=== PATIENT | female | born 1960 | race Caucasian/White ===

== ENCOUNTER 2024-03-12 12:21 | Outpatient (OUT) | payer OTHER, SELFPAY ==
--- NOTE | 2024-03-12 12:29 | ECG_ITS ---
[facility] Test Date: 2024-03-12 Pat Name: RINA BYNUM Department: Room: - Gender: Female [place]aser: : 1960 Requested By: ARTI RICHARDSON Order Number: [id number] Reading MD: JAMES MULLINS Measurements Intervals [place] Rate: 61 P: 20 SD: 147 QRS: -6 QRSD: 89 T: 10 QT: 414 QTc: 417 Interpretive Statements SINUS RHYTHM LOW QRS VOLTAGE IN PRECORDIAL LEADS [QRS DEFLECTION < 1.0 mV IN CHEST LEADS] NONSPECIFIC T-WAVE ABNORMALITY No previous ECG available for comparison Electronically Signed On 03-12-2024 22:49:58 EDT by JAMES MULLINS
--- NOTE | 2024-03-12 13:15 | P.GSHP_ITS ---
History of Present Illness History of Present Illness Chief complaint: uretheral stricture Narrative: Patient presents for preadmission testing. The patient reports a long history of urethral stricture with frequent urinary tract infections and many previous urethral dilations and cystoscopies in the past. The patient states recently she has had an increase of urgency and leaking of urine. She states she has intermittent dysuria as well. She denies fever, nausea, vomiting, or any other complaints. 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 Review of Systems ROS Narrative REVIEW OF SYSTEMS: Negative except as stated in HPI, ten or more systems reviewed. Constitutional: No fever, chills, weakness ENT: No sore throat or epistaxis Cardiovascular: No edema, chest pain, palpitations, or activity intolerance Respiratory: No shortness of breath, cough, or wheezing Musculoskeletal: No joint pain or swelling; chronic back and neck pain Gastrointestinal: No abdominal pain, constipation, diarrhea, or vomiting Neurological: No numbness, tingling, weakness, or headache Psychiatric: No mood changes PFSH PFS Medical History (Updated 03/12/24 @ 13:10 by Pina Pettit NP) Encounter for biopsy ?Z76.89 - Persons encountering health services in other specified circumstances (ICD-10) Neck pain ?M54.2 - Cervicalgia (ICD-10) Back pain ?M54.9 - Dorsalgia, unspecified (ICD-10) Insomnia ?G47.00 - Insomnia, unspecified (ICD-10) Major depressive disorder ?F32.9 - Major depressive disorder, single episode, unspecified (ICD-10) Anxiety ?F41.9 - Anxiety disorder, unspecified (ICD-10) COVID-19 ?U07.1 - COVID-19 (ICD-10) Migraine ?G43.909 - Migraine, unspecified, not intractable, without status migrainosus (ICD-10) Constipation ?K59.00 - Constipation, unspecified (ICD-10) Heartburn ?R12 - Heartburn (ICD-10) Nerve damage ?T14.8XXA - Other injury of unspecified body region, initial encounter (ICD- 10) Malignant hyperthermia ?T88.3XXA - Malignant hyperthermia due to anesthesia, initial encounter (ICD- 10) Dilation of urethra ?N36.8 - Other specified disorders of urethra (ICD-10) Urinary urgency ?R39.15 - Urgency of urination (ICD-10) Urge incontinence ?N39.41 - Urge incontinence (ICD-10) Lipoma ?D17.9 - Benign lipomatous neoplasm, unspecified (ICD-10) Incontinence ?R32 - Unspecified urinary incontinence (ICD-10) Incomplete bladder emptying ?R33.9 - Retention of urine, unspecified (ICD-10) Gall stone ?K80.20 - Calculus of gallbladder without cholecystitis without obstruction (ICD-10) Depression ?F32.A - Depression, unspecified (ICD-10) Chronic cystitis ?N30.20 - Other chronic cystitis without hematuria (ICD-10) Bladder pain ?R39.89 - Other symptoms and signs involving the genitourinary system (ICD- 10) Stricture of female urethra ?N35.92 - Unspecified urethral stricture, female (ICD-10) Surgical History (Updated 03/12/24 @ 12:56 by Pina Pettit NP) History of lumbar laminectomy ?Z98.890 - Other specified postprocedural states (ICD-10) H/O lumbar discectomy ?Z98.890 - Other specified postprocedural states (ICD-10) H/O cervical spinal arthrodesis ?Z98.1 - Arthrodesis status (ICD-10) Hx of tonsillectomy ?Z90.89 - Acquired absence of other organs (ICD-10) History of hysterectomy ?Z90.710 - Acquired absence of both cervix and uterus (ICD-10) H/O colonoscopy ?Z98.890 - Other specified postprocedural states (ICD-10) History of cholecystectomy ?Z90.49 - Acquired absence of other specified parts of digestive tract (ICD- 10) History of appendectomy ?Z90.49 - Acquired absence of other specified parts of digestive tract (ICD- 10) History of bladder suspension procedure ?Z98.890 - Other specified postprocedural states (ICD-10) ?Z87.448 - Personal history of other diseases of urinary system (ICD-10) H/O cystoscopy ?Z98.890 - Other specified postprocedural states (ICD-10) Family History (Updated 03/12/24 @ 12:56 by Pina Pettit NP) Other Family history of Parkinson disease Family history of breast cancer Family history of hypertension Family history of myocardial infarction Hypertriglyceridemia Malignant hyperthermia Mesothelioma Social History (Updated 03/12/24 @ 12:48 by Pina Pettit NP) Within the past year, how often did you have a drink containing alcohol: 2-4 times a month Smoking status: Never smoker Non-prescribed substance use: denies use 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 Highest level of school completed/degree received: Associate degree: academic program Meds Home Medications and Allergies Home Medications ?Medication ?Instructions ?Recorded ?Confirmed ?Type bupropion HCl 150 mg 24 hr tablet, 150 mg PO QPM 03/12/24 03/12/24 History extended release estradiol 0.01% (0.1 mg/gram) 0.25 appful vaginal DAILY 03/12/24 03/12/24 History vaginal cream estradiol-norethindrone acet 1 1 tab PO DAILY 03/12/24 03/12/24 History mg-0.5 mg tablet ([place]) lurasidone 20 mg tablet 20 mg PO QPM 03/12/24 03/12/24 History nitrofurantoin 100 mg PO DAILY 03/12/24 03/12/24 History monohydrate/macrocrystals 100 mg capsule pregabalin 100 mg capsule 100 mg PO Q8H 03/12/24 03/12/24 History Allergies Allergy/AdvReac Type Severity Reaction Status Date / Time meperidine [From Demerol] Allergy Hypotension Verified 03/12/24 12:44 morphine Allergy cardiac Verified 03/12/24 12:44 arrest Penicillins Allergy Hives Verified 03/12/24 12:44 prochlorperazine Allergy neurological Verified 03/12/24 12:44 [From Compazine] problem Sulfa (Sulfonamide Allergy Rash Verified 03/12/24 12:44 Antibiotics) Exam Narrative Exam Narrative: Constitutional: Awake, alert, comfortable, well-appearing, nontoxic, interactive, vital signs as charted Head: Normocephalic, atraumatic Neck: Supple, normal appearance, normal range of motion, no meningeal signs, no lymphadenopathy Respiratory: No respiratory distress, breath sounds clear Cardiovascular: Regular rate and rhythm, strong and regular heart tones Abdomen: Nontender, normal bowel sounds, soft, no CVA tenderness Musculoskeletal: Normal gait, no swelling or edema Skin: No rashes or induration, no lesions, only visible skin inspected Neuro: No neurological deficits, normal sensation Psychiatric: Oriented ?3, normal affect Assessment and Plan Assessment and Plan (1) Stricture of female urethra: (2) Bladder pain: (3) Chronic cystitis: (4) Malignant hyperthermia: Plan Cystoscopy, urethral dilation scheduled with Dr. Odom March 22, 2024.
[2024-03-12 13:20] LABS: Basophils Percent Auto 0.8 % (0.2-2.0); Eosinophils Absolute Auto 0.1 10^3/uL (0.0-0.7); Eosinophils Percent Auto 1.9 % (0.9-7.0); Hematocrit 38.9 % (36.0-48.0); Hemoglobin 12.9 g/dL (12.0-16.0); Immature Granulocytes Abs Auto 0.01 10^3/uL (0.00-0.03); Immature Granulocytes Pct Auto 0.2 % (0.0-0.5); Lymphocytes Absolute Auto 1.8 10^3/uL (1.2-3.8); Lymphocytes Percent Auto 38.4 % (20.5-60.0); Mean Corpuscular HGB Conc 33.2 g/dL (29.9-35.2); Mean Corpuscular Hemoglobin 30.8 pg (26.7-34.0); Mean Corpuscular Volume 92.8 fL (81.0-99.0); Mean Platelet Volume 9.6 fL (9.5-13.5); Monocytes Absolute Auto 0.4 10^3/uL (0.3-0.8); Monocytes Percent Auto 7.4 % (1.7-12.0); Neutrophils Absolute Auto 2.4 10^3/uL (1.4-6.5); Neutrophils Percent Auto 51.3 % (43.0-75.0); Platelet Count 218 10^3/uL (150-450); Red Blood Count 4.19 10^6/uL (4.20-5.40); Red Cell Distribution Width 13.1 % (11.0-15.0); White Blood Count 4.7 10^3/uL (4.0-11.0)
[2024-03-12 13:59] LABS: Anion Gap 17.2; BUN Creatinine Ratio 14.3; Calcium 8.9 mg/dL (8.5-10.1); Carbon Dioxide 22.6 mmol/L (21.0-32.0); Chloride 106 mmol/L (98-107); Estimated GFR (African America >60 (>=60); Estimated GFR (Non-African Ame 58 (>=60); Glucose 87 mg/dL (74-106); Potassium 3.8 mmol/L (3.5-5.1); Sodium 142 mmol/L (136-145)
== END 2024-03-12 12:22 | disposition home or self-care (01) ==
LOC: PST 12:24
PROVIDERS: PCP Internal Medicine; Visit Provider Urology
DX: Z01.810 Encounter for preprocedural cardiovascular examination (principal); Z01.812 Encounter for preprocedural laboratory examination; Z01.818 Encounter for other preprocedural examination; N35.92 Unspecified urethral stricture, female
CPT/HCPCS: 80048; 85025; 93005; G0463

== ENCOUNTER 2024-03-22 07:56 | Day surgery (SDC) | payer OTHER, SELFPAY ==
[2024-03-12 13:07] VITALS: BP 128/82; PULSE 58; TEMP 36.6; O2SAT 99; BMI 27.0
[2024-03-22 08:00] VITALS: BP 108/64; PULSE 72; TEMP 36.6; O2SAT 100; BMI 27.2
--- OUTSIDE RECORDS SUMMARY | 2024-03-22 08:06 | XMS_ITS | CCD ---
Author Organization [facility] Care Team Providers Care 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 Name Role Phone RON HELMS) Unavailable Unavailable RON HELMS) Unavailable Unavailable RON HELMS) Unavailable Unavailable RON HELMS) Unavailable Unavailable RON HELMS) Unavailable Unavailable RON HELMS) Unavailable Unavailable RON HELMS) Unavailable Unavailable Emanuel Haro Attending Unavailable Emanuel Haro Attending Unavailable FREDERICK JUNIOR Admitting Unavailable CEE, VASYL Attending Unavailable AUDIE TORRES Consulting Unavailable KARLEEY, EDWIN Primary Care Unavailable KAREN ESPARZA Consulting Unavailable CEE, VASYL Referring Unavailable RALOFSKY, EDWIN Primary Care Unavailable CEE, VASYL Referring Unavailable RALOFSKY, EDWIN Primary Care Unavailable CEE, VASYL Referring Unavailable RALOFSKY, EDWIN Primary Care Unavailable CEE, VASYL Referring Unavailable RALOFSKY, EDWIN Primary Care Unavailable CEE, VASYL Referring Unavailable RALOFSKY, EDWIN Primary Care Unavailable CEE, VASYL Admitting Unavailable CEE, VASYL Attending Unavailable CEE, VASYL Referring Unavailable RALOFSKY, EDWIN Primary Care Unavailable GILDARDO MCCLOUD Consulting Unavailable EMANUEL HARO Consulting Unavailable CEE, VASYL Referring Unavailable LEE, FREDERICK B Primary Care Unavailable CEE, VASYL Referring Unavailable LEE, FREDERICK B Primary Care Unavailable CEE, VASYL Referring Unavailable LEE, FREDERICK B Primary Care Unavailable CEE, VASYL Referring Unavailable LEE, FREDERICK B Primary Care Unavailable CEE, VASYL Referring Unavailable LEE, FREDERICK B Primary Care Unavailable CEE, VASYL Referring Unavailable LEE, FREDERICK B Primary Care Unavailable CEE, VASYL Referring Unavailable LEE, FREDERICK B Primary Care Unavailable CEE, VASYL Referring Unavailable LEE, FREDERICK B Primary Care Unavailable ECE, VASYL Referring Unavailable LEE, FREDERICK B Primary Care Unavailable CEE, VASYL Referring Unavailable LEE, FREDERICK B Primary Care Unavailable CEE, VASYL Referring Unavailable LEE, FREDERICK B Primary Care Unavailable CEE, VASYL Referring Unavailable LEE, FREDERICK B Primary Care Unavailable ECE, VASYL Referring Unavailable LEE, FREDERICK B Primary Care Unavailable CEE, VASYL Referring Unavailable LEE, FREDERICK B Primary Care Unavailable CEE, VASYL Referring Unavailable LEE, FREDERICK B Primary Care Unavailable CEE, VASYL Referring Unavailable LEE, FREDERICK B Primary Care Unavailable CEE, VASYL Referring Unavailable LEE, FREDERICK B Primary Care Unavailable CEE, VASYL Referring Unavailable LEE, FREDERICK B Primary Care Unavailable CEE, VASYL Referring Unavailable LEE, FREDERICK B Primary Care Unavailable LEE, FREDERICK B Primary Care Unavailable LEE, FREDERICK B Primary Care Unavailable LEE, FREDERICK B Primary Care Unavailable LEE, FREDERICK B Primary Care Unavailable LEE, FREDERICK B Primary Care Unavailable MARI ALVARADO N Admitting Unavailable CEE, VASYL Attending Unavailable GILDARDO MCCLOUD Consulting Unavailable LEE, FREDERICK B Primary Care Unavailable Lee, Frederick B Primary Care Provider ESTEFANY, RSP SHIVAM Referring Unavailable ESTEFANY, RSP SHIVAM Attending Unavailable LEE II, FREDERICK B Primary Care Unavailable LEE II, FREDERICK B Primary Care Unavailable HEATHER CANELA Attending Unavailable ESTEFANY, RSP SHIVAM Referring Unavailable LEE II, FREDERICK B Primary Care Unavailable SELF, SELF Referring Unavailable ALYSSIA OVERTON Attending Unavailable ESTEFANY, RSP SHIVAM Attending Unavailable LEE II, FREDERICK B Primary Care Unavailable SELF, SELF Referring Unavailable Lee Frederick BETHEA Primary Care Provider TANIA ., DR MORGAN Attending Unavailabl e KARASIK ., DR MORGAN Admitting Unavailabl e LEE, DR MCNAMARA Primary Care Unavailable KARASIK ., DR MORGAN Consulting Unavailabl e LEE, DR MCNAMARA Primary Care Unavailable KARASIK ., DR MORGAN Attending Unavailabl e LEE, DR MCNAMARA Consulting Unavailable KARASIK ., DR MORGAN Admitting Unavailabl e KARASIK ., DR MORGAN Consulting Unavailabl e LEE, DR MCNAMARA Consulting Unavailable LEE, DR MCNAMARA Attending Unavailable LEE, DR MCNAMARA Admitting Unavailable LEE, DR MCNAMARA Primary Care Unavailable ZIEBER, DR ABDOULAYE Perez Consulting Unavailable LEE, DR MCNAMARA Primary Care Unavailable LEE, DR MCNAMARA Consulting Unavailable LEE, DR MCNAMARA Attending Unavailable LEE, DR MCNAMARA Admitting Unavailable ZIEBER, DR ABDOULAYE Perez Consulting Unavailable KARASIK ., DR MORGAN Attending Unavailabl e KARASIK ., DR MORGAN Admitting Unavailabl e LEE, DR MCNAMARA Primary Care Unavailable KARASIK ., DR MORGAN Consulting Unavailabl e Jacks, Emmanuelle W Admitting Unavailable LEE, FREDERICK Primary Care Unavailable Emmanuelle Ballard W Attending Unavailable FREDERICK LEE Primary Care Unavailable MD Sunil Bautista Attending Unavailab MD Sunil Núñez Admitting Unavailab le FREDERICK LEE Primary Care Unavailable FREDERICK LEE Primary Care Unavailable MD Sunil Bautista Attending Unavailab MD Sunil Núñez Admitting Unavailab le Lee, II Frederick Primary Care Provider MD Eddie Hancock Attending Provider MD Ariana Brown Attending Provider Frederick Lee MD Primary Care Provider [phone] FREDERICK LEE Primary Care Physician AHAMMAD, COLLETTE Referring Unavailable FREDERICK LEE Primary Care Unavailable AHAMMAD, COLLETTE Referring Unavailable FREDERICK LEE Primary Care Unavailable AHAMMAD, COLLETTE Referring Unavailable FREDERICK LEE B Primary Care Unavailable AHAMMAD, COLLETTE Referring Unavailable FREDERICK LEE B Primary Care Unavailable AHAMMAD, COLLETTE Attending Unavailable AHAMMAD, COLLETTE Referring Unavailable FREDERICK LEE B Primary Care Unavailable KHADARS, EMMANUELLE W Referring Unavailable FREDERICK LEE B Primary Care Unavailable JACKS, EMMANUELLE W Referring Unavailable FREDERICK LEE B Primary Care Unavailable Jesus, II Frederick Primary Care Provider [phone] DO Harshal Kevin Attending Provider [phone] AsaAriana franklin Admitting Unavailable Ariana Brown Attending Unavailable Frederick Lee Primary Care Unavailable Frederick Lee Primary Care Unavailable Harshal Kevin Admitting Unavailable Harshal Kevin Attending Unavailable RICHARDSON, Spike R Attending Unavailable RICHARDSON, Spike R Attending Unavailable RICHARDSON, Spike R Attending Unavailable RICHARDSON, Spike R Attending Unavailable RICHARDSON, Spike R Attending Unavailable DUSTIN, CAM E Attending Unavailable RICHARDSON, Spike R Attending Unavailable RICHARDSON, Spike R Admitting Unavailable RICHARDSON, Spike R Referring Unavailable RICHARDSON, Spike R Attending Unavailable Orzech, Irina X Attending Unavailable Orzech, Irina X Admitting Unavailable DUSTINCAM E Attending Unavailable DUSTIN, CAM E Admitting Unavailable RICHARDSON, Spike R Attending Unavailable HARSHAL KEVIN Attending Unavailable HARSHAL KEVIN Referring Unavailable FREDERICK LEE Attending Unavailable LEEFREDERICK Attending Unavailable Allergies Allergy Classification Reported Allergen(s) Allergy Type Date of Onset Reaction(s) Facility Opioid [facility]on[facility] (2 sources) Meperidine; Translations: [meperidine] Drug Allergy Malignant hyperthermia (finding), Respiratory arrest (disorder) [facility] Penicillins (antibiotic) (1 source) Penicillins; Translations: [penicillins] Drug Allergy Eruption of skin (disorder) [facility] Prochlorperazine (1 source) Prochlorperazine; Translations: [prochlorperazine] Drug Allergy Unknown (qualifier value) [facility] Sulfonamides (antibiotic) (1 source) Sulfonamides (Antibiotic); Translations: [sulfa drugs] Drug Allergy Eruption of skin (disorder) [facility] (2 sources) meperidine; Translations: [MEPERIDINE (PF)] Drug Allergy 02-01-20 06 [facility] Repository (20 sources) morphine; Translations: [MORPHINE] Drug Allergy 02-01-20 06 Anaphylaxis, Itching, Respiratory arrest (disorder) [facility] Repository (20 sources) Penicillins; Translations: [PENICILLINS] Propensity to adverse reactions to drug (disorder) 02-01-20 06 Hives, Eruption of skin (disorder) [facility] Repository (6 sources) Sulfonamides (Antibiotic); Translations: [SULFA (SULFONAMIDE ANTIBIOTICS)] Propensity to adverse reactions to drug (disorder) 02-01-20 06 Rash [facility] Repository (9 sources) PROCHLORPERAZINE EDISYLATE; Translations: [PROCHLORPERAZINE EDISYLATE] Propensity to adverse reactions to drug (disorder) 02-01-20 06 Other (See Comments) [facility] Repository (2 sources) OTHER; Translations: [OTHER] Propensity to adverse reactions (disorder) 02-01-20 06 [facility] Repository (6 sources) HYDROmorphone Drug Allergy 12-05-19 14 Itching [place], [place] (18 sources) Meperidine; Translations: [meperidine] Drug Allergy 02-01-20 06 Other (See Comments), Malignant hyperthermia (finding) [place], [place] (1 source) Sulfonamides (Antibiotic) Propensity to adverse reactions to drug 11-07-19 13 Itching [place], [place] (6 sources) Sulfonamides (Antibiotic) Propensity to adverse reactions to drug 11-07-19 13 Itching [facility] Phone: (4 sources) penicillAMINE Drug Allergy 07-22-19 23 Rash [facility] Phone: (1 source) Acetaminophen / oxyCODONE Drug Allergy 02-07-20 14 [facility] Repository (1 source) fentaNYL Drug Allergy 02-07-20 14 [facility] Repository (1 source) HYDROmorphone Drug Allergy 02-07-20 14 [facility] Repository (1 source) Meperidine Drug Allergy 01-17-20 13 [facility] Repository (1 source) Prochlorperazine Drug Allergy 01-17-20 13 [facility] Repository (1 source) Sulfonamides (Antibiotic) Drug allergy (disorder) 01-17-20 13 [facility] Repository (15 sources) Prochlorperazine; Translations: [prochlorperazine] Drug Allergy 02-04-20 Unknown (qualifier value) [facility] Repository (11 sources) Sulfonamides (Antibiotic); Translations: [sulfa drugs] Propensity to adverse reactions to drug (disorder) Eruption of skin (disorder) [facility] Repository (4 sources) Metoclopramide; Translations: [metoclopramide] Drug Allergy 02-08-20 restlessness and axiety [facility] Medications Current Medications Medication Drug Class(es) Dates Sig (Normalized) Sig (Original) ciprofloxacin 500 mg oral tablet (4 sources) Quinolone Antimicrobial Start: 07-12-2023 take 1 tablet by mouth twice daily Cipro 500 mg Tab 500 mg = 1 tab(s), Oral, BID, start one day prior to procedure, # 10 tab(s), Refills(s) 0, Pharmacy: [id number], 164, cm, 07/12/23 7:37:00 EST, Height/Length Dosing, 80, kg, 07/12/23 7:37:00 EST, Weight Dosing Start Date: 07/12/23 Status: Ordered doxycycline monohydrate 100 mg oral capsule (1 source) Tetracycline-class Drug Start: 01-18-2020 take 1 capsule by mouth once daily doxycycline monohydrate 100 mg oral capsule 100 mg = 1 cap(s), Oral, Daily, # 30 cap(s), Refills(s) 0, Pharmacy: [facility] Start Date: 01/18/20 Status: Ordered estradiol 0.1 mg/ml vaginal cream (9 sources) Estrogen Start: 07-12-2023 estradiol 0.1 mg/g Vag Crm 1 gm, Vaginal, MonWedFri, 42.5 gm, Refill(s) 3, Apply a pea size amount around urethra, plunge 1 gm vaginally., [facility], 164, cm, 07/12/23 7:37:00 EST, Height/Length Dosing, 80, kg, 07/12/23 7:37:00 EST, Weight Dosing Start Date: 07/12/23 Status: Ordered Start: 05-17-2023 estradiol 0.1 mg/g Vag Crm 1 gm, Vaginal, MonFri, 42.5 gm, Refill(s) 3, Apply a pea size amount around urethra, plunge 1 gm vaginally., [facility], 164, cm, 05/17/23 9:12:00 EST, Height/Length Dosing, 80.8, kg, 05/17/23 9:12:00 EST, Weight Dosing Start Date: 05/17/23 Status: Ordered Premarin (12 sources) Estrogen Start: 04-27-2019 Premarin Oral, Daily, Refills(s) 0 Start Date: 04/27/19 Status: Ordered take 1 tablet by gricel once daily estrogens, conjugated, (PREMARIN) 0.9 MG tablet Take 0.9 mg by mouth daily 0 Active End: 02-10-2019 ESTROGENS CONJUGATED PO Lilly cations: Applies patch on Wednesdays and Sundays 1 patch Indications: Applies patch on Wednesdays and Sundays 0 02/10/2019 Discontinued (Stop Taking at Discharge) ibuprofen 600 mg oral tablet (1 source) Nonsteroidal Anti-inflammatory Drug Start: 08-08-2022 ibuprofen (ADVIL;MOTRIN) tablet 600 mg lithium carbonate 150 mg oral capsule (2 sources) Start: 02-10-2019 take 1 capsule by mouth twice daily at mealtime lithium 150 MG capsule Take 1 capsule by mouth 2 times daily (with meals) 30 capsule 2 02/10/2019 Active lurasidone hydrochloride 20 mg oral tablet (12 sources) Atypical Antipsychotic Start: 11-25-2022 take 1 tablet by mouth once daily Latuda 20 mg oral tablet 20 mg = 1 tab(s), Oral, Daily, # 30 tab(s), Refills(s) 0 Start Date: 05/17/23 Status: Ordered meloxicam 7.5 mg oral tablet (2 sources) Nonsteroidal Anti-inflammatory Drug Start: 09-20-2018 take 1 tablet by mouth twice daily at mealtime meloxicam (MOBIC) 7.5 MG tablet Take 1 tablet by mouth 2 times daily (with meals) 30 tablet 2 09/20/2018 Active methocarbamol 750 mg oral tablet (2 sources) Muscle Relaxant Start: 08-06-2022 End: 08-18-2022 take 1 tablet by mouth four times daily methocarbamol (ROBAXIN) 750 MG tablet Take 1 tablet by mouth 4 times daily for 10 days 40 tablet 0 08/08/2022 08/18/2022 Active 24 hr mirabegron 50 mg extended release oral tablet (5 sources) beta3-Adrenergic Agonist Start: 05-17-2023 take 1 tablet by mouth once daily Myrbetriq 50 mg oral tablet, extended release 50 mg = 1 tab(s), Oral, Daily, # 30 tab(s), Refills(s) 11, Pharmacy: [facility], 164, cm, 05/17/23 9:12:00 EST, Height/Length Dosing, 80.8, kg, 05/17/23 9:12:00 EST, Weight Dosing Start Date: 05/17/23 Status: Ordered nefazodone hydrochloride 50 mg oral tablet (2 sources) Serotonin Reuptake Inhibitor Start: 02-10-2019 take 1 tablet by mouth once daily nefazodone (SERZONE) 50 MG tablet Take 1 tablet by mouth Daily with supper 30 tablet 1 02/10/2019 Active nitrofurantoin, macrocrystals 25 mg / nitrofurantoin, monohydrate 75 mg oral capsule (4 sources) Nitrofuran Antibacterial Start: 10-18-2023 End: 05-31-2024 take 1 capsule by mouth once daily Macrobid 100 mg Cap 100 mg = 1 cap(s), Oral, Daily, X 60 day(s), # 60 cap(s), Refills(s) 1, Pharmacy: [facility], 164, cm, 02/01/24 11:14:00 EDT, Height/Length Dosing, 76, kg, 02/01/24 11:14:00 EDT, Weight Dosing Start Date: 02/01/24 Stop Date: 05/31/24 Status: Ordered norethindrone 0.35 mg oral tablet (2 sources) Start: 12-15-2022 Norethindrone (Contraceptive) Active 0.35 MG PO As Directed December 15, 2022 12:00am omeprazole 40 mg delayed release oral capsule (8 sources) Proton Pump Inhibitor Start: 12-15-2022 Omeprazole Active 40 MG PO As Directed December 15, 2022 12:00am Start: 12-15-2022 End: 07-22-2022 Omeprazole Active 40 MG PO A s Directed December 15, 2022 12:00am ondansetron (ZOFRAN-ODT) disintegrating tablet 4 mg (1 source) Start: 08-05-2022 ondansetron (Z OFRAN-ODT) disintegrating tablet 4 mg oxyCODONE hydrochloride 5 mg oral tablet (2 sources) Opioid Agonist Start: 08-08-2022 End: 2022 oxyCODONE (ROXICODONE) 5 MG immediate release tablet Indications: Acute post-operative pain , S/P cervical spinal fusion Take 1-2 tablets by mouth every 6 hours as needed for Pain for up to 7 days. Max Daily Amount: 40 mg 56 tablet 0 08/08/2022 2022 Active Start: 08-05-2022 oxyCODONE (SEBASTIAN ICODONE) immediate release tablet 5 mg predniSONE 20 mg oral tablet (1 source) Start: 08-08-2022 End: 08-23-2022 take 3 tablets by mouth once daily, then take 2 tablets by mouth once daily, then take 1 tablet by mouth once daily predniSONE (DELTASONE) 20 MG tablet Take 3 tablets by mouth daily for 5 days, THEN 2 tablets daily for 5 days, THEN 1 tablet daily for 5 days. 30 tablet 0 08/08/2022 08/23/2022 Active trospium chloride 20 mg oral tablet (1 source) Cholinergic Muscarinic Antagonist Start: 05-02-2019 take 1 tablet by mouth twice daily trospium 20 mg oral tablet 20 mg = 1 tab(s), Oral, BID, # 60 tab(s), Refills(s) 5, Pharmacy: [facility] Start Date: 05/02/19 Status: Ordered Completed/Discontinued Medications Medication Drug Class(es) Dates Sig (Normalized) Sig (Original) acetaminophen 325 mg oral tablet (1 source) Start: 08-05-2022 take 650 mg by mouth every six hours, then take 4000 mg by mouth every twenty-four hours 650 mg, Oral, EVERY 6 HOURS, First dose on Tue08/05/22 at 1630, Until Discontinued Maximum dose of acetaminophen is 4000 mg from all sources in 24 hours. Post-op bisacodyl 10 mg rectal suppository (1 source) Stimulant Laxative Start: 08-05-2022 take 10 mg rectal route once daily as needed 10 mg, Rectal, DAILY PRN, Starting on Tue08/05/22 at 1601, Until Discontinued, Constipation Second line therapy for constipation, After 24 hours, if no result from first line PRN therapy, give second line therapy in combination with first line therapy. Post-op 24 hr buPROPion hydrochloride 150 mg extended release oral tablet (19 sources) Aminoketone Start: 08-06-2022 take 150 mg by mouth once daily in the morning 150 mg, Oral, EVERY MORNING, First dose on Tue08/06/22 at 0900, Until Discontinued Do not crush or break. Post-op Start: 04-27-2019 take 300 mg by mouth once demian y Wellbutrin SR 300 mg, Oral, Daily, Refills(s) 0 Start Date: 04/27/19 Status: Ordered buPROPion (WELLB UTRIN XL) 300 MG extended release tablet Take 150 mg by mouth every morning 0 Active calcium chloride 0.0014 meq/ml / potassium chloride 0.004 meq/ml / sodium chloride 0.103 meq/ml / sodium lactate 0.028 meq/ml injectable solution (1 source) Start: 08-05-2022 End: 08-05-2022 lactated ringers IV soln infusion 1,000 mL ceFAZolin (ANCEF) 2000 mg in sterile water 20 mL IV syringe (1 source) Start: 08-05-2022 End: 08-06-2022 2,000 mg, IntraVENous, EVERY 8 HOURS, 2 doses, First dose on Marielena 08/05/22 at 2000, Last dose on Tue08/06/22 at 0400 Antimicrobial Indications: Surgical Prophylaxis Administer over 5 mins. Post-op cephalexin 500 mg oral capsule (1 source) Cephalosporin Antibacterial Start: 05-17-2023 End: 05-19-2023 take 1 tablet by mouth once daily Keflex 500 mg Cap 500 mg = 1 cap(s), Oral, Daily, take one tab day of procedure before procedure, take one tab day after procedure, X 2 day(s), # 2 cap(s), Refills(s) 0, Pharmacy: [facility], 164, cm, 05/17/23 9:12:00 EST, Height/Length Dosing, 80.8, kg, 05/17/23 9:12:00 EST, Weight Dosing Start Date: 05/17/23 Stop Date: 05/19/23 Status: Ordered cholecalciferol 0.05 mg oral tablet (4 sources) Vitamin D End: 07-22-2022 take 1 tablet by mouth once daily Cholecalciferol 2000 units TABS Take 2,000 Units by mouth daily 0 07/22/2022 Discontinued (Therapy completed) clonazePAM 0.5 mg oral tablet (1 source) Benzodiazepine Start: 10-09-2018 End: 02-06-2019 take 0.5 tablet by mouth three times daily as needed for anxiety clonazePAM (KLONOPIN) 0.5 MG tablet Indications: MDD (major depressive disorder), recurrent severe, 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 30 tablet 0 10/09/2018 02/06/2019 Discontinued (Therapy completed) dicyclomine hydrochloride 20 mg oral tablet (3 sources) Anticholinergic Start: 02-08-2020 End: 12-15-2022 take 20 mg by mouth once before mealtime Dicyclomine Discontinued 20 MG PO 3x/Day before meals & bedtime February 08, 2020 12:00am December 15, 2022 7:45am docusate sodium 50 mg / sennosides, long term 8.6 mg oral tablet (1 source) Start: 08-05-2022 take 1 tablet by mouth twice daily 1 tablet, Oral, 2 TIMES DAILY, First dose on Tue08/05/22 at 2100, Until Discontinued, Post-op 0.4 ml enoxaparin sodium 100 mg/ml prefilled syringe (1 source) Low Molecular Weight Heparin Start: 08-06-2022 inject 40 mg by subcutaneous injection once daily 40 mg, SubCUTAneous, DAILY, First dose on Tue08/06/22 at 0900, Until Discontinued Indication of Use: Prophylaxis-DVT/PE Pharmacy to dose if renal insufficiency present. Post-op 84 hr estradiol 0.77632 mg/hr / norethindrone acetate 0.0104 mg/hr transdermal system (5 sources) Estrogen Start: 08-05-2022 apply 1 dose transdermal route two times weekly, then apply 1 dose transdermal route once daily 1 patch, TransDERmal, TWICE WEEKLY (Once per day on Tue), First dose on Tue08/05/22 at 1630, Until Discontinued, Post-op apply 0.05-0.25 mg t ransdermal route once daily estradiol-norethindrone (COMBIPATCH) 0.0 5-0.25 MG/DAY Place 1 patch onto the skin Twice a Week Tuesday and 0 Active 2 ml fentaNYL 0.05 mg/ml injection (1 source) Opioid Agonist Start: 08-05-2022 End: 08-05-2022 fentaNYL (SUBLIMAZE) injection 25 mcg 1 ml HYDROmorphone hydrochloride 1 mg/ml cartridge (1 source) Opioid Agonist Start: 08-05-2022 End: 08-05-2022 HYDROmorphone (DILAUDID) injection 0.5 mg 1 ml ketorolac tromethamine 30 mg/ml cartridge (1 source) Nonsteroidal Anti-inflammatory Drug, Cyclooxygenase Inhibitor Start: 08-05-2022 End: 08-06-2022 ketorolac (TORADOL) injection 15 mg Lactobacillus acidophilus (1 source) Start: 10-09-2018 End: 02-06-2019 take 4 tablets by mouth three times daily lactobacillus acidophilus (FLORANEX) Take 4 tablets by mouth 3 times daily 0 10/09/2018 02/06/2019 Discontinued (LIST CLEANUP) loperamide hydrochloride 2 mg oral capsule (3 sources) Opioid Agonist Start: 02-08-2020 End: 12-15-2022 take 2 mg by mouth every two hours Loperamide Discontinued 2 MG PO Q2H 20 February 08, 2020 12:00am December 15, 2022 7:45am magnesium hydroxide 80 mg/ml oral suspension (1 source) Start: 08-05-2022 take 30 mL by mouth once daily as needed 30 mL, Oral, DAILY PRN, Starting on Tue08/05/22 at 1601, Until Discontinued, Constipation First line therapy for constipation. Post-op melatonin 5 mg oral tablet (16 sources) Start: 02-04-2020 End: 12-15-2022 take 5 mg by mouth at bedtime Melatonin Discontinued 5 MG PO Bedtime February 04, 2020 12:00am December 15, 2022 7:46am Start: 05-02-2019 Melatonin Once a day (at bedtime), Refills(s) 0 Start Date: 05/02/19 Status: Ordered Start: 10-09-2018 End: 07-22-2022 take 5 tablets by mouth once daily as needed for sleep melatonin 1 MG tablet Take 5 tablets by mouth nightly as needed for Sleep 0 10/09/2018 07/22/2022 Discontinued (Therapy completed) mirtazapine 15 mg oral tablet (1 source) End: 02-10-2019 take 7.5 mg by mouth once daily mirtazapine (REMERON) 15 MG tablet Take 7.5 mg by mouth nightly 0 02/10/2019 Discontinued (Stop Taking at Discharge) nortriptyline 25 mg oral capsule (1 source) Tricyclic Antidepressant Start: 11-16-2018 End: 02-10-2019 nortriptyline (PAMELOR) 25 MG capsule 1 caps qam and 3 caps at night 120 capsule 1 11/16/2018 02/10/2019 Discontinued (Stop Taking at Discharge) pantoprazole 40 mg delayed release oral tablet (3 sources) Proton Pump Inhibitor Start: 08-05-2022 take 40 mg by mouth once daily 40 mg, Oral, DAILY, First dose on Marielena 08/05/22 at 1630, Until Discontinued Do not crush or break. Post-op Start: 10-10-2018 take 1 tablet by gricel th once daily before breakfast pantoprazole (PROTONIX) 40 MG tablet Take 1 tablet by mouth every morning (before breakfast) 30 tablet 1 10/10/2018 Active pregabalin 75 mg oral capsule (20 sources) Start: 08-05-2022 take 150 mg by mouth three times daily 150 mg, Oral, 3 TIMES DAILY, First dose on Marielena 08/05/22 at 1630, Until Discontinued, Post-op Start: 04-27-2019 take 150 mg by mouth three times daily Lyrica 150 mg, Oral, TID, Refills(s) 0 Start Date: 04/27/19 Status: Ordered promethazine hydrochloride 25 mg oral tablet (3 sources) Phenothiazine Start: 02-08-2020 End: 12-15-2022 take 25 mg by mouth three times daily Promethazine Discontinued 25 MG PO Three times daily February 08, 2020 12:00am December 15, 2022 7:47am 5 ml sodium chloride 9 mg/ml injection (4 sources) Start: 08-05-2022 take 1 dose intravenously twice daily 5-40 mL, IntraVENous, EVERY 12 HOURS SCHEDULED (2 times per day), First dose on Marielena 08/05/22 at 2100, Until Discontinued For Line Patency: Peripheral IV = 5 mL; Midline or Central Line = 10 mL/lumen.&nbs p; If following IV push medication, administer flush at same rate as the IV push. Flush volume is determined by type of infusion therapy being given. &nbsp ;For non-viscous solutions use: Periphe ral IV = 5 mL Midline or Central Line = 10 mL/lumen &nb sp;For viscous solutions (i.e. blood components, parenteral nutrition, contrast media, or after obtaining blood sample) use: Periphe ral IV = 10 mL Midline or Central Line = 20 mL/lumen Post-op Start: 08-05-2022 End: 08-07-2022 IntraVENous, at 100 mL/hr, CONTINUOUS, Starting on Marielena 08/05/22 at 1630, Post-op Start: 08-05-2022 IntraVENous, a t 5-250 mL/hr, PRN, if patient receiving piggyback infusions and maintenance fluids are not ordered OR KVO fluids to protect IV site / prevent frequent line interruptions/ long duration, Starting on Marielena 08/05/22 at 1601 For piggyback infusion, administer at same rate as piggyback for a total of 25 mL. Enter 25 mL into dose field and piggyback rate into rate field of order. If piggyback is infusing at a rate less than 100 mL/hr, enter 25 mL into dose field and 100 mL/hr into rate field of order. For KVO fluids, enter rate of 20 mL/hr or less into rate field of order. Post-op Start: 08-05-2022 take 5-40 mL intrave nously once as needed 5-40 mL, IntraVENous, PRN, Starting on Marielena 08/05/22 at 1601, Until Discontinued, Line Care, After every IV line use For Line Patency: Peripheral IV = 5 mL; Midline or Central Line = 10 mL/lumen. If following IV push medication, administer flush at same rate as the IV push. Flush volume is determined by type of infusion therapy being given. For non-viscous solutions use: Peripheral IV = 5 mL Midline or Central Line = 10 mL/lumen For viscous solutions (i.e. blood components, parenteral nutrition, contrast media, or after obtaining blood sample) use: Peripheral IV = 10 mL Midline or Central Line = 20 mL/lumen Post-op vitamin b12 1 mg oral tablet (4 sources) Vitamin B12 End: 07-22-2022 take 1 tablet by mouth once daily vitamin B-12 (CYANOCOBALAMIN) 1000 MCG tablet Take 1,000 mcg by mouth daily 0 07/22/2022 Discontinued (Therapy completed) Problems Active Problems Problem Classification Problem Date Documented Da te Episodic/Chronic Biliary tract disease (9 sources) Gallstone 04-27-2019 Episodic Calculus of urinary tract (18 sources) History of calculus of kidney; Translations: [Kidney stone] 04-27-2019 Episodic Essential hypertension (9 sources) Hypertensive disorder 04-27-2019 Chronic Fluid and electrolyte disorders (6 sources) Dehydration; Translations: [Dehydration] 02-05-2020 Episodic Genitourinary symptoms and ill-defined conditions (20 sources) Overflow incontinence; Translations: [Urge incontinence] Onset: 01-14-2017 Chronic Genitourinary symptoms and ill-defined conditions (20 sources) Retention of urine, unspecified; Translations: [Urgent desire to urinate] Onset: 01-14-2017 Episodic Headache; including migraine (9 sources) Migraine 04-27-2019 Chronic Immunizations and screening for infectious disease (1 source) Encounter for screening for human papillomavirus (HPV); Translations: [ENC SCREENING HUMAN PAPILLOMAVIRUS] Onset: 10-09-2022 Episodic Mood disorders (20 sources) Severe recurrent major depression without psychotic features; Translations: [Recurrent major depressive episodes] Onset: 09-16-2018 02-07-2019 Chronic Other and unspecified benign neoplasm (9 sources) Lipoma (clinical) 04-27-2019 Episodic Other bone disease and musculoskeletal deformities (4 sources) Other specified disorders of bone density and structure, unspecified site; Translations: [OTH D/O BONE DEN STRUCT UNS SITE] Onset: 07-19-2022 Episodic Other connective tissue disease (1 source) History of cervical spine fusion; Translations: [Arthrodesis status] Episodic Other gastrointestinal disorders (1 source) Irritable bowel syndrome with diarrhea; Translations: [Irritable bowel syndrome with diarrhea] Onset: 01-14-2017 Chronic Other gastrointestinal disorders (3 sources) History of bypass of stomach; Translations: [Bariatric surgery status] 02-05-2020 Episodic Other hereditary and degenerative nervous system conditions (7 sources) Restless legs; Translations: [Restless legs syndrome] Onset: 09-17-2018 09-17-2018 Chronic Other hereditary and degenerative nervous system conditions (3 sources) 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; Translations: [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] Onset: 01-05-2023 Chronic Other nervous system disorders (1 source) Acute postoperative pain; Translations: [Other acute postprocedural pain] Episodic Other non-traumatic joint disorders (7 sources) Arthropathy; Translations: [Arthropathy, unspecified] Onset: 08-02-2013 08-02-2013 Chronic Other nutritional; endocrine; and metabolic disorders (1 source) Morbid (severe) obesity due to excess calories; Translations: [Morbid (severe) obesity due to excess calories] Onset: 01-14-2017 Chronic Other screening for suspected conditions (not mental disorders or infectious disease) (5 sources) Encounter for screening for malignant neoplasm of cervix; Translations: [Encounter for screening mammogram for malignant neoplasm of breast] Onset: 10-05-2022 Episodic Residual codes; unclassified (7 sources) Chronic pain; Translations: [Other chronic pain] Onset: 09-17-2018 09-17-2018 Chronic Residual codes; unclassified (1 source) History of surgical procedure on cervical spine; Translations: [Other specified postprocedural states] Episodic Spondylosis; intervertebral disc disorders; other back problems (16 sources) Lumbar post-laminectomy syndrome; Translations: [Displacement of lumbar intervertebral disc without myelopathy] Onset: 04-12-2013 09-17-2018 Chronic Unclassified (1 source) Unknown / UNK(Unknown) Onset: 09-30-2017 Unclassified (1 source) Encounter for screening for malignant neoplasm of colon; Translations: [Encounter for screening for malignant neoplasm of colon] Onset: 12-15-2022 Urinary tract infections (15 sources) Chronic cystitis; Translations: [Other chronic cystitis without hematuria] Onset: 05-17-2023 Chronic Urinary tract infections (14 sources) Postinfective urethral stricture of female; Translations: [Postinfective urethral stricture, not elsewhere classified, female] Onset: 05-16-2023 Episodic Viral infection (3 sources) Disease caused by 2019-nCoV; Translations: [COVID-19] 02-04-2020 Episodic Past or Other Problems Problem Classification Problem Date Documented Da te Episodic/Chronic Abdominal hernia (1 source) Diaphragmatic hernia without obstruction or gangrene; Translations: [Diaphragmatic hernia without obstruction or gangrene] Onset: 01-14-2017 Episodic Malaise and fatigue (2 sources) Other malaise; Translations: [Other fatigue] Onset: 12-18-2021 Episodic Medical examination/evaluation (1 source) Encounter for other preprocedural examination; Translations: [Encounter for other preprocedural examination] Onset: 01-14-2017 Episodic Other and unspecified benign neoplasm (7 sources) Lipoma of spinal cord; Translations: [Benign lipomatous neoplasm of other sites] Onset: 09-17-2018 09-17-2018 Episodic Other connective tissue disease (7 sources) Muscle pain; Translations: [Myalgia, unspecified site] Onset: 09-17-2018 09-17-2018 Episodic Other connective tissue disease (4 sources) Other muscle spasm; Translations: [OTHER MUSCLE SPASM] Onset: 01-28-2022 Episodic Other connective tissue disease (1 source) Myalgia, unspecified site; Translations: [MYALGIA UNSPECIFIED SITE] Onset: 12-18-2021 Episodic Other gastrointestinal disorders (3 sources) Functional diarrhea; Translations: [Full incontinence of feces] Onset: 01-14-2017 Episodic Other nervous system disorders (1 source) Other acute postprocedural pain; Translations: [Other acute postprocedural pain] Onset: 01-24-2017 Episodic Other non-traumatic joint disorders (7 sources) Multiple joint pain; Translations: [Pain in unspecified joint] Onset: 09-17-2018 09-17-2018 Episodic Other non-traumatic joint disorders (1 source) Pain in unspecified joint; Translations: [PAIN IN UNSPECIFIED JOINT] Onset: 12-18-2021 Episodic Residual codes; unclassified (7 sources) H/O Spinal surgery; Translations: [Other specified postprocedural states] Onset: 09-17-2018 09-17-2018 Episodic Residual codes; unclassified (1 source) Other specified postprocedural states; Translations: [Other specified postprocedural states] Onset: 10-06-2022 Episodic Spondylosis; intervertebral disc disorders; other back problems (20 sources) Chronic low back pain; Translations: [Low back pain] Onset: 09-17-2018 09-17-2018 Episodic Unclassified (1 source) Personal history of other specified conditions; Translations: [Personal history of other specified conditions] Onset: 01-14-2017 Episodic Results Test Name Value Interpretation Reference Range Facility Ambulatory Visit Summaryon 0 02-01-2024 Ambulatory Visit Summary Ambulatory Visit Summary RINA LEE :1960 Visit Date:02/01/2024 Ambulatory Visit Instructions Your Diagnosis Postinfective urethral 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 Bladder pain Chronic cystitis without hematuria Urge incontinence Incomplete bladder emptying Your Care Team Attending Physician - Spike RICHARDSON MD Primary Care Physician - FREDERICK LEE MD This Is Your Medications List estradiol topical (estradiol 0.1 mg/g Vag Crm) nitrofurantoin (Macrobid 100 mg Cap) Contact prescribing physician if questions or concerns buPROPion (Wellbutrin SR) conjugated estrogens (Premarin) lurasidone (Latuda 20 mg oral tablet) melatonin (Melatonin) pregabalin (Lyrica) Procedures Performed Dilation of urethra (10/18/2023), Cystoscopy (07/12/2023), Cystourethroscopy with dilation of urethral stricture (04/20/2016), Urodynamics (04/01/2016), Cystourethroscopy with dilation of urethral stricture (08/16/2005), Suspension of bladder (01/20/2004), Cystourethroscopy with dilation of urethral stricture (01/07/2004), Urodynamics (12/30/2003), Appendectomy, Cholecystectomy, Colonoscopy, Cystourethroscopy with dilation of urethral stricture, Hysterectomy, Procedure on back, T and A (tonsillectomy and adenoidectomy) postoperative education. Discharge Vitals Temperature (Temporal Artery) 36 ?C Heart Rate (Peripheral) 72 Blood Pressure 126/76 Height 164 cm Height 65 in Weight 76 kg Weight 167.2 lb BMI 28.26 What to do next You Need to Schedule the Following Appointments Follow Up with DEBRA BETHEA, Spike Perez, URJose When: Where: [facility] [address] [place] [address]- Medications What How Much When Instructions Unchanged estradiol topical (estradiol 0.1 mg/ g Vag Crm) 1 Gram Vaginal Tuesday Apply a pea size amount around urethra, plunge 1 gm vaginally. Unchanged nitrofurantoin (Macrobid 100 mg Cap) 1 Capsules By Mouth Every day Duration: 60 Days Pickup at [facility] Unchanged buPROPion (Wellbutrin SR) 300 Milligram By Mouth Every day Contact prescribing physician if questions or concerns Unchanged conjugated estrogens (Premarin) By Mouth Every day Contact prescribing physician if questions or concerns Unchanged lurasidone (Latuda 20 mg oral tablet) 1 Tablets By Mouth Every day Contact prescribing physician if questions or concerns Unchanged melatonin (Melatonin) Once a day (at bedtime) Contact prescribing physician if questions or concerns Unchanged pregabalin (Lyrica) 150 Milligram By Mouth 3 times a day Contact prescribing physician if questions or concerns Pharmacy Information [facility]: [address] [place], [place] [id number] [phone] Allergies meperidine (Malignant hyperthermia) morphine (Respiratory arrest) penicillins (Rash) prochlorperazine (Unknown) sulfa drugs (Rash) Problems Ongoing - Any problem that you are currently receiving treatment for. Bladder pain Chronic cystitis without hematuria Depression Gall stones Headache, migraine History of kidney stones Hypertension Incomplete bladder emptying Incontinence without sensory awareness Lipoma Nephrolithiasis Postinfective urethral 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 Urge incontinence Urinary urgency Patient Survey You may receive a survey via text or e-mail asking about your office visit. Please share your experience with us by completing your survey. We appreciate your feedback and thank you for choosing us for your care. Education Materials Urethral Dilation Urethral dilation is a procedure to stretch open (dilate) the urethra. The urethra is the tube that drains urine from the bladder out of the body. In women, the urethra opens above the vaginal opening. In men, the urethra opens at the tip of the penis. Urethral dilation is usually done to treat narrowing of the urethra (urethral stricture), which can make it difficult to pass urine. Urethral dilation widens the urethra so that you can pass urine normally. Urethral dilation is done through the urethral opening. There are no incisions made during the procedure. Tell a health care provider about: ? Any allergies you have. ? All medicines you are taking, including vitamins, herbs, eye drops, creams, and [id number]-xeu-[id number] medicines. ? Any problems you or family members have had with anesthetic medicines. ? Any blood disorders you have. ? Any surgeries you have had. ? Any medical conditions you have. ? Whether you are or may be . What are the risks? Generally, this is a safe procedure. However, problems may occur, including: ? Bleeding. ? Infection. ? A return of urethral stricture, which requires repeating the dilation procedure. ? Damage to the urethra, which may require reconstructive surgery. ? Allergic reactions to medicines. What happens before the procedure? Medicines (more content not included)... Normal [facility] Ambulatory Visit Summary Ambulatory Visit Summary RINA LEE :1960 Visit Date:02/01/2024 Ambulatory Visit Instructions Your Diagnosis Postinfective urethral 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 Bladder pain Chronic cystitis without hematuria Urge incontinence Incomplete bladder emptying Your Care Team Attending Physician - Spike RICHARDSON MD Primary Care Physician - FREDERICK LEE MD This Is Your Medications List estradiol topical (estradiol 0.1 mg/g Vag Crm) nitrofurantoin (Macrobid 100 mg Cap) Contact prescribing physician if questions or concerns buPROPion (Wellbutrin SR) conjugated estrogens (Premarin) lurasidone (Latuda 20 mg oral tablet) melatonin (Melatonin) pregabalin (Lyrica) Procedures Performed Dilation of urethra (10/18/2023), Cystoscopy (07/12/2023), Cystourethroscopy with dilation of urethral stricture (04/20/2016), Urodynamics (04/01/2016), Cystourethroscopy with dilation of urethral stricture (08/16/2005), Suspension of bladder (01/20/2004), Cystourethroscopy with dilation of urethral stricture (01/07/2004), Urodynamics (12/30/2003), Appendectomy, Cholecystectomy, Colonoscopy, Cystourethroscopy with dilation of urethral stricture, Hysterectomy, Procedure on back, T and A (tonsillectomy and adenoidectomy) postoperative education. Discharge Vitals Temperature (Temporal Artery) 36 ?C Heart Rate (Peripheral) 72 Blood Pressure 126/76 Height 164 cm Height 65 in Weight 76 kg Weight 167.2 lb BMI 28.26 What to do next You Need to Schedule the Following Appointments Follow Up with DEBRA BETHEA, Spike Perez, URL When: Where: [facility] [address] [place] [address]- Medications What How Much When Instructions Unchanged estradiol topical (estradiol 0.1 mg/ g Vag Crm) 1 Gram Vaginal Tuesday Apply a pea size amount around urethra, plunge 1 gm vaginally. Unchanged nitrofurantoin (Macrobid 100 mg Cap) 1 Capsules By Mouth Every day Duration: 60 Days Unchanged buPROPion (Wellbutrin SR) 300 Milligram By Mouth Every day Contact prescribing physician if questions or concerns Unchanged conjugated estrogens (Premarin) By Mouth Every day Contact prescribing physician if questions or concerns Unchanged lurasidone (Latuda 20 mg oral tablet) 1 Tablets By Mouth Every day Contact prescribing physician if questions or concerns Unchanged melatonin (Melatonin) Once a day (at bedtime) Contact prescribing physician if questions or concerns Unchanged pregabalin (Lyrica) 150 Milligram By Mouth 3 times a day Contact prescribing physician if questions or concerns Allergies meperidine (Malignant hyperthermia) morphine (Respiratory arrest) penicillins (Rash) prochlorperazine (Unknown) sulfa drugs (Rash) Problems Ongoing - Any problem that you are currently receiving treatment for. Bladder pain Chronic cystitis without hematuria Depression Gall stones Headache, migraine History of kidney stones Hypertension Incomplete bladder emptying Incontinence without sensory awareness Lipoma Nephrolithiasis Postinfective urethral 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 Urge incontinence Urinary urgency Patient Survey You may receive a survey via text or e-mail asking about your office visit. Please share your experience with us by completing your survey. We appreciate your feedback and thank you for choosing us for your care. Education Materials Urethral Dilation Urethral dilation is a procedure to stretch open (dilate) the urethra. The urethra is the tube that drains urine from the bladder out of the body. In women, the urethra opens above the vaginal opening. In men, the urethra opens at the tip of the penis. Urethral dilation is usually done to treat narrowing of the urethra (urethral stricture), which can make it difficult to pass urine. Urethral dilation widens the urethra so that you can pass urine normally. Urethral dilation is done through the urethral opening. There are no incisions made during the procedure. Tell a health care provider about: ? Any allergies you have. ? All medicines you are taking, including vitamins, herbs, eye drops, creams, and ixyg-fid-dtwoons medicines. ? Any problems you or family members have had with anesthetic medicines. ? Any blood disorders you have. ? Any surgeries you have had. ? Any medical conditions you have. ? Whether you are or may be . What are the risks? Generally, this is a safe procedure. However, problems may occur, including: ? Bleeding. ? Infection. ? A return of urethral stricture, which requires repeating the dilation procedure. ? Damage to the urethra, which may require reconstructive surgery. ? Allergic reactions to medicines. What happens before the procedure? Medicines Ask your health care provider about: ? Changing or stopping your regular medicines. This is especially important if you are taking diabe (more content not included)... Normal [facility] Urology Office/Clinic Noteon 02-01-2024 Urology Office/Clinic Note Urology Office/Clinic Note Chief Complaint 3 month follow up to UD done 10/18/23 HPI Staff Rina is a 63 y.o. female here for 3 month follow up. Previous Dx: chronic cystitis, history of kidney stones, incomplete bladder emptying, incontinence w/o sensory awareness, nephrolithiasis, urethral stricture, urge incontinence, urinary urgency. S/P UD done on 10/18/23, urodynamics done on 04/01/16. Urine culture 12/16/23 negative. PVR today 266ml. Dysuria: sometimes pain and burning Incomplete bladder emptying: denies Hematuria: denies visible blood Frequency: sometimes every 5 minutes Urgency: yes Nocturia: once a night Stream: denies hesitancy Leaking: yes Post void dripping: yes Wearing pads/ Depends: sometimes has to wear pad Urge incontinence: denies Stress incontinence: denies Incontinence without Sensory Awareness: denies Abdominal pain: a lot of pain w/ urination Flank pain: Lt sided pain that comes and stays for a couple of days and then goes away Sexual complaints: _ History of Present Illness Tests reviewed: reviewed UA I have reviewed the previous health record information and history for this patient from Dr. Richardson. I have reviewed and verified the staff HPI to be accurate for this encounter. Review of Systems PHQ Score Initial Depression Screen Score: 0 SCORE ROS - Provider Constitutional: denies weight loss, denies hot flashes. Eyes: denies eye problems. Gastrointestinal: denies nausea, denies vomiting. Cardiovascular: denies chest pain or angina. Integumentary: no dryness Musculoskeletal: denies musculoskeletal symptoms. ENMT: denies otolaryngeal symptoms. Respiratory: no shortness of breath. Heme/Lymph: denies easy bleeding tendency, denies easy bruising tendency. Psychiatric: no confusion, no anxiety. Genitourinary: See HPI. Physical Exam Vitals & Measurements T: 36 ?C(Temporal Artery) HR: 72(Peripheral) BP: 126/76 HT: 65 in HT: 164 cm WT: 76 kg WT: 167.2 lb BMI: 28.26 General Appearance: alert, no distress, well nourished, well developed female. Assessment/Plan 1. Postinfective urethral 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 (N35.12: Postinfective urethral stricture, not elsewhere classified, female) UD was attempted to be done at [facility] 09/13/23 - only able to do 22-26 Fr, pt could not tolerate any further. [1] Last UD 10/18/23. Discussed UD under anesthesia since pt cannot tolerate being dilated after a certain extent. -Will schedule cysto with UD under anesthesia. The risks and benefits for cystoscopy have been discussed. The risks include bleeding, infection, and irritation of the bladder and urinary channel, among others. The patient, after being informed of procedural details and after questions have been answered, wishes to proceed. Full informed consent has been obtained. Will order Mac anesthesia. 2. Bladder pain (R39.89: Other symptoms and signs involving the genitourinary system) Pt has dooley of pain over bladder when she voids. Stinging pain. Does not happen every time. At onset she thought it was due to UTI but cx was neg. 3. Chronic cystitis without hematuria (N30.20: Other chronic cystitis without hematuria) Ucx: 09/28/23 - >100k S. epidermis, treated with Doxycycline 12/14/23 - neg UA today negative for blood and infection. Started Macrobid 100 mg bid x 3 mos at prior OV. Using Premarin cream (med list has estradiol listed). -Cont Macrobid until UD under anesthesia. [facility]ill sent to [facility]. 4. Urge incontinence (N39.41: Urge incontinence) Failed Myrbetriq 50mg qd due to expense and continued leakage. Also failed other bladder med due to SE (not sure which one). [1] S/p first Botox 100u 09/13/23. Has urge in the morning to void, bladder is very full. No nocturia. Urgency is the worst in the morning till noon. 5. Incomplete bladder emptying (R33.9: Retention of urine, unspecified) PVR (cc): 09/28/23 - 246 10/18/23 - 301 02/01/24 - 266 Follow-up With When Contact Information DEBRA BETHEA, Spike Perez, URL [facility] [address] [place] [address]- Additional Instructions: schedule cysto with UD under anesthesia Patient Education Urethral Dilation I, Maria D Newman, personally scribed for Dr. Richardson on 02/01/2024 11:57:50. . Documentation recorded by the scribe, Maria D Newman, accurately reflects the services(s) I performed and decisions made by me. Authenticated by Dr. Richardson on 02/01/2024 11:59:37. Problem List/Past Medical History Ongoing Bladder pain Chronic cystitis without hematuria Depression Gall stones Headache, migraine History of kidney stones Hypertension Incomplete bladder emptying Incontinence without sensory awareness Lipoma Nephrolithiasis Postinfective urethral 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 Urge incontinence Urinary urgency Historical No qualifying data Procedure/Surgical History Dilation of urethra (10/18/2023), Cystoscopy (07/12/ (more content not included)... Normal [facility] Comment on above: Result Comment: Elec tronically Signed By: Spike RICHARDSON MD\.br\Date and Time Signed: 02/01/24 11:59 EDT\.br\Electronically Co-Signed By: Maria D Newman\.br\Date and Time Co-Signed: 02/01/24 11:58 EDT Coding Summary.on 12-21-2023 Coding Summary. [id number] [id number] IC8+FU4tJSKpRxkveWYyn7T8xCV9O9 8cjp4qABsdtEQ0UDSlFeVzgddks6lg oMo3PJcxEwlxCpYi PCTefY61JBC7sH08Um58xGRflVHgo3 nluKs2RwBlMRCwHQD0pSbqPPjeh1Ox EYCoN68otSIzj2T5 CEEwuJfjrEMtPrZhyTC4dB0gJQzrzi vyy0vhjoplAns5up08jDGyd9B8mHP5 B6LyupQ7ZQKvcTDm WflxpQXXiD1gmycmr2wyhepgLpDcIB ByKNz2GBb2SKIdvWvcVgMaIL91OGK1 TFFyvnSwS9RaHROk lUutRkH2a0P9Zb0OC6UPEyvyF8YYDN FSWTwvdGQ+NQ45pk30C0KwHqyiWvs1 VXMjBPO8rOW6xB6z WTFiUHtby2L6nXF2W5BmtuAwmi6sp9 uvWSGqDAqqH30shIBgp5F3PWHjmTT8 OTXguByhYwZxqT52 Oyc+DEStbEchx9FeInhkx7nrf3lxzT y2KvyrDIAnnlKghNvbOZD4x4OzUo9m XGOurHZ4nZS4uD0s NbEePpE9ZJffM343XwGcaISrEtiiG7 9bS4DrjRK+PZQpHyc6BJAgqLrgJA4i I8CpLQZlfdlhbORa oSreZM9aPXRtifoeHOGyuS2gEGEdU6 n3ReReRoF2GRbqO3MgFSZhcgkcEh18 aD7wAfOeUiU5HRic U8QjgnR7TFBjyJYbVEspIDX0O62bz9 C3XDHhXMTtNFS4oXP3fY4caUcjeouw bGVmdDsgdmVydGlj JRggELwoJ869RHCqdSjtDwVbCVtlBb BEYXRlOiAgMDYvMTkvMjAyNDwvdGQ+ CADfLVQ5rKxnUUNt pFJwWJssXh1uyLuxmMfxPJ8rDDBvzu niWGDerY0yKRTmeNColFdgPH5hCDYs esjla164CgLjKHE4 WPVxvDSuC5AfzK8pScEvAMUtUCVeK2 WglSOpEAskC358WXlgZuC0RQSrrdNx Z4ZnLSQwoYbmQwG5 c5V9Pt2Wl1IuvhuzE9IfxHRoOkQgCg tpGMj7A3FnEgsjaBN+ZS96TNHgFG23 EVh2EMS7fCcrZPys IAAvD4KgvD8fQsJvOEVrGDBzGnp+PH RhYmxlIHdpZHRoPScxMDAlJyBzdHls PA4pZg8uPULnHRDd mByzdPTqLzEtz7shSSAfMQjbGP1qbG jnF5QtqHP9LXPua4z1Pj69F33lO5He dXA+APUdcRI9wIO1 sM7fLeUxPxL5BVoeZ940RlFawGXmMi vlx6wdu5fuwKd1KtC9DOYsgaPiyFmu TDX5e6YyNv02H18m AZjkDVXyLWOnRJYtMWTzoReaey7geE 9wIi8+BCHucJX8xLQ3zR2gUsUcKmQ0 VTisQ550CwTpvQNj Qctxx0wtg7wcwMd9PtYxNTKinmBipU niNZX1t3VvCp14G1WemEtga8JmUve7 nx28xBOwc6B9rPQ3 P9KiBJNfychuvDVmsPykWB4lXFHzym jvXZSomF2bUATbJ6a7CfVoEfR5LHax C5DpoiT6KWHgmSLa SNFbrCGGoK8podqaj6tbgsqgXpLjNU TaMXx7JEo5OGMvkMykNrOaIJQ0JbS4 NPZ0qBCdyX1acSxv aagxaC2zEdt+JBQ6vBIttAEWMC2dSn wvdGQ+FQMjRXV0qUgoLDafJOEugA2k XRZpD9e2ThKbSsI6 KOzdU2KxljI4DMZziCRhALGtzBKIpA 3nrshrn6lrcpkwZwBkRRQcRRp6OIk4 LWFsaWduOiBsZWZ0 PzS1KIR1fYKzxN8fjFtjerkspU0hYp c+DpvrcQftHXV2OAy4K2MqXjf7GQQg gJduNT5mhBEkIXbp Zh1lxBzcyIpaEY3nYIGytlfiq626Ab Usp8qfLZAkhNJhNGabKOA1W42nx0J1 ZPVkHHQkMTC5uLF4 yM8rqYkyrbcutKEmmVdcmaJhyRppVW rcBEbaO624KZWchEgzWdOsKLo4A9Zh Lye6OISbyMuzNX2w uJCsFOfbIw0hqYunfHuoJJ4mPNRped gjj345SvXtj3hgKJLllGTmYDrwRJN9 G26vv6V2ZOSjZKDt UPZ2oRF8kE1whTlblodryXKsoGfohe IhkMllAQozBDcbW666RUMhtJnkMwIh jCq8M6AvMnk5GDMy oNhvNH3azLPrEFdbAy8wrZuduWaeLY 4iDYLahbzbw274VmBdh1wkTVQhyYRs CMkrODZ7X62sy8G1 MPPgTNAwMOV4wHW7bQ8tyExzjthxuW HdnYfiapBtaJteHZmyBCetA573ABEo cDsnPlBhdGllbnQg MDohRAd4E7UbZqarsMJ+OI19UEYfCR 10rDIbbBGjn1cetBi6DyYqGSPeHHX0 kBscZKowh2KrPOQx R88tiUYse3O0DXGqxBmcuGWaIeKqvI D8jU5yPDtbrhbet1mqfiiiAuasz8lp ll60xC11W29uDHbx VZUyIKXaWDQcFTEdkWwqox2tpD8fBj 8+KLFvoKS2ySM6bO6xMMMsYmG7TOyb R204NpSryNSgOwed b9jme1axpSg4MkQ2NUCdxlFrgAfpHX A7v1YrWn46C60qYGbxJYIwIJEaIVZk CZZpoQgygf5veW7x Ii8+OJFbcZY0oFA4eH1nPtNgWbN6BH yoX216NbQorBEwJfvwN98lR0EngTV+ LTIkYhi0MZAiiJsd TS2sjAZgCLpbHt5fGLN8DrBqJkOaJJ dnN1AsAQElhviosqixlMS4EMVkHGZt zN97Hk9uqTteDZLe cOQNcM4bfcmrc4mqimhjHtIzFSMzUC u1CVg0XBMhzNwrLsPfRXH4ArF3CIY2 rQLhuP0cpWvsrahd xX7dB7LnOOXchyhqFx74jL0qTcWjHf A4ZSciSyf+YUGCMNTgTIKGI4GYYK28 T6AvZxi0IMRbcOxu VF6okKXsWUkzSx6otWzydAwyVM2iVM LbmeldIPTfxM8pXXYggVRlcKjcAB2m FAHyeomgn543RcDa XXR5YRJykJYfD4TvdV9eKhWjTVHxLE UhH4HzjGSjKQhyT011XLdzFfK9TLVd aaXeQ6PiAJDesMhs WoT0p9J9Hv6yLo5bLe0aVKFdTO49KI 56wWAel1E5sQN2C0BiZCWdfclnuuiu aOH6OXItTIAkmC12 wSLrZUehIv7zy4T0k771VPHgSWFtdC 00Hp7xiCwoSDEggZMQfZ5iqmugs9jq cjogIzAwMDAwMDt0 PZx2FUIezJdfReRwLEA2GkE0ZJU4uO ZnrN1lkPzaluxldS8xZiw+NjEgWWVh dkO1R7YaIws6LNVg hTgrTB8gpSEsBAebUv0fcCufxFooAF 2dXHUiafqqVAIelQ9lOQRaiBWbvNpw DV3sFZWumlygu322 QtGoDJP3QHApxEUuA3HuhI5ySfCnDL VlLBJyL5RkvNWdJCzzE577SOjzAzU4 BDDpioUvC7UsHALq sRhlHmV1t6W0Ue9GBX9amKM3K5HmPl o2TMUsyPifHQ8adTCaWJgvRb9urQjz tVdxAH6xECRwidcs XMMtaC1jRSZrdOQlyDqrGE7iRFEalv uek491CvXlRJC5AUGcnRUrK1JlbD6v FhMjZXTtBHDqX1Qa wBWtMIteG006QOmwVhS2ZWFlmyRzR3 BmYCQgjDfqFmO9w2I4Lo0WLBQxXKXa qNYaWaX2N0GaHwjs dHI+PF11CCDvGW42yVMxnMLsr5gvsY z2RtJqFQMuKBM2dMddVGapt4RdXWSb U54cfATsd3A6TBIf tSpvqRVhAjYtaCN0rS1pVCqufjdmb3 jertioYmtmy6vsjg58cS89A95zAAzp ZHRoPSIzMCUiIHZh hAbsad7znF8hHf8+XIQyyJM9jFF7zL 8aMnOiCzT1QRazU447MrFbyPBsEkjz g0khq7fcgGu9PmEj YSChlrBqdIkmOTQ1n2AgSh90E50gSL thDJEdZMJeSQTuTDTyvJjgdg2ymP2j Ii8+CX1vq0twiu56 yL00rZF+HPUoEDP9gYdbKSmmELTyjW 5pTJrtKeT9YITbTcUcsZ84dQAtBPcy Gz1myLmhtNegSU4v YKOtdcayx848XaPxi1feNKPpkTUpFK sfWJT3U10vf8R2WXEjLFKvIEZ2kKT2 jN5weHpwwlzrcRSj yKvdfwFrtJxpTPffGPqhJ702RXHijS fgZdKcdRRbB7agdwDVGS4eVwsolKT+ NGKfSBR1sMziANgp LIIdiV8aNKSeO0g4HmWuKfG0HOysB7 FkxlM1MAXbsUJyOWFmeYTUzJ1tcfdj n8ebxetuUqVhMOWk YTr7BPg5ZGSgePglPcYoKQJ2FxA7LD K6gWKwvM4kpGlvcjdzhG1aDzh+RklO OjwvdGQ+PHRkIHN0 mOkcLIfwZTOqzU2kESGdA7w6LiWzFl U7VCfqD2ZrhnQ0XICpnQAhJTRlaFLL aJ0fmgtdg8mhsnal ZfUlXHCaRAj3JHy8VOFlxYwwDiXxRK P6RdY1LDD0aEZckD3uiRpguekamF0n Oyc+TVJOOjwvdGQ+ AWWyGRI1gAdbDRbdOGYymJ7dFTQbD1 t9BvNhOcF4EJdzK6BcvpH7OBBxtYCa WZUtzUPTeA9xspiq p0txpuzfYdGsGGZkIHl3TOm8GYQkhO fyJvVdHBP4WpP9MJM4rQQugT7hnBrx onracG0hEod+UGF5 LZX1IH85MU77F7MxZhzvjLSqeFH+PH RhYmxlIHdpZHRoPScxMDAlJyBzdHls FS3uIf3wZXHnOJEe bGxhcHNlOiBjb (more content not included)... Normal [facility] C Urineon 12-16-2023 Bacteria identified Cx Nom (U) Microbiology PROCEDURE: Urine Culture [R1] SOURCE: U CleanCatch BODY SITE: COLLECTED DATE/TIME: 12/14/2023 12:47 EDT RECEIVED DATE/TIME: 12/14/2023 18:45 EDT START DATE/TIME: 12/14/2023 18:45 EDT FREE TEXT SOURCE: Omar GLORIA, FURNITURE PAINTER-C, Omar RAG GRADER, FURNITURE PAINTER-C, Irina X Irina X FINAL REPORTS Final Report [] Verified Date/Time: 12/16/2023 12:08 EDT 1,000 cfu/ml Mixed skin contaminants Performing Locations R1: This test was performed at: [facility], [address] [place] [address], [id number] , [place], [facility] Comment on above: Performed By: #### [id number] #### [facility] [address] [place] [id number] Ambulatory Visit Summaryon 0 12-14-2023 Ambulatory Visit Summary RINA LEE :1960 Visit Date:12/14/2023 Ambulatory Visit Instructions Your Diagnosis Chronic cystitis without hematuria Your Care Team Attending Physician - DEBRA BETHEA, Spike Perez Primary Care Physician - FREDERICK LEE MD This Is Your Medications List buPROPion (Wellbutrin SR) conjugated estrogens (Premarin) estradiol topical (estradiol 0.1 mg/g Vag Crm) lurasidone (Latuda 20 mg oral tablet) melatonin (Melatonin) nitrofurantoin (Macrobid 100 mg Cap) pregabalin (Lyrica) Procedures Performed Dilation of urethra (10/18/2023), Cystoscopy (07/12/2023), Cystourethroscopy with dilation of urethral stricture (04/20/2016), Urodynamics (04/01/2016), Cystourethroscopy with dilation of urethral stricture (08/16/2005), Suspension of bladder (01/20/2004), Cystourethroscopy with dilation of urethral stricture (01/07/2004), Urodynamics (12/30/2003), Appendectomy, Cholecystectomy, Colonoscopy, Cystourethroscopy with dilation of urethral stricture, Hysterectomy, Procedure on back, T and A (tonsillectomy and adenoidectomy) postoperative education. What to do next Scheduled Follow-Up Appointments Tuesday 10:30 AM EDT With: DEBRA BETHEA, Spike Perez Where: [facility] MM screening mammo BI w/CADo n 11-11-2023 MM screening mammo BI w/CAD [facility] [place] [address] [place] [address] Mammography Report Signed Patient: Rina Lee MR#: [id number] 3 : 1960 Acct:[id number] Age/Sex: 63 / F ADM Date: 11/11/23 Loc: [place] Room: Type: [facility] Attending Dr: Harshal Kevin DO Copies to: MD aHrshal Bueno II, Ordering Provider: Harshal Kevin DO Date of Service: 11/11/23 MM/MM screening mammo BI w/CAD: Z12.31 CLINICAL DATA: Screening for malignancy. Previous breast reduction. BILATERAL SCREENING MAMMOGRAMS - FULL FIELD DIGITAL WITH TOMOSYNTHESIS AND CAD Tomosynthesis craniocaudal and mediolateral oblique views of both breasts were obtained using low- dose digital technique. Comparison is made to prior studies from August 22, 2020 through November 08, 2022. This examination was reviewed with the aid of CAD. There are scattered fibroglandular densities with similar distribution. Benign calcifications are visualized. There are no developing masses, typically malignant calcifications or architectural distortion. There has been no significant interval change. MM/MM screening mammo BI w/CAD IMPRESSION: NO MAMMOGRAPHIC EVIDENCE OF MALIGNANCY. ROUTINE FOLLOW-UP IS RECOMMENDED IN ONE YEAR. RESULT CODE: 2 Benign Findings(s) DENSITY CODE: 2 (approximately 25-50% glandular) FOLLOW UP: 1YR The false-negative rate of mammography is approximately 10-percent. Management of a palpable abnormality must be based on clinical grounds. Patient was entered into a reminder system with a target due date for the next mammogram. Impression dictated by: Latrice Tam M.D.11/11/2023 1:49 PM Dictation Location: [facility] Transcribed By: NICHOLE 11/11/23 1349 Dictated By: Latrice Tam MD 11/11/23 1345 Signed By: 11/11/23 1349 [facility] Consent for Procedure/Surger yon 10-19-2023 Consent for Procedure/Surgery [id number] [facility] Ambulatory Visit Summaryon 0 10-18-2023 Ambulatory Visit Summary RINA LEE :1960 Visit Date:10/18/2023 Ambulatory Visit Instructions Your Diagnosis Postinfective urethral 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 Chronic cystitis without hematuria Urge incontinence Incomplete bladder emptying Your Care Team Attending Physician - Spike RICHARDSON MD Primary Care Physician - FREDERICK LEE MD This Is Your Medications List estradiol topical (estradiol 0.1 mg/g Vag Crm) nitrofurantoin (Macrobid 100 mg Cap) Contact prescribing physician if questions or concerns buPROPion (Wellbutrin SR) conjugated estrogens (Premarin) lurasidone (Latuda 20 mg oral tablet) melatonin (Melatonin) pregabalin (Lyrica) [Image Removed: STOP]Stop taking these medications ciprofloxacin (Cipro 500 mg Tab) Procedures Performed Dilation of urethra (10/18/2023), Cystoscopy (07/12/2023), Cystourethroscopy with dilation of urethral stricture (04/20/2016), Urodynamics (04/01/2016), Cystourethroscopy with dilation of urethral stricture (08/16/2005), Suspension of bladder (01/20/2004), Cystourethroscopy with dilation of urethral stricture (01/07/2004), Urodynamics (12/30/2003), Appendectomy, Cholecystectomy, Colonoscopy, Cystourethroscopy with dilation of urethral stricture, Hysterectomy, Procedure on back, T and A (tonsillectomy and adenoidectomy) postoperative education. Discharge Vitals Temperature (Temporal Artery) 37 ?C Heart Rate (Peripheral) 74 Respiratory Rate 16 Blood Pressure 122/88 Height 164 cm Height 65 in Weight 76 kg Weight 167.2 lb BMI 28.26 What to do next Scheduled Follow-Up Appointments Tuesday 10:30 AM EDT With: DEBRA BETHEA, Spike Perez Where: [facility] Patient Educationon 10-18-19 24 Patient Education Urology Urethral Dilation Urethral dilation is a procedure to stretch open (dilate) the urethra. The urethra is the tube that drains urine from the bladder out of the body. In women, the urethra opens above the vaginal opening. In men, the urethra opens at the tip of the penis. Urethral dilation is usually done to treat narrowing of the urethra (urethral stricture), which can make it difficult to pass urine. Urethral dilation widens the urethra so that you can pass urine normally. Urethral dilation is done through the urethral opening. There are no incisions made during the procedure. Tell a health care provider about: ? Any allergies you have. ? All medicines you are taking, including vitamins, herbs, eye drops, creams, and tzem-ozt-qlnnats medicines. ? Any problems you or family members have had with anesthetic medicines. ? Any blood disorders you have. ? Any surgeries you have had. ? Any medical conditions you have. ? Whether you are or may be . What are the risks? Generally, this is a safe procedure. However, problems may occur, including: ? Bleeding. ? Infection. ? A return of urethral stricture, which requires repeating the dilation procedure. ? Damage to the urethra, which may require reconstructive surgery. ? Allergic reactions to medicines. What happens before the procedure? Medicines Ask your health care provider about: ? Changing or stopping your regular medicines. This is especially important if you are taking diabetes medicines or blood thinners. ? Taking medicines such as aspirin and ibuprofen. These medicines can thin your blood. Do not take these medicines unless your health care provider tells you to take them. ? Taking pzlk-mrt-rpvlczr medicines, vitamins, herbs, and supplements. General instructions ? Follow instructions from your health care provider about eating or drinking restrictions. ? Plan to have someone take you home from the hospital or clinic. ? If you will be going home right after the procedure, plan to have someone with you for 24 hours. ? Ask your health care provider what steps will be taken to help prevent infection. These may include: ? Washing skin with a germ-killing soap. ? Taking antibiotic medicine. What happens during the procedure? ? An IV may be inserted into one of your veins. ? You will be given one or more of the following medicines: ? A local anesthetic to numb your urethral opening. This will be applied as a gel that will also lubricate the urethral opening. ? A sedative to help you relax. ? A thin tube with a light and camera on the end (cystoscope) will be inserted into your urethra. ? Your urethra will be rinsed (irrigated) with a germ-free (sterile) water solution. ? Narrow parts of your urethra will be stretched open using a dilator tool. Your surgeon will start with a very thin dilator, then use wider dilators as needed. ? A thin tube with an inflatable balloon on the tip may be inserted into your urethra. The balloon may be inflated to help stretch your urethra open. ? Your urethra will be irrigated. The procedure may vary among health care providers and hospitals. What can I expect after the procedure? ? After the procedure, it is common to have: ? Burning pain when urinating. ? Blood in your urine. ? A need to urinate frequently. ? You will be asked to urinate before you leave the hospital or clinic. ? Your urine flow should improve within a few days. Follow these instructions at home: Medicines ? Take zrcv-upw-uofefmb and prescription medicines only as told by your health care provider. ? If you were prescribed an antibiotic medicine, take it as told by your health care provider. Do not stop taking the antibiotic even if you start to feel better. ? Ask your health care provider if the medicine prescribed to you: ? Requires you to avoid driving or using heavy machinery. ? Can cause constipation. You may need to take these actions to prevent or treat constipation: ? Take hblw-beb-pofxanq or prescription medicines. ? Eat foods that are high in fiber, such as beans, whole grains, and fresh fruits and vegetables. ? Limit foods that are high in fat and processed sugars, such as fried or sweet foods. General instructions ? Do not drive for 24 hours if you were given a sedative during your procedure. ? If you were sent home with a small, lubricated tube (catheter) to help keep your urethra open, follow your health care provider's instructions about how and when to use it. ? Drink enough fluid to keep your urine pale yellow. ? Return to your normal activities as told by your health care provider. Ask your health care provider what activities are safe for you. ? Keep all follow-up visits as told by your health care provider. This is important. Contact a health care provider if: ? Your urine is cloudy and smells bad. ? You develop new bleeding when you urinate. ? You pa (more content not included)... Normal [facility] Urology Office/Clinic Noteon 04-16-2024 Urology Office/Clinic Note Chief Complaint Pt is here for UD HPI Staff Urethral dilation. S/p cystoscopy with Botox 09/13/23. Estradiol cream 3x weekly. Positive urine culture 09/28/23 treated with Doxycycline 100mg BID for 7 days. PVR 301mL. History of Present Illness Tests reviewed: reviewed urine culture I have reviewed the previous health record information and history for this patient from [facility]. I have reviewed and verified the staff HPI to be accurate for this encounter. Review of Systems PHQ Score Initial Depression Screen Score: 0 SCORE ROS - Provider Constitutional: denies weight loss, denies hot flashes. Eyes: denies eye problems. Gastrointestinal: denies nausea, denies vomiting. Cardiovascular: denies chest pain or angina. Integumentary: no dryness Musculoskeletal: denies musculoskeletal symptoms. ENMT: denies otolaryngeal symptoms. Respiratory: no shortness of breath. Heme/Lymph: denies easy bleeding tendency, denies easy bruising tendency. Psychiatric: no confusion, no anxiety. Genitourinary: See HPI. Physical Exam Vitals & Measurements T: 37 ?C(Temporal Artery) HR: 74(Peripheral) RR: 16 BP: 122/88 HT: 65 in HT: 164 cm WT: 76 kg WT: 167.2 lb BMI: 28.26 General Appearance: alert , no acute distress, well nourished, well developed female. Genitourinary: bladder nonpalpable, no flank pain. Procedure Operative Information Anesthesia Type: Local Procedure: Local Urethral Dilation Complications: None Surgical risks, benefits, details of the procedure have been explained to the patient. Full informed consent has been obtained. Intraoperative Information Prepped: Patient is brought back to the endoscopy suite. Patient is placed in modified dorso/lithotomy position. Patient prepped in the usual fashion with Betadine solution. 2% Xylocaine Jelly is placed per Urethra. The Urethra is: Tight The Urethra was dilated to: 22-24 Eritrean with sounds. pt had significant pain Specimens Removed: None Postoperative Information Patient is discharged home. Follow up arranged. Assessment/Plan 1. 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 S/p Cysto/UD 07/12/23 - Tight at 20 Fr, dilated to 24 Fr. UD was attempted to be done at [facility] 09/13/23 - only able to do 22-26 Fr, pt could not tolerate any further. Recommended UD 1-2 mos later. Pt had IO UD today without complications. Prophy abx taken prior. Dilated to 24 Fr. 2. Chronic cystitis without hematuria (N30.20: Other chronic cystitis without hematuria) Has been treated for 6 UTIs in the past year. Increased usage of Estradiol cream from 2x to 3x/wk. UCx 09/28/23 - >100k Staph epidermis, tx'd w/ doxycycline 100mg x7 days. -Start 100mg bid x3 mos. Discussed the medication side effects, and the patient will monitor closely for these, as well as for symptom improvement. If severe side effects occur, the medication should be stopped and the office notified. 3. Urge incontinence (N39.41: Urge incontinence) Failed Myrbetriq 50mg qd due to expense and continued leakage. Also failed other bladder med due to SE (not sure which one). S/p Botox 100u 09/13/23 (first procedure). Prior to Botox, had mild to moderate, leaked when she stood up and even shortly after voiding. Still has some leakage and is not emptying very well. Thought sx were improving a bit immediately after Botox but now have worsened for the past week or so but pt was treated for a UTI recently, see #2. 4. Incomplete bladder emptying (R33.9: Retention of urine, unspecified) PVR today 301 (246) mL. Does double void maneuvers each time she voids. Recommended pt to continue these. Will check another PVR at f/u. Follow-up With When Contact Information DEBRA BETHEA, Spike Perez, URL [facility] [address] , [place] [address]- [phone] Additional Instructions: 3 mos w/ PVR Patient Education Urethral Dilation I, Leeanna Lee, personally scribed for Dr. Richardson on 10/18/2023 13:50:24. . Documentation recorded by the scribe, Leeanna Lee, accurately reflects the services(s) I performed and decisions made by me. Authenticated by Dr. Richardson on 10/18/2023 13:52:13. Problem List/Past Medical History Ongoing Chronic cystitis without hematuria Depression Gall stones Headache, migraine History of kidney stones Hypertension Incomplete bladder emptying Incontinence without sensory awareness Lipoma Nephrolithiasis Postinfective urethral 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 Urge incontinence Urinary urgency Historical No qualifying data Procedure/Surgical History Dilation of urethra (10/18/2023), Cystoscopy (07/12/2023), Cystourethroscopy with dilation of urethral stricture (04/20/2016), Urodynamics (04/01/2016), Cystourethroscopy with dilation of urethral stricture (08/16/2005), Suspension of bladder (01/20/2004), Cystoureth (more content not included)... [facility] Comment on above: Result Comment: Elec tronically Signed By: Spike RICHARDSON MD\.br\Date and Time Signed: 10/18/23 13:52 EDT\.br\Electronically Co-Signed By: Leeanna Lee\.br\Date and Time Co-Signed: 10/18/23 13:50 EDT C Urineon 10-01-2023 Bacteria identified Cx Nom (U) Microbiology PROCEDURE: Urine Culture [R1] SOURCE: U Random BODY SITE: COLLECTED DATE/TIME: 09/28/2023 10:38 EDT RECEIVED DATE/TIME: 09/28/2023 12:34 EDT START DATE/TIME: 09/28/2023 12:34 EDT FREE TEXT SOURCE: CAM CHAN PA-C, PA-C, JENNIFER E FINAL REPORTS Final Report [] Verified Date/Time: 10/01/2023 09:01 EDT >100,000 cfu/ml Staphylococcus epidermidis 1,000 cfu/ml Mixed skin contaminants SUSCEPTIBILITY RESULTS LEGEND: S=Susceptible, N/R=Not Reported, Blank=Data not available, or drug not advisable or tested, I=Intermediate, ESBL=Extended spectrum beta-lactamase, R=Resistant, TFG=Thymidine-dependent strain, SWATI=Beta-lactamase positive, EVER=mcg/m;(mg/L), S*=Predicted susceptible interp, R*=Predicted resistant interp Staepi Antibiotic EVER Dilutn EVER Interp Amoxicillin/ <=4/2 R Clavulanate Ampicillin 8 R Ampicillin/ <=8/4 R Sulbactam Cefazolin <=8 R Ciprofloxacin >2 R Daptomycin <=1 S Gentamicin <=4 S Levofloxacin 4 I Linezolid <=2 S Nitrofurantoin <=32 S Oxacillin >2 R Penicillin >8 R Rifampin <=1 S Tetracycline <=4 S Trimethoprim/ <=0.5/9.5 S Sulfa Vancomycin 1 S Performing Locations R1: This test was performed at: [facility], [address] [place] [address], [facility] , , [facility] Comment on above: Performed By: #### [id number] ####[facility] [address] [place] [address] Ambulatory Visit Summaryon 0 09-28-2023 Ambulatory Visit Summary JESUSRINA :1960 Visit Date:09/28/2023 Ambulatory Visit Instructions Your Diagnosis Chronic cystitis without hematuria Urge incontinence Postinfective urethral 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 Incomplete bladder emptying Your Care Team Attending Physician - DUSTIN PATEL, CAM Harrell Primary Care Physician - JESUS BETHEA, FREDERICK Nathan This Is Your Medications List ciprofloxacin (Cipro 500 mg Tab) Contact prescribing physician if questions or concerns buPROPion (Wellbutrin SR) conjugated estrogens (Premarin) estradiol topical (estradiol 0.1 mg/g Vag Crm) lurasidone (Latuda 20 mg oral tablet) melatonin (Melatonin) mirabegron (Myrbetriq 50 mg oral tablet, extended release) pregabalin (Lyrica) Procedures Performed Cystoscopy (07/12/2023), Cystourethroscopy with dilation of urethral stricture (04/20/2016), Urodynamics (04/01/2016), Cystourethroscopy with dilation of urethral stricture (08/16/2005), Suspension of bladder (01/20/2004), Cystourethroscopy with dilation of urethral stricture (01/07/2004), Urodynamics (12/30/2003), Appendectomy, Cholecystectomy, Colonoscopy, Cystourethroscopy with dilation of urethral stricture, Hysterectomy, Procedure on back, T and A (tonsillectomy and adenoidectomy) postoperative education. Discharge Vitals Temperature (Temporal Artery) 37.0 ?C Heart Rate (Peripheral) 88 Blood Pressure 122/78 Height 164 cm Height 65 in Weight 76.2 kg Weight 167.64 lb BMI 28.33 What to do next Scheduled Follow-Up Appointments Tuesday 1:00 PM EDT With: DEBRA BETHEA, Spike Perez Where: [facility] Patient Educationon 09-28-19 24 Patient Education Obstetrics and Gynec ology Urinary Tract Infection, Adult A urinary tract infection (UTI) is an infection of any part of the urinary tract. The urinary tract includes: ? The kidneys. ? The ureters. ? The bladder. ? The urethra. These organs make, store, and get rid of pee (urine) in the body. What are the causes? This infection is caused by germs (bacteria) in your genital area. These germs grow and cause swelling (inflammation) of your urinary tract. What increases the risk? The following factors may make you more likely to develop this condition: ? Using a small, thin tube (catheter) to drain pee. ? Not being able to control when you pee or poop (incontinence). ? Being female. If you are female, these things can increase the risk: ? Using these methods to prevent : ? A medicine that kills sperm (spermicide). ? A device that blocks sperm (diaphragm). ? Having low levels of a female hormone (estrogen). ? Being . You are more likely to develop this condition if: ? You have genes that add to your risk. ? You are sexually active. ? You take antibiotic medicines. ? You have trouble peeing because of: ? A prostate that is bigger than normal, if you are male. ? A blockage in the part of your body that drains pee from the bladder. ? A kidney stone. ? A nerve condition that affects your bladder. ? Not getting enough to drink. ? Not peeing often enough. ? You have other conditions, such as: ? Diabetes. ? A weak disease-fighting system (immune system). ? Sickle cell disease. ? Gout. ? Injury of the spine. What are the signs or symptoms? Symptoms of this condition include: ? Needing to pee right away. ? Peeing small amounts often. ? Pain or burning when peeing. ? Blood in the pee. ? Pee that smells bad or not like normal. ? Trouble peeing. ? Pee that is cloudy. ? Fluid coming from the vagina, if you are female. ? Pain in the belly or lower back. Other symptoms include: ? Vomiting. ? Not feeling hungry. ? Feeling mixed up (confused). This may be the first symptom in older adults. ? Being tired and grouchy (irritable). ? A fever. ? Watery poop (diarrhea). How is this treated? ? Taking antibiotic medicine. ? Taking other medicines. ? Drinking enough water. In some cases, you may need to see a specialist. Follow these instructions at home: Medicines ? Take tokc-vux-lmuqyjs and prescription medicines only as told by your doctor. ? If you were prescribed an antibiotic medicine, take it as told by your doctor. Do not stop taking it even if you start to feel better. General instructions ? Make sure you: ? Pee until your bladder is empty. ? Do not hold pee for a long time. ? Empty your bladder after sex. ? Wipe from front to back after peeing or pooping if you are a female. Use each tissue one time when you wipe. ? Drink enough fluid to keep your pee pale yellow. ? Keep all follow-up visits. Contact a doctor if: ? You do not get better after 1?2 days. ? Your symptoms go away and then come back. Get help right away if: ? You have very bad back pain. ? You have very bad pain in your lower belly. ? You have a fever. ? You have chills. ? You feeling like you will vomit or you vomit. Summary ? A urinary tract infection (UTI) is an infection of any part of the urinary tract. ? This condition is caused by germs in your genital area. ? There are many risk factors for a UTI. ? Treatment includes antibiotic medicines. ? Drink enough fluid to keep your pee pale yellow. This information is not intended to replace advice given to you by your health care provider. Make sure you discuss any questions you have with your health care provider. Document Revised: 01/30/2021 Document Reviewed: 01/30/2021 [employer] Patient Education ? 2022 [employer]. [facility] Urology Office/Clinic Noteon 09-28-2023 Urology Office/Clinic Note Chief Complaint S/P to botox with PVR HPI Staff S/p to Cysto w/ botox 09/13/23- She said it was great for a week now her sx are coming back Previous DX; postinfective urethral stricture, chronic cystitis w/out hematuria, urge incontinence, urinary urgency Increased Estradiol cream from 2x wkly, to 1 mg 2x to 3x wkly- She is using 3x weekly with no problems PVR 246 B&BSQ 21 Dysuria: _denies Incomplete bladder emptying: sometimes Hematuria: denies visible blood Frequency: _every 1-2 hours Urgency: _sometimes Nocturia: _denies Stream: _sometimes hesitation, start stop stream Leaking: denies Post void dripping: yes Wearing pads/ Depends: pads sometimes, wears when out of the house Urge incontinence: yes Stress incontinence: denies Incontinence without Sensory Awareness: denies Abdominal pain: denies Flank pain: denies Sexual complaints: denies History of Present Illness staff HPI reviewed and agree. Review of Systems PHQ Score Initial Depression Screen Score: 0 SCORE no fever, chills, malaise, myalgia. no rash/lesions. no chest pain, palpitations, or SOB. no abdominal pain, nausea, vomiting. no unilateral calf swelling, redness, pain Physical Exam Vitals & Measurements T: 37.0 ?C(Temporal Artery) HR: 88(Peripheral) BP: 122/78 HT: 65 in HT: 164 cm WT: 76.2 kg WT: 167.64 lb BMI: 28.33 General: nontoxic, NAD Mouth: moist mucosa Lungs: normal respiratory effort Cardio: regular rate, good distal perfusion Abdomen: nondistended, no suprapubic distention or tenderness, no CVA tenderness Neurologic: Grossly normal Skin: No rashes or suspicious lesions Assessment/Plan Dr. Richardson pt 1. Chronic cystitis without hematuria (N30.20: Other chronic cystitis without hematuria) Has been treated for 6 UTIs in the past year. Was using Estradiol cream 2x/wk but continued to have vaginal dryness. Was recommended at prior OV to increase cream usage to 3x/wk. UA toady shows trace-intact blood, moderate leuks, and positive nitrites. Denies pain/burning with urination. Has increased frequency despite Botox. -Urine sample sent for culture. Pt to be called with results and will rx abx if positive Ordered: 68659 Measure Post Void residual urine and/or bladder capacity by US- non-imaging Body Mass Index (BMI) documented 3008F Current tobacco non-user 1036F Depression Screening Negative 3352F E&M of Est. Patient Moderate 30-39 Min 62542 Influenza immunization status assessed 1030F Medication list documented in medical record 1159F Review of all meds by a prescribing practitioner or clinical pharmacist documented in EHR 1160F Systolic BP 130-139 mm Hg (Most Recent) 3075F Urnls Dip Stick Auto w/o Microscopy POC 14502 2. Urge incontinence (N39.41: Urge incontinence) Failed Myrbetriq 50mg qd due to expense and continued leakage. Also failed other bladder med due to SE (not sure which one). S/p Botox #1, 100u 09/13/23. BBS 21. Prior to Botox, had mild to moderate, leaks when she stands up and even shortly after voiding. Still has some leakage and is not emptying very well. Thought sx were improving a bit immediately after Botox but now have worsened for the past week or so. Advised pt her sxs are likely not improving due to possibility of UTI given suspicious UA today. Will send urine for culture and treat with appropriate abx once results are finalized. Sx should improve after treated. Max efficacy of botox around 90 days. -Cont sx monitoring Ordered: 52117 Measure Post Void residual urine and/or bladder capacity by US- non-imaging Body Mass Index (BMI) documented 3008F Current tobacco non-user 1036F Depression Screening Negative 3352F E&M of Est. Patient Moderate 30-39 Min 81432 Influenza immunization status assessed 1030F Medication list documented in medical record 1159F Review of all meds by a prescribing practitioner or clinical pharmacist documented in EHR 1160F Systolic BP 130-139 mm Hg (Most Recent) 3075F 3. 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 S/p Cysto/UD 07/12/[address] Richardson - Tight at 20 Fr, dilated to 24 Fr. PRW recommended UD 1-2 mos after Botox to dilate her to 30 Fr. -Has appt 10/18/23 for IO UD w/ PRW Ordered: 07343 Measure Post Void residual urine and/or bladder capacity by US- non-imaging Body Mass Index (BMI) documented 3008F Current tobacco non-user 1036F Depression Screening Negative 3352F E&M of Est. Patient Moderate 30-39 Min 19645 Influenza immunization status assessed 1030F Medication list documented in medical record 1159F Review of all meds by a prescribing practitioner or clinical pharmacist documented in EHR 1160F Systolic BP 130-139 mm Hg (Most Recent) 3075F 4. Incomplete bladder emptying (R33.9: Retention of urine, unspecified) PVR today 246 mL (no previous PVR for comparison) already does dbl void maneuvers ev (more content not included)... Normal [facility] Comment on above: Result Comment: Elec tronically Signed By: CAM CHAN PA-C\.br\Date and Time Signed: 09/28/23 10:38 EDT\.br\Electronically Co-Signed By: Leeanna Lee.br\Date and Time Co-Signed: 09/28/23 10:26 EDT Consent for Procedure/Surger yon 09-13-2023 Consent for Procedure/Surgery [id number]#1.00TIFF Normal [facility] Consent for Treatmenton 09-01 Consent for Treatment [id number]#1.00TIFF Normal [facility] IntraOperative Documentson 0 09-13-2023 IntraOperative Documents [id number]#1.00TIFF Normal [facility] Main OR Intraoperative Recor don 09-13-2023 Main OR Intraoperative Record IntraOp Document Type FTURO Summary Primary Physician: Spike RICHARDSON MD Finalized Date/Time: 09/13/23 09:21:20 Pt. Name: RINA LEE Libra Lockett/Sex: 1960 Female Med Rec #: [id number] Physician: Spike RICHARDSON MD Financial #: [id number] Pt. Type: O Room/Bed: / Admit/Disch: 09/13/23 08:06:20 - Institution: Case Times FTURO Entry 1 Patient Times In Room 09/13/23 09:01:00 Out Room 09/13/23 09:23:00 Procedure Times Start 09/13/23 09:08:00 Stop 09/13/23 09:17:00 Anesthesia Times Last Modified By: Sherwin ARANA, Ana CHANDLER 09/13/23 09:18:05 Case Attendance FTURO Entry 1 Entry 2 Entry 3 Case Attendee Spike RICHARDSON MD RN, KWAMEOR, Helen BLACKMON, Ruth Perez Role Performed Surgeon - Primary Dynamiter - Primary Scrub - Primary Time In 09/13/23 09:01:00 09/13/23 09:01:00 09/13/23 09:01:00 Time Out 09/13/23 09:23:00 09/13/23 09:23:00 09/13/23 09:23:00 Procedure CYSTOSCOPY LOCAL WITH CYSTOSCOPY LOCAL WITH CYSTOSCOPY LOCAL WITH URETHRAL DILATION(.) URETHRAL DILATION(.) URETHRAL DILATION(.) Comments Last Modified By: Sherwin RN, CNOR, Sherwin RN, CNOR, KWAME Courtney RNOR, Ana 09/13/23 Ana 09/13/23 Ana 09/13/23 09:18:23 09:18:05 09:18:05 Surgical Procedures FTURO Entry 1 Procedure Description Procedure CYSTOSCOPY LOCAL WITH Modifiers . URETHRAL DILATION Surgeon Description CYSTOSCOPY URETHRAL DILATION WITH BOTOX 100 UNITS Primary Procedure Yes Primary Surgeon Spike RICHARDSON MD Start 09/13/23 09:08:00 Stop 09/13/23 09:17:00 Anesthesia Type Local Surgical Service Urology Wound Class 2 - Clean-Contaminated Last Modified By: Sherwin ARANA, KWAMEOR, Ana 09/13/23 09:18:07 General Comments: botox 100 units out date 10/27 lot [id number] General Case Data FTURO Pre-Care Text: Classifies surgical wound, implements aseptic technique, initiates traffic control Entry 1 Case Information OR URO 1 FT Case Level None Wound Class 2 - Clean-Contaminated Specialty Urology Preop Diagnosis URGE INCONTINENCE , Postop Same As Preop Yes URETHRAL STRICTURE Postop Diagnosis URGE INCONTINENCE , Outcomes Met? Yes URETHRAL STRICTURE Last Modified By: Sherwin ARANA, KWAMEOR, Ana 09/13/23 09:06:10 Post-Care Text: The patient is free from signs and symptoms of infection EU IntraOp - FTURO Pre-Care Text: Implements protective measures prior to operative or invasive procedure, confirms identity before the operative or invasive procedure, verifies operative procedure, surgical site, and laterality Entry 1 EU Perioperative Protocols Procedure(s) CYSTOSCOPY LOCAL WITH Patient Identity Birthday, ID Band URETHRAL DILATION(.) Verified (select at Check, Patient least 2): Participation Consents / H and P HandP, Surgery/Procedure Operative Site N/A Verified Consent Marking Verified Surgical Site Yes Laterality Verified n/a Verified Procedure Verified Yes Correct Patient Yes Position Verified Availability Equipment, Medication Time Out Spike RICHARDSON MD, Verified (If Participants Sherwin ARANA, CNOR, Applicable) Helen Perez CST, Kimberly A Time Out Complete 09/13/23 09:06:00 Allergies Reviewed? Yes Allergies Reviewed Self/Patient With Body Position Low Lithotomy Prep Area perinwal area Prep Agents Betadine Solution Skin. Condition Unable to Visualize Additional None Specimens Collected Vitals - EU Blood Pressure Pulse Respirations SPO2 EBL 0 IandO - EU Total Intake 0 mL Total Output 0 mL Outcomes Met? Yes Last Modified By: RAMESH Courtney RN, Ruthann 09/13/23 09:10:19 Post-Care Text: The patient is free from signs and symptoms of injury caused by extraneous objects Sign Out FTURO Entry 1 Before Patient Leaves OR Nurse verbally Yes Nurse verbally n/a confirms with the confirms with the team the name of team that the procedure(s) instrument, sponge, recorded and needle counts are correct (or N/A) Nurse verbally n/a Nurse verbally n/a confirms with the confirms with the team how the team whether there specimen is labeled are any equipment (including patient problems to be name), if applicable addressed Sign Out Complete 09/13/23 09:21:00 Last Modified By: RAMESH Courtney RN, Ruthann 09/13/23 09:18:11 Case Comments Finalized By: RAMESH Courtney RN, Ruthann Document Signatures Signed By: RAMESH Courtney RN, Ruthann 09/13/23 09:18 RAMESH Courtney RN, Ruthann 09/13/23 09:21 Normal [facility] Main OR Preoperative Recordo n 09-13-2023 Main OR Preoperative Record Holding Area Document Type FTURO Summary Primary Physician: Spike RICHARDSON MD Finalized Date/Time: 09/13/23 09:12:01 Pt. Name: RINA LEE Libra Lockett/Sex: 1960 Female Med Rec #: [id number] Physician: Spike RICHARDSON MD Financial #: [id number] Pt. Type: O Room/Bed: / Admit/Disch: 09/13/23 08:06:20 - Institution: Case Times Holding FTURO Pre-Care Text: Verifies consent for planned procedure, identifies individual values and wishes concerning care, includes family members in perioperative teaching Secures patient's records' belongings, and valuables, maintains patient's dignity and privacy, and maintains patient confidentiality Entry 1 In Holding 09/13/23 08:26:00 Outcomes Met? Yes Last Modified By: Ruth Timmons RN 09/13/23 08:26:30 Post-Care Text: The patient participates in decisions affecting his or her perioperative plan of care The patient's right to privacy is maintained Surgery Checklist FTURO Entry 1 Patient Birthday, ID Band Procedure History and Physical, Identification: Check, Patient Verification: Surgical Consent, With Participation Patient NPO after Midnight: n/a Personal Items: Glasses, Jewelry Personal Items GLASSES; RINGS X 2 Limitations: UP AD JACOBO Comment: Complaints of Pain: No Pain Comment: 0/10 Skin Integrity Dry, Warm Vitals - EU Blood Pressure 130/83 Pulse 65 bpm Respirations 16 br/min SPO2 99 % Additional Other (See Comment) Specimens Comment URINE DIPSTICK Specimens Collected RN Reviewed Yes Last Modified By: Ruth Timmons RN 09/13/23 08:28:42 Finalized By: Sherwin ARANA, Ana CHANDLER Document Signatures Signed By: Ruth Timmons RN 09/13/23 08:46 Ruth Timmons RN 09/13/23 08:28 RAMESH Courtney RN, Ruthann 09/13/23 09:12 Normal [facility] Operative Reporton Operative Report Patient: GUILLERMO LEE Age: 63 years Sex: Female : 1960 Associated Diagnoses: None Author: DEBRA BETHEA, Spike Perez Procedure Operative Information Details: Date/ Time: 09/13/2023 09:23:00. Pre-Op Dx: Incont/Urge - N39.41, Incomplete Bladder Emptying - R39.14. Post-Op Dx: Same. Anesthesia Type: Local. Procedure: Local Cystoscopy with botox injection. Complications: None. Risks/Benefits/Informed Consent: Surgical risks, benefits, details of the procedure have been explained to the patient, Full informed consent has been obtained. Intraoperative Information Prepped: Patient is brought back to the endoscopy suite, Male Prep, Female Prep (Patient is placed in modified dorso/lithotomy position, 5 cc 2% Xylocaine Jelly is placed per Urethra, Straight cath inserted to obtain urine specimen, 60 cc 2% Xylocaine liquid inserted into bladder, 5 additional cc 2% Xylocaine Jelly is placed per Urethra, Patient in sitting position for 20 min dwell), Urine Specimen Results Negative for infection, Patient prepped in the usual fashion with Betadine solution, After waiting several minutes the Cystoscope is introduced. Procedure: The trigone was identified and evaluated, 20 template injection sites were identified, The bladder was instilled with enough saline to achieve adequate visualization for the injections, The needle was inserted approximately 2 mm into the detrusor spaced approximately 1 cm apart, A total of 20 injections with a 0.5 ml volume was delivered at each site for a total of 100 units of Botox, A urethral dilation was done from 22-26 [place]. She could not tolerate going any larger.. The Urethra is: Tight. The Bladder is: Normal. The ureteral orifices: Show efflux of clear urine. Devices Implanted: None. Removal: Cystoscope is removed, The patient tolerated it well. Postoperative Information Discharge: Patient is discharged home with antibiotic coverage, Follow up arranged. We plan to do an office urethral dilation in 1 to 2 months to get her up to 30 [place].. [facility] Comment on above: Result Comment: Elec tronically Signed By: DEBRA BETHEA, Spike Sawyer.br\Date and Time Signed: 09/13/23 09:24 EDT Outpatient Surgery Discharge Instructionon 09-13-2023 Outpatient Surgery Discharge Instruction [id number]#1.00TIFF [facility] Insurance Correspondenceon 0 08-29-2023 Insurance Correspondence [id number]#1.00TIFF [facility] MRI CERVICAL SPINE WO CONTRA STon 08-10-2023 MRI CERVICAL SPINE WO CONTRAST EXAMINATION: MRI OF THE CERVICAL SPINE WITHOUT CONTRAST 08/05/2023 5:01 pm TECHNIQUE: Multiplanar multisequence MRI of the cervical spine was performed without the administration of intravenous contrast. COMPARISON: C-spine x-ray 08/01/2023. MRI cervical spine 06/17/2022. HISTORY: ORDERING SYSTEM PROVIDED HISTORY: Stenosis of cervical spine with myelopathy (HCC) TECHNOLOGIST PROVIDED HISTORY: myelopathy What is the sedation requirement?->None Reason for Exam: myelopathy, Stenosis of cervical spine with myelopathy (HCC) FINDINGS: BONES/ALIGNMENT: There is normal alignment of the spine. The vertebral body heights are maintained. The bone marrow signal appears unremarkable. Postsurgical changes from C3-C4 disc spacer, C3-C6 laminoplasty. SPINAL CORD: Unchanged increased cord signal in the right hemicord at C3-C4, likely myelomalacia (series 5, image 20). SOFT TISSUES: No paraspinal mass identified. C2-C3: There is no significant disc protrusion, spinal canal stenosis or neural foraminal narrowing. C3-C4: There is no significant disc protrusion, spinal canal stenosis or neural foraminal narrowing. C4-C5: There is no significant disc protrusion, spinal canal stenosis or neural foraminal narrowing. C5-C6: Disc bulge. No spinal canal stenosis. Moderate left neural foraminal narrowing, unchanged. C6-C7: Disc bulge. No spinal canal or neural foraminal narrowing. C7-T1: There is no significant disc protrusion, spinal canal stenosis or neural foraminal narrowing. IMPRESSION: Resolution of spinal canal narrowing at C3-C4 status post placement of C3-C4 disc spacer, and C3-C6 laminoplasty. Unchanged increased cord signal in the right hemicord at C3-C4, likely myelomalacia. Other degenerative changes are similar to prior. Interpreted by: Deondre Vang MD Signed by: Deondre Vang MD 08/09/23 Final result Normal [facility] XR CERVICAL SPINE FLEXION AN D EXTENSIONon 08-01-2023 XR CERVICAL SPINE FLEXION AND EXTENSION EXAMINATION: 2 FLEXION-EXTENSION XRAY VIEWS OF THE CERVICAL SPINE 08/01/2023 8:56 am COMPARISON: 01/05/2023 HISTORY: ORDERING SYSTEM PROVIDED HISTORY: Stenosis of cervical spine with myelopathy (HCC) TECHNOLOGIST PROVIDED HISTORY: standing lateral flexion extension Reason for Exam: cervical spine stenosis FINDINGS: Posterior fixation hardware place C3-C6 and intervertebral disc hardware at C3-4. Flexion extension demonstrates stable alignment. Mild anterolisthesis C3 on C4 again noted. Multilevel degenerative disc disease. IMPRESSION: Stable alignment in flexion extension Interpreted by: Kenneth Chaves MD Signed by: Kenneth Chaves MD 08/01/23 Final result Normal [facility] Consent for Procedure/Surger yon 07-14-2023 Consent for Procedure/Surgery [id number]#[id number] Normal [facility] Patient Educationon 07-12-19 Patient Education Urology Botulinum Toxin Bladder Injection A botulinum toxin bladder injection is a procedure to treat an overactive bladder. During the procedure, a drug called botulinum toxin is injected into the bladder through a long, thin needle. This drug relaxes the bladder muscles and reduces overactivity. You may need this procedure if your medicines are not working or you cannot take them. The procedure may be repeated as needed. The treatment is done once and it usually lasts for 6 months. Your health care provider will monitor you to see how well you respond. Tell a health care provider about: ? Any allergies you have. ? All medicines you are taking, including vitamins, herbs, eye drops, creams, and taei-qug-qmtxklk medicines. ? Any problems you or family members have had with anesthetic medicines. ? Any bleeding problems you have. ? Any surgeries you have had. ? Any medical conditions you have. ? Any previous reactions to a botulinum toxin injection. ? Any symptoms of urinary tract infection. These include chills, fever, a burning feeling when passing urine, and needing to pass urine often. ? Whether you are or may be . What are the risks? Generally this is a safe procedure. However, problems may occur, including: ? Not being able to pass urine. If this happens, you may need to have your bladder emptied with a thin tube (urinary catheter). ? Bleeding. ? Urinary tract infection. ? Allergic reaction to the botulinum toxin. ? Pain or burning when passing urine. ? Damage to nearby structures or organs. What happens before the procedure? When to stop eating and drinking Follow instructions from your health care provider about what you may eat and drink before your procedure. These may include: ? 8 hours before the procedure ? Stop eating most foods. Do not eat meat, fried foods, or fatty foods. ? Eat only light foods, such as toast or crackers. ? All liquids are okay except energy drinks and alcohol. ? 6 hours before the procedure ? Stop eating. ? Drink only clear liquids, such as water, clear fruit juice, black coffee, plain tea, and sports drinks. ? Do not drink energy drinks or alcohol. ? 2 hours before the procedure ? Stop drinking all liquids. ? You may be allowed to take medicines with small sips of water. If you do not follow your health care provider's instructions, your procedure may be delayed or canceled. Medicines Ask your health care provider about: ? Changing or stopping your regular medicines. This is especially important if you are taking diabetes medicines or blood thinners. ? Taking medicines such as aspirin and ibuprofen. These medicines can thin your blood. Do not take these medicines unless your health care provider tells you to take them. ? Taking esti-oto-uskobjl medicines, vitamins, herbs, and supplements. General instructions ? Ask your health care provider what steps will be taken to help prevent infection. These steps may include: ? Removing hair at the procedure site. ? Washing skin with a germ-killing soap. ? Taking antibiotic medicine. ? If you will be going home right after the procedure, plan to have a responsible adult: ? Take you home from the hospital or clinic. You will not be allowed to drive. ? Care for you for the time you are told. What happens during the procedure? ? You will be asked to empty your bladder. ? An IV will be inserted into one of your veins. ? You will be given one or more of the following: ? A medicine to help you relax (sedative). ? A medicine to numb the area (local anesthetic). ? A medicine to make you fall asleep (general anesthetic). ? A long, thin scope called a cystoscope will be passed into your bladder through the part of the body that carries urine from your bladder (urethra). ? The cystoscope will be used to fill your bladder with water. ? A long needle will be passed through the cystoscope and into the bladder. ? The botulinum toxin will be injected into your bladder. It may be injected into multiple areas of your bladder. ? The cystoscope will be removed and your bladder will be emptied with a urinary catheter. The procedure may vary among health care providers and hospitals. What can I expect after the procedure? After your procedure, it is common to have: ? Blood-tinged urine. ? Burning or soreness when you pass urine. Follow these instructions at home: Medicines ? Take wddl-tpz-aupguvw and prescription medicines only as told by your health care provider. ? If you were prescribed an antibiotic medicine, take it as told by your health care provider. Do not stop using the antibiotic even if you start to feel better. General instructions ? If you were given a sedative during the procedure, it can affect you for several hours. Do not drive or operate machinery until your health ca (more content not included)... Normal Crockett [facility] Urology Office/Clinic Noteon 07-12-2023 Urology Office/Clinic Note Chief Complaint urethral stricture HPI Staff Cysto/UD ABX TAKEN History of Present Illness Tests reviewed: none I have reviewed the previous health record information and history for this patient from Dr. Richardson. I have reviewed and verified the staff HPI to be accurate for this encounter. Review of Systems PHQ Score Initial Depression Screen Score: 0 SCORE ROS - Provider Constitutional: denies weight loss, denies hot flashes. Eyes: denies eye problems. Gastrointestinal: denies nausea, denies vomiting. Cardiovascular: denies chest pain or angina. Integumentary: no dryness Musculoskeletal: denies musculoskeletal symptoms. ENMT: denies otolaryngeal symptoms. Respiratory: no shortness of breath. Heme/Lymph: denies easy bleeding tendency, denies easy bruising tendency. Psychiatric: no confusion, no anxiety. Genitourinary: See HPI. Physical Exam Vitals & Measurements HR: 74(Peripheral) RR: 16 BP: 127/78 HT: 65 in HT: 164 cm WT: 80 kg WT: 176 lb BMI: 29.74 General Appearance: alert , no acute distress, well nourished, well developed female. Genitourinary: bladder nonpalpable, no flank pain. Procedure Operative Information Anesthesia Type: Local Procedure: Local Cystoscopy with Urethral Dilation Complications: None Surgical risks, benefits, details of the procedure have been explained to the patient. Full informed consent has been obtained. Intraoperative Information Prepped: Patient is brought back to the endoscopy suite. Patient is placed in modified dorso/lithotomy position. Patient prepped in the usual fashion with Betadine solution. 2% Xylocaine Jelly is placed per Urethra. After waiting several minutes, the Cystoscope is introduced. The Urethra is: Tight, dry, brittle; did not tolerate dilation well The Bladder: Normal- no tumors or stones, Trabeculated: Severe (3)- open diverticuli The Ureteral orifices: Show efflux of clear urine The Urethra was dilated to: 20-24 [place] with sounds. Specimens Removed: None Removal: Cystoscope is removed. The patient tolerated it well. Postoperative Information Patient is discharged home with antibiotic coverage. Follow up arranged. Assessment/Plan 1. 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 Pt had cysto/UD done IO today wo complications. Prophy abx taken prior. -UD at time of Botox. See #3. 2. Chronic cystitis without hematuria (N30.20: Other chronic cystitis without hematuria) Has been treated for 5 UTIs in the past year. Was recommended to start Estradiol cream at prior OV to help prevent infections. Has been using this cream 2x/wk but continues to have vaginal dryness. -Increase Estradiol cream 1mg from 2x/wk to 3x/wk 3. Urge incontinence (N39.41: Urge incontinence) Recommended to restart Myrbetriq 50mg qd at prior OV pending insurance coverage. Pt has been taking this medication. Denies SEs but it is very expensive for her. she is very interested in botox. she failed previous bladder meds due to side effects. she still is leaking with myrbetriq. -Will schedule Botox. The procedural risks, benefits, details, and treatment alternatives have been discussed with the patient. These include bleeding, infection, continued problems with overactive bladder, inability to empty the bladder which could require an indwelling catheter or need for in/out catheterization to empty the bladder, and need for repeat procedures over time (usually lasts up to six months), as well as fatigue and insomnia, among others. There is a minimal risk of Botox entering the blood stream and causing neurological problems, which is quite rare. Full informed consent has been obtained. Will order Local anesthesia. -Will schedule Cysto with UD. The procedure risks, benefits, details, and treatment alternatives have been discussed with the patient. These include bleeding, infection, recurrent scar in over 50%, need for repeat dilation or other procedures, no symptom relief with dilation, among others. Full informed consent has been obtained. Will order Local anesthesia. 4. Urinary urgency (R39.15: Urgency of urination) Mild. See #3. Follow-up With When Contact Information DEBRA BETHEA, Spike Perez, URL [facility] [address] [place] [address]- [phone] Additional Instructions: sched Botox w/ UD Patient Education Botulinum Toxin Bladder Injection Urethral Dilation Cystoscopy I, Leeanna Lee, personally scribed for Dr. Richardson on 07/12/2023 07:59:10. . Documentation recorded by the scribe, Leeanna Lee, accurately reflects the services(s) I performed and decisions made by me. Authenticated by Dr. Richardson on 07/12/2023 08:03:02. Problem List/Past Medical History Ongoing Chronic cystitis without hematuria Depression Gall stones Headache, migraine History of kidney stones Hypertension In (more content not included)... [facility] Comment on above: Result Comment: Elec tronically Signed By: Spike RICHARDSON MD\.br\Date and Time Signed: 07/12/23 08:03 EST\.br\Electronically Co-Signed By: Leeanna Lee\.br\Date and Time Co-Signed: 07/12/23 07:59 EST Formson 05-18-2023 Forms [id number] [facility] Ambulatory Visit Summaryon 1 07-17-2022 Ambulatory Visit Summary RINA LEE :1960 Visit Date:05/17/2023 Ambulatory Visit Instructions Your Diagnosis Postinfective urethral 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 Chronic cystitis without hematuria Urge incontinence Urinary urgency Tests Performed Urnls Dip Stick Auto w/o Microscopy POC 95483 Your Care Team Attending Physician - Spike RICHARDSON MD Primary Care Physician - FREDERICK LEE MD This Is Your Medications List buPROPion (Wellbutrin SR) conjugated estrogens (Premarin) doxycycline (doxycycline monohydrate 100 mg oral capsule) lurasidone (Latuda 20 mg oral tablet) melatonin (Melatonin) mirabegron (Myrbetriq 50 mg oral tablet, extended release) pregabalin (Lyrica) trospium (trospium 20 mg oral tablet) Procedures Performed Cystourethroscopy with dilation of urethral stricture (04/20/2016), Urodynamics (04/01/2016), Cystourethroscopy with dilation of urethral stricture (08/16/2005), Suspension of bladder (01/20/2004), Cystourethroscopy with dilation of urethral stricture (01/07/2004), Urodynamics (12/30/2003), Appendectomy, Cholecystectomy, Colonoscopy, Cystourethroscopy with dilation of urethral stricture, Hysterectomy, Procedure on back, T and A (tonsillectomy and adenoidectomy) postoperative education. Discharge Vitals Blood Pressure 118/78 Height 164 cm Height 65 in Weight 80.8 kg Weight 177.76 lb BMI 30.04 What to do next You Need to Schedule the Following Appointments Follow Up with DEBRA BETHEA, JONH Villarreal When: Comments: Sched Cysto/UD Where: [facility] [address], [place] [address]- Medications What How Much When Instructions Unchanged buPROPion (Wellbutrin SR) 300 Milligram By Mouth Every day Unchanged conjugated estrogens (Premarin) By Mouth Every day Unchanged doxycycline (doxycycline monohydrate 100 mg oral capsule) 1 Capsules By Mouth Every day Unchanged lurasidone (Latuda 20 mg oral tablet) 1 Tablets By Mouth Every day Unchanged melatonin (Melatonin) Once a day (at bedtime) Unchanged mirabegron (Myrbetriq 50 mg oral tablet, extended release) 1 Tablets By Mouth Every day Unchanged pregabalin (Lyrica) 150 Milligram By Mouth 3 times a day Unchanged trospium (trospium 20 mg oral tablet) 1 Tablets By Mouth 2 times a day Test Results Urnls Dip Stick Auto w/o Microscopy POC 46757 (05/17/2023) Bilirubin Urine Dipstick - Negative Blood Urine Dipstick - Negative Glucose Urine Dipstick - Negative Ketones Urine Dipstick - Negative Leukocytes Urine Dipstick - Negative Nitrite Urine Dipstick - Negative Protein Urine Dipstick - Negative Specific [place] Urine Dipstick - 1.020 Urine Appearance Urine Dipstick - Clear Urine Color Urine Dipstick - Dark yellow Urobilinogen Urine Dipstick - Normal 0.2-1 EU/dl pH Urine Dipstick - 7 Allergies meperidine (Malignant hyperthermia) morphine (Respiratory arrest) penicillins (Rash) prochlorperazine (Unknown) sulfa drugs (Rash) Problems Ongoing - Any problem that you are currently receiving treatment for. Chronic cystitis without hematuria Depression Gall stones Headache, migraine History of kidney stones Hypertension Incontinence without sensory awareness Lipoma Nephrolithiasis Postinfective urethral 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 Urge incontinence Urinary urgency Patient Survey You may receive a survey via text or e-mail asking about your office visit. Please share your experience with us by completing your survey. We appreciate your feedback and thank you for choosing us for your care. 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 Pt was last seen on 05/02/19 per PRW. Pt is here today due to urine having an odor. Previous DX: chronic cystitis w/o hematuria, HX of kidney stones, incontinence without sensory awareness, nephrolithiasis, postinfective urethral 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, urge incontinence, urinary urgency. S/P Cysto/UD 04/20/16. *Myrbetriq 50mg qd. She doesn't remember taking this Just finished Macrobid from PCP- last week for UTI Dysuria: _sometimes on and off and odor, started sx last fall Incomplete bladder emptying: denies Hematuria: denies visible blood Frequency: morning she goes every half hour, by afternoon every 3-5 hours Urgency: not always Nocturia: denies Stream: denies hesitation, normal stream Leaking: sometimes Post void dripping: _denies Wearing pads/ Depends: pad wore when she feels like urgency is going to be an issue Urge incontinence: _denies Stress incontinence: _denies Incontinence without Sensory Awareness: _denies Abdominal pain: denies Flank pain: Left side pain. On and off. Started about 1 year ago Sexual complaints: _denies History of Present Illness Tests reviewed: reviewed UA and External Records. I have reviewed the previous health record information and history for this patient from External Provider. I have reviewed and verified the staff HPI to be accurate for this encounter. There have been no associated fever, chills, flank pain, or blood in the urine. Denies any urinary infections since last encounter. Review of Systems PHQ Score Initial Depression Screen Score: 0 SCORE ROS - Provider Constitutional: denies weight loss, denies hot flashes. Eyes: denies eye problems. Gastrointestinal: denies nausea, denies vomiting. Cardiovascular: denies chest pain or angina. Integumentary: no dryness Musculoskeletal: denies musculoskeletal symptoms. ENMT: denies otolaryngeal symptoms. Respiratory: no shortness of breath. Heme/Lymph: denies easy bleeding tendency, denies easy bruising tendency. Psychiatric: no confusion, no anxiety. Genitourinary: See HPI. Physical Exam Vitals & Measurements BP: 118/78 HT: 65 in HT: 164 cm WT: 80.8 kg WT: 177.76 lb BMI: 30.04 General Appearance: alert , no acute distress, well nourished, well developed female. Head: normocephalic . Eyes: normal orbit and globe. ENMT: normal examination of external ears. Chest: Lungs CTA, respirations non labored . Cardiovascular: regular rate and rhythm. Abdomen: soft, non distended, no tenderness, no mass or organomegaly, no hernia. Genitourinary: bladder nonpalpable, no flank tenderness. Lymph Nodes: unremarkable palpation of the cervical area. Skin: warm, dry, no bruising. Psychiatric: cooperative, affect appropriate for age, normal judgement, euthymic mood. Assessment/Plan 1. Postinfective urethral 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 (N35.12: Postinfective urethral stricture, not elsewhere classified, female) S/p Cysto/UD 04/2016 Discussed doing a repeat cysto/ UD again. Pt states that she would like to do this again. -Will schedule Cysto with UD. The procedure risks, benefits, details, and treatment alternatives have been discussed with the patient. These include bleeding, infection, recurrent scar in over 50%, need for repeat dilation or other procedures, no symptom relief with dilation, among others. Full informed consent has been obtained. Will order Local anesthesia. -Will start Keflex 500mg x2 days. Discussed the medication side effects, and the patient will monitor closely for these, as well as for symptom improvement. If severe side effects occur, the medication should be stopped and the office notified. 2. Chronic cystitis without hematuria (N30.20: Other chronic cystitis without hematuria) Pt is here today due to urine having an odor. Just finished Macrobid from PCP last week for UTI, seems to have helped, Rt sided flank pain and burning comes back on and off, the pain is consistent. Pt states that she does bladder maneuvers to ensure she empties. Advised pt that she can do double voiding after bladder maneuvers. No vaginal discharge. Pt states that she had just started a estrogen pill for hot flashes. Discussed starting a estrogen cream to apply vaginally. Had been treated 2 times for infections in the last fall and then 3 more times over the past couple of months. -Will start Estradiol cream. Plunge 1 gm vaginally then apply excess around the opening of the urethra 2 times per week at night. 3. Urge incontinence (N39.41: Urge incontinence) Mild-Moderate, leaks when she stands up, even after right after voiding, comes and goes. bothersome for her. Was to start Myrbetriq 50mg QD, pt's insurance would not cover it, was sent Trospium. Pt states that she cannot remember if she tried this or not. Discussed sending the Myrbetriq again and if her insurance does not cover it, then we will try Trospium. -Will start Myrbetriq 50mg QD. Discussed the medicat (more content not included)... Normal [facility] Comment on above: Result Comment: Elec tronically Signed By: Spike RICHARDSON MD\.br\Date and Time Signed: 05/17/23 10:04 EST\.br\Electronically Co-Signed By: Marilia Brown\.br\Date and Time Co-Signed: 05/17/23 09:57 EST XR CERVICAL SPINE FLEXION AN D EXTENSIONon 01-05-2023 XR CERVICAL SPINE FLEXION AND EXTENSION EXAMINATION: 3 XRAY VIEWS OF THE CERVICAL SPINE 01/05/2023 8:50 am COMPARISON: October 06, 2022 HISTORY: ORDERING SYSTEM PROVIDED HISTORY: Stenosis of cervical spine with myelopathy (HCC) TECHNOLOGIST PROVIDED HISTORY: Reason for Exam: uprt FINDINGS: Overall stable alignment. Stable hardware present. No acute interval change. No dynamic instability flexion or extension. Multilevel degenerative change similar. IMPRESSION: Stable exam. Interpreted by: Lam Ley DO Signed by: Lam Ley DO 01/05/23 Final result Normal [facility] Physical Therapy Noteon 10-03 Physical Therapy Note [id number] Normal [facility] PAP ACOG PANEL 2: 30 to 65on 10-12-2022 . . Normal [facility] [place] Comment on above: Result Comment: Perf ormed at: WB Performed By: #### [id number] ####[facility] [address] [place], [place] [address]AqDiony Cole Garcia Age Gdln ACOG Testing 30-65 Normal [facility] [place] Comment on above: Performed By: #### [id number] ####[facility] [address] [place] [id number] Garcia DIAGNOSIS: Comment Normal [facility] [place] Comment on above: Result Comment: NEGA TIVE FOR INTRAEPITHELIAL LESION OR MALIGNANCY. Performed at: WB Performed By: #### 4 [id number] ####[facility] [address] [place] [id number] Garcia HPV Aptima Negative Normal Negative [facility] [place] Comment on above: Result Comment: This nucleic acid amplification test detects fourteen high-risk HPV types (16,18,31,33,35,39,45,51,52,56,58,59,66,68) without differentiation. Performed at: =G Performed By: #### 4 [id number] ####[facility] [address] [place], [place] [address]Dr. Cole Garcia HPV Genotype Reflex Comment Normal [facility] [place] Comment on above: Result Comment: Crit eria not met, HPV Genotype not performed. Performed at: WB Performed By: #### [id number] ####[facility] [address] [place], [place] [id number]. Cole Garcia Methodology: Comment Normal [facility] [place] Comment on above: Result Comment: This liquid based ThinPrep(R) pap test was screened with the use of an image guided system. Performed at: WB Performed By: #### 4 [id number] ####[facility] [address] [place], [place] [address]DrDiony Garcia Note: Comment Normal [facility] [place] Comment on above: Result Comment: The Pap smear is a screening test designed to aid in the detection of premalignant and malignant conditions of the uterine cervix. It is not a diagnostic procedure and should not be used as the sole means of detecting cervical cancer. Both false-positive and false-negative reports do occur. . Performed at: WB Performed By: #### 4 [id number] ####[facility] [address] [place] [id number] Garcia Performed by: Comment Normal [facility] Comment on above: Result Comment: Familia Mendez, Counter Former (ASCP) Performed at: WB Performed By: #### 4 [id number] ####[facility] [address] [place], [place] [address]Xs. Cole Garcia Specimen adequacy: Comment Normal [facility] Comment on above: Result Comment: Sati sfactory for evaluation. No endocervical component is identified. Performed at: WB Performed By: #### 4 [id number] ####[facility] [address] [place], [place] [address]Ng. Cole Garcia XR CERVICAL SPINE FLEXION AN D EXTENSIONon 10-06-2022 XR CERVICAL SPINE FLEXION AND EXTENSION EXAMINATION: XRAY VIEWS OF THE CERVICAL SPINE 10/06/2022 9:34 am COMPARISON: August 06, 2022 HISTORY: ORDERING SYSTEM PROVIDED HISTORY: Stenosis of cervical spine with myelopathy (HCC) TECHNOLOGIST PROVIDED HISTORY: post-op arthroplasty and laminoplasty Reason for Exam: surg 08-05-22 FINDINGS: There continues to be no instability flexion or extension. Similar anterolisthesis C3-C4. Stable hardware. Drain has been removed posterior soft tissues. Prevertebral soft tissues unremarkable. IMPRESSION: No instability on flexion extension images. Interpreted by: Lam Ley DO Signed by: Lam Ley DO 10/06/22 Final result Normal [facility] No instability on fl exion extension images. [facility] CONSOL[facility] EXAMINATION: XRAY VIEWS OF THE CERVICAL SPINE 10/06/2022 9:34 am COMPARISON: August 06, 2022 HISTORY: ORDERING SYSTEM PROVIDED HISTORY: Stenosis of cervical spine with myelopathy (HCC) TECHNOLOGIST PROVIDED HISTORY: post-op arthroplasty and laminoplasty Reason for Exam: surg 08-05-22 FINDINGS: There continues to be no instability flexion or extension. Similar anterolisthesis C3-C4. Stable hardware. Drain has been removed posterior soft tissues. Prevertebral soft tissues unremarkable. [facility] CONSOLIDATED Lam Ley DO - 10/06/2022 EXAMINATION: XRAY VIEWS OF THE CERVICAL SPINE 10/06/2022 9:34 am COMPARISON: August 06, 2022 HISTORY: ORDERING SYSTEM PROVIDED HISTORY: Stenosis of cervical spine with myelopathy (HCC) TECHNOLOGIST PROVIDED HISTORY: post-op arthroplasty and laminoplasty Reason for Exam: surg 08-05-22 FINDINGS: There continues to be no instability flexion or extension. Similar anterolisthesis C3-C4. Stable hardware. Drain has been removed posterior soft tissues. Prevertebral soft tissues unremarkable. IMPRESSION: No instability on flexion extension images. [employer] Phone: Radiology Study observation (narrative) [employer] Phone: XR CERVICAL SPINE FLEXION AN D EXTENSIONOrdered By: Lam Ley on 10-06-2022 [employer] Phone: Billing Authorizationson Billing Authorizations [id number]#[id number] Coding Summaryon 08-27-2022 Coding Summary HTMLBase 64 LjfkarpzXXs9lTl+PGhlYWQ+PE1FVE YzE57haCTysH2PU1wXWN7DDYOFZCGK AW0ZGL8qtIO6HOqvH6GycqDj ClskeJLsLG35HMc6EFU7wOknCPxzmV 4uoQSsF1k0VuZnGJ03qW59OBmiCNZc KfG2AxTfsugnwWTc J7xqAlQshIFeNau+PHRhYmxlIHdpZH EvPEwlTQMxPpCphNrcDR1rFx7qUIMf LWNvbGxhcHNlOiBj e5caLCGqPNidGX2ufBcvT2EegWC6OE Nov3t0Ij68hRL+XJQcAUG6zSrqSGqs z325IcOhg2ejVIZ6 nJXiRMfaNWM4P26sk1D0VLAxYKNqFI S0gYN3sT5zzHakvhxqL1TlxZQqRkA2 YBJ8mUGrrN4wgIwe ryvdaV4mBhd+C56IUG5VJEPNYH5WEi u0F0FsWlfjlSR+CX20GKDwCM12oEZn fENoy9jppEr2MtFj QBJnWGQ8gIxtALdsq5PaKIHuQ76cyV Gxm3M5HFRouXgcbOUdIpTudBQ7fA6a IYckctnsb5mauluy Jkncx2ngus79mC87C25xLFamMCGoXW M0CDNlXOWgaVvxeq8epG0aOu8+IDxj f0vhi8ukxRq7IfZj TNZysmUllZsaYHK7o4MpVo69G4EcsD vdm0DjAoi8gm00xRArz6U7lTX2EDcg QFXbeS3fAAeuIhU2 KCOuTfIcpV92sEEzSYfsRy7ptAboxX phYJ0eLDIzweooLRIfbM7yEAVncFHk mTwxRJ3jZKTmpbry p867EaUpDMC3STCtnHTvK9MwrD3iEa UaELCaRFQuP5OdaSSpQYsiA761XHqe RpX6NMOhzhXnK6Bn GJRleLpqXeR8f0X0Cc2Ha8KqtefoQF D1LFamWUNxEjZ9LmHmKsC7O5HtChi9 LJLbzQrhWL0gK5Ec DSSfdhkizavokOH7ZCPvQRWlyV22tN IlVZbvUh4so7T8g412YUNkIRHpuV17 Pr1jiSdsIOBokEHH sR2xsqywy4omhmmsMoByZYBeRWb4UO l5NGImiBhaNpJqRZQ0RuM3IDA8vSEd sZ4diRroagbtiP8u Oyc+Y69dpC3lQFP6NRX9hycaTCPjql KnNV60LX12W4MyRbrtcZZqwJN+PGRp ycFehOgpVB1oGfZg u7jyp0TiTXlbD7FnSGFcMTifYge0IN EkRHV7gHK5jK5yXRMyDZgxm6S2qUE8 E6ZckaZuln2as7yo GDTqOZxlC31xcIVhr8S1ERQrgHU9DA NjaCycZxJffG87Hux+IQCcePiij8Oo Swxpk2zop1tjxIv0 FrJxIIVhlaHsdDrtPDM5f2MvXf81U7 5cDWsnOTToASInASGbXDCyuGlkrn8a xV1aCt5+PGNvbCB3 tUT7fL9pRCLyKqD6TVkaU800PbWwfL DcGmtcy7exc8ivoBq0HwMzOYKkbsYn qKikQDX5m5RzTe24 X97gUOyfTGHcOQKnBVDiLVRawYfhbm 2lzD7xFb9+WB1mi9krzj38wG67kZU+ MDKcXUV1tYmnHDei WVBpfE3uEGvxMgR2VUSnJpZguP82nQ EsTGraEu3vbWujaGrrTJ7lZSZbmjzg f323FiZcj2tnBIFp oUWfTTogYIC1P87ov4V6XNElUZUtKT Y7bYB4xO2ybPerucvwjAKxqXsyylOw aZzbNHoqWGfaQ354 ZAOzlZucQrLbfFplyoKzAzDxHBk3D3 MsJea4PZVswGasAI2xsDMxMUubZc1y jXebbRgvIH3jVOYq gwpxr067JyQdb5xmBGYicDTlSRhcMM K1E69ot6C4IUPyNMHaJLA0jHE3yC1m bGlnbjogbGVmdDsg jyZhjArkNWgaIHjaW370CWTnpCshRz MrmlXwUXYqtPB7VW25ZS66mANpu3L5 dIC0K8VyRSVxqfak aimsaOP1CRMuWANirP18Ax0qrInpAi 0kHDCsTHR8RWEkbOXsU0XjmA8kPgKd DYVuQSPtM5LwoADy AVsaC658RNqjEfQ8FJWqitPxE8ShRW GgvAisIbU2b7P7Wf9IM8Z4WQ77FL89 fLNad2H7jOY5Y3Ck DSNsygcaxpqvdTR2HBEuLVUjhW79Bj 1vnTyzJz1sZYIpXST1NLOjtKMaO9Ra cT3qKoKbIRYuIEAe A6DojJQgGSvnO120CTnnFrW0VYVmkp QfI5YsOAVjuInuNzU5n5F3Iy4FXOf1 KY80GJ55uUJfe4O5 fRN4M9QnZJCpxktlbfnnuQO8EHDsMX TxjO56Jw9uqXuqNb4sKQHaQAR2QZFn cPLoK2TtyA2vRoPd YFChBOMiX6VrqRBfLBegN591GHllPb M5YSCbalEnF8BaTPSknGuhGpY3j0N4 Mm7QEZMmHC98LAT8 xNR3FH70DP53E6LaTcstpVBadBQ+PH RhYmxlIHdpZHRoPScxMDAlJyBzdHls LI3zGu5dVUXnETUp mAczkTRaZjUqq9gyNOFwYXsgMU2iuF amX3PheTS7NZOwa8q5Um77I02fT0Pr dXA+XFHxmJO8mGF3 mA2vOlBcAsX8ETalD250NrXpaTPiIl yzf5epy9lafYm1RwJ2IDUigwPsyMgv RBY6r4PtQe36G32g PBojEZBiQCTbIFUkUPGykObuqx1hwL 9wIi8+IIVdgDP5nOT5gV5tAwHtTxV4 HKvcI115RwMrxSYa Fbewn6rrs5rieGz9SiPoMNJhntQbxE iyXTZ5p9ChLh71Y6KktUrvt9RyBpm4 wy56cJNhd5W2wJF5 A9MeYDEadcloiPQujEpgZX5lUXXxcf taLMEphY0jONTdX4e8JdPsSqX8PMye L8WdtrX3VJJcgIEi EYruNVR1Y19jc7L7GMKuSGUkBJJ0yB E4tG8zqBkvrzieuYZrvXwklzBypNox NEwbOAuzW822ZSLo iHtrDFUauP0cNKQqiNBhsUxwXB3eQR CpbymeQcqXF6JXWUTHLTGOJcVNOMIC RTwvdGQ+PHRkIHN0 aGhgZXjpVYIayM8dMUCaE6n7PjNpKo S2EFrvE1TeQUCnigxkQq06nG9wZvRk WwX8EAegY4ZvtqF5 EDFxqTYgWLmoZXV9J81mi0V0VCRvKE JiQIW4nHR8rM1weWzqbgecuLYjbLxm dmVydGljYWwtYWxp R632SKCqpRayPnNuNpTjTsN7DjN1F4 IzLrm9AAZtcLsoNM9ckSAjDLmjXu9j mNkgoOxqGZ5tJRPn cjflRHXcjA1oIKCytVVvkIpxJX5yKY Sjkmctx601VaXpRNR1EVLmkITgH5Ub vN9tXcIgSRQiECVt G2DlfXJrDAnrM213OFcfYzA6OFBdqp FhX3ZhFOUzdGntFyC0q7N7Di83FUMC ZWFyczwvdGQ+PHRk TFQ4iJxcCRdbUNFovT8zZKTbC6b1Xc QmMjC8DUviB7CbKRDxxcqhSj28oO0r UoIqKpS7OYayT4Ki zqE9GZLwfWMqYFpbATU5F53mw4U2VV VaVFLrQJI7oYO2zK9xzCzswpaypTIp dDsgdmVydGljYWwt NZfsW716DJTesLhvPyNKMPOAHYaypE Q+QHFmAER8fQyqYKdwTZUraW2hOEOd L3g8XzJgBcL6XCuj A0LfUXKzyvxqTl15sC9xUiHbXwP6RD hnT7TqxvE7FOCorKDzAPdlISV6Z23o y2Q9OTQdSQSgKCN1 bIR7lD3evHtjvbofcJAdrNwfknJrhI piYSqwKWbgB829KCLxqIgaGnIzX2Ir cmluZyBPdXRwYXRp YT69CL29UR69N7OjKgtqsHJjhGM+PH RhYmxlIHdpZHRoPScxMDAlJyBzdHls SA7qHp3pNVIvZCXc jQepkKSuTwSre3viZIKoHOblWR9rkA baX2IofUY8HCBbp7f4Kw96W23fD5Kw dXA+LWPoiLJ0wIQ4 sL1eRuEuSvV3CCxmK596XwClyVVaFj nil2xpm4xsxHm5MsJzJPGqwxDugZnc PEL6s2TcAc21O05b PBwuLDCqVTDyPZMpDHDpsAnjos0fsB 9wIi8+GAIpqXT5iCV9uM6gQwIlMqS3 SAetY094QeMssVHa UjgqJ95bC1HonDA+VKJvLus7FKMrmS wuDG6khOZuHBidHe1gAWQ3CyWmUmFr XUxsA1DfNEZglfox hrxijNL0UXWhBRWhnK06Cg9czBbkWj 8bTNFjNGV2HKOkzOQzB6PvlA2cTxHy QBJgVWWcP1IbuIWa ZBzjQ028VIrgYpF7GIPrueAbD1DmGS GotEnnNvD0m7Y2Uf0QhEtimLIhYD9a WrOeHVo9E2BzUti7 MPUpcDxhZD6jxWRwNKbzIa6fvPymoZ rqBK1iKPOtlxdcs848DqYmm1sbQMNh cPOrCDfzKFM1S13e b7G4QVZjFWEbMKN7cBR1dC0ucMlhme nsuGVmsQjybnPuoWxfTRlwPHegM761 IHRvcDsnPkZJTjo8 F5VuWoo1JOZniFcnXA4pzSPfWNxaSu 0riRjhdOmtQV8dOQYuawzwy167AaLe u0mkFVVqxHVrPUyz QFP0W36bi1L2EPSaJJHoQAN4xDA2fL 1hbGlnbjogbGVmdDsgdmVydGljYWwt ATjxA636XVIysAgh Dh1KPlp9E3VtMvi7DZFywDloPP5fcQ OyMTsqEw7duJrndZwiXN7rDOTkbeax v834ZlHcu2odFKUk rUCmJFdmDDN7I01af3M3IZErMQEpQV T1iMG5nZ0mpYmqlbrlyYZvlSmcmiAo iQdsZLtsDNbiW379 IHRvcDsnPlBheWVyOjwvdGQ+PC90cj 23U2VdHmekWst8WURoKMT0iXV4fE9q PTLpXEavo4Z7mZB3 J2J (more content not included)... [facility] Provider Orderson 08-27-2022 Provider Orders [id number][facility] Orders [id number]#1.[facility] Panel[facility] Anion gap [Moles/Vol] 11 mmol/L 9 - 17 mmol/L [facility] Calcium [Mass/Vol] 7.6 mg/dL Low 8.6 - 10.4 mg/dL [facility] Chloride [Moles/Vol] 111 mmol/L High 98 - 107 mmol/L [facility] CO2 [Moles/Vol] 19 mmol/L Low 20 - 31 mmol/L [facility] Creatinine [Mass/Vol] 0.7 mg/dL 0.50 - 0.90 mg/dL [facility] GFR/1.73 sq M.predicted MDRD (S/P/Bld) [Vol rate/Area] - PINF [facility] Comment on above: These results are not intended for use in patients <18 years of age. eGFR results are calculated without a race factor using the 2020 CKD-EPI equation. Careful clinical correlation is recommended, particularly when comparing to results calculated using previous equations. The CKD-EPI equation is less accurate in patients with extremes of muscle mass, extra-renal metabolism of creatine, excessive creatine ingestion, or following therapy that affects renal tubular secretion. Glucose [Mass/Vol] 105 mg/dL High 70 - 99 mg/dL [facility] Interpretation and review of laboratory results Abnormal [facility] Potassium [Moles/Vol] 4.2 mmol/L 3.7 - 5.3 mmol/L [facility] Sodium [Moles/Vol] 141 mmol/L 135 - 144 mmol/L [facility] Urea nitrogen [Mass/Vol] 14 mg/dL 6 - 20 mg/dL [facility] CBC with Auto Differentialon 08-06-2022 Absolute Eos # [place] [facility] Absolute Immature Granulocyte 0.03 [facility] Absolute Lymph # 0.93 Low [facility] Absolute [place] # 0.43 [facility] RS [facility] Basophils Absolute [facility] Basophils/100 WBC (Bld) 0 % 0 - 2 % [facility] Eosinophils/100 WBC (Bld) 0 % Low 1 - 4 % [facility] Hematocrit (Bld) [Volume fraction] 36.8 % 36.3 - 47.1 % [facility] Hemoglobin (Bld) [Mass/Vol] 11.6 g/dL Low 11.9 - 15.1 g/dL [facility] Immature granulocytes/100 WBC (Bld) 1 % High 0 [facility] Interpretation and review of laboratory results Abnormal [facility] Lymphocytes/100 WBC (Bld) 15 % Low 24 - 43 % [facility] MCH (RBC) [Entitic mass] 31.0 pg 25.2 - 33.5 pg [facility] MCHC (RBC) [Mass/Vol] 31.5 g/dL 28.4 - 34.8 g/dL [facility] MCV (RBC) [Entitic vol] 98.4 fL 82.6 - 102.9 fL [facility] Monocytes/100 WBC (Bld) 7 % 3 - 12 % [facility] NRBC Automated 0.0 0.0 per 100 WBC [facility] Platelet distribution width (Bld) [Ratio] 13.0 % 11.8 - 14.4 % [facility] Platelet mean volume (Bld) [Entitic vol] 10.3 fL 8.1 - 13.5 fL [facility] Platelets (Bld) [#/Vol] 198 10*3/uL [facility] RBC (Bld) [#/Vol] 3.74 10*6/uL Low 3.95 - 5.11 m/uL [facility] Segmented neutrophils/100 WBC (Bld) 77 % High 36 - 65 % [facility] Segs Absolute 5.00 [facility] WBC (Bld) [#/Vol] 6.4 10*3/uL [facility] XR CERVICAL SPINE (2-3 VIEWS )on 08-06-2022 Prevertebral soft ti ssue thickening or fluid accumulation with no drain in place. Posterior drain in place and expected postop changes noted. Skin paris in place. Cervical spine postop changes as detailed above. [facility] RIS CONSOLIDATED EXAMINATION: 2 XRAY VIEWS OF THE CERVICAL SPINE 08/06/2022 4:27 am COMPARISON: Preop cervical spine MRI dated 06/17/2022. HISTORY: ORDERING SYSTEM PROVIDED HISTORY: followup postop; UPRIGHT AP AND LATERAL TECHNOLOGIST PROVIDED HISTORY: followup postop; [employer] AP [employer] LATER[employer] followup postop; [employer] LATERAL Reason for Exam: post op upright port FINDINGS: Vertebral body heights are normal. Alignment is noted for minor grade 1 anterolisthesis of C3 on C4 new compared to preop. Alignment is otherwise normal correcting the preop reversal of the normal cervical lordosis. A disc prosthesis is present at the C3-4 level. Left unilateral plate and screw fusion has been performed from C3-4 to C6-7. Surgical drains have been placed anteriorly and posteriorly. The anterior drain is at the right lateral aspect and does not enter the pre-spinal soft tissues which are thickened. [facility] Ced Rawls MD - 08/06/2022 EXAMINATION: 2 XRAY VIEWS OF THE CERVICAL SPINE 08/06/2022 4:27 am COMPARISON: Preop cervical spine MRI dated 06/17/2022. HISTORY: ORDERING SYSTEM PROVIDED HISTORY: followup postop; UPRIGHT AP AND LATERAL TECHNOLOGIST PROVIDED HISTORY: followup postop; [employer] AP [employer] LATERAL followup postop; [employer] AP AND LATERAL Reason for Exam: post op upright port FINDINGS: Vertebral body heights are normal. Alignment is noted for minor grade 1 anterolisthesis of C3 on C4 new compared to preop. Alignment is otherwise normal correcting the preop reversal of the normal cervical lordosis. A disc prosthesis is present at the C3-4 level. Left unilateral plate and screw fusion has been performed from C3-4 to C6-7. Surgical drains have been placed anteriorly and posteriorly. The anterior drain is at the right lateral aspect and does not enter the pre-spinal soft tissues which are thickened. IMPRESSION: Prevertebral soft tissue thickening or fluid accumulation with no drain in place. Posterior drain in place and expected postop changes noted. Skin paris in place. Cervical spine postop changes as detailed above. [employer] Phone: Radiology Study observation (narrative) [employer] Phone: XR CERVICAL SPINE (2-3 VIEWS )Ordered By: Ced Rawls on 08-06-2022 [employer] Phone: XR CERVICAL SPINE FLEXION AN D EXTENSIONon 08-06-2022 No dynamic instabili ty on flexion extension images. Grade 1 anterolisthesis at C3-C4. Postsurgical changes and postsurgical drains as described. [facility] EXAMINATION: XRAY VIEWS OF THE CERVICAL SPINE 08/06/2022 1:37 pm COMPARISON: Same-day cervical radiographs. HISTORY: ORDERING SYSTEM PROVIDED HISTORY: post op TECHNOLOGIST PROVIDED HISTORY: post op Reason for Exam: post op FINDINGS: Cervical spine: There is mild straightening of cervical lordosis. Vertebral body heights are well preserved. No concerning lytic or sclerotic lesions are identified. Changes related to discectomy and instrumented endplate metallic device placement at C3-C4.. Changes related to instrumented posterior fusion at C3-C4, C4-C5, C5-C6 and C6-C7. Grade 1 anterolisthesis at C3-C4. No dynamic instability on flexion extension images. The atlantodental alignment is congruent. Drains are noted within posterior paraspinal soft tissues. [facility] Claudine Ortega MD - 08/06/2022 EXAMINATION: XRAY VIEWS OF THE CERVICAL SPINE 08/06/2022 1:37 pm COMPARISON: Same-day cervical radiographs. HISTORY: ORDERING SYSTEM PROVIDED HISTORY: post op TECHNOLOGIST PROVIDED HISTORY: post op Reason for Exam: post op FINDINGS: Cervical spine: There is mild straightening of cervical lordosis. Vertebral body heights are well preserved. No concerning lytic or sclerotic lesions are identified. Changes related to discectomy and instrumented endplate metallic device placement at C3-C4.. Changes related to instrumented posterior fusion at C3-C4, C4-C5, C5-C6 and C6-C7. Grade 1 anterolisthesis at C3-C4. No dynamic instability on flexion extension images. The atlantodental alignment is congruent. Drains are noted within posterior paraspinal soft tissues. IMPRESSION: No dynamic instability on flexion extension images. Grade 1 anterolisthesis at C3-C4. Postsurgical changes and postsurgical drains as described. [employer] Phone: Radiology Study observation (narrative) [employer] Phone: XR CERVICAL SPINE FLEXION AN D EXTENSIONOrdered By: Claudine Ortega on 08-06-2022 [employer] Phone: FLUORO FOR SURGICAL PROCEDUR ESon 08-05-2022 Radiology exam is co mplete. No Radiologist dictation. Please follow up with ordering provider. [facility] EKG 12 LeadOrdered By: Forest Castro on 07-23-2022 Atrial Rate 65 BPM [employer] Phone: P [place] 21 degrees [employer] Phone: P-R Interval 156 ms [employer]: Q-T Interval 424 ms [employer] Work Phone: QRS Duration 84 ms [employer] Work Phone: QTc Calculation (Bazett) 440 ms [employer] Work Phone: T [place] 34 degrees [employer] Work Phone: Ventricular Rate 65 BPM [employer] Work Phone: [employer] Work Phone: EKG 12 Leadon 07-23-2022 Normal sinus rhythm Normal ECG When compared with ECG of 06-NOV-2012 08:31, No significant change was found [facility] Katelin Moses MD - 07/23/2022 Normal sinus rhythm Normal ECG When compared with ECG of 06-NOV-2012 08:31, No significant change was found [employer] Work Phone: APTTon 07-22-2022 aPTT Coag (Bld) [Time] 18.9 s Low [employer] Comment on above: IV Heparin Therapy Range: 48.6-77.8 No clot found in specimen, results questionable. Interpretation and review of laboratory results Abnormal [employer] BUN & Creatinineon 3 Creatinine [Mass/Vol] 0.82 mg/dL 0.50 - 0.90 mg/dL [employer] GFR/1.73 sq M.predicted MDRD (S/P/Bld) [Vol rate/Area] - PINF [employer] Comment on above: Effective Apr 05, 2022 These results are not intended for use in patients <18 years of age. eGFR results are calculated without a race factor using the 2020 CKD-EPI equation. Careful clinical correlation is recommended, particularly when comparing to results calculated using previous equations. The CKD-EPI equation is less accurate in patients with extremes of muscle mass, extra-renal metabolism of creatine, excessive creatine ingestion, or following therapy that affects renal tubular secretion. Urea nitrogen (BldV) [Mass/Vol] 12 mg/dL 6 - 20 mg/dL [facility] CBCon 07-22-2022 Hematocrit (Bld) [Volume fraction] 39.8 % 36.3 - 47.1 % [facility] Hemoglobin (Bld) [Mass/Vol] 13.0 g/dL 11.9 - 15.1 g/dL [facility] MCH (RBC) [Entitic mass] 31.7 pg 25.2 - 33.5 pg [facility] MCHC (RBC) [Mass/Vol] 32.7 g/dL 28.4 - 34.8 g/dL [facility] MCV (RBC) [Entitic vol] 97.1 fL 82.6 - 102.9 fL [facility] NRBC Automated 0.0 0.0 per 100 WBC [facility] Platelet distribution width (Bld) [Ratio] 12.8 % 11.8 - 14.4 % [facility] Platelet mean volume (Bld) [Entitic vol] 10.1 fL 8.1 - 13.5 fL [facility] Platelets (Bld) [#/Vol] 200 10*3/uL [facility] RBC (Bld) [#/Vol] 4.10 10*6/uL 3.95 - 5.11 m/uL [facility] WBC (Bld) [#/Vol] 4.2 10*3/uL [facility] Electrolyte Panelon 07-22-19 Anion gap [Moles/Vol] 9 mmol/L 9 - 17 mmol/L [facility] Chloride [Moles/Vol] 113 mmol/L High 98 - 107 mmol/L [facility] CO2 [Moles/Vol] 19 mmol/L Low 20 - 31 mmol/L [facility] Interpretation and review of laboratory results Abnormal [facility] Potassium [Moles/Vol] 4.0 mmol/L 3.7 - 5.3 mmol/L [facility] Sodium [Moles/Vol] 141 mmol/L 135 - 144 mmol/L [facility] Glucose, Randomon 07-22-2022 Glucose [Mass/Vol] 83 mg/dL 70 - 99 mg/dL [facility] No Panel Informationon 07-22 [facility] Protime-INRon 07-22-2022 INR Coag (Bld) [Relative time] 1.0 {INR} [facility] Comment on above: Therapeutic Range: Moderate Anticoagulant Intensity: INR = 2.0-3.0 High Anticoagulant Intensity: INR = 2.5-3.5 No clot found in specimen, results questionable. PT Coag (PPP) [Time] 10.5 s [facility] Comment on above: No clot found in spe cimen, results questionable. TYPE AND SCREENon 07-22-2022 ABO/Rh Negative [facility] Arm Band Number [id number] [facility] Expiration Date 08/08/2022,0866 [facility] CALCIUMon 07-19-2022 Calcium [Mass/Vol] 8.7 mg/dL Normal 8.5-10.1 [facility] Comment on above: Performed By: #### C A, CREA #### [facility] [address] [place] [address] Dr. Cole Garcia CREATININEon 07-19-2022 Creatinine [Mass/Vol] 0.81 mg/dL Normal 0.55-1.02 [facility] Comment on above: Performed By: #### C A, CREA #### [facility] [address] [address] [address] Cole Garcia EGFR-AF [place] >60 Normal >=60 [facility] Comment on above: Performed By: #### C A, CREA #### [facility] [address] [place] [address] Dr. Cole Garcia EGFR-NON AF [place] >60 Normal >=60 [facility] Comment on above: Performed By: #### C A, CREA #### [facility] [address] [address] [address] Cole Garcia MRI CERVICAL SPINE WO CONTRA STodelores 06-17-2022 1. Multilevel degene rative change with mild spinal canal narrowing at C3-4 and C5-6. There is neural foraminal narrowing at both levels. 2. Mild volume loss and T2 hyperintensity in the cervical cord at C3-4, likely myelomalacia. 3. Reversal of the normal cervical lordosis with retrolisthesis at C3-4. [facility] EXAMINATION: MRI OF THE CERVICAL SPINE WITHOUT CONTRAST 06/17/2022 12:38 pm TECHNIQUE: Multiplanar multisequence MRI of the cervical spine was performed without the administration of intravenous contrast. COMPARISON: 01/28/2022 HISTORY: ORDERING SYSTEM PROVIDED HISTORY: Stenosis of cervical spine with myelopathy (HCC) TECHNOLOGIST PROVIDED HISTORY: Reason for Exam: Patient states that she's had pain in her neck and down her arms for years, in December the pain down her arms got worse and she went to the ER, no injury and no surgery to neck FINDINGS: BONES/ALIGNMENT: Reversal the normal cervical lordosis. There is retrolisthesis at C3-4. Vertebral body heights are maintained. No aggressive marrow signal abnormality. SPINAL CORD: There is mild volume loss in the cervical cord at C3-4 with T2 hyperintensity. SOFT TISSUES: No paraspinal mass identified. C2-C3: There is no significant disc protrusion, spinal canal stenosis or neural foraminal narrowing. C3-C4: Posterior disc osteophyte complex ligamentum flavum hypertrophy with mild spinal canal stenosis. Moderate left neural foraminal narrowing. C4-C5: There is no significant disc protrusion, spinal canal stenosis or neural foraminal narrowing. C5-C6: Posterior disc osteophyte complex and ligamentum flavum hypertrophy with mild spinal canal stenosis. Mild right and moderate left neural foraminal narrowing. C6-C7: Posterior disc osteophyte complex without significant spinal canal or neural foraminal stenosis. C7-T1: There is no significant disc protrusion, spinal canal stenosis or neural foraminal narrowing. [facility] Ping Hunter MD - 06/17/2022 EXAMINATION: MRI OF THE CERVICAL SPINE WITHOUT CONTRAST 06/17/2022 12:38 pm TECHNIQUE: Multiplanar multisequence MRI of the cervical spine was performed without the administration of intravenous contrast. COMPARISON: 01/28/2022 HISTORY: ORDERING SYSTEM PROVIDED HISTORY: Stenosis of cervical spine with myelopathy (HCC) TECHNOLOGIST PROVIDED HISTORY: Reason for Exam: Patient states that she's had pain in her neck and down her arms for years, in December the pain down her arms got worse and she went to the ER, no injury and no surgery to neck FINDINGS: BONES/ALIGNMENT: Reversal the normal cervical lordosis. There is retrolisthesis at C3-4. Vertebral body heights are maintained. No aggressive marrow signal abnormality. SPINAL CORD: There is mild volume loss in the cervical cord at C3-4 with T2 hyperintensity. SOFT TISSUES: No paraspinal mass identified. C2-C3: There is no significant disc protrusion, spinal canal stenosis or neural foraminal narrowing. C3-C4: Posterior disc osteophyte complex ligamentum flavum hypertrophy with mild spinal canal stenosis. Moderate left neural foraminal narrowing. C4-C5: There is no significant disc protrusion, spinal canal stenosis or neural foraminal narrowing. C5-C6: Posterior disc osteophyte complex and ligamentum flavum hypertrophy with mild spinal canal stenosis. Mild right and moderate left neural foraminal narrowing. C6-C7: Posterior disc osteophyte complex without significant spinal canal or neural foraminal stenosis. C7-T1: There is no significant disc protrusion, spinal canal stenosis or neural foraminal narrowing. IMPRESSION: 1. Multilevel degenerative change with mild spinal canal narrowing at C3-4 and C5-6. There is neural foraminal narrowing at both levels. 2. Mild volume loss and T2 hyperintensity in the cervical cord at C3-4, likely myelomalacia. 3. Reversal of the normal cervical lordosis with retrolisthesis at C3-4. [employer] Phone: Radiology Study observation (narrative) [employer] Phone: MRI CERVICAL SPINE WO CONTRA STOrdered By: Ping Hunter on 06-17-2022 [employer] Phone: [facility] Standardon 04-09-2022 eGFR Non AA >60 Invalid Interpretation Code [facility] Comment on above: Performed By: #### 2 [id number], [id number], [id number], [id number], [id number], [id number], [id number] ####[facility] (DEFAULT)[address] [place] [address] eGFR AA >60 Invalid Interpretation Code [facility] Comment on above: Result Comment: Academic Services Coordinator ta Kidney disease could be indicated at eGFRs of less than 60 ml/min/1.73m2. Kidney Failure is indicated at less than 15 ml/min/1.73m2 Performed By: #### 2 [id number], [id number], [id number], [id number], [id number], [id number], [id number] ####[facility] (DEFAULT)[address] [place] [address] [id number] Albumin [Mass/Vol] 3.8 g/dL Normal 3.5-5.0 [facility] Comment on above: Performed By: #### 2 [id number], [id number], [id number], 2167118, 8193655, [id number], [id number] ####[facility] (DEFAULT)[address] [place] [address]63 Albumin/Globulin [Mass ratio] 1.5 {ratio} Normal 1.4-2.6 [facility] Comment on above: Performed By: #### 2 [id number], [id number], [id number], 3876091, 8394289, [id number], [id number] ####[facility] (DEFAULT)[address] [place] [address] 54917 Alk Phos 32 IU/L Normal 32-91 [facility] Comment on above: Performed By: #### 2 [id number], [id number], [id number], 0384859, 4597244, [id number], [id number] ####[facility] (DEFAULT)[address] [place] [address] 71613 ALT [Catalytic activity/Vol] 13.0 U/L Low 14.0-54.0 [facility] Comment on above: Performed By: #### 2 [id number], [id number], 7832167, 0303637, 9688163, [id number], [id number] ####[facility] (DEFAULT)[address] [place] [address] 00439 Anion gap [Moles/Vol] 14.0 mmol/L Normal 5.0-19.0 [facility] Comment on above: Performed By: #### 2 [id number], [id number], 1807696, 7202214, 6856624, [id number], [id number] ####[facility] (DEFAULT)[address] [place] [address] 76051 AST [Catalytic activity/Vol] 16 U/L Normal 15-41 [facility] Comment on above: Performed By: #### 2 497392, [id number], 4338916, 6478852, 8795515, [id number], [id number] ####[facility] (DEFAULT)[address] [place] [address] 40113 Bili Total 0.7 mg/dL Normal 0.3-1.2 [facility] Comment on above: Performed By: #### 2 177541, [id number], 3941065, 8118581, 2404169, [id number], 0908105 ####[facility] (DEFAULT)[address] [place] [address] 45580 Calcium [Mass/Vol] 9.0 mg/dL Normal 8.9-10.3 [facility] Comment on above: Performed By: #### 2 [id number], [id number], [id number], 5865926, 7078136, [id number], [id number] ####[facility] (DEFAULT)[address] [place] [address] 46924 Chloride [Moles/Vol] 102 mmol/L Normal 101-111 [facility] Comment on above: Performed By: #### 2 [id number], [id number], 1501410, 2094929, 9341944, [id number], [id number] ####[facility] (DEFAULT)[address] [place] [address] 09860 CO2 [Moles/Vol] 26 mmol/L Normal 21-32 [facility] Comment on above: Performed By: #### 2 [id number], [id number], [id number], 6670451, 7229827, [id number], 4809669 ####[facility] (DEFAULT)[address] [place] [address] 49566 Creatinine [Mass/Vol] 0.85 mg/dL Normal 0.60-1.30 [facility] Comment on above: Performed By: #### 2 065333, [id number], 8796390, 1844613, 5734540, [id number], 0330426 ####[facility] (DEFAULT)[address] [place] [address] 96186 Globulin (S) [Mass/Vol] 2.5 g/dL Normal 1.5-4.3 [facility] Comment on above: Performed By: #### 2 [id number], [id number], 5830257, 5153090, 0077190, [id number], 9772226 ####[facility] (DEFAULT)[address] [place] [address] 43252 Glucose [Mass/Vol] 81.0 mg/dL Normal 74.0-118.0 [facility] Comment on above: Performed By: #### 2 [id number], [id number], [id number], 8466319, 6323614, [id number], 7250460 ####[facility] (DEFAULT)[address] [place] [address] 20010 Osmolality 276 mOsm/L Invalid Interpretation Code [facility] Comment on above: Performed By: #### 2 330525, [id number], 5658039, 1002216, 6944217, [id number], [id number] ####[facility] (DEFAULT)[address] [place] [address] 19805 Potassium [Moles/Vol] 4.6 mmol/L Normal 3.6-5.1 [facility] Comment on above: Performed By: #### 2 769948, [id number], 6725866, 8061754, 5454294, [id number], 3288169 ####[facility] (DEFAULT)[address] [place] [address] 73059 Protein [Mass/Vol] 6.3 g/dL Low 6.5-8.1 [facility] Comment on above: Performed By: #### 2 672943, [id number], 6349065, 7478393, 0191318, [id number], 7101161 ####[facility] (DEFAULT)[address] [place] [address] 37672 Sodium [Moles/Vol] 137.0 mmol/L Normal 136.0-144. 0 [facility] Comment on above: Performed By: #### 2 718947, [id number], 4578326, 2815382, 4369697, [id number], 8652673 ####[facility] (DEFAULT)[address] [place] [address] Urea nitrogen [Mass/Vol] 20 mg/dL Normal 8-26 [facility] Comment on above: Performed By: #### 2 693729, [id number], 0312720, 6878071, 5853889, [id number], 6402699 ####[facility] (DEFAULT)[address] [place] [address] Urea nitrogen/Creatini ne [Mass ratio] 24.0 mg/mg High 4.6-16.2 [facility] Comment on above: Performed By: #### 2 308414, [id number], 3445974, 5931781, 8833039, [id number], 3867220 ####[facility] (DEFAULT)[address] [place] [address] 07269 GGTon 04-09-2022 Gamma glutamyl transferase [Catalytic activity/Vol] 8.0 U/L Normal 7.0-50.0 [facility] Comment on above: Performed By: #### 2 483584, [id number], 5271714, 5083598, 2748953, [id number], 9375471 ####[facility] (DEFAULT)[address] [place] [address] 54800 Iron Levelon 04-09-2022 Iron [Mass/Vol] 119.0 ug/dL Normal 28.0-170.0 [facility] Comment on above: Performed By: #### 2 705868, [id number], 9798550, 0346010, 2408066, [id number], 0328053 ####[facility] (DEFAULT)[address] [place] [address] 74590 LDHon 04-09-2022 LDH 144.0 IU/L Normal 98.0-192.0 [facility] Comment on above: Performed By: #### 2 439404, [id number], 1747597, 8255845, 8650548, [id number], 1146005 ####[facility] (DEFAULT)[address] [place] [address] 72670 Lipid Panel Standardon 04-09 Cholesterol [Mass/Vol] 183.0 mg/dL Normal 66.0-200.0 [facility] Comment on above: Result Comment: Fiona rable - Less than 200 mg/dL Borderline high risk - 200-239 mg/dL High risk - 240 mg/dL and over. Performed By: #### 2 776000, [id number], 0044237, 1815670, 9152744, [id number], 9764046 ####[facility] (DEFAULT)[address] [place] [address] 21297 Cholesterol in HDL [Mass/Vol] 68 mg/dL Normal 40-71 [facility] Comment on above: Result Comment: High risk - <40 mg/dL. Performed By: #### 2 742458, [id number], 0409601, 4401853, 1567556, [id number], 3860474 ####[facility] (DEFAULT)[address] [place] [address] 77937 Cholesterol in LDL [Mass/Vol] 99 mg/dL Normal 1-100 [facility] Comment on above: Result Comment: Opti mal - Less than 100 mg/dL Borderline high risk - 130-159 mg/dL High risk - 160-189 mg/dL. Performed By: #### 2 454065, [id number], 4474926, 9015968, 1311193, [id number], 7840613 ####[facility] (DEFAULT)[address] [place] [address] 63382 Cholesterol.total /Cholesterol in HDL [Mass ratio] 2.7 {ratio} Normal 0.0-4.5 [facility] Comment on above: Performed By: #### 2 448386, [id number], 7589386, 4236364, 0448077, [id number], 2569941 ####[facility] (DEFAULT)[address] [place] [address] Triglyceride [Mass/Vol] 81.0 mg/dL Normal 0.0-150.0 [facility] Comment on above: Performed By: #### 2 435389, [id number], 7389006, 9496949, 9388412, 1881544125, 9753133 ####[facility] (DEFAULT)[address] [place] [address] VLDL. 16 mg/dL Normal 5-40 [facility] Comment on above: Performed By: #### 2 126114, [id number], 3222639, 6591195, 9076072, [id number], 1927558 ####[facility] (DEFAULT)[address] [place] [address] Phoson 04-09-2022 Phosphate [Mass/Vol] 3.2 mg/dL Normal 2.5-4.6 [facility] Comment on above: Performed By: #### 2 059608, [id number], 4229527, 0186565, 4012491, [id number], 2727328 ####[facility] (DEFAULT)[address] [place] [address] Uric Acidon 04-09-2022 Urate [Mass/Vol] 2.6 mg/dL Normal 2.6-8.0 [facility] Comment on above: Performed By: #### 2 654588, [id number], 5549891, 4159480, 8132890, [id number], 5454312 ####[facility] (DEFAULT)[address] [place] [address] MRI CSPINE WO CONon 01-30-20 22 MRI CSPINE WO CON EXAMINATION: MRI CSP INE WO CON HISTORY: Spasm ; chronic neck pain and stiffness radiating into arms COMPARISON: No relevant comparison available. TECHNIQUE: A variety of imaging planes and parameters were utilized for visualization of suspected pathology. FINDINGS: CRANIOCERVICAL AREA: Normal foramen magnum with no Chiari malformation. PARASPINAL AREA: Normal with no visible mass. BONES: No fracture, pars defect, or osseous lesion. CORD: Flattening of the cord at multiple cervical levels. No lesion or edema. CERVICAL DISC LEVELS: C2-C3: Early degenerative disc disease is present without focal protrusion or neural impingement. C3-C4: Marked central canal narrowing with flattening of spinal cord. Marked left foramen narrowing, mild right. Moderate diffuse disc bulging with mild disc height reduction. No significant facet arthropathy. C4-C5: Moderate central canal and mild bilateral foramen narrowing. No significant disc bulging or disc height reduction. Mild degenerative facet arthropathy. C5-C6: Marked central canal and left foramen narrowing. Moderate right foramen narrowing. Moderate diffuse disc bulging and mild disc height reduction. Mild degenerative facet arthropathy bilaterally. C6-C7: Mild central canal and moderate bilateral foramen narrowing. Mild diffuse disc bulging without disc height reduction. Mild degenerative facet arthropathy. C7-T1:. Early degenerative disc disease is present without focal protrusion or neural impingement. IMPRESSION: 1. 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 2. Multilevel moderate-marked foramen narrowing. Electronically authenticated by: ABDOULAYE ORTEGA Date: 2022-01-29 07:43 Normal [facility] MONIKA by IFAon 12-18-2021 Antinuclear Antibodies, IFA Negative Normal [facility] [place] Comment on above: Result Comment: Nega tive <1:80 Borderline 1:80 Positive >1:80 ICAP nomenclature: AC-0 For more information about Hep-2 cell patterns use ANApatterns.org, the official website for the International Consensus on Antinuclear Antibody (MONIKA) Patterns (ICAP). Performed By: #### A NAIFA ####[facility] [address] [place], [place] [address]YaDr. Cole Garcia [place] VIRUS (EBV) AB PROFILEon 12-18-2021 EBV Ab VCA, IgG 87.0 U/mL Critically high 0.0-17.9 [facility] [place] Comment on above: Result Comment: Nega tive <18.0 Equivocal 18.0 - 21.9 Positive >21.9 Performed By: #### E BVPROF #### [facility] [address] [place], [place] [address] Dr. Cole Garcia EBV Ab VCA, IgM <36.0 Normal 0.0-35.9 [facility] Comment on above: Result Comment: Nega tive <36.0 Equivocal 36.0 - 43.9 Positive >43.9 Performed By: #### E BVPROF #### [facility] [address] [place] [address] Dr. Cole Garcia EBV Nuclear Antigen Ab, IgG <18.0 Normal 0.0-17.9 [facility] [place] Comment on above: Result Comment: Nega tive <18.0 Equivocal 18.0 - 21.9 Positive >21.9 Performed By: #### E BVPROF #### [facility] [address] [place] [address] [address] Cole Garcia Interpretation: Comment Normal [facility] Comment on above: Result Comment: EBV Interpretation Chart Cotter: Antibody Present + Antibody Absent - Interpretation VCA-IgM VCA-IgG EBNA-IgG . No previous infection/ - - - Susceptible Primary infection (new + + - or recent) Past Infection +or- + + See comment below* + - - *Results indicate infection with EBV at some time however cannot predict the timing of the infection since antibodies to EBNA usually develop after primary infection or, alternatively, approximately 5-10% of patients with EBV never develop antibodies to EBNA. Performed By: #### E BVPROF #### [facility] [address] [place] [address] Dr. Cole Garcia XR CSPINE OBL FLEX_EXTon XR CSPINE OBL FLEX_EXT EXAMINATION: XR CSPINE OBL FLEX_EXT HISTORY: Neck pain , acute bilateral arm pain, no known injury, pain increases during neck extension COMPARISON: No relevant comparison available. FINDINGS: BONES: Reversal of normal lordotic curvature involving upper cervical spine. No fracture or bone lesion. 3 mm retrolisthesis of C3 on 4 during neutral and extension, which reduces to 0 during flexion. Multilevel mild degenerative facet arthropathy. DISC SPACES: Marked narrowing C3-C4. Moderate narrowing C5-C6. PARASPINOUS: Negative. No paraspinous abnormality is seen. OTHER: Negative. IMPRESSION: 1. Multilevel moderate degenerative changes, bordering on marked at C3-C4. Consider MRI for further evaluation. Electronically authenticated by: ABDOULAYE ORTEGA Date: 2021-12-17 11:55 Normal [facility] CBC AUTO DIFFon 12-16-2021 BASO # 0.1 103/ul Normal 0.0-0.1 [facility] Comment on above: Performed By: #### C BC #### [facility] [address] [place] [address] Dr. Cole Garcia Basophils/100 WBC (Bld) 1.2 % Normal 0.2-2.0 [facility] Comment on above: Performed By: #### C BC #### [facility] [address] [place] [address] Dr. Cole Garcia EO # 0.1 103/ul Normal 0.0-0.7 [facility] Comment on above: Performed By: #### C BC #### [facility] [address] [place] [address] Dr. Cole Garcia Eosinophils/100 WBC (Bld) 2.7 % Normal 0.9-7.0 [facility] [place] Comment on above: Performed By: #### C BC #### [facility] [address] [place] [address] Dr. Cole Garcia Erythrocyte distribution width (RBC) [Ratio] 13.8 % Normal 11.0-15.0 [facility] Comment on above: Performed By: #### C BC #### [facility] [address] [place] [address] Dr. Cole Garcia Hematocrit (Bld) [Volume fraction] 38.4 % Normal 36.0-48.0 [facility] Comment on above: Performed By: #### C BC #### [facility] [address] [place] [address] Dr. Cole Garcia Hemoglobin (Bld) [Mass/Vol] 12.6 g/dL Normal 12.0-16.0 [facility] Comment on above: Performed By: #### C BC #### [facility] [address] [place] [address] Dr. Cole Garcia IG # 0.01 10e3/ul Normal 0.00-0.03 [facility] Comment on above: Performed By: #### C BC #### [facility] [address] [place] [address] Dr. Cole Garcia IG % 0.2 % Normal 0.0-0.5 [facility] Comment on above: Performed By: #### C BC #### [facility] [address] [place] [address] Dr. Cole Garcia LYMPH # 1.8 103/ul Normal 1.2-3.8 [facility] Comment on above: Performed By: #### C BC #### [facility] [address] [place] [address] Dr. Cole Garcia Lymphocytes/100 WBC (Bld) 34.0 % Normal 20.5-60.0 [facility] Comment on above: Performed By: #### C BC #### [facility] [address] [place] [address] Dr. Cole Garcia MANUAL DIFF REQ NO Normal [facility] Comment on above: Performed By: #### C BC #### [facility] [address] [place] [address] Dr. Cole Garcia MCH (RBC) [Entitic mass] 30.7 pg Normal 26.7-34.0 [facility] Comment on above: Performed By: #### C BC #### [facility] [address] [place] [address] Dr. Cole Garcia MCHC (RBC) [Mass/Vol] 32.8 g/dL Normal 29.9-35.2 [facility] Comment on above: Performed By: #### C BC #### [facility] [address] [place] [address] Dr. Cole Garcia MCV (RBC) [Entitic vol] 93.4 fL Normal 81.0-99.0 [facility] Comment on above: Performed By: #### C BC #### [facility] [address] [place] [address] Dr. Cole Garcia MONO # 0.4 103/ul Normal 0.3-0.8 [facility] Comment on above: Performed By: #### C BC #### [facility] [address] [place] [address] Dr. Cole Garcia Monocytes/100 WBC (Bld) 7.3 % Normal 1.7-12.0 [facility] [place] Comment on above: Performed By: #### C BC #### [facility] [address] [place] [address] Dr. Cole Garcia NEUT # 2.8 103/ul Normal 1.4-6.5 [facility] [place] Comment on above: Performed By: #### C BC #### [facility] [address] [place] [address] Dr. Cole Garcia Neutrophils/100 WBC (Bld) 54.6 % Normal 43.0-75.0 [facility] [place] Comment on above: Performed By: #### C BC #### [facility] [address] [place] [address] Dr. Cole Garcia Platelet mean volume (Bld) [Entitic vol] 10.1 fL Normal 9.5-13.5 [facility] [place] Comment on above: Performed By: #### C BC #### [facility] [address] [place] [address] Dr. Cole Garcia PLT 241 103/ul Normal 150-450 [facility] Comment on above: Performed By: #### C BC #### [facility] [address] [place] [address] Dr. Cole Garcia RBC 4.11 106/ul Critically low 4.20-5.40 [facility] Comment on above: Performed By: #### C BC #### [facility] [address] [place] [address] Dr. Cole Garcia WBC 5.2 103/ul Normal 4.0-11.0 [facility] Comment on above: Performed By: #### C BC #### [facility] [address] [place] [address] Dr. Cole Garcia CRPon 12-16-2021 CRP [Mass/Vol] mg/L Normal <=1.[address] [facility] Comment on above: Performed By: #### T SH, CMP, CRP #### [facility] [address] [place] [address] Dr. Cole Garcia FREE T4on 12-16-2021 Free T4 [Mass/Vol] 0.98 ng/dL Normal 0.76-1.46 [facility] [place] Comment on above: Performed By: #### F T4 ####[facility] [address] [place] [address]Dr. Cole SANTIAGO 14(COMP METB)on 022 Albumin [Mass/Vol] 3.4 g/dL Normal 3.4-5.0 [facility] [place] Comment on above: Performed By: #### T SH, CMP, CRP #### [facility] [address] [place] [address] [address] Cole Garcia Albumin/Globulin [Mass ratio] 1.2 {ratio} Normal [facility] [place] Comment on above: Performed By: #### T SH, CMP, CRP #### [facility] [address] [place] [address] [address] Cole Garcia ALP [Catalytic activity/Vol] 48 U/L Normal 46-116 [facility] [place] Comment on above: Performed By: #### T SH, CMP, CRP #### [facility] [address] [place] [address] [address] Cole Garcia ALT [Catalytic activity/Vol] 34 U/L Normal 14-59 [facility] Comment on above: Performed By: #### T SH, CMP, CRP #### [facility] [address] [place] [address] [address] Cole Garcia Anion gap [Moles/Vol] 12.1 mmol/L Normal [facility] [place] Comment on above: Performed By: #### T SH, CMP, CRP #### [facility] [address] [place] [address] [address] Cole Garcia AST [Catalytic activity/Vol] 11 U/L Critically low 15-37 [facility] Comment on above: Performed By: #### T SH, CMP, CRP #### [facility] [address] [place] [address] [address] Cole Garcia Bilirubin [Mass/Vol] 0.2 mg/dL Normal 0.2-1.0 [facility] Comment on above: Performed By: #### T SH, CMP, CRP #### [facility] [address] [place] [address] [address] Cole Garcia Calcium [Mass/Vol] 8.7 mg/dL Normal 8.5-10.1 [facility] Comment on above: Performed By: #### T SH, CMP, CRP #### [facility] [address] [place] [address] [address] Cole Garcia Chloride [Moles/Vol] 109 mmol/L Critically high 98-107 [facility] Comment on above: Performed By: #### T SH, CMP, CRP #### [facility] [address] [place] [address] [address] Cole Garcia CO2 [Moles/Vol] 25.2 mmol/L Normal 21.0-32.0 [facility] Comment on above: Performed By: #### T SH, CMP, CRP #### [facility] [address] [place] [address] Dr. Cole Garcia Creatinine [Mass/Vol] 0.95 mg/dL Normal 0.55-1.02 [facility] Comment on above: Performed By: #### T SH, CMP, CRP #### [facility] [address] [place] [address] [address] Cole Garcia EGFR-AF KUWAITI >60 Normal >=60 [facility] Comment on above: Performed By: #### T SH, CMP, CRP #### [facility] [address] [place] [address] Dr. Cole Garcia EGFR-NON AF [place]I =60 Normal >=60 [facility] Comment on above: Performed By: #### T SH, CMP, CRP #### [facility] [address] [place] [address] [address] Cole Garcia Globulin (S) [Mass/Vol] 2.9 g/dL Normal [facility] Comment on above: Performed By: #### T SH, CMP, CRP #### [facility] [address] [address] [address] Cole Garcia Glucose [Mass/Vol] 92 mg/dL Normal 74-106 [facility] Comment on above: Performed By: #### T SH, CMP, CRP #### [facility] [address] [place] [address] Dr. Cole Garcia Potassium [Moles/Vol] 4.3 mmol/L Normal 3.5-5.1 [facility] [place] Comment on above: Performed By: #### T SH, CMP, CRP #### [facility] [address] [place] [address] Dr. Cole Garcia Protein [Mass/Vol] 6.3 g/dL Critically low 6.4-8.2 [facility] Comment on above: Performed By: #### T SH, CMP, CRP #### [facility] [address] [place] [address] Dr. Cole Garcia Sodium [Moles/Vol] 142 mmol/L Normal 136-145 [facility] [place] Comment on above: Performed By: #### T SH, CMP, CRP #### [facility] [address] [place] [address] Dr. Cole Garcia Urea nitrogen [Mass/Vol] 22.0 mg/dL Critically high 7.0-18.0 [facility] [place] Comment on above: Performed By: #### T SH, CMP, CRP #### [facility] [address] [place] [address] Dr. Cole Garcia Urea nitrogen/Creatini ne [Mass ratio] 23.2 mg/mg Normal [facility] [place] Comment on above: Performed By: #### T SH, CMP, CRP #### [facility] [address] [place] [address] Dr. Cole Garcia SED RATE WESTERGRENon 2021 SED RATE 3 mm/hr Normal <=30 [facility] Comment on above: Performed By: #### S EDR #### [facility] [address] [place] [address] Dr. Cole Garcia TSHon 12-16-2021 TSH 1.273 uIU/mL Normal 0.358-3.74 0 [facility] [place] Comment on above: Performed By: #### T SH, CMP, CRP #### [facility] [address] [place] [address] Dr. Cole Garcia Coding Summaryon 12-12-2021 Coding Summary HTMLBase 64 HkwurtvhEDa6wKm+PGhlYWQ+PE1FVE IeW92ehIRyqB9ON0nSMV8QHHBBKZZR DQ9IAJ6nhUW3OBehB3VpezEt KqsucYIrIV18ETd3KIF3sPzoCQkvaP 5ooGEoD0y2OkCpQB55fR19GDlaHVCw RzB9LzGoydittIDz P6gbLbGsbAGdLvf+PHRhYmxlIHdpZH SySWamADXrTpHsjIhsLH5jCb7wVBAe LWNvbGxhcHNlOiBj d7qdWUVrTYyiGZ1bnSoiO4GabKB9GE Epb5j8Pk60tRU+HDSuSIX8yMmiEUof k005DlOiy2onPHE8 iRTiQUxpSOZ8Y73if6U1FVTqRMPlJZ Z7sNH3yU8kdHcicmqzO2JsuJBxMeH9 VVS0aKEacZ7gpKbj dlmuxS2tYis+R55QIF8YVWDRGB1WZm h0A3OdRzkwwEM+DN12DHDhLW23sKCb qJCvf9jmtLc1BlNm KNIuWKE8wJcaUDndp4VdVCUvD28xzQ Gmm6A8UHQpgUzdkZKpUuBuoEM6sB1n ZEawtdpit6txikdh Hzgsr5whes30fQ57I02dYFhtIDSzUU X4IERnCTWslBphij7orP7wDh5+IDxj w4jeh4yizPo0NeOo FKJcsgNfqEoaOGY6t6AzPa91E0VysQ sjt8MmOad1vy32hMXpl6T3oPL4WBfd GHZsjX6fSVxfGkL8 XAChWhYxrB62fCWvGZzzGp9hiUgrsJ vdSD7aJFPcjewoXDRofF9pOCHxfTCr tUsuPS6mHSErlfdu k904BcCwJLR3PBIboIYoV5PvyB8oDn TtBGNrIGGtL1GeiPFvNVjjS865JLoq HtN9LUAzseJfB0Bw GENnkVohZqM5s1F1Dx9Fj6BjcadmXY T1PPgaAZN2LrJaGiMlLdF9T9DpNfa0 YOUebMlsRX9uP9Lt EBApgpgbrmacbDI9JEJsDBElrS68tY MmKFrcVo5ni2Z6i570FNTgGFTkxQ18 Uy8akIxkKLEznYZX lN2znpdkc7cebmrjMbUyOPQdOWc2OB n9MKNwcGlxUtDlKYO6OgN0ONM0iOPm wS0vgJddbceqmV5w Oyc+L64lxU8yMXB4WNP9grzdJSGeap ReQB26RJ67L5WwDdpcmXMqsQL+PGRp fgPnuXibMB0pTmOy a3hao2JfWXtxE6AmFPBlGEbuTla3GX HdHJO5jFS0nC0rWALtYEsoq9Y2fVD7 L2OuceBsij1nj1md MWPcUJvmK15qaFYux2S4ENAofVL6RK JnwGiuYlSnyE57Enc+ATGdlLdhi4Ni Cozrv4eho5ymqNm9 PsDmJQCnakAlmHrfXMX6n2ErTt37C1 5qWChbYPGiUXRtDKSaKXGhxToffq1a xG1zMb0+PGNvbCB3 uPZ3aP0nJUKkFcV9OElyF171GcZtsA KxEstaa1rqc8lcsLm6GnAhAMIjmvBv vDrkSXF1e1UqZi71 X64wQSkyHOMtJPOzTKGcFHWsjLiior 1aqF3bOk5+GK3ac3msfk68yB54dIS+ EUHiPDG4zMyuKLbr FXReyN1aWFcsZvW4TZScRgLiuN93bH GxZOwbIp9fhVirpZchUT0tVFWxnpjm b850UsSoh7euMORt nZBkMDzfQKS3W10ze0C9QGNkYLIqQC D5nYX4dZ0kfSbzvbutfUBzjCmxetAc fAmbBVawMObaO710 NLWkrSwoQrVtyUawbvSjBhFpVCd7O1 NlMte3DPDoeMrvQP9voGOwRGdoYd5f oHfhiVbvHN9pQIGi nfzof574HwKue7kaSJIjfKXyPCfoHI A6G98wd0B9WGQoPPZxCRV2gSO6zW9j bGlnbjogbGVmdDsg kiQfrTvtDDykNRoiC662ICThtBubEx SxmeXyNRQfzZV2AP89ER53dCVxm4X7 rWI6K2WmEJLhyusd nibomOR2JURpXNHdfS24Du2llMmpDa 6lBYCnPIM2IUStlBJiK4PonY2qMpKb GSKkJBBdD8ScqAKa ANyrI961OBcvRzE3UYYfmgJeB6IrQI RpoDwoNzR0g6O8Ol3ZB5W8TG62VS92 lDBla8G1tXV0G2Wl QJEjdcwuhzatzNS8ARHcKUAgaO55Fp 8rjResUl6sLRQrNBK7GRHpvGFqW3Pk gM4wImAdJYUlGDXt E4NecEEzEQkiG547GTbgPxQ6HKHesf UwD5TpAYNepPrpMcP4x6N8Bl3PKIf2 KW76NB80jPVnq7T4 yOL4Q7RcGEOzrfaxlpvgqVO8RCVtPS TosE48Ov6tgCqgLz5sXETjGFT0WRPi hHVhV5NumN9oRxFw PGYlFXEhK3OrjLPzAYpoA657XPmxZa U0XUDurdObN7EcZWNyxWjiDxL9y8D0 Ej8YUNIlGE81ZFX3 zRO6BR13GE62Y8AiXgsgvGSsvJK+PH RhYmxlIHdpZHRoPScxMDAlJyBzdHls ZS5sLa2jHPNcOHPv uFjsmGJqQnKln6uaBKPwDHuhUU7psA hoM8QssVM6BOZul8y8Ex18K47qO9Se dXA+RAEdvAY8iIY0 iC7yAoNhWdX9HNlxK196HtWtjRDxWb ygw3zxr7jdqAy9NnI0MCKtcbVceXgn WFI1k1NsOs52M08r DLsvZYFiPXQyMYZbTFWjmSpzzg8mgC 9wIi8+BYCriFQ6wZC3bU9cTeAlVvK5 GXgrX209BwIklWDu Szvae6wun6lvjDa6UjXxPUOzdbKweH ygQCW0a6AtJc28W0CeeHrbb2LbRoj9 dc91tSLjq2J0oIB6 N0McCZBaixqqnCAtgHseRF9qWXCcof orJXXidS0jOODzO3d4XuAqImV0MMsc C7BjrzC8TAEwhZNq UEqgRTG5X76oc9H2YWRhUMLeGBC8rS J0oE1hnKryhlilpUYxdNmxvdYgeBke MAvvMAesD358OGLq jKsmDHBwcQ1jFCTfyKDlmGxoPD9lQY XdqwwgEgeYT1PAFLRDTPWNDwEFVH91 AY59sBSlr3P8yGZ7 U5OcEDHqbbgyroxhcPG0LTAkFPGcsZ 17pVWlVZuxNq7lx9A7l738CJIeTSNd gO89Eh8jzXyaSJSb bHUCpN2gxiugn3osttqnCcJqODZlBY m0OKc3PUZfqMkvMiUaBKV0QmS2KAL3 wIRbxY5hcDrloxfc lP2yDio+HKHpNDPdFEg7HatdjIW+PH FlFOD9yJeiENecOPJupA9fMLArY5p3 HmKqYjX1MNlhS0Ra GVKgdbwfMz27oP3mLoKeWxK1FXkxB2 FyueI7LJGlcTEmSQueVPX6Q87df5E8 PKJmKZVuXHS1rIR7 dO4ytKuulzjrkIHmyNcdsrGveFqfLP fjZSdxZ935BOUyfBuvDgA1TSxaQMTi CP91HC83xUEfn1L1 wLN1R9JoEEIqiucdkzyzaOM3CXSbSF TntG42bXPbDBnxYq3zf9U3a232XJGz PNDveK59Qw9kqDje EFRjvLDVaN1amrjjy9mmeltlIrOhSC AbODi8PWs2RGDdqXwnMuReWGF2BsK2 IOV6yZCfnS3gxWky kmdwzI8tGyd+GpZMXOsAJH73CH60cJ Iee3K3cID8U1ZkHPSssqvsllmsoEO7 YMTeFQZtxK89kTMp GBlaKz0ol0K9i759WBYxDWYziM75Sd 9mdGtkYJSqtZTFgD9tvxxyh9mwewip QqVzYIFbQCw4XGc1 GVTgeSxrDmJxSIV4DvP4REJ7sKNvcV 5jhGbdsdloxS6dXhq+L1G7V0CgQaza dHI+FG09KUTaYO05 kAYgbJRkt7hwfDg5JlCyFBVqASU5oH ceUEeji3OoAHAgM95fkZLbp1R7QUWg bGxhcHNlOyBlbXB0 aS0kYNkilnwow0exsyioQftrp9ejtv 18tP72T62uHXauDHBbGGKoYQZuUNOk uBndve2poT3kVm8+ ZBTrtYJ8hMW0pV3jNyWdKbK4BFavJ3 69RtObjJDuHaoeb4aeh5slmGn0GcUq JSIgdmFsaWduPSJ0 l9TsTh30T53yQKckVXHkSCGjHKNeRV VbeCdlkm4mpZ8lGj6+BP0tb9crtx97 bJ69jDF+PHRkIHN0 yAyeCHzhFNNukD4jCXihFrC5OYCfRl DmpY19cFPwPJduUs8dwWdogQkfML2o UKZpfqcxx138GgSs z6loVZVpyIFdYQxjJPN3T68in3Z0CJ SxGNNoBQE7pII9dM0efCxflaisxHRf dDsgdmVydGljYWwt EHayJ748BIFhmOjoXpUwfLIfD1xvfb RYJB0dPsimkFC+QFLfLAK9zDowQQpv HQNdgS2qYNQpU3y2 HeWvTpL7FPstR1EhboF4ABQqtQNuVS ZxfSBIsX9zdbhqu1ykvwdsXsZmSKRl TDf6NIu5EIFeeTyt QjQuAFI5EqA7GTD5pSPjfT7jfAeeys xmfD1mIaq+RklOOjwvdGQ+PHRkIHN0 jBrpRVnyUWLlaC6f YZTeV2t7LdIaFaZ4RXohX3FoofI5XE TvzTZvEGCcdKWGdT9etojpf7fuavga OkRwWTZrPWq2LXm9 EIOvhThdSySeHNB4PgF1VCD4fULywD 5glBprridfoC4qVet+TVJOOjwvdGQ+ YDPmAJH8aDpsHVjx WWQwhY6iPLBuU7v8MwYdAeE5ROogH9 QsbwV0BVLavKRaGJKadZCDfQ8hmonp q0eyhutoIdYwDGRe WVb1LYm9GQGtwGnhGlAfUSH0IkM7NN F6rXUmvS2puIzidsvweR8cZbq+UGF5 ZTA4ZG59IL79A8Qe PjwvdGFibGU+PHRhYmxlIHdpZHRoPS thJSTpMyPhvYnxLF7jWd1xWMVzKEDi pJclcHBiXiUbh2ub YXB (more content not included)... [facility] Coding Summary HTMLBase 64 LaywdlpdRMn6aOm+PGhlYWQ+PE1FVE EcN65nfRKurL0HC0pHBY7NNGAVNZOL HV2ACG5gsGQ1NRgdZ5EpjzIc PawnqRAtDF46UFa9YOA9vPpfPYefmC 8aeSHpO6g4AxVcJO70uY89TRxfAWSh RyH6SnIlccborYEo R5xxMjXutVKfSdj+PHRhYmxlIHdpZH WlNDyoNFNvDbOvoCbuLF8vGu1cPGBv LWNvbGxhcHNlOiBj l7mzAXBeBNbjUJ0tkAruZ7VrkFJ8HE Rso9g2Uk94rSE+BHSbUQI4nQqpUKok p531QjVeb4htTAI5 jEQwNOqoOSX3N86tm1R9UUKhFLPrDP P6vXF4mI1ujTanfxuaD5NviCPiFlG7 XSY3sLSwgA6vlRfh opxdzK5vHqp+M19KRW8QUNGTGJ7WKm v3Z1ApNvpbeES+AZ08HSOrVX88aBMi vGJbh8evrQr3GqAr QQXwJNB4iTifDQlga3IvJSBnP15mbA Cqn4R2ASSccKhhnYVtMrZlvUP3lY3u HAoprkscp9fzszoq Ndcem5eftw58jK70V75nCFzkMYMmLX V2OMXpRVOdtEqgij8snJ0eFq1+IDxj b8yfu5wlyDx5CmDq QJUzuyXdnVsjEGQ6f8TdHu75I9XalG rzq6OoMkk1rq52gHQcd9C4xBE0ZKiq FMGscU9hSNzbCoL4 FHJsQqHclW04qYQuIUmsBd5zsUelkP mtXU6bJDXhfkwdZOHovD9dLUFnyLBl gTqgZI7yNMYbisze u977LoUnZCZ5QRTcoRXvS3TrpC7eIa XsILQuFNUyY2NxyDUsPSziY381RLnf HeM6VFFacrJyA6Kp ZFFnpWdwYvQ2m5J0Zc9Qw3MnmavaVY C9NDufMBE7GhKxUzZyIqI6E6ItArj7 SYIjoAzkJR5tV9Hp UJAmqfnujzefrVH0WJAdWHHobG89hG LyJGsqAb7le5O2m026BAFnMYNncS43 Pz4hmZauHRGnpRHQ hP9ubastq8njyyvaCaFgRIHnLRo6QS m8TPGopYrsWdDkOSM8PwG5YGG2vSUa xU0jrDovckafrD6t Oyc+T95frF0zWUF5SEZ9puyiWPMecs CjBS22JO92J0LuJwpubKHsoOI+PGRp fqCqtPraRV5vJjJw i8iev5TjBNeiS2CnKRFpXGtoRbp7PL JiMNX2wTN0fL4cSDNtRNhdv1H0vUN9 A9NaatVsuc2zq0aa ZVVwMHrkO77okYZdm2V3FTZgzFE1EW BwvVqiBpOvmS71Mzb+QHCekBzqo3Xa Piels7lgy1qhhOg9 FwGbHRUdvbQfwKcwYIS6k6IpUh79Y4 7eTIkiHWFuNHPtJLNyRJKrnBzzdh1i cC8zDq6+PGNvbCB3 cMP1oT6kINAvExM9KLytY812GeVxaY ZxExirg3bnu2igzPf3IbOuIQUloaOc kPbwQUB6o6YrAu67 G55gOAfbTVMxLIFeHEKiEMCllVtubi 1fzU6qPe1+WN6mc7ncjf32gO05dWJ+ EVSgFTX4bDbjGVvi RCGzvO4tBDglYuW7SWJwQbVxeC38gF KpKBbaTd5zhQwheJfbMW9gVEUupepa w707WeIln1wxTFTv fIChCQqvRIA0Q48in6O8OGHsNHYpLF Q7jWH8aP3mqKdppjzqhOZoqOfvquVg qPxrBNzePWgsH820 ZEQqtSqiDjCyrRykdfXwIjHfMQq5Q8 GvUqm6PGTivUbnMZ5uqLXyJFlhFc5g fEogfAubDQ4aGWMj kembc798NnIxe6qrIGMjbJQaBItnGM H9A66cn3V3HKHuIVEyOPM6qQP0mO1z bGlnbjogbGVmdDsg qiYjqDlkANelQDroT350JVIfqAqvPi ClmtIgLCKrrGC6ZF65OF34aRSso6I1 iUR5Y2JtHYZygtlv mebvyZZ3TAFfFKPjeP45Rn8kxLxgAu 8lRNDwAML5SPCkvNTiW2OucG4wWcBz FCJmNHFnP5OmqYIy WProB573QSkbDpT7TWNpwtMlL9WlKK DciTabGhM2f8C3Hx8HV9V3TA77QF73 wRWes5I8kEW3Y0Uk ACEdblggvmqetMR5HRKsLSFykM90Xo 3uoBmuBj0jCQHiCHK2NJYvmISkH4Vv sX9qBkClTMKhIDNq H9VgcAYhUOimU016ZSjaHxV9HUQdkx KgI7QkTHHfyYsqAiX9c2I6Sx1UNIp3 DF49EN43sUDdp3Y9 bCC0N9WqDMLtnfiqdbjzlUZ7GTRyHM SarI13Nn8zqTtpDt9uCBWaNII6MGQl pEMvU9KsdQ4yYdPx QGClKBQrI6IkbRJrUCksW468VWxfHd V7MHJrkuFvW3OdGIWlyXqvLoC1g2Z4 Pi9LKRVmWF58NUU0 nDK9CR55ZQ63W7OtGseadWBejAM+PH RhYmxlIHdpZHRoPScxMDAlJyBzdHls RW3mTu2pXVUyOGKb bUerrPXgYkEgr0ouAZFpWUytJJ9qiQ sdU8VivDC2XGWci3d1Wt84K53rT3Ki dXA+OXIypDT7hBV9 wD5hJfPuHpC4WUkgS198XvQgmCMpEl iab4rsu8jmsQl6LkJ4NCZvocKurHif JUC4m3FbFr53B91w REpfZVMyQHUgZWPfIXPjkVbrad9caX 9wIi8+GOQxdFJ4uXB9iK4aRnVbQvU9 EOjhX563ExVraCUa Mtsyh0uyq3nnkPb3EoJjCOLpklEvzB hcHFF8j5QnBn50X8JbaUwve4UkAif5 cq94aAKem4E4mRI8 C9UbICAoagxiaFXolPhwCS5aGFMkja oqQVLsoM0sSZLkA5i0QiDwKbM9EWxr L7ChapA8FSBwbCRv TQadNET1S64ku7T9MWNqEHXaVYX2fR V5pH8esAbysfxodQNwoQxqcrGuvNjh NUccYMjvK634DLZl ySrrYUMiaU6cKGHajFUevSraBS2mZU CwkcepJtyVC0RGNMWUZLSANqUWHS75 DF24yQTjx3E3jPF8 U5FuHIOleuooynosgYE9NJQhWZVnmI 30tEYcYTxpFj6zz5Z4e006MUBlMKQq rN04It7kcRqvSAMh pSFAmJ6pewvwx6oeucfzAaYuVMPcSE y6UCe8ELOczNgvJxRdIMY5TpH6BZY7 sDZqhK3nmGpnvlsr lV2uSdh+FFMcEIGuTBd8GmpmjDD+PH RfISU2cTtcEMdxGJFffY4bWPMaU8s4 HfJdHnS2FAvgD1Et WTVeyaghZh24lH7hXdZtSfN5GSomV7 VqteW7LAHksOXqRTxuSJS5C16jc0V8 MJZrOYHgBKE0kJV4 mA6yrYyhvphvrDOsiJtddePnyWctQI xdUFpwM151GESfeBmsDfH6XVzeSKIn HY61VN23hTTau0M4 sDT1D9BlBEUjmatgqhllwVC6XTIqRH QkfQ01jRLcYOkyEe3yd9N6m748VHPt EQGuwW45Oy8hzJwd FSIhaEQFoK4phlids5jyffmtLtAwNR NdGAf9CYn9LZTptOpcCkAfVAA1JmI0 MFQ8aKKaeR0ezZqp uqtitA1bXia+EaFYGZrNKP28BM21iZ Wia8A8gYD9K5OmLYZvuckvrmhfhVI7 MSZlXUPaiQ02sDOz GJdrBk3kz4J0z257NVZeHBGttJ41Sv 7rwZnqICUcuKKGsQ9wzjfra9iwxcuo DzWkILKvJNh9NYk4 JDOldKvdUeUqFGE0RsJ3DAJ7eHBzrH 9uqDpsnrtpfZ0lHup+WF2khdoxqjF1 TB06QV34Z9PuRmhy dGFibGU+PHRhYmxlIHdpZHRoPScxMD JmWoOnhTvlZA4oPs5yDKExNAHjoLcq bZMwVtUex0jbPLHr LMnaPN7oqVqfN5OrhVJ7LEAgx3m0Cd 29U43tT3JvxVR+SLQjlYQ9pIW5kE4u WnGlFgP2GPygG824 MeRjuTSzWuywt3hdb0jmxOl6UiQaYD JsmgTyxPbfNDO6v4DfZy76Q96rMAcw ZHRoPSIyMCUiIHZh cAhaqo1gxK9bQd6+JWGbeKL3rKJ9gJ 0uGxNpCsH9EThoI468PvXxbQUxFwng F85fM7OyfPG+PHRy Qgo5KTWzsKlnDN3xqEOoDRkkUy8aQL O1KzOnWkGvQHxoY5OxDMEnmgnnsgli bUM1YKYiTUKohR79 Jl0kePjwFu2uBCRiGRR1HTUtsHWxE9 WavR4sPfExHPMcLRHoJ8MpwSSiYUlw O492XNflKhZ9NNJi ilOsX7GpLUDwuQxhWvW9f3B6Qp7MwZ uzfPBqMH0tGqYpXRe4B5VwOot3GGBx cMjfYU3cyWLcXRfq Ki6uaZvxjFtxKK2mYDWhybinc562Bh Dxd1bfAKDwmCXvSHfgOAR5G84ta4N2 WRCgVDPiFMM1qIE5 nW3rwZmfoeywmTEjxPyineAaeSmeXS wvMTzfH700VOLzpUpqCnQCAla5I4Ds Jqf4LYAdbEwlIL4l dVCtYZwxHw5raRbsqVjnOQ1dKLKwbr lns584EhVzz7psNJOxgTSeEUyvQBC9 P92vh6V1JWYwAWJr POL7mPE4nL1opObvqfjrqQZcwShyzk GvzKglKZacGWbbT100VVSuqBfhPv5Y Wxc0T3XwCad3MTMp aNztIK4ojYZuGPdbNp8fkEmarHcyCN 2rMMZeqkmun495OxRyl7dbIIGvbDYc ULoxEKS1I99si9Y5 ZOVtRBDsUUR9fYT6bQ5ucYntdrmtdP RiuZuxirUtwSpkJWnoFNkhW810LKLa cDsnPlBheWVyOjwv dGQ+JZ14js29M2UeOuzoAnl2XQAmON D5eJM4kN7xFURcMProy9H7eBD3E4Uw cnMykf3kz3lmYKQs ZTo (more content not included)... [facility] Electronic Messagingon 12-06 Electronic Messaging --- --- --- --- --- --- --- --- --- From: Nancy ([email or web address]), Directtest To: RINA LEE Sent: 12/06/21 04:20:41 AM EDT Subject: Discharge Summary Ready to View A summary regarding your recent visit is available in the Documents section of your Health Record. [facility] .Auto Diff 1on 12-05-2021 Auto [place] % 6 % Normal -12 [facility] Comment on above: Performed By: #### 1 [id number], [id number], [id number], [id number], [id number], [id number] ####[facility] (DEFAULT)[address] [place] [address] Baso Abs# 0.0 x10 Normal 0.0-0.2 [facility] Comment on above: Performed By: #### 1 [id number], [id number], [id number], 0504569, [id number], [id number] ####[facility] (DEFAULT)[address] [place] [address] Basophils/100 WBC (Bld) 1.4 % Normal 0.2-2.0 [facility] Comment on above: Performed By: #### 1 [id number], [id number], [id number], 2039550, 55436796, [id number] ####[facility] (DEFAULT)[address] [place] [address]378 Eos Abs# 0.1 x10 Normal 0.0-0.4 [facility] Comment on above: Performed By: #### 1 [id number], [id number], [id number], 9835359, 77478240, [id number] ####[facility] (DEFAULT)[address] [place] [address] 28003 Eosinophils/100 WBC (Bld) 2.2 % Normal 0.9-4.0 [facility] Comment on above: Performed By: #### 1 [id number], [id number], [id number], 2201806, 28742184, [id number] ####[facility] (DEFAULT)[address] [place] [address] 91497 Lymph Abs# 1.6 x10 Normal 1.3-2.9 [facility] Comment on above: Performed By: #### 1 [id number], [id number], [id number], 1727548, 72079055, [id number] ####[facility] (DEFAULT)[address] [place] [address] 97385 Lymphocytes/100 WBC (Bld) 44 % Normal 14-48 [facility] Comment on above: Performed By: #### 1 [id number], [id number], [id number], 9151666, 89344427, [id number] ####[facility] (DEFAULT)[address] [place] [address] [place] Abs# 0.2 x10 Normal 0.0-0.8 [facility] Comment on above: Performed By: #### 1 [id number], [id number], [id number], 9294553, 41528626, [id number] ####[facility] (DEFAULT)[address] [place] [address] Neut Abs# 1.7 x10 Normal 1.5-9.2 [facility] Comment on above: Performed By: #### 1 [id number], [id number], [id number], 1753486, 42323904, [id number] ####[facility] (DEFAULT)[address] [place] [address] 00454 Neutrophils/100 WBC (Bld) 46 % Normal 44-88 [facility] Comment on above: Performed By: #### 1 [id number], [id number], 0824057635, 2471438, 34996266, [id number] ####[facility] (DEFAULT)[address] [place] [address] CBC w/ Auto Diffon 2 Erythrocyte distribution width (RBC) [Ratio] 13.4 % Normal 11.5-15.0 [facility] Comment on above: Performed By: #### 1 [id number], [id number], 9603903789, 7282155, 79655487, [id number] ####[facility] (DEFAULT)[address] [place] [address] Hematocrit (Bld) [Volume fraction] 39.6 % Normal 33.7-40.4 [facility] Comment on above: Performed By: #### 1 [id number], [id number], 7523343767, 5263626, 18135059, [id number] ####[facility] (DEFAULT)[address] [place] [address] 58136 Hemoglobin (Bld) [Mass/Vol] 13.2 g/dL Normal 11.3-15.9 [facility] Comment on above: Performed By: #### 1 [id number], [id number], 8385898030, 4395961, 02025646, [id number] ####[facility] (DEFAULT)[address] [place] [address] 24349 Instr WBC 3.6 x10 Invalid Interpretation Code [facility] Comment on above: Performed By: #### 1 [id number], [id number], [id number], 7068089, 96004226, [id number] ####[facility] (DEFAULT)[address] [place] [address] 82613 Man Diff? Auto Normal [facility] Comment on above: Performed By: #### 1 [id number], [id number], 7089405619, 0793507, 93948905, [id number] ####[facility] (DEFAULT)[address] [place] [address] 58896 MCH (RBC) [Entitic mass] 31 pg Normal 24-34 [facility] Comment on above: Performed By: #### 1 [id number], [id number], 5413669060, 2643047, 47515190, [id number] ####[facility] (DEFAULT)[address] [place] [address] MCHC (RBC) [Mass/Vol] 33 g/dL Normal 26-37 [facility] Comment on above: Performed By: #### 1 [id number], [id number], 2697386881, 8348385, 30816237, [id number] ####[facility] (DEFAULT)[address] [place] [address] MCV (RBC) [Entitic vol] 92 fL Normal 81-100 [facility] Comment on above: Performed By: #### 1 [id number], [id number], 0481408144, 5660692, 23816161, [id number] ####[facility] (DEFAULT)[address] [place] [address] Platelet 210 x10 Normal 138-427 [facility] Comment on above: Performed By: #### 1 [id number], [id number], [id number], 6561153, 43717385, 1139984715 ####[facility] (DEFAULT)[address] [place] [address] Platelet mean volume (Bld) [Entitic vol] 10.0 fL Normal 6.3-10.2 [facility] Comment on above: Performed By: #### 1 [id number], [id number], 8017847150, 5014058, 36901906, [id number] ####[facility] (DEFAULT)[address] [place] [address] RBC 4.32 x10 Normal 3.70-5.30 [facility] Comment on above: Performed By: #### 1 [id number], [id number], 3527168175, 4511813, 18979572, [id number] ####[facility] (DEFAULT)[address] [place] [address] 69250 WBC 3.6 x10 Normal 3.5-10.5 [facility] Comment on above: Performed By: #### 1 [id number], [id number], [id number], 5628619, 75302480, [id number] ####[facility] (DEFAULT)[address] [place] [address]293 [facility] Standardon 12-05-2021 Glucose [Mass/Vol] 88.0 mg/dL Normal 74.0-118.0 [facility] Comment on above: Result Comment: Spok e with Dr. Pulido in ER, & informed him that he would get corrected report regarding Glucose values. Performed By: #### 1 [id number], [id number], [id number], 1747006, 10262954, [id number] ####[facility] (DEFAULT)[address] [place] [address] 64672 eGFR Non AA >60 Invalid Interpretation Code [facility] Comment on above: Performed By: #### 1 [id number], [id number], [id number], 4026058, 56054409, [id number] ####[facility] (DEFAULT)[address] [place] [address] 49072 eGFR AA >60 Invalid Interpretation Code [facility] Comment on above: Result Comment: Academic Services Coordinator ta Kidney disease could be indicated at eGFRs of less than 60 ml/min/1.73m2. Kidney Failure is indicated at less than 15 ml/min/1.73m2 Performed By: #### 1 [id number], [id number], [id number], 0172138, 71233318, [id number] ####[facility] (DEFAULT)[address] [place] [address] 02856 Albumin [Mass/Vol] 3.6 g/dL Normal 3.5-5.0 [facility] Comment on above: Performed By: #### 1 [id number], [id number], [id number], 5274355, 29819086, [id number] ####[facility] (DEFAULT)[address] [place] [address] 05047 Albumin/Globulin [Mass ratio] 1.3 {ratio} Low 1.4-2.6 [facility] Comment on above: Performed By: #### 1 [id number], [id number], [id number], 8487877, 86715528, [id number] ####[facility] (DEFAULT)[address] [place] [address] 00178 Alk Phos 39 IU/L Normal 32-91 [facility] Comment on above: Performed By: #### 1 [id number], [id number], 1930713633, 6232645, 30977490, [id number] ####[facility] (DEFAULT)[address] [place] [address] 67892 ALT [Catalytic activity/Vol] 251.0 U/L High 14.0-54.0 [facility] Comment on above: Performed By: #### 1 [id number], [id number], 0038073909, 8457859, 55939755, 5121904879 ####[facility] (DEFAULT)[address] [place] [address] 63284 Anion gap [Moles/Vol] 13.0 mmol/L Normal 5.0-19.0 [facility] Comment on above: Performed By: #### 1 [id number], [id number], 1362379019, 2204526, 22388192, [id number] ####[facility] (DEFAULT)[address] [place] [address] 30266 AST [Catalytic activity/Vol] 74 U/L High 15-41 [facility] Comment on above: Performed By: #### 1 [id number], [id number], 3082415951, 3820956, 11199971, [id number] ####[facility] (DEFAULT)[address] [place] [address] 41370 Bili Total 0.6 mg/dL Normal 0.3-1.2 [facility] Comment on above: Performed By: #### 1 [id number], 9242010778, 9126449107, 4398309, 29251108, 9700080479 ####[facility] (DEFAULT)[address] [place] [address] 11880 Calcium [Mass/Vol] 8.4 mg/dL Low 8.9-10.3 [facility] Comment on above: Performed By: #### 1 [id number], [id number], 9367478205, 7680044, 40933821, 4518977741 ####[facility] (DEFAULT)[address] [place] [address] 94500 Chloride [Moles/Vol] 107 mmol/L Normal 101-111 [facility] Comment on above: Performed By: #### 1 [id number], 2423977308, 1218622033, 4746065, 79442097, [id number] ####[facility] (DEFAULT)[address] [place] [address] 80408 CO2 [Moles/Vol] 21 mmol/L Normal 21-32 [facility] Comment on above: Performed By: #### 1 [id number], [id number], 7689194895, 1998820, 12784019, 5312251820 ####[facility] (DEFAULT)[address] [place] [address] 69337 Creatinine [Mass/Vol] 0.91 mg/dL Normal 0.60-1.30 [facility] Comment on above: Performed By: #### 1 [id number], 6489216294, 1252760961, 1772493, 56600060, 2808240466 ####[facility] (DEFAULT)[address] [place] [address] 78408 Globulin (S) [Mass/Vol] 2.7 g/dL Normal 1.5-4.3 [facility] Comment on above: Performed By: #### 1 [id number], [id number], 8766243539, 2223082, 11936915, [id number] ####[facility] (DEFAULT)[address] [place] [address] 51826 Osmolality 276 mOsm/L Invalid Interpretation Code [facility] Comment on above: Performed By: #### 1 [id number], [id number], 3354599369, 0832272, 80056246, [id number] ####[facility] (DEFAULT)[address] [place] [address] 00804 Potassium [Moles/Vol] 4.0 mmol/L Normal 3.6-5.1 [facility] Comment on above: Performed By: #### 1 [id number], 7769143681, 9100216326, 3353427, 68144145, 0709800938 ####[facility] (DEFAULT)[address] [place] [address] 31407 Protein [Mass/Vol] 6.3 g/dL Low 6.5-8.1 [facility] Comment on above: Performed By: #### 1 [id number], 9887928662, 7263120411, 9147829, 54186336, 1732647487 ####[facility] (DEFAULT)[address] [place] [address] 58102 Sodium [Moles/Vol] 137.0 mmol/L Normal 136.0-144. 0 [facility] Comment on above: Performed By: #### 1 [id number], 5596388421, 0442486336, 2054869, 06607164, 0510540536 ####[facility] (DEFAULT)[address] [place] [address] 19274 Urea nitrogen [Mass/Vol] 19 mg/dL Normal 8-26 [facility] Comment on above: Performed By: #### 1 [id number], [id number], 0129257831, 4949024, 30483332, 1680527514 ####[facility] (DEFAULT)[address] [place] [address] 42493 Urea nitrogen/Creatini ne [Mass ratio] 21.0 mg/mg High 4.6-16.2 [facility] Comment on above: Performed By: #### 1 [id number], 0269093188, 1139221378, 8657163, 14363569, 8272280550 ####[facility] (DEFAULT)[address] [place] [address] ED Clinical Summaryon 2021 ED Clinical Summary [facility] - Emergency Department [address] [place] [address] ED Clinical Summary PERSON INFORMATION Name: RINA LEE Age: 61 Years Sex: FEMALE : 1960 MRN: Acct#: Visit Reason: Neck pain; Shoulder pain-swelling; BILATERAL ARM/LT SHOULDER/NECK PAIN Arrival: 12/05/2021 07:19:31 Discharge: 12/05/2021 08:57:00 LOS: 000 01:38 Check In: 12/05/2021 07:19:31 Checkout:12/05/2021 08:57:00 Address: [address] [place] [address] PCP: FREDERICK LEE PROVIDER INFORMATION Provider Role Assigned Unassigned Lawanda Shultz RN ED Nurse 12/05/2021 07:36:53 Sunil Bautista ED Provider 12/05/2021 07:39:10 Sam Morales MD ED Provider 12/05/2021 08:06:50 VITALS INFORMATION Vital Sign Triage Latest Temperature Tympanic Temperature Temporal Artery Pulse Rate 78 bpm 78 bpm O2 Sat 100 % 100 % Respiratory Rate 18 br/min 18 br/min Blood Pressure /97 mmHg /97 mmHg MEDICAL INFORMATION Medications Given: Medication Dose Route cyclobenzaprine 10 mg PO ketorolac 30 mg IV Push predniSONE 60 mg PO Allergy Information: sulfa drugs; penicillins; prochlorperazine; morphine; meperidine PHYSICIAN DOCUMENTATION Patient: RINA LEE Age: 61 years Sex: FEMALE : 1960 Associated Diagnoses: Shoulder pain, bilateral Author: Sunil Bautista Basic Information Additional information: Chief Complaint from Nursing Triage Note : Chief Complaint 12/05/2021 7:21 EDT Chief Complaint pt has neck pain and bilateral shoulder pain . History of Present Illness Patient presents with bilateral posterior shoulder pain, and neck pain. Symptoms started couple days ago. She denies any known trauma. Denies any sleeping changes. Noted that pain starting to be noticed with just simple flexion of the head. She also notes some burning in her mid chest area has noted that over the last couple days. She admits to being under a lot of stress with the recent loss of her sister 2 weeks ago. Denies any nausea or vomiting. Admits to rotating Tylenol and Motrin [id number] for pain with minimal relief. Review of Systems Constitutional symptoms: No fever, no chills. Respiratory symptoms: No shortness of breath, no cough. Cardiovascular symptoms: Chest pain, No palpitations, Gastrointestinal symptoms: No abdominal pain, no nausea, no vomiting. Musculoskeletal symptoms: Back pain, Muscle pain. Psychiatric symptoms: Anxiety. Hematologic/Lymphatic symptoms: Bleeding tendency negative, bruising tendency negative. Health Status Allergies: Allergic Reactions (Selected) Severe Meperidine- Blood pressure bottoms out. Morphine- Respiratory arrest. Moderate Penicillins- Hives. Sulfa drugs- Hives. Severity Not Documented Prochlorperazine- Neurological reaction-very agitated.. Medications: (Selected) Prescriptions Prescribed Bentyl 10 mg oral capsule: 10 mg = 1 cap(s), PO, TIDAC, for 7 day(s), MAGRU, 21 cap(s), 0 Refill(s) Documented Medications Documented Combipatch 0.05 mg-0.25 mg/24 hours transdermal film, extended release: 1 patch(es), TOP, q3day, 0 Refill(s) FLUoxetine 10 mg oral capsule: 10 mg = 1 cap(s), PO, Daily, 0 Refill(s) Lyrica 150 mg oral capsule: 150 mg = 1 cap(s), PO, TID, 0 Refill(s) Premarin Vaginal: 1 gm, VAG, MTh buPROPion 300 mg/24 hours (XL) oral tablet, extended release: 300 mg = 1 tab(s), PO, Daily, 0 Refill(s). Past Medical/ Family/ Social History Medical history: Resolved Ankle fracture, right ([id number]): Onset on 09/02/2020 at 60 years. Resolved. Laminectomy ([id number]): Resolved. Comments: - November 2012 Hysterectomy ([id number]): Resolved. Comments: - 10 yrs ago appendectomy ([id number]): Resolved. Comments: - age 14 Tonsillectomy (535496073): Resolved. Urethral dilatation - female (918370043): Resolved. Comments: - 1979 ADHD (attention deficit hyperactivity disorder) ([id number]): Resolved. Spinal tumor ([id number]): Resolved. Comments: - removed November 2012 Discectomy ([id number]): Resolved. Malignant hyperthermia due to anesthesia (8268551819): Resolved. Diverticulitis ([id number]): Resolved. Depression (950576700): Resolved.. Surgical history: Gastric bypass ([id number]).. Family history: Entire family history is negative.. Social history: Social & Psychosocial Habits Alcohol 12/05/2021 Alcohol Use: Current Frequency: 1-2 times per month Employment/School 04/29/2021 Status: Employed Highest education: Some college Exercise 04/29/2021 Duration (average number of minutes): 0 Home/Environment 04/29/2021 Lives with: Spouse Nutrition/Health 04/29/2021 Type of diet: Regular Substance Abuse 12/05/2021 Substance use: Never Tobacco 04/29/2021 Smoking tobacco use: Never (less than 100 in l 12/05/2021 Smoking tobacco use: Never tobacco user Electronic Cigarette/Vaping 12/05/2021 Electronic C (more content not included)... [facility] ED Note - Physicianon 2021 ED Note - Physician Patient: RINA LEE Age: 61 years Sex: FEMALE : 1960 Associated Diagnoses: Shoulder pain, bilateral Author: Sunil Bautista Basic Information Additional information: Chief Complaint from Nursing Triage Note : Chief Complaint 12/05/2021 7:21 EDT Chief Complaint pt has neck pain and bilateral shoulder pain . History of Present Illness Patient presents with bilateral posterior shoulder pain, and neck pain. Symptoms started couple days ago. She denies any known trauma. Denies any sleeping changes. Noted that pain starting to be noticed with just simple flexion of the head. She also notes some burning in her mid chest area has noted that over the last couple days. She admits to being under a lot of stress with the recent loss of her sister 2 weeks ago. Denies any nausea or vomiting. Admits to rotating Tylenol and Motrin [id number] for pain with minimal relief. Review of Systems Constitutional symptoms: No fever, no chills. Respiratory symptoms: No shortness of breath, no cough. Cardiovascular symptoms: Chest pain, No palpitations, Gastrointestinal symptoms: No abdominal pain, no nausea, no vomiting. Musculoskeletal symptoms: Back pain, Muscle pain. Psychiatric symptoms: Anxiety. Hematologic/Lymphatic symptoms: Bleeding tendency negative, bruising tendency negative. Health Status Allergies: Allergic Reactions (Selected) Severe Meperidine- Blood pressure bottoms out. Morphine- Respiratory arrest. Moderate Penicillins- Hives. Sulfa drugs- Hives. Severity Not Documented Prochlorperazine- Neurological reaction-very agitated.. Medications: (Selected) Prescriptions Prescribed Bentyl 10 mg oral capsule: 10 mg = 1 cap(s), PO, TIDAC, for 7 day(s), MAGRU, 21 cap(s), 0 Refill(s) Documented Medications Documented Combipatch 0.05 mg-0.25 mg/24 hours transdermal film, extended release: 1 patch(es), TOP, q3day, 0 Refill(s) FLUoxetine 10 mg oral capsule: 10 mg = 1 cap(s), PO, Daily, 0 Refill(s) Lyrica 150 mg oral capsule: 150 mg = 1 cap(s), PO, TID, 0 Refill(s) Premarin Vaginal: 1 gm, VAG, MTh buPROPion 300 mg/24 hours (XL) oral tablet, extended release: 300 mg = 1 tab(s), PO, Daily, 0 Refill(s). Past Medical/ Family/ Social History Medical history: Resolved Ankle fracture, right ([id number]): Onset on 09/02/2020 at 60 years. Resolved. Laminectomy ([id number]): Resolved. Comments: - November 2012 Hysterectomy ([id number]): Resolved. Comments: - 10 yrs ago appendectomy (1750347620): Resolved. Comments: - age 14 Tonsillectomy (835025961): Resolved. Urethral dilatation - female (589710003): Resolved. Comments: - 1981 ADHD (attention deficit hyperactivity disorder) ([id number]): Resolved. Spinal tumor (639851871): Resolved. Comments: - removed November 2012 Discectomy ([id number]): Resolved. Malignant hyperthermia due to anesthesia (7122969435): Resolved. Diverticulitis ([id number]): Resolved. Depression (137362119): Resolved.. Surgical history: Gastric bypass ([id number]).. Family history: Entire family history is negative.. Social history: Social & Psychosocial Habits Alcohol 12/05/2021 Alcohol Use: Current Frequency: 1-2 times per month Employment/School 04/29/2021 Status: Employed Highest education: Some college Exercise 04/29/2021 Duration (average number of minutes): 0 Home/Environment 04/29/2021 Lives with: Spouse Nutrition/Health 04/29/2021 Type of diet: Regular Substance Abuse 12/05/2021 Substance use: Never Tobacco 04/29/2021 Smoking tobacco use: Never (less than 100 in l 12/05/2021 Smoking tobacco use: Never tobacco user Electronic Cigarette/Vaping 12/05/2021 Electronic Cigarette Use: Never . Problem list: Active Problems (4) Depression History of hysterectomy Lumbar spine tumor MIGRAINE . Physical Examination Vital Signs Vital Signs 12/05/2021 7:21 EDT Temperature Oral 37 DegC Peripheral Pulse Rate 78 bpm Respiratory Rate 18 br/min Systolic Blood Pressure 150 mmHg HI Diastolic Blood Pressure 97 mmHg HI SpO2 100 % Oxygen Therapy Room air . Measurements 12/05/2021 7:42 EDT Weight Dosing 78.000 kg 12/05/2021 7:42 EDT Height/Length Dosing 160.000 cm 12/05/2021 7:21 EDT Height/Length Estimated 160.000 cm Weight Estimated 78.000 kg . General: Alert, moderate distress. Skin: Warm, dry, pink. Neck: Supple, Mild muscle spasming noted in the trapezius area.. Cardiovascular: Regular rate and rhythm, Normal peripheral perfusion. Respiratory: Lungs are clear to auscultation, respirations are non-labored. Gastrointestinal: Soft, Nontender, Non distended. Back: Trapezius tenderness on palpation with mild muscle spasming.. Neurological: Alert and oriented to person, place, time, and situation, No focal neurological deficit observed. Psychiatric: Cooperative, appropriate mood & affect. Medical Decision Making Di (more content not included)... [facility] ED Note-Nursingon 12-05-2021 ED Note-Nursing Pt arrives to ED wit h neck pain that started a few days ago. Yesterday she developed pain in her left shoulder that radiated down her arm and in the middle of the night she developed right shoulder and arm pain. Pain with movement is 10/10 but at rest is 4/10. Pt is not able to move either arm full ROM. Pt states she has been alternating tylenol and motrin for pain but it has not been helping. Pt in position of comfort on cart at this time. Pt states she is unable to fully relax due to pain. When arms are extended or at her sides, her pain is worse. Pt denies injury or trauma. Pt denies heavy lifting or any type of exercise that could have caused this. Pt has not been to chiropractor. [facility] ED Patient Summaryon 022 ED Patient Summary [facility] - Emergency Department [address] [place] [address] PATIENT DISCHARGE INSTRUCTIONS Patient Information Name: RINA LEE Age: 61 Years Date of : 1960 Reason For Visit: Neck pain; Shoulder pain-swelling; BILATERAL ARM/LT SHOULDER/NECK PAIN Arrival Time: 12/05/2021 07:19:31 Primary Care Physician: FREDERICK LEE Attending Physician: Sunil Bautista Comment: Visit Diagnosis: Diagnoses This Visit Elevated blood pressure reading (R03.0) Musculoskeletal back pain (M54.9) Neck pain ([id number]) Pain in left shoulder (M25.512) Shoulder pain, bilateral (M25.511) Shoulder pain-swelling ([id number]) Prescription Information: If you have been given a prescription for narcotics, seek immediate medical attention if you have any difficulty breathing or any sudden status changes such as confusion and sleepiness. If you or anyone you know is experiencing suicidal thoughts, mental health, alcohol and/or drug addiction problems; contact the Mental Health & Recovery [facility] 24/01 Crisis Hotline -Text 1HTVX xh 868066. If you received any narcotics, sedation, or any other medication that causes drowsiness for the next 24 hours, unless otherwise directed: ? Do not drive a car. ? Do not operate machinery such as power tools, lawn mowers, drills, sewing machines, or stoves ? Avoid alcoholic beverages and drugs for allergies, nerves, or sleep ? Do not make important personal or business decisions or sign any legal documents With: Address: When: FREDERICK LEE [facility] [address] [place] [address] [address] [place], [place] [phone] Within 3 to 5 days Medication Information: The exam and treatment you received today in the [facility] Emergency Department were for an urgent problem and are not intended as complete care. It is important for you to follow up with a doctor, nurse practitioner, or physician?s assistant dean of students for ongoing care. If your symptoms become worse or you do not improve as expected and you are unable to reach your usual health care provider, you should return to the Emergency Department, we are available 24 hours a day. For those patients who have received Radiology results, the interpretation of your X-ray as given to you by our Emergency Department physician is only a preliminary report. The Radiologist will review your films and if there is a change in the diagnosis you will be notified by phone. Please make sure you have provided a working phone number so we can reach you if necessary. In the event that you had a lab culture while you were a patient in the Emergency Department, you will be notified by phone if there is a need to change your antibiotic. Please make sure you have provided a working phone number so we can reach you if necessary. [facility] Emergency Department has provided you with a complete list of medications post discharge. Please inform your identifier horse/provider of your visit and for further instruction on these medications. Any specific questions regarding your chronic medications and dosages should be discussed with your primary care physician(s) and/or pharmacist. New Medications [facility], [address] [place], [place] [id number], [phone] predniSONE (predniSONE 20 mg oral tablet) 3 tab(s) Oral every day for 4 Days. Refills: 0. Additional medications on your home medication list not specifically addressed. Please contact the ordering physician if you have questions about these medications. buPROPion (buPROPion 300 mg/24 hours (XL) oral tablet, extended release) 1 tab(s) Oral every day. conjugated estrogens topical (Premarin Vaginal) 1 gram Vaginal Tuesday and . dicyclomine (Bentyl 10 mg oral capsule) 1 cap(s) Oral 3 times a day before meals for 7 Days. MAGRU. Refills: 0. estradiol-norethindrone (Combipatch 0.05 mg-0.25 mg/24 hours transdermal film, extended release) 1 patch(es) Topical every 3 days. FLUoxetine (FLUoxetine 10 mg oral capsule) 1 cap(s) Oral every day. pregabalin (Lyrica 150 mg oral capsule) 1 cap(s) Oral 3 times a day. Visit Information Allergies: Substance Reaction Symptoms Type Comments meperidine Blood pressure bottoms out Drug morphine Respiratory arrest Drug penicillins hives Drug prochlorperazine Neurological reaction-very agitated Drug sulfa drugs Hives Drug Vital Signs: Vitals and Measurements this Visit (last charted value for your 12/05/2021 visit) Vital Signs This Visit Temperature Oral: 37 DegC Peripheral Pulse Rate: 78 bpm Respiratory Rate: 18 br/min Systolic Blood Pressure: 134 mmHg Diastolic Blood Pressure: 85 mmHg SpO2: 100 % Oxygen Therapy: Room air Measurements This Visit Height/Length Dosin.000 cm Height/Length Estimated: 160.000 cm Weight Dosin.000 kg Weight Estimated: 78.000 kg P (more content not included)... Normal [facility] Extra Redon 12-05-2021 Tube Collected Yes Invalid Interpretation Code [facility] Comment on above: Performed By: #### 1 [id number], [id number], [id number], [id number], [id number], [id number] ####[facility] (DEFAULT)[address] [place] [address] TnI HSon 12-05-2021 Troponin I High Sensitivity 3 pg/mL Normal <=15 [facility] Comment on above: Result Comment: Male Baseline Delta 1Hr (Note pg/mL=ng/L) <20pg/mL 50-60% >20pg/mL 20% Female Baseline Delta 1Hr <15pg/mL 50-60% >15pg/mL 20% Other Baseline Delta 1Hr <18ng/mL 50-60% >18ng/mL 20% ([employer] Guidelines February 2018) Performed By: #### 1 [id number], [id number], [id number] ####[facility] (DEFAULT)[address] [place] [address] XR Chest 2 Viewson 2 XR Chest 2 Views EXAMINATION: XR Ches t 2 Views HISTORY: chest pain COMPARISON: No relevant comparison available. TECHNIQUE: PA and lateral FINDINGS: LUNGS: No significant pulmonary parenchymal abnormalities. VASCULATURE: No increased pulmonary vasculature. PLEURA: No pneumothorax, effusion, or pleural thickening. CARDIAC: No cardiomegaly or cardiac silhouette abnormality. MEDIASTINUM: No visible mass or adenopathy. BONES: No fracture or visible bone lesion. OTHER: Negative. IMPRESSION: No acute disease. Final Dictated by: Abhi Parkinson MD, V. Dictated DT/TM: 12/05/21 8:33 Signed (Electronic Signature): Abhi Parkinson MD, V. 12/05/21 8:35 am Technologist: ANYA [facility] MRI INTERNAL AUDITORY CANAL WITH AND WITHOUT CONTRASTon 07-10-2021 MRI INTERNAL AUDITORY CANAL WITH AND WITHOUT CONTRAST EXAM: MRI INTERNAL AUDITORY CANAL WITH AND WITHOUT CONTRAST, 07/09/2021 16:08 PM COMPARISON: No previous studies available for comparison. CLINICAL INDICATION: 60 years Female Hearing loss, sensorineural; RELEVANT CLINICAL HISTORY: H90.3:Sensorineural hearing loss (SNHL) of both ears TECHNIQUE: A series of sagittal, axial and coronal multisequence images of the head are obtained both before and after intravenous administration of contrast. Study includes dedicated evaluation of the internal auditory canals, with pre-and postcontrast thin section axial and coronal T1-weighted, axial thin section T2 3D SPACE, and axial thin section 3D VIBE images obtained through the level of the IACs. CONTRAST: gadoterate Meglumine (DOTAREM) 5 MMOL/10ML injection 3-60 mL; Route of Administration: Intravenous; Dose: 15.5 mL. FINDINGS: Posterior Fossa: Brainstem and cerebellum appear unremarkable. No cerebello-pontine angle cistern mass. No vascular abnormality is identified. Temporal Bones: Seventh and eighth nerve complexes appear unremarkable, without evidence of mass or abnormal enhancement. Otic capsule structures appear unremarkable. No vascular abnormality is identified. Mastoid signal within normal limits. No other temporal bone signal abnormality is identified. Supratentorial Brain: Visualized brain is unremarkable. IMPRESSION: Unremarkable IAC MRI study. No retrocochlear abnormalities. Normal [facility] [place] Levelon 02-10-2019 [place] [Moles/Vol] 0.3 mmol/L Low 0.6-1.2 [facility] Comment on above: Performed By: #### L ITH ####[facility] [facility] [phone] Interpretation and review of laboratory results Abnormal [place], [place] Lvl 0.3 Low [place] Acetaminophenon 02-06-2019 Acetaminophen [Mass/Vol] <5 Low 10-30 [facility] Comment on above: Performed By: #### A CETM ####[facility] [facility] [phone] Acetaminophen Levelon 2018 Acetaminophen [Mass/Vol] <5 Low 10 - 30 ug/mL [place], [place] Alcoholon 02-06-2019 Ethanol [Mass/Vol] Not indicated Normal [facility] Comment on above: Performed By: #### A LCOH ####[facility] [facility] [phone] Ethanol [Mass/Vol] mg/dL Normal [facility] Comment on above: Performed By: #### A LCOH ####[facility] [facility] [phone] CBC Auto Differentialon Basophils (Bld) [#/Vol] 0.1 10*3/uL 0 - 0.2 K/uL [place] Basophils/100 WBC (Bld) 1.1 % [place] Eosinophils (Bld) [#/Vol] 0.1 10*3/uL 0 - 0.7 K/uL [place] Eosinophils/100 WBC (Bld) 2.2 % [place] Erythrocyte distribution width (RBC) [Ratio] 14.0 % 11.5 - 14.5 % [place] Hematocrit (Bld) [Volume fraction] 42.8 % 37 - 47 % [place] Hemoglobin (Bld) [Mass/Vol] 14.7 g/dL 12 - 16 g/dL [place] Interpretation and review of laboratory results Abnormal [place] Lymphocytes (Bld) [#/Vol] 2.1 10*3/uL 1 - 4.8 K/uL [place] Lymphocytes/100 WBC (Bld) 47.4 % [place] MCH (RBC) [Entitic mass] 32.0 pg High 27 - 31.3 pg [place] MCHC (RBC) [Mass/Vol] 34.5 % 33 - 37 % [place] MCV (RBC) [Entitic vol] 92.8 fL 82 - 100 fL [place] Monocytes (Bld) [#/Vol] 0.2 10*3/uL 0.2 - 0.8 K/uL [place] Monocytes/100 WBC (Bld) 4.3 % [place] Neutrophils (Bld) [#/Vol] 2.0 10*3/uL 1.4 - 6.5 K/uL [place] Neutrophils/100 WBC (Bld) 45.0 % [place] Platelets (Bld) [#/Vol] 227 10*3/uL 130 - 400 K/uL [place] RBC (Bld) [#/Vol] 4.61 10*6/uL [place] WBC (Bld) [#/Vol] 4.4 10*3/uL Low 4.8 - 10.8 K/uL [place] CBC With Platelet and Differ entialon 02-06-2019 Basophils (Bld) [#/Vol] 0.1 10*3/uL Normal 0.0-0.2 [facility] Comment on above: Performed By: #### C BCWD ####[facility] [facility] [phone] Basophils/100 WBC (Bld) 1.1 % Normal [facility] Comment on above: Performed By: #### C BCWD ####[facility] [facility] [phone] Eosinophils (Bld) [#/Vol] 0.1 10*3/uL Normal 0.0-0.7 [facility] Comment on above: Performed By: #### C BCWD ####[facility] [facility] [phone] Eosinophils/100 WBC (Bld) 2.2 % Normal [facility] Comment on above: Performed By: #### C BCWD ####[facility] [facility] [phone] Erythrocyte distribution width (RBC) [Ratio] 14.0 % Normal 11.5-14.5 [facility] Comment on above: Performed By: #### C BCWD ####[facility] [facility] [phone] Hematocrit (Bld) [Volume fraction] 42.8 % Normal 37.0-47.0 [facility] Comment on above: Performed By: #### C BCWD ####[facility] [facility] [phone] Hemoglobin (Bld) [Mass/Vol] 14.7 g/dL Normal 12.0-16.0 [facility] Comment on above: Performed By: #### C BCWD ####[facility] [facility] [phone] Lymphocytes (Bld) [#/Vol] 2.1 10*3/uL Normal 1.0-4.8 [facility] Comment on above: Performed By: #### C BCWD ####[facility] [facility] [place] [phone] Lymphocytes/100 WBC (Bld) 47.4 % Normal [facility] Comment on above: Performed By: #### C BCWD ####[facility] [facility] [place] [phone] MCH (RBC) [Entitic mass] 32.0 pg Critically high 27.0-31.3 [facility] Comment on above: Performed By: #### C BCWD ####[facility] [facility] Rd[address] [place] [phone] MCHC (RBC) [Mass/Vol] 34.5 % Normal 33.0-37.0 [facility] Comment on above: Performed By: #### C BCWD ####[facility] [facility] Rd[address] [place] [phone] MCV (RBC) [Entitic vol] 92.8 fL Normal 82.0-100.0 [facility] Comment on above: Performed By: #### C BCWD ####[facility] [place] [phone] Monocytes (Bld) [#/Vol] 0.2 10*3/uL Normal 0.2-0.8 [facility] Comment on above: Performed By: #### C BCWD ####[facility] [facility] [facility] Center[facility] [place] [phone] Monocytes/100 WBC (Bld) 4.3 % Normal [facility] Comment on above: Performed By: #### C BCWD ####[facility] [facility] Center[facility] [place] [phone] Neutrophils (Bld) [#/Vol] 2.0 10*3/uL Normal 1.4-6.5 [facility] Comment on above: Performed By: #### C BCWD ####[facility] [facility] [facility] Hospital[address] RdLorain [place] [phone] Neutrophils/100 WBC (Bld) 45.0 % Normal [facility] Comment on above: Performed By: #### C BCWD ####[facility] [facility] [phone] Platelets (Bld) [#/Vol] 227 10*3/uL Normal 130-400 [facility] Comment on above: Performed By: #### C BCWD ####[facility] [facility] [phone] RBC (Bld) [#/Vol] 4.61 10*6/uL Normal 4.20-5.40 [facility] Comment on above: Performed By: #### C BCWD ####[facility] [facility] [phone] WBC (Bld) [#/Vol] 4.4 10*3/uL Low 4.8-10.8 [facility] Comment on above: Performed By: #### C BCWD ####[facility] [facility] [phone] CK-MB Indexon 02-06-2019 CK.MB [Mass/Vol] 2.1 % 0 - 3.5 % [place], [place] CK.MB [Mass/Vol] 3.6 ng/mL 0 - 3.8 ng/mL [place], [place] Total CK 169 U/L 0 - 170 U/L [place] CKMB with Indexon 02-06-2019 CK [Catalytic activity/Vol] 169 U/L Normal 0-170 [facility] Comment on above: Performed By: #### C KMBG ####[facility] [facility] [phone] CK.MB [Mass/Vol] 3.6 ng/mL Normal 0.0-3.8 [facility] Comment on above: Performed By: #### C KMBG ####[facility] [facility] [phone] CK.MB [Mass/Vol] 2.1 % Normal 0.0-3.5 [facility] Comment on above: Performed By: #### C KMBG ####[facility] [facility] Center[facility] [place] [phone] Comprehensive Metabolic Pane gabrielle 02-06-2019 Anion gap [Moles/Vol] 13 mmol/L Normal 9-15 [facility] Comment on above: Performed By: #### C MP ####[facility] [facility] Hospital[address] Rd[address] [place] [phone] Albumin [Mass/Vol] 4.1 g/dL Normal 3.5-4.6 [facility] Comment on above: Performed By: #### C MP ####[facility] [facility] [facility] Hospital[address] [place] [phone] ALP [Catalytic activity/Vol] 63 U/L Normal 40-130 [facility] Comment on above: Performed By: #### C MP ####[facility] [facility] [facility] Hospital[address] Rd[address] [place] [phone] ALT [Catalytic activity/Vol] 14 U/L Normal 0-33 [facility] Comment on above: Performed By: #### C MP ####[facility] [facility] [address] Centerain [place] [phone] AST [Catalytic activity/Vol] 20 U/L Normal 0-35 [facility] Comment on above: Result Comment: Spec imen hemolysis has exceeded the interference as defined by Lela. Value may be falsely increased. Suggest recollection if clinically indicated. Performed By: #### C MP ####[facility] [facility] Center[place] [phone] Bilirubin [Mass/Vol] 0.3 mg/dL Normal 0.2-0.7 [facility] Comment on above: Performed By: #### C MP ####[facility] [facility] Centerain [place] [phone] Calcium [Mass/Vol] 9.3 mg/dL Normal 8.5-9.9 [facility] Comment on above: Performed By: #### C MP ####[facility] [facility] [phone] Chloride [Moles/Vol] 104 mmol/L Normal 95-107 [facility] Comment on above: Performed By: #### C MP ####[facility] [place] [phone] CO2 [Moles/Vol] 24 mmol/L Normal 20-31 [facility] Comment on above: Performed By: #### C MP ####[facility] [facility] [phone] Creatinine [Mass/Vol] 0.66 mg/dL Normal 0.50-0.90 [facility] Comment on above: Performed By: #### C MP ####[facility] [facility]ran[facility] [phone] GFR/1.73 sq M predicted among blacks MDRD (S/P/Bld) [Vol rate/Area] mL/min/{1.73_m2} Normal >60 [facility] Comment on above: Result Comment: >60 mL/min/1.73m2 EGFR, calc. for ages 18 and older using the MDRD formula (not corrected for weight), is valid for stable renal function. Performed By: #### C MP ####[facility] [facility]ran[facility] [phone] GFR/1.73 sq M.predicted MDRD (S/P/Bld) [Vol rate/Area] mL/min/{1.73_m2} Normal >60 [facility] Comment on above: Result Comment: >60 mL/min/1.73m2 EGFR, calc. for ages 18 and older using the MDRD formula (not corrected for weight), is valid for stable renal function. Performed By: #### C MP ####[facility] [facility] [phone] Globulin (S) [Mass/Vol] 3.0 g/dL Normal 2.3-3.5 [facility] Comment on above: Performed By: #### C MP ####[facility] [facility]ran[facility] [phone] Glucose [Mass/Vol] 94 mg/dL Normal 70-99 [facility] Comment on above: Performed By: #### C MP ####[facility] [facility] [phone] Potassium [Moles/Vol] 4.4 mmol/L Normal 3.4-4.9 [facility] Comment on above: Performed By: #### C MP ####[facility] [facility] [phone] Protein [Mass/Vol] 7.1 g/dL Normal 6.3-8.0 [facility] Comment on above: Performed By: #### C MP ####[facility] [facility] [phone] Sodium [Moles/Vol] 141 mmol/L Normal 135-144 [facility] Comment on above: Performed By: #### C MP ####[facility] [facility] [phone] Urea nitrogen [Mass/Vol] 13 mg/dL Normal 6-20 [facility] Comment on above: Performed By: #### C MP ####[facility] [facility] [phone] Albumin [Mass/Vol] 4.1 g/dL 3.5 - 4.6 g/dL [place], [place] ALP [Catalytic activity/Vol] 63 U/L 40 - 130 U/L [place] ALT [Catalytic activity/Vol] 14 U/L 0 - 33 U/L [place] Anion gap [Moles/Vol] 13 mmol/L [place] AST [Catalytic activity/Vol] 20 U/L 0 - 35 U/L [place] Comment on above: Specimen hemolysis h as exceeded the interference as defined by Lela. Value may be falsely increased. Suggest recollection if clinically indicated. Bilirubin Ql (U) 0.3 mg/dL 0.2 - 0.7 mg/dL [place] Calcium [Mass/Vol] 9.3 mg/dL 8.5 - 9.9 mg/dL [place] Chloride [Moles/Vol] 104 mmol/L [place] CO2 [Moles/Vol] 24 mmol/L [facility] [place] [place] Creatinine [Mass/Vol] 0.66 mg/dL 0.5 - 0.9 mg/dL [place] GFR >60.0 >60 [place] Comment on above: >60 mL/min/1.73m2 EG FR, calc. for ages 18 and older using the MDRD formula (not corrected for weight), is valid for stable renal function. GFR Non- >60.0 >60 [place] Comment on above: >60 mL/min/1.73m2 EG FR, calc. for ages 18 and older using the MDRD formula (not corrected for weight), is valid for stable renal function. Globulin (S) [Mass/Vol] 3 g/dL 2.3 - 3.5 g/dL [place] Glucose [Mass/Vol] 94 mg/dL 70 - 99 mg/dL [place] Potassium [Moles/Vol] 4.4 mmol/L [place] Protein [Mass/Vol] 7.1 g/dL 6.3 - 8 g/dL [place] Sodium [Moles/Vol] 141 mmol/L [place] Urea nitrogen [Mass/Vol] 13 mg/dL 6 - 20 mg/dL [place] Ethanolon 02-06-2019 Ethanol Lvl <10 mg/dL [place] Ethanol percent Not indicated G/dL [place] Otheron 02-06-2019 Interpretation and review of laboratory results Abnormal [place] Salicylateon 02-06-2019 Salicylate <0.3 Low 15.0-30.0 [facility] Comment on above: Result Comment: Anti -pyretic: 3.0-10.0 mg/dL Anti-inflammatory: 15.0-30.0 mg/dL Toxic: >30.0 mg/dL Performed By: #### [facility] ####[facility] [facility] [phone] Salicylate, Serum <0.3 Low 15 - 30 mg/dL [place] Comment on above: Anti-pyretic: 3.0-10 .0 mg/dL Anti-inflammatory: 15.0-30.0 mg/dL Toxic: >30.0 mg/dL TSH w/out Reflexon 9 TSH Qn 1.320 uIU/mL Normal 0.440-3.86 [facility] Comment on above: Performed By: #### T SH ####[facility] [facility] [phone] TSH without Reflexon 019 TSH Qn 1.320 m[IU]/L [place], [place] UR Drugs of Abuse Panelon Drug Screen Comment see below Normal [facility] Comment on above: Result Comment: This method is a screening test to detect only these drug classes as part of a medical workup. Confirmatory testing by another method should be ordered if clinically indicated. Performed By: #### U DRGS ####[facility] [facility] [phone] UR Amphetamines Screen Negative Normal Negative < [facility] Comment on above: Performed By: #### U DRGS ####[facility] [facility] [phone] UR Barbiturates Screen Negative Normal Negative < [facility] Comment on above: Performed By: #### U DRGS ####[facility] [facility] [phone] UR Benzo Screen Negative Normal Negative < [facility] Comment on above: Performed By: #### U DRGS ####[facility] [facility] [phone] UR Cannabinoids Screen Negative Normal Negative < [facility] Comment on above: Performed By: #### U DRGS ####[facility] [facility] [phone] UR Cocaine Screen Negative Normal Negative < [facility] Comment on above: Performed By: #### U DRGS ####[facility] [facility] [phone] UR Opiates Screen Negative Normal Negative < [facility] Comment on above: Performed By: #### U DRGS ####[facility] [facility] [phone] UR PCP Screen Negative Normal Negative < [facility] Comment on above: Performed By: #### U DRGS ####[facility] [facility] [phone] UR HCG Qualitativeon 019 Beta HCG ( test) Ql (U) Negative Normal Detects HC [place] Comment on above: Performed By: #### U HCG ####[facility] [facility] [phone] Urinalysis Reflex to Culture on 02-06-2019 Bilirubin Urine Negative Negative [place], [place] Blood, Urine Negative Negative [place], [place] Clarity, UA Clear Clear [place] Color, UA Yellow Straw/Martin ow [place] Glucose, Ur Negative Negative mg/dL [place] Ketones Ql (U) Negative Negative mg/dL [place] Leukocyte esterase Test strip Ql (U) Negative Negative [place] Nitrite, Urine Negative Negative [place], [place] pH, UA 7.5 [place] Protein (U) [Mass/Vol] Negative Negative mg/dL [place] Specific [place], UA 1.010 [place] Urine Reflex to Culture Not Indicated [place] Urobilinogen, Urine 0.2 <2.0 E.U./dL [place] Urinalysis, reflex to cultur steve 02-06-2019 Bilirubin Ql (U) Negative Normal Negative [facility] Comment on above: Performed By: #### U AR ####[facility] [facility] [phone] Clarity (U) Clear Normal Clear [facility] Comment on above: Performed By: #### U AR ####[facility] [place] [phone] Color (U) Yellow Normal Straw/Martin [facility] Comment on above: Performed By: #### U AR ####[facility] [facility] [place] [phone] Glucose Ql (U) Negative Normal Negative [facility] Comment on above: Performed By: #### U AR ####[facility] [facility] [place] [phone] Hemoglobin Ql (U) Negative Normal Negative [facility] Comment on above: Performed By: #### U AR ####[facility] [phone] Ketones Ql (U) Negative Normal Negative [facility] Comment on above: Performed By: #### U AR ####[facility] [place] [phone] Leukocyte esterase Test strip Ql (U) Negative Normal Negative [facility] Comment on above: Performed By: #### U AR ####[facility] [facility] [place] [phone] Nitrite Ql (U) Negative Normal Negative [facility] Comment on above: Performed By: #### U AR ####[facility] [facility] [place] [phone] pH (U) 7.5 [pH] Normal 5.0-9.0 [facility] Comment on above: Performed By: #### U AR ####[facility] [facility] [place] [phone] Protein Ql (U) Negative Normal Negative [facility] Comment on above: Performed By: #### U AR ####[facility] [phone] Specific gravity (U) [Rel density] 1.010 Normal 1.005-1.03 [facility] Comment on above: Performed By: #### U AR ####[facility] [facility] [phone] Urine Reflexed to Culture Not Indicated Normal [facility] Comment on above: Performed By: #### U AR ####[facility] [facility] [phone] Urobilinogen Qn (U) 0.2 {Jere'U}/dL Normal < 2.0 [facility] Comment on above: Performed By: #### U AR ####[facility] [facility] [phone] Urine Drug Screenon 02-07-20 19 Amphetamine Screen, Urine Negative Negative <1000 ng/mL [place] Barbiturate Screen, Ur Negative Negative < 200 ng/mL [place] Benzodiazepine Screen, Urine Negative Negative < 200 ng/mL [place] Cannabinoid Scrn, Ur Negative Negative < 50 ng/mL [place] Cocaine Metabolite Screen, Urine Negative Negative < 300 ng/mL [place] Drug Screen Comment: see below [place] Comment on above: This method is a scr eening test to detect only these drug classes as part of a medical workup. Confirmatory testing by another method should be ordered if clinically indicated. Opiate Scrn, Ur Negative Negative < 300 ng/mL [place] PCP Screen, Urine Negative Negative < 25 ng/mL [place] CONSULTATIONon 10-04-2018 [place] [address] CONSULTATION PATIENT NAME: RINA LEE : 1960 MED REC NO: [id number] ROOM: W7 ACCOUNT NO: [id number] ADMIT DATE: 10/03/2018 PROVIDER: Emanuel Haro MD CONSULT DATE: 10/04/2018 REASON FOR CONSULTATION: Laceration of chin. HISTORY OF PRESENT ILLNESS: The patient is a 58-year-old white female who is admitted in [facility] for major depression apparently slipped and fell and landed on her chin sustaining a laceration. This was repaired with Skin [employer] tissue glue. PAST MEDICAL HISTORY: Major depression, pancreatitis, history of malignant hyperthermia, and gallstones. PAST SURGICAL HISTORY: Lumbar discectomy, hysterectomy, thoracoscopy, cholecystectomy, breast reduction, back surgery, and appendectomy. FAMILY HISTORY: Includes cancer and diabetes. SOCIAL HISTORY: Denies smoking and denies alcohol use. Denies recreational drug use. CURRENT MEDICATIONS: Trazodone, Wellbutrin, Prazosin, Mobic, vitamins, and estrogens. ALLERGIES: DILAUDID, MORPHINE, PENICILLIN, SULFA, COMPAZINE, and DEMEROL. PHYSICAL EXAMINATION: GENERAL: A well-developed white female in no apparent distress and appears alert and oriented x3. VITAL SIGNS: Temperature 97, pulse 104, respirations 18, and blood pressure 94/68. HEENT: Examination of the facial region reveals the laceration that is well approximated in the chin area. Occlusion is otherwise intact. The patient has no bony step off in the mandible or maxillary region. The patient has good extraocular muscle movement. Cranial nerves appear intact. NECK: Supple. CHEST: Lungs are clear to auscultation. CARDIOVASCULAR: Heart is regular rate and rhythm. IMPRESSION: Laceration of chin well approximated. RECOMMENDATIONS: No need for intervention. We will follow and can be discharged from my standpoint. EMANUEL HARO MD [id number] Doc#: [id number] CC: Normal [facility] CT HEAD WO CONTRASTon 2018 CT HEAD WO CONTRAST EXAMINATION: CT HEAD WO CONTRAST CLINICAL HISTORY: s/p fall COMPARISON: NONE AVAILABLE An unenhanced scan is performed. FINDINGS: There is no bleed, mass effect, or space occupying lesion. No extra-axial mass or fluid collections. Calvarium and skull base intact. IMPRESSION: NO ACUTE PROCESS IN THE BRAIN. All CT scans at this facility use dose modulation, iterative reconstruction, and/or weight based dosing when appropriate to reduce radiation dose to as low as reasonably achievable. Interpreted by: Serafin Tucker MD Signed by: Serafin Tucker MD 10/04/18 Final result Normal [facility] Basic Metabolic Panelon 09-02 Anion gap [Moles/Vol] 10 mmol/L Normal 9-15 [facility] Comment on above: Result Comment: Effe ctive: 08/10/2018 New reference range for this analyte has been established. Calcium [Mass/Vol] 8.8 mg/dL Normal 8.5-9.9 [facility] Comment on above: Result Comment: Effe ctive: 08/10/2018 New reference range for this analyte has been established. Chloride [Moles/Vol] 105 mmol/L Normal 95-107 [facility] Comment on above: Result Comment: Effe ctive: 08/10/2018 New reference range for this analyte has been established. CO2 [Moles/Vol] 27 mmol/L Normal 20-31 [facility] Comment on above: Result Comment: Effe ctive: 08/10/2018 New reference range for this analyte has been established. Creatinine [Mass/Vol] 0.76 mg/dL Normal 0.50-0.90 [facility] GFR/1.73 sq M predicted among blacks MDRD (S/P/Bld) [Vol rate/Area] mL/min/{1.73_m2} Normal >60 [facility] Comment on above: Result Comment: >60 mL/min/1.73m2 EGFR, calc. for ages 18 and older using the MDRD formula (not corrected for weight), is valid for stable renal function. GFR/1.73 sq M.predicted MDRD (S/P/Bld) [Vol rate/Area] mL/min/{1.73_m2} Normal >60 [facility] Comment on above: Result Comment: >60 mL/min/1.73m2 EGFR, calc. for ages 18 and older using the MDRD formula (not corrected for weight), is valid for stable renal function. Glucose [Mass/Vol] 89 mg/dL Normal 70-99 [facility] Comment on above: Result Comment: Effe ctive: 08/10/2018 New reference range for this analyte has been established. Potassium [Moles/Vol] 4.2 mmol/L Normal 3.4-4.9 [facility] Comment on above: Result Comment: Effe ctive: 08/10/2018 New reference range for this analyte has been established. Sodium [Moles/Vol] 142 mmol/L Normal 135-144 [facility] Comment on above: Result Comment: Effe ctive: 08/10/2018 New reference range for this analyte has been established. Urea nitrogen [Mass/Vol] 13 mg/dL Normal 6-20 [facility] XR CHEST (2 VW)on 09-19-2018 XR CHEST (2 VW) EXAMINATION: XR CHES T (2 VW) CLINICAL HISTORY: MEDICAL CLEARANCE COMPARISONS: None available. FINDINGS: Osseous structures intact. Cardiopericardial normal. Pulmonary vasculature normal. Lungs clear. IMPRESSION: NO ACUTE CARDIOPULMONARY DISEASE. Interpreted by: Marshal Huertas MD Signed by: Marshal Huertas MD 09/20/18 Final result Normal [facility] Acetaminophenon 09-15-2018 Acetaminophen [Mass/Vol] <5 Low 10-30 [facility] Alcoholon 09-15-2018 Ethanol [Mass/Vol] mg/dL Normal [facility] Ethanol [Mass/Vol] Not indicated Normal [facility] CBC With Platelet and Differ entialon 09-15-2018 Basophils (Bld) [#/Vol] 0.0 10*3/uL Normal 0.0-0.2 [facility] Basophils/100 WBC (Bld) 1.2 % Normal [facility] Eosinophils (Bld) [#/Vol] 0.1 10*3/uL Normal 0.0-0.7 [facility] Eosinophils/100 WBC (Bld) 2.1 % Normal [facility] Erythrocyte distribution width (RBC) [Ratio] 12.8 % Normal 11.5-14.5 [facility] Hematocrit (Bld) [Volume fraction] 39.6 % Normal 37.0-47.0 [facility] Hemoglobin (Bld) [Mass/Vol] 13.2 g/dL Normal 12.0-16.0 [facility] Lymphocytes (Bld) [#/Vol] 1.6 10*3/uL Normal 1.0-4.8 [facility] Lymphocytes/100 WBC (Bld) 42.2 % Normal [facility] MCH (RBC) [Entitic mass] 31.0 pg Normal 27.0-31.3 [facility] MCHC (RBC) [Mass/Vol] 33.3 % Normal 33.0-37.0 [facility] MCV (RBC) [Entitic vol] 93.3 fL Normal 82.0-100.0 [facility] Monocytes (Bld) [#/Vol] 0.2 10*3/uL Normal 0.2-0.8 [facility] Monocytes/100 WBC (Bld) 5.6 % Normal [facility] Neutrophils (Bld) [#/Vol] 1.9 10*3/uL Normal 1.4-6.5 [facility] Neutrophils/100 WBC (Bld) 48.9 % Normal [facility] Platelets (Bld) [#/Vol] 228 10*3/uL Normal 130-400 [facility] RBC (Bld) [#/Vol] 4.24 10*6/uL Normal 4.20-5.40 [facility] WBC (Bld) [#/Vol] 3.9 10*3/uL Low 4.8-10.8 [facility] Comprehensive Metabolic Pane gabrielle 09-15-2018 Albumin [Mass/Vol] 3.7 g/dL Normal 3.5-4.6 [facility] Comment on above: Result Comment: Effe ctive: 08/10/2018 New reference range for this analyte has been established. ALP [Catalytic activity/Vol] 59 U/L Normal 40-130 [facility] ALT [Catalytic activity/Vol] 9 U/L Normal 0-33 [facility] Anion gap [Moles/Vol] 9 mmol/L Normal 9-15 [facility] Comment on above: Result Comment: Effe ctive: 08/10/2018 New reference range for this analyte has been established. AST [Catalytic activity/Vol] 11 U/L Normal 0-35 [facility] Bilirubin [Mass/Vol] mg/dL Normal 0.2-0.7 [facility] Comment on above: Result Comment: Effe ctive: 08/10/2018 New reference range for this analyte has been established. Calcium [Mass/Vol] 8.5 mg/dL Normal 8.5-9.9 [facility] Comment on above: Result Comment: Effe ctive: 08/10/2018 New reference range for this analyte has been established. Chloride [Moles/Vol] 106 mmol/L Normal 95-107 [facility] Comment on above: Result Comment: Effe ctive: 08/10/2018 New reference range for this analyte has been established. CO2 [Moles/Vol] 24 mmol/L Normal 20-31 [facility] Comment on above: Result Comment: Effe ctive: 08/10/2018 New reference range for this analyte has been established. Creatinine [Mass/Vol] 0.73 mg/dL Normal 0.50-0.90 [facility] GFR/1.73 sq M predicted among blacks MDRD (S/P/Bld) [Vol rate/Area] mL/min/{1.73_m2} Normal >60 [facility] Comment on above: Result Comment: >60 mL/min/1.73m2 EGFR, calc. for ages 18 and older using the MDRD formula (not corrected for weight), is valid for stable renal function. GFR/1.73 sq M.predicted MDRD (S/P/Bld) [Vol rate/Area] mL/min/{1.73_m2} Normal >60 [facility] Comment on above: Result Comment: >60 mL/min/1.73m2 EGFR, calc. for ages 18 and older using the MDRD formula (not corrected for weight), is valid for stable renal function. Globulin (S) [Mass/Vol] 2.4 g/dL Normal 2.3-3.5 [facility] Glucose [Mass/Vol] 87 mg/dL Normal 70-99 [facility] Comment on above: Result Comment: Effe ctive: 08/10/2018 New reference range for this analyte has been established. Potassium [Moles/Vol] 4.1 mmol/L Normal 3.4-4.9 [facility] Comment on above: Result Comment: Effe ctive: 08/10/2018 New reference range for this analyte has been established. Protein [Mass/Vol] 6.1 g/dL Low 6.3-8.0 [facility] Comment on above: Result Comment: Effe ctive: 08/10/2018 New reference range for this analyte has been established. Sodium [Moles/Vol] 139 mmol/L Normal 135-144 [facility] Comment on above: Result Comment: Effe ctive: 08/10/2018 New reference range for this analyte has been established. Urea nitrogen [Mass/Vol] 22 mg/dL Critically high 6-20 [facility] Creatine Kinaseon 09-15-2018 CK [Catalytic activity/Vol] 54 U/L Normal 0-170 [facility] Culture, Urineon 09-15-2018 Culture, Urine OR DERED BY: THOR VIRK SOURCE: Urine Clean Catch COLLECTED: 09/15/18 18:45 ANTIBIOTICS AT MEERA.: RECEIVED : 09/15/18 21:33 Culture, Urine FINAL 09/17/18 14:00 >50,000 CFU/ml of mixed martina Multiple organisms isolated, no predominance. Culture indicates probable contamination. Please review colony count and clinical indications to determine if a repeat culture is necessary. No further workup to be done. Normal [facility] Salicylateon 09-15-2018 Salicylate <0.3 Low 15.0-30.0 [facility] Comment on above: Result Comment: Anti -pyretic: 3.0-10.0 mg/dL Anti-inflammatory: 15.0-30.0 mg/dL Toxic: >30.0 mg/dL TSH w/out Reflexon 9 TSH Qn 3.120 uIU/mL Normal 0.440-3.86 [facility] Comment on above: Result Comment: Effe ctive: 08/10/2018 New reference range for this analyte has been established. UR Drugs of Abuse Panelon Drug Screen Comment see below Normal [facility] Comment on above: Result Comment: This method is a screening test to detect only these drug classes as part of a medical workup. Confirmatory testing by another method should be ordered if clinically indicated. UR Amphetamines Screen Negative Normal Negative < [facility] UR Barbiturates Screen Negative Normal Negative < [facility] UR Benzo Screen Negative Normal Negative < [facility] UR Cannabinoids Screen Negative Normal Negative < [facility] UR Cocaine Screen Negative Normal Negative < [facility] UR Opiates Screen Negative Normal Negative < [facility] UR PCP Screen Negative Normal Negative < [facility] Urinalysis, reflex to cultur steve 09-15-2018 Bilirubin Ql (U) Negative Normal Negative [facility] Clarity (U) Clear Normal Clear [facility] Color (U) Yellow Normal Straw/Martin [facility] Glucose Ql (U) Negative Normal Negative [facility] Hemoglobin Ql (U) Negative Normal Negative [facility] Ketones Ql (U) 15 mg/dL Abnormal Negative [facility] Leukocyte esterase Test strip Ql (U) TRACE Abnormal Negative [facility] Nitrite Ql (U) Negative Normal Negative [facility] pH (U) 5.0 [pH] Normal 5.0-9.0 [facility] Protein Ql (U) Negative Normal Negative [facility] Specific gravity (U) [Rel density] 1.029 Normal 1.005-1.03 [facility] Urine Reflexed to Culture YES Normal [facility] Urobilinogen Qn (U) 1.0 {Jere'U}/dL Normal < 2.0 [facility] Urine Microscopicon 09-16-19 19 Bacteria LM.HPF (Urine sed) [#/Area] Negative Normal [facility] RBC (U) [#/Vol] 3-5 Abnormal 0-5 [facility] Comment on above: Result Comment: Effe ctive 05/29/2018 Urinalysis microscopic performed using the automated methodology (AUWI analyzer). Urine Epithelial Cells Auto 6-10 Normal 0-5 [facility] Comment on above: Result Comment: Effe ctive 05/29/2018 Urinalysis microscopic performed using the automated methodology (AUWI analyzer). Urine Hyaline Casts Auto 3-5 Normal 0-5 [facility] Comment on above: Result Comment: Effe ctive 05/29/2018 Urinalysis microscopic performed using the automated methodology (AUWI analyzer). Urine WBC Auto 10-20 Abnormal 0-5 [facility] Comment on above: Result Comment: Effe ctive 05/29/2018 Urinalysis microscopic performed using the automated methodology (AUWI analyzer). BRIEF OP NOTon 09-30-2017 BRIEF OP NOT HNO ID: [id number] thor: Ron Ward) AugustinService: General SurgeryAuthor Type: PhysicianType: Brief Op NoteFiled: 09/30/2017 10:15 AMNote Text:BRIEF OPERATIVE / PROCEDURE NOTELOG ID: [id number]/Procedure Date: 09/30/2017Incision/Procedure Start Time: 10:03 AMIncision Close/Procedure End Time: 10:07 AMSurgeon(s)/Proceduralist(s) and Systems Administrator(s):Surgeon(s) and Role: * Ron Ward) Scooter - Kyung Additional StaffProcedure(s): EGDAnesthesia: Procedural SedationFindings: Esophagitis and gastritisEstimated Blood Loss: 2 mlsSpecimens: H PyloriComplications: NonePre-Op/Pre-Procedure Diagnosis: Abd painPost-Op/Post-Procedure Diagnosis: Esophagitis and gastritisSIGNATURE: Ron Helms MD PATIENT NAME: Rina LeeDATE: September 30, 2017 : 10:14 AM PAGER/CONTACT #: Normal [facility] HISTORY PHYSICALon HISTORY PHYSICAL HNO ID: [id number] thor: Ron Ward) FrankiinService: General SurgeryAuthor Type: PhysicianType: HANDPFiled: 09/30/2017 9:57 AMNote Text:AssessmentH and POChief Complaint: Epigsstric painHPI:Rina Lee is a 57 year old female for EGD for epigsatricpainPAST MEDICAL HISTORY:PAST MEDICAL HISTORYDiagnosis Date- Back disorder- GERD (gastroesophageal reflux disease)- H/O neck disorder- High blood pressure- Kidney disorder frequent infections, kidney stones- MHS (malignant hyperthermia) Niece had episode. Pt. had positiveHalothane/Caffiene Contracture test 09/08/1989- PMH - PAST MEDICAL HISTORY OF depression- PMH - PAST MEDICAL HISTORY OF migraines- PMH - PAST MEDICAL HISTORY OF malignant hyperthermiaPAST SURGICAL HISTORY:PAST SURGICAL HISTORYProcedure Laterality Date- APPENDECTOMY 14 yr old- BACK SURGERY HX 2012 discectomy- BACK SURGERY HX 2013 lumbar decompression 2013 with spinal lipoma removal- BREAST SURGERY HX mammoplasty 2011- CHOLECYSTECTOMY 2013- COLONOSCOPY 2013 normal- EGD 02/18/16 /Small Hiatus Hernia- PAST SURGICAL HISTORY OF tonsillectomy- PAST SURGICAL HISTORY OF hysterectomy, AANDP repair, TVT- PAST SURGICAL HISTORY OF ear surgery--age 17- URETHRAL DILATION(FEMALE) 1983, 2003 Malignant hyperthermiaFAMILY HISTORY:FAMILY HISTORYProblem Relation Age of Onset- Mesothelioma [OTHER] Mother Colon Ca not primary- Cancer Father- Parkinson's [OTHER] Father- COPD,HTN,NE [OTHER] Father- Diabetes Sister- DM [OTHER] Maternal GrandmotherSOCIAL HISTORY:Social HistorySubstance Use Topics- Smoking status: Never Smoker- Smokeless tobacco: Never Used- Alcohol use No Comment: occassionalCOMPLETE REVIEW OF SYSTEMSConstitutional--Negativ e for fevers, chills, fatigue.Cardiovascular--Negati ve for orthopnea, PND, positive for intermittentlower extremity edemaGastrointestinal--See HPIPulmonary--Negative for intermittent dyspnea cough or hemoptysisGU: No history of dysuria, frequency or incontinenceA 10 point review of systems was otherwise negativePHYSICAL EXAMINATION:BP 98/68 Pulse 72 Resp 16 SpO2 99%General appearance: Well appearing, alert, in no acute distress,well-hydrated, well nourished.Psych: Appropriate affect, alert and oriented to person, place and timeSkin: Skin color, texture, turgor normal, no suspicious rashes or lesionsHead: Normocephalic, no masses, lesions, tenderness or abnormalitiesEyes: Anicteric sclera. Pupils are equally round. Extraocular movementsare intact.Oropharynx: Lips, mucosa, and tongue normal, teeth and gums normal,oropharynx normalNeck: Supple, no adenopathy; thyroid symmetric, normal sizeAbdomen: Abdomen soft, non-tender. No masses, organomegalyExtremities: No deformities, edema, skin discoloration. Good capillaryrefill.Musculoskeleta l: Muscular strength intact, No joint swelling, deformity,or tendernessPeripheral pulses: Normal radial pulseNeuro: Gait normal. Sensation grossly intact.IMPRESSION:Epigastric painPLAN:EGD with possible dilationR/B/A explainedThis office note will be sent to the referring provider via electronicmedical record and US mail.Ron Helms MD [facility] PT EDon 09-30-2017 PT ED HNO ID: [id number] thor: Jovi (Rn) ANGELA Bowmanervice: NursingAuthor Type: Registered NurseType: Patient EducationFiled: 09/30/2017 10:31 AMNote Text:PATIENT EDUCATION TOPIC: PROCEDURE / SURGERY: Post Procedure Teaching:egdPATIENT NAME: Rina UrbinaN: [id number] LOCATION: [place] [address]READINESS TO LEARNCOGNITIVE ABILITY: Alert and orientedMOTIVATION TO LEARN: InterestedFAMILY SUPPORT: High - Very involved in pt careINSTRUCTION PROVIDED TO: Patient and family memberPATIENT LEARNS BEST BY: Verbal InstructionFACTORS AFFECTING LEARNING: NonePHYSICAL LIMITATIONS AFFECTING LEARNING: PainLEARNING RESPONSEDIAGNOSIS: ADULT: egdPATIENT/FAMILY RESPONSE: Verbalizes understanding of: [id number]-Slyy ect action to take to follow pre-procedure instructionsMETHOD OF INSTRUCTION: Verbal instructionFOLLOW-UP PLAN: Complete - No need for follow-upINSTRUCTIONAL AIDS USED: NASUPPLEMENTAL MATERIAL PROVIDED TO PATIENT: NoneREFERRAL (RECOMMENDATION): NoneElectronically Signed By: Jovi Bowman RN [facility] ([facility]) HNO ID: [id number]: Gibson Hogue) ANGELA Gilmanervice: (none)Author Type: Registered NurseType: Patient EducationFiled: 09/30/2017 9:01 AMNote Text:PATIENT EDUCATION TOPIC: PROCEDURE / SURGERY: Procedure/Surgery:epigastric painPATIENT NAME: Rina UrbinaN: [id number] LOCATION: [place] [address]READINESS TO LEARNCOGNITIVE ABILITY: Alert and orientedMOTIVATION TO LEARN: InterestedFAMILY SUPPORT: High - Very involved in pt careINSTRUCTION PROVIDED TO: PatientPATIENT LEARNS BEST BY: Verbal InstructionFACTORS AFFECTING LEARNING: NonePHYSICAL LIMITATIONS AFFECTING LEARNING: NoneLEARNING RESPONSEDIAGNOSIS: ADULT: epigastric painPATIENT/FAMILY RESPONSE: Verbalizes understandingMETHOD OF INSTRUCTION: Verbal instructionFOLLOW-UP PLAN: Complete - No need for follow-upINSTRUCTIONAL AIDS USED: NASUPPLEMENTAL MATERIAL PROVIDED TO PATIENT: NoneREFERRAL (RECOMMENDATION): NoneElectronically Signed By: Gibson Gilman RN [facility] SURGICAL PATHOLOGYon 018 SURGICAL PATHOLOGY [facility]: [id number] Physician: RON HELMS MD FINAL DIAGNOSISGastric body, biopsy - No significant pathologic change.JRG/plj 10/03/2017 Lopez Ramirez M.D.(Electronic Signature) SPECIMEN SUBMITTEDA: GASTRIC BODY CLINICAL DATAABD PAINGASTRITIS, MILD ESOPHAGITIS, RULE OUT H. PYLORI BY GIEMSA GROSS DESCRIPTIONA. Received in formalin are two pieces of dawkins, soft tissue aggregating to0.2 x 0.2 x 0.1 cm. Totally submitted in one cassette.Gross examination performed at [facility], [address] [place] [address] 09/30/2017 4:38:34 PMPatient ID #: [id number] of Report: 10/03/2017Date of Procedure: 09/30/2017Date of Receipt: 09/30/2017Submitted by: RON HELMS MDLocation: SORCDiagnostic [place] [address]. Normal [facility] Comment on above: Performed By: #### P ATHS ####[id number] [place] [address] HOSPon 09-28-2017 HOSP Patient:Rina Lee MMRN: Height:5' 2.992 (1.6 m)Weight:No patient weight recorded within the last 30 days.Outpatient Medications as of 09/30/17:pantoprazole DR (PROTONIX) 40 mg tabletoxyCODONE-acetaminophen (PERCOCET 10) 10-325 mg tabletoxyMORphone (OPANA ER) 15 mg [id number] conjugated (PREMARIN) 0.9 mg tabletpregabalin (LYRICA) 100 mg capsulecitalopram (CELEXA) 20 mg tabletbuPROPion SR (WELLBUTRIN SR) 100 mg 12 hr tabletAdmission/Clinic Administered Medications as of 09/30/17:NaCl 0.9% iv infusionProblem List:Malignant hyperthermia [T88.3XXA]Lateral epicondylitis [M77.10]Impingement syndrome, shoulder [M75.40]Shoulder impingement [M75.40]MHS (malignant hyperthermia) Niece had episode. Pt. had positiveHalothane/Caffiene Contracture test [T88.3XXA]High blood pressure [I10]Kidney disorder [N28.9]H/O neck disorder [Z87.39]Back disorder [M53.9]Bowel incontinence [R15.9]Urinary incontinence [R32]Back pain [M54.9]History of malignant hyperthermia [Z87.898]Morbid obesity (HCC) [E66.01]Allergies:Compazine [Prochlorperazine Edisylate]Demerol [Meperidine (Pf)]GENERAL ANESTHESIA [Other]MorphinePenicillinsSulf a (Sulfonamide Antibiotics)Date Verified: 09/30/17Lab ValuesNo results within the last 30 days for the following basenames: K,HCTProgress Notes ([facility] ):Radha Reyez Ma 09/26/2017 11:06 AM SignedPatient calling, she was last seen in office 07/29/17 for 6 month follow up.Patient states shortly after seeing you in July she has not been able to keepdown any solid food, when she tries to eat she immediately has violent vomitingper patient. She is successful with keeping fluids down and taking her vitamins.She also is concerned about sever abdominal pain that is located mid lower. Theabdominal pain and vomiting occur together after attempting to eat. She wasscheduled to see nutrition but had to reschedule for November. She would like to seeyou this week if possible, please advise. Thank youRadha Sim RN 09/27/2017 8:55 AM SignedXR Upper GI previously ordered.Please advise if you would like imaging completed before follow up visit. Pedro johnson.Klarissa Sim RN 09/28/2017 10:[address] Helms's recommendations, patient needs EGD. Please confirm date ofprocedure and instructions below with patient.PRE-PRECEDURE INFORMATION SHEETPatient Name: Rina Begumctor: LADAN Riverarocedure: EGDProcedure Date: 09/30/2017Procedure Time: 9:30am Time To Arrive: 8:30amTransportation: A responsible adult must drive you home. The medication givenduring the procedure will cause drowsiness, making it unsafe for you to drive.Hospital: [place] [address] [address] [place] [id number] [facility] Admission Testing: NOT REQUIRED FOR THIS PROCEDURE.Pre Operative Instructions:? Take nothing by mouth after midnight the night before surgery.? Avoid taking any type of Aspirin or Ibuprofen, Coumadin, Plavix productsbeginning 5 days before your surgery. If you need to take something for pain,take Tylenol.? Other Instructions: Report to 1st Floor Outpatient Surgery Department.? Should you have any questions, please call the office at .Your surgery time is a tentative time. Emergencies may occur that will changethe scheduling during the day of your surgery and therefore you should beavailable for the entire day.Radha Reyez Ma 09/28/2017 10:29 AM SignedI called patient to offer date and time for EGD, she was thankful and will behere. She will have a vibratory pile driver bring her and take her home. Instructions anddirections were to check in were given with full understanding.Radha Reyez Ma Normal [facility] SURGICAL PATHOLOGYon 017 SURGICAL PATHOLOGY Specimen [facility] from [facility] #: [id number] Physician: RON HELMS MD FINAL DIAGNOSISStomach, body, biopsy - Gastric body-type mucosa with no pathologicdiagnostic abnormality; see comment.HEATHER/evelina 03/17/2017COMMENTNo microorganisms morphologically compatible with H. pylori are identifiedon routine H&E stained sections.Natividad Ontiveros M.D.(Electronic Signature) SPECIMEN SUBMITTEDA: GASTRIC BODY CLINICAL DATANAUSEAMILD GASTRITISCOLD BIOPSYGROSS DESCRIPTIONA. Received in formalin is one piece of dawkins, soft tissue measuring 0.8 x0.2 x 0.1 cm. Totally submitted in one cassette.Gross examination performed at [facility], [address] [place] [address] 03/16/2017 6:00:57 PMPatient ID #: [id number] of Report: 03/17/2017Date of Procedure: 03/16/2017Date of Receipt: 03/16/2017Submitted by: RON HELMS MDLocation: SORCDiagnostic interpretation performed at [facility], [address] [place] [address]. [facility] Comment on above: Performed By: #### P ATHS ####[id number] [place] [address] HOSPon 03-14-2017 HOSP Patient:Rina Lee MMRN: Height:5' 3 (1.6 m)Weight:201 lb (91.173 kg)Outpatient Medications as of 03/16/17:Omeprazole (PRILOSEC) 40 mg capsuleoxyCODONE-acetaminophen (PERCOCET 10) 10-325 mg tabletoxyMORphone (OPANA ER) 15 mg [id number] conjugated (PREMARIN) 0.9 mg tabletpregabalin (LYRICA) 100 mg capsuleirbesartan (AVAPRO) 150 mg tabletcitalopram (CELEXA) 20 mg tabletbuPROPion SR (WELLBUTRIN SR) 100 mg 12 hr tabletAdmission/Clinic Administered Medications as of 03/16/17:Patient has no admission medications.Problem List:Malignant hyperthermia [T88.3XXA]Lateral epicondylitis [M77.10]Impingement syndrome, shoulder [M75.40]Shoulder impingement [M75.40]MHS (malignant hyperthermia) Niece had episode. Pt. had positiveHalothane/Caffiene Contracture test [T88.3XXA]High blood pressure [I10]Kidney disorder [N28.9]H/O neck disorder [Z87.39]Back disorder [M53.9]Bowel incontinence [R15.9]Urinary incontinence [R32]Back pain [M54.9]History of malignant hyperthermia [Z87.898]Morbid obesity (HCC) [E66.01]Allergies:Compazine [Prochlorperazine Edisylate]Demerol [Meperidine (Pf)]GENERAL ANESTHESIA [Other]MorphinePenicillinsSulf a (Sulfonamide Antibiotics)Date Verified: 03/16/17Lab ValuesNo results within the last 30 days for the following basenames: K,HCTProgress Notes ([facility]):Dian Quintanilla Psr 03/11/2017 11:54 AM SignedPatient called regarding upper GI and a Dylan Delgadillo PSR 03/14/2017 8:16 AM SignedCalled patient to update on plan of care. UGI is scheduled for tomorrow 03/15 at8am, at [facility] (the order has been sent and was received). She isstill waiting for a date for her EGD. While on the phone, patient informed meshe vomited once she got home from her hydration on Tuesday, and is still onlyable to eat 2-3 bites of food twice a day. Please call and advise.Yolis Harrison RN 03/15/2017 9:48 AM SignedPatient scheduled for EGD 03/16/2017 for dysphagia.Progress Notes (BMI PSYL REPLACED BY [facility]):Melba Lomax, PhD 02/25/2017 2:58 PM SignedTHE [facility]OM[facility] HOSPITALBARIATRIC AND METABOLIC INSTITUTECost Center: 3BOBilling code: Jannette Code:84768 Psychotherapy 38-52 minutesBariatric Behavioral Services Progress NoteAugust 2016Start/Stop Time: 2:05-2:45Surgery date: 01/24/17Current weight: 203 lbs.Weight loss since surgery: 21 lbs.Surgeon: Dr. Newsome of surgery: gastric bypassPsychologist: Melba Lomax, Ph.D. PsychologistSubjective:Patient attended a 1 month postsurgery behavioral health psychotherapy sessionin an individual format.Post-surgically, the patient reports the following medical complications: none.The following post-surgical psychological complications were reported: grievingloss of food, regrets having surgery and fear of failure/weight regain.The patient reports the following health behaviors: exercising, obtaining 64 ozof water, taking vitamins, eating slowly and eating AND drinking.The patients notes the following problematic behaviors: difficulty obtaining 60gm protein a day, difficulty consuming vitamins and difficulty eating regularmeals. AUDIT-C = 0 (Negative)Patient has noticed the following benefits postsurgery with weight loss: none.Future goals include: continued weight loss and increase social activity.Ms. Lee shared struggling significantly with the adjustment to surgery. Shehas been experiencing food aversion. Though not feeling nauseous or in pain,she feels like she can't eat anything but Fair Life milk and French yogurt.She stated, I feel like surgery was the worst decision I've ever made. has consequently noticed worsening depression, noting she will cry evelyn. She has become more socially disengaged because she feels most socialevents involve food. She became tearful as she described that until thatmoment, she hadn't realized how much she missed her son, who has only textedheronce since surgery. Further, she endorsed suicidal ideation; i.e., I justwant to . Ms. Lee denied any suicidal plan or intent, citing theprotective factors only of common sense and thinking suicide isn't the rightthing to do. She continues counseling with her outside therapist, but hadreduced the frequency of counseling to once/month. She has not yet followed upwith her PCP about psychiatric mediation changes.Interventions included:1) Safety planning for suicidal ideation2) Behavioral activation strategies for depression3) Relaxation and cognitive strategies for food aversionObjective: Affect is: dysphoric. PHQ-9 = 14 (10-14 moderate depression.Patient endorsed the item thoughts that you would be better off as several days. MEDICATIONSCurrent Outpatient Prescriptions:Magnesium 30 mg tablet Take 1,000 mg by mouth once daily.oxyCODONE (ROXICODONE) 5 mg/5 mL oral solution Take 5-10 mL by mouth every 6hours as needed.ursodiol (ACTIGALL) 300 mg capsule Take 1 capsule by mouth twice daily for 180days.ondansetron orally disintegrating (ZOFRAN ODT) 4 mg disintegrating tablet Take 1tablet by mouth every 8 hours as needed.scopolamine (TRANSDERM-SCOP) 1.5 mg (1 mg over 3 days) Apply 1 Patch as directedevery 72 hours.potassium chloride ER (KLOR-CON M20) 20 mEq tablet Take 1 tablet by mouth oncedaily.predniSONE (DELTASONE) 20 mg tablet Take 20 mg by mouth once daily.cholecalciferol, Vitamin D3, (VITAMIN D3) 50,000 unit cap capsule Take 1 capsuleby mouth once each week.esomeprazole (NEXIUM) 40 mg capsule Take 40 mg by mouth once daily.No current facility-administered medications for this visit.Medication Changes:The patient was on mental health medication before surgery. The patient reportsrestarting psych meds since surgery.The patient was in psychotherapy/psychiatry presurgery. The patient hasreturned to psychotherapy/psychiatry.Suppo rt group attendance: Patent has attended a support group.CPAP Adherence: Patient was not on CPAP before surgery.Assessment: Primary treatment goal(s) postponed to address depression, suicidalideation, and food aversion.Diagnosis:Major Depressive Disorder, Recurrent, Moderate to SevereGeneralized Anxiety [id number] Psychological Factors Affecting a Medical Condition: Postgastric SurgerySyndrome (primary encounter diagnosis)Plan/Recommendations :*Depression has a way of making us want to inside, not talk to anyone, and notdo anything. Do the opposite of what depression wants you to do! Create newfamily rituals (e.g., invite kids over for board games, funTSCA movies, cards).Fake it till you make it!*Re-start gratitude journaling; it re-trains the brain to focus on the positive*Implement deep breathing again (free audios on YouTube, apps). Practice whenyou're not stressed, and before eating.*Thoughts have power; practice balanced thinking - What are the exceptions tothe overly general thoughts you're telling yourself about food?*Follow up with PCP about psychiatric medications*Continue counseling with your outside counselor and increase the frequency ofsessions*Re-read Seeing in the Dark (free audiobooks usually available at the library)*Remember, it takes a village! Be assertive with your social supports aboutwhat you need from them right now.*If suicidal ideation increases in frequency, duration, or intensity, go thenearest ER or call the suicide prevention hotline at *Follow up with Dr. Lomax in 4 weeks or sooner if needed (ask about 03/28 at3:00 at main moosup)Melba Lomax, Ph.D.Psychologist [facility] 01-27-2017 CNDS HNO ID: [id number] thor: Emily Harris) MiglionicoService: General SurgeryAuthor Type: Physician AssistantType: Discharge SummariesFiled: 01/27/2017 12:16 PMNote Text:DISCHARGE SUMMARYPATIENT NAME: Rina Lee ADMISSION DATE: 01/24/2017MRN: [id number] DISCHARGE DATE: 01/27/2017Attending Physician: Ron Ward) Renetta for Hospitalization: Morbid Obesity, Scheduled SurgeryOperations During Hospitalization:1. Laparoscopic paraesophageal hernia repair.2. Laparoscopic Mikaela-en-Y gastric bypassProcedures During Hospitalization: No procedures performedHospital Course:Ms. Lee was admitted following the above described operation, which wasperformed without complication. Post operatively she [facility] for further recovery. She was encouraged to ambulateto minimize DVT chance and promote bowel function. Her diet was slowlyadvanced to a bariatric phase 2 as she experienced return of normal bowelfunction. Her medications were converted to oral and tolerated. Her foleywas removed, and she was able to void without complication. She wasfollowed by case management; they determined that she had no dischargeneeds.On January 27, 2017, in light of her normal vital signs, satisfactorytoleration of a PO diet, adequate pain control on oral medications, andreturn to baseline functional status; she was deemed fit to be dischargedin stable condition. She was given instructions to follow up in the clinicon an outpatient basis.Labs and Procedures Pending at Discharge: No pending results.Consulting Teams During Hospitalization: NonePatient Condition @ Discharge: StableDischarge Disposition: Home/Self CareInformation Provided to Patient:Home Going Instructions Post Gastric Bypass and Sleeve GastrectomyDiet:Phase II Diet -Full Liquids until follow up visit with surgeon in 2 weeks.Focus on getting al least 5-6 ounces of liquid every waking hour.Depending on your weight, get at least 60 grams of protein everyday.Supplement with protein shakes, powders while transitioning with dietphases.Drink slowly until you feel full. Room temperature fluids may be bettertoleratedNO STRAWSAvoid pop, caffeine, and sugarRefer to Your Guide to Surgery Hydration:Fluid intake of 64 oz everyday (Atkins Flavored water contains protein)Take a water bottle everywher you go for first 6 monthsSigns of dehydration-- thirst, dry mouth, decreased urine output or nourine output for 6 hours or moreActivity:Do aerobic exercise for 30 minutes, 4-5 days per weekCan be cumulative with 5-10 minute intervalsWhen sitting, riding in a car or plane longer than one hour, walk around5-10 minutes then resume sitting or riding.Do this for the first six months post-operative to prevent blood clotsPain:CONTINUE TAKING SCHEDULED TYLENOL DO NOT TAKE OXYCODONE WHILE YOU ARE ONDILAUDID. START WEANING OFF OF THE DILAUDID SOON POSSIBLE. SWITCHBACK TO YOUR HOME REGIMEN WITH OXYCODONE WHEN YOU ARE WEANED OFF OFDILAUDID.DO NOT TAKE NSAIDS (ie ibuphrofen, Advil, Motrin, Aleve, Naprosyn)Wound Care:? Your incision may be covered with a gauze dressing when you aredischarged from the hospital. This may be removed within 48 hours, and youmay start showering at that time.? If you have narrow white tape strips or surgical glue on your incisions,these will come off on their own in 7-10 days.? You may wash your incisions with soapy water, and then thoroughly drythe skin. Band-Aids and dressings are not needed.? You may have itching, bruising, a pulling sensation, and/or numbnessaround the incisions. These are all normal.Bowels:Laxative of Choice or Milk or Magnesia, per bottle recommendationsDiscomfort with gas- warm fluids stimulate bowel motility, massage yourlower abdomen, walk around 10-15 minutesMedications:Resume pre-op medications, per PCPBariatric specific drugs are:Actigall - prevent sludge and gallstonesPepcid - prevent gastric refluxScopolamine Transdermal - continuous medication to prevent nauseaZofran ODT - treats nausea, as neededLovenox - injections in belly fat to prevent blood clots (if prescribedpre-op)Oxycocodone Elixir - pain medicationNo vitamins until follow up visit with surgeonArrange follow up with your primary care doctor for changes in your highblood pressure medications, and diabetic medications, as necessary. As youlose weight, medication doses will need adjusted.If you are diabetic, please arrange follow up 1 week after your surgerywith your doctor who manages your diabetes. Check your blood sugarregularly at home and keep a log of your blood sugar for your diabeticdoctor.Seek Immediate Medical Care:Develop chest painSudden shortness of breathePersistent pain in the calf of your legsPersistent abdominal pain, nausea, vomiting and no bowel movementsThick yellow or green drainageSigns of dehydrationCall Bariatric Nurse Line for any problems, questions, or concerns about:Abdominal PainDehydrationNausea AND VomitingDiarrheaFatigueFeverWo und IssueFor Urgent Concerns, call:Bariatric Nurse Line [phone] Opt #4 (9:00am-5:00pm)After Hour Urgent Questions ([phone] and ask to speak to bariatricfellow medtronics technician)For Non-Urgent Questions, call:Surgeon office [phone] (office hours 8:30am-4:00pm)To Schedule or Change an Appointment:[phone] (9:00am-5:00pm)Future AppointmentsDate Time Provider Department Sarita02/03/2017 1:00 PM Ron Ward) Scooter [id number] [facility]02/25/2017 12:00 PM Jacquard Loom Carpet Weaver 3 [facility] Rej Bmi BMIREJ [facility]02/25/2017 1:00 PM Emily Harris) Otoniel [id number] [facility]02/25/2017 2:30 PM Melba (Phd) Goodpaster ENDOPSY [facility]02/25/2017 3:00 PM Ron Ward) Scooter BMIREJ [facility]04/29/2017 2:00 PM Jacquard Loom Carpet Weaver 3 [facility] Rej Bmi BMIREJ [facility]04/29/2017 2:30 PM Xi Sotelo BMIREJ [facility] [phone] [facility] is [facility] the first [facility] the security office and the [facility] shopDel[facility] Medications: Current Discharge Medication ListSTART taking these medicationsHYDROmorphone (DILAUDID) 1 mgTake 1 mg by mouth every 6 hours as needed.Qty: 15 tablet Refills: 0CONTINUE these medications which have CHANGEDoxyCODONE (ROXICODONE) 5 mgTake 5 mg by mouth every 6 hours as needed for Pain (DO NOT TAKE WHILETAKING DILAUDID). TAKE 5-10 ML EVERY 4-6 HOUR NEEDED FOR PAINQty: 250 mL Refills: 0CONTINUE these medications which have NOT CHANGEDestrogens conjugated (PREMARIN) 0.9 mgTake 0.9 mg by mouth once daily.pregabalin (LYRICA) 100 mgTake 100 mg by mouth three times daily.Associated Diagnoses:Functional diarrhea; Hiatal hernia; Irritable bowelsyndrome with diarrheaondansetron orally disintegrating (ZOFRAN ODT) 4 mgTake 4 mg by mouth every 8 hours as needed for Nausea/Vomiting.Qty: 60 tablet Refills: 0cholecalciferol (Vitamin D3) (VITAMIN D3) 50,000 UnitsTake 50,000 Units by mouth once each week.Qty: 12 capsule Refills: 0irbesartan (AVAPRO) 150 mgTake 150 mg by mouth once daily.Associated Diagnoses:Functional diarrhea; Hiatal hernia; Irritable bowelsyndrome with diarrheacitalopram (CeleXA) 20 mgTake 20 mg by mouth once daily.Associated Diagnoses:Functional diarrhea; Hiatal hernia; Irritable bowelsyndrome with diarrheaOmeprazole 40 mgTake 40 mg by mouth twice daily.Associated Diagnoses:Functional diarrhea; Hiatal hernia; Irritable bowelsyndrome with diarrheabuPROPion SR (WELLBUTRIN SR) 100 mgTake 100 mg by mouth twice daily.Associated Diagnoses:Functional diarrhea; Hiatal hernia; Irritable bowelsyndrome with diarrheascopolamine (TRANSDERM-SCOP) 1 PatchApply 1 Patch as directed every 72 hours.Qty: 20 Patch Refills: 0STOP taking these medicationsoxyCODONE IR (ROXICODONE) 10 mgComments:Reason for Stopping:SIGNATURE: Emily Frederick PA-C PAGER: [phone]: January 27, 2017TIME: 12:13 PM [facility] PLAN OF CAREon 01-27-2017 PLAN OF CARE HNO ID: [id number] thor: Laurie Porter (Retanned Leather Roller)Service: (none)Author Type: TechnicianType: Plan of CareFiled: 01/27/2017 4:17 PMNote Text:DEER FARM WORKER BEDSIDE DELIVERY SURVEY1. Patient to use [facility] Bedside Delivery - YES2. If fax, patient would like us to fax prescriptions to [facility] a. Pharmacy: b. Location: c. Phone:3. Insurance card on file - YES4. Credit card for payment - N/A [facility] PROGRESSon 01-27-2017 PROGRESS HNO ID: [id number] thor: Vanesa Caraballo (Ronnie) LEESA Whiteervice: General SurgeryAuthor Type: ResidentType: Progress NotesFiled: 01/27/2017 12:01 PMNote Text:GENERAL SURGERY INPATIENT PROGRESS NOTENAME: Rina JamesRN: [id number] 2016 11:58 AMASSESSMENT AND PLAN:Rina Lee is 56 year old female s/p 3 Days Post-Op RNYGBPatient reports feeling better. Tolerating phase 2 diet.No acute issues overnight.Developed rashes around incision sites, likely allergic reaction toLidocaine.Assessment:Vitals: BP 133/73 Pulse 74 Temp 37.1 ?C (98.8 ?F) (Oral) Resp 18 Ht 160 cm (5' 3 ) Wt 101.2 kg (223 lb) SpO2 95% BMI 39.5 kg/f3Aivmrp: breathing comfortably on RA, speaking in full sentencesAbdominal examination: Soft, non-distended, appropriately tenderWound examination: Incision clean dry and intactPain Control: Well controlledNausea/Emesis: NegativePlans:- Diet: Bariatric phase 2 diet- Benadryl for rash- Ambulation: OOB- Prophylaxis: DVT prophylaxis, IS, ambulate- Dispo: Discharge home,Will discuss plan with staff.Date 01/26/17 07 - 01/27/17 0659 01/27/17 07 - 01/28/17 0659Shift 5512-4425 2789-3039 0353-0269 24 Hour Total 8222-9481 7167-54045270-7973 24 Hour TotalINTAKE PO 480 491 5469 PO 400 528 4329 IV 560 560 LR 560 560 Shift Total 1040 720 1760OUTPUT Urine 275 1050 1000 2325 Void (ml) 275 1050 1000 2325 Urine Incontinence/Not Saved 1 x 1 x # of BMs Number of BMs 1 x 1 x 0 x 0 x Shift Total 275 1050 1000 2325Weight (kg) 101.2 101.2 101.2 101.2 101.2 101.2 101.2 101.2Recent Labs 01/25/480868NXE 6.85HB 11.9HCT 35.0*PLT 198NA 139K 3.7CHLOR 105CO2 22*CREAT 0.70BUN 10GLUC 120*P 2.8MG 1.9CA 8.2*This note will be reviewed by my attending physician and changes will bemade where applicable.Vanesa White MDGeneral Surgery, PGY - 1Pager #: [phone](After 6pm and weekends please contact Surgery oncall team) [facility] 01-26-2017 ALLIED HEALTH HNO ID: [id number] thor: Thor Dean) Joslyn Underwoodervice: Spiritual CareAuthor Type: ChaplainType: Allied HealthFiled: 01/26/2017 7:14 PMNote Text:SPIRITUAL CARE VISIT RECORDSERVICE DATE: 01/26/2017SERVICE TIME: 6:30 pmTYPE OF VISIT: Introductory Visit.Urgency of Visit: Routine.Visit was with: Patient .SPIRITUAL CARE VISIT:Spiritual Distress: 2 - Paper Cone Drying Machine Operator Observation. Spiritual Distress Scale (1-10 with 1= low distress and 10 = highestdistress imaginable)Ministry Provided During Visit:Spiritual Presence/SupportThemes Discussed During Visit:Clementina/HopeReligious PracticeSpiritual Issues Note: Patient stated that her and her go to [employer]. Patient described episcopalian as Congregational in name,denominational Presybeterian in practice. Patient stated, I think Iturned a corner. 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[facility] [employer], and stated that their episcopalian is in the process of possiblymerging with a larger episcopalian.REFERRAL(S) / TEAM COLLABORATION:Referrals: No Referral Made.Care Team Consultation Notes: N/AFUTURE SPIRITUAL CARE PLANS:Will See: As Needed Only.Follow-up Notes: Informed patient of Paper Cone Drying Machine Operator availability.To contact the Spiritual Care Department: Please call [phone].For immediate or Emergent need call PBX (0), and ask for Paper Cone Drying Machine Operator.SIGNATURE: Chaplain Cristina PATIENT NAME: Rina LeeDATE: January 26, 2017 : 7:11 PM PAGER/CONTACT #: [phone] [facility] CASE MGT INIT AMY 2016 CASE MGT INIT [facility] HNO ID: [id number]: Veronica (Almaz) WallsService: Case ManagementAuthor Type: Social WorkerType: Care Mgt Initial AssessmentFiled: 01/26/2017 10:10 AMNote Text:CARE MANAGEMENT: ASSESSMENT AND DISCHARGE PLANSERVICE DATE: 01/26/2017SERVICE TIME: 10:00PRIMARY CARE PHYSICIAN:Frederick Lee II, MDPhone: [id number] STATUS: InpatientPOTENTIAL DISCHARGE PLANSNo Services IndicatedPatient/Representativ e Stated Goals: get these fluids downNeeds Prior to Discharge: NoneHealth Insurance: Medical [place] ServicesLiving Arrangement: HomeLives With: SpouseFinancial Resources: Employed: .Primary Contact:Extended Emergency Contact InformationPrimary Emergency Contact: Ced LeeAddress: [address] [place] [address]Pagd Ipknlzpq: SpouseSupportive: YesOther Important Patient Contacts: NoneCAREGIVER ASSESSMENT:Caregiver is ready, willing and able to meet the patient's needs asrecommended by the inter-professional team? No Caregiver NeededPatient's transition needs and plan for meeting these needs: NADoes the patient have an acute stroke diagnosis, or has the patient had astroke during this admission? NoADVANCE DIRECTIVES:Does Patient Have Advance Directives? No, Patient refusedDoes Patient Have Concerns About Advance Directives? NoPRIOR TO ADMISSION:Baseline Mental Status: Alert AND Oriented, Person, Place , Time andSituationFunctional Status: IndependentDoes Patient Currently Receive Any Community Services or Home Care? NoneEquipment Prior to Admission: NoneHEALTH:Health Issues Impacting Discharge Plan: NoneHealth Literacy Issues: NoPSYCHOSOCIAL:Is the Patient Psychosocially Complex? NoFamily/Patient Understanding of Illness/Diagnosis: yesMedication Adherence:Do you forget to take your medications? I do not forget to take mymedicationHave you ever stopped taking medications because you felt worse? None ofthe timeHave you ever taken less of your medication than what was prescribed byyour doctor? None of the timeIn the past 3 months, have you had issues obtaining one or more of yourmedications? None of the timeAre you interested in bedside delivery of your medications? YesFood Concerns:In the Last Month, Have You had Trouble Getting Food? No trouble gettingfoodDuring the Last Month, Have You Worried Whether Your Food Would Run OutBefore You Had Enough Money to Buy More? NoPsychosocial Needs: NoneUTILIZATION:Last Admission Date: noneIs this Within the Past 30 days? NoHas the Patient Been in a Assisted Facility in the Past 30 days? NoFREEDOM OF CHOICE EXPLAINED:N/DANNY COMMUNICATION:TBDPatient states she lives with her and has a lot of support.Patient has a CPAP in her room but she states she does not need one anddoes not have one at home. Patient was able to get the scripts filled shewas give in prior to admission. No skilled needs.SIGNATURE: ALMAZ Garcias PATIENT NAME: Rina LeeDATE: January 26, 2017 : 10:07 AM PAGER/CONTACT #: [phone] [facility] NURSING PROGon 01-26-2017 NURSING PROG HNO ID: [id number] thor: Gabi (Rn) ANGELA Olmedoervice: NursingAuthor Type: Registered NurseType: Nursing Progress NoteFiled: 01/26/2017 9:02 PMNote Text: Nursing Progress NotePatient Name: Rina JamesRN: [id number] Location: [place] [id number] Da emeka Note:On assessment noticed a red raised rash to patient abdomen.SROC notified.This note was completed by: Gabi Olmedo RN [facility] PROGRESSon 01-26-2017 PROGRESS HNO ID: [id number] thor: Ron Ward) AugustinService: General SurgeryAuthor Type: PhysicianType: Progress NotesFiled: 01/26/2017 6:17 PMNote Text:GENERAL SURGERY INPATIENT PROGRESS NOTENAME: Rina JamesRN: [id number] 2016 11:36 AMASSESSMENT AND PLAN:Rian Lee is 56 year old female s/p 2 Days Post-Op laparoscopic RNYGBOvernight Issues: No acute issues overnightCurrent Complains: Complaining of epigastric pain and nausea.Assessment:Vitals: BP 129/67 Pulse 90 Temp 37.3 ?C (99.2 ?F) (Oral) Resp 18 Ht 160 cm (5' 3 ) Wt 101.2 kg (223 lb) SpO2 91% BMI 39.5 kg/b8Alnvcv: Breathing comfortably on RA, speaking in full sentencesAbdominal examination: Soft, non-distended, tenderness over epigastricregion. Incisions clean dry and intact.Nausea/Emesis: Nausea but no vomitingPlans:- Diet:Bariatric phase 1 diet- Pain control: Per oral dilaudid- Ambulation: OOB- Prophylaxis: DVT prophylaxis, SCDs, IS, ambulateWill discuss plan with staff.Date 01/25/17699 - 01/26/17 0659 01/26/17699 - 01/27/17 0659Shift 0398-5935 0531-2835 2546-6361 24 Hour Total 0971-2196 [id number] 24 Hour TotalINTAKE PO 90 120 210 240 240 PO 90 120 210 240 240 IV 3336 138 8966 2984 266 266 LR 3134 880 2384 2984 266 266 Shift Total 7431 407 9168 3194 506 506OUTPUT Urine 288 300 8494 3050 275 275 Void (ml) 881 937 9924 3050 275 275 # of BMs Number of BMs 1 x 1 x Shift Total 679 046 0012 3050 275 275Weight (kg) 101.2 101.2 101.2 101.2 101.2 101.2 101.2 101.2Recent Labs 01/25/236396XEQ 6.85HB 11.9HCT 35.0*PLT 198NA 139K 3.7CHLOR 105CO2 22*CREAT 0.70BUN 10GLUC 120*P 2.8MG 1.9CA 8.2*This note will be reviewed by my attending physician and changes will bemade where applicable.Vanesa White MDGeneral Surgery, PGY - 1Pager #: [phone](After 6pm and weekends please contact Surgery oncall team)STAFF NOTEToms [facility] Medical Centereral/Trauma SurgeryPager: [phone]: [phone] 2016I have independently seen and examined the patient today. I haveindependently reviewed all the imaging and the labs. I agree with keycomponents of the resident's note above. Care plan and decision making hasbeen discussed.Pain not well controlledPatient is on perco 10 at home and she is getting 5 mg in houseWill change to dilaudidNo clinical e/p leakEncouraged to increase PO intake Normal [facility] Basic Metabolic Panlon 01-25 Anion gap 12 mmol/L Normal 9-18 [facility] Comment on above: Performed By: #### T SCR30 ####[facility] [place] [phone] Calcium 8.2 mg/dL Low 8.5-10.5 [facility] Comment on above: Performed By: #### T SCR30 ####[facility] [place], [place] [phone] Chloride 105 mmol/L Normal 98-110 [facility] Comment on above: Performed By: #### T SCR30 ####[facility] [place], [place] [phone] CO2 22 mmol/L Low 23-32 [facility] Comment on above: Performed By: #### T SCR30 ####[place] [phone] Creatinine 0.70 mg/dL Normal 0.70-1.40 [facility] Comment on above: Performed By: #### T SCR30 ####[place] [phone] eGFR (non-black) mL/min/{1.73_m2} Normal >60 [facility] Comment on above: Performed By: #### T SCR30 ####[place] [phone] Glucose mass conc 120 mg/dL High 65-100 [facility] Comment on above: Performed By: #### T SCR30 ####[place] [phone] Potassium molar conc 3.7 mmol/L Normal 3.5-5.0 [facility] Comment on above: Performed By: #### T SCR30 ####[place] [phone] Sodium 139 mmol/L Normal 132-148 [facility] Comment on above: Performed By: #### T SCR30 ####[place] [phone] Urea nitrogen 10 mg/dL Normal 8-25 [facility] Comment on above: Performed By: #### T SCR30 ####[place] [phone] CBCon 01-25-2017 Erythrocyte distribution width Auto Ratio (RBC) 13.0 % Normal 11.5-15.0 [facility] Comment on above: Performed By: #### T SCR30 ####[place] [phone] Erythrocytes (RBC) 3.97 10*6/uL Normal 3.90-5.20 [facility] Comment on above: Performed By: #### T SCR30 ####[phone] Hematocrit (HCT) 35.0 % Low 36.0-46.0 [facility] Comment on above: Performed By: #### T SCR30 ####[place] [phone] Hemoglobin mass conc (Bld) 11.9 g/dL Normal 11.5-15.5 [facility] Comment on above: Performed By: #### T SCR30 ####[place] [phone] MCH 30.0 pG Normal 26.0-34.0 [facility] Comment on above: Performed By: #### T SCR30 ####[place] [phone] MCHC mass conc (RBC) 34.0 g/dL Normal 30.5-36.0 [facility] Comment on above: Performed By: #### T SCR30 ####[place] [phone] MCV 88.2 fL Normal 80.0-100.0 [facility] Comment on above: Performed By: #### T SCR30 ####[place] [phone] Platelet mean volume (PMV) 10.5 fL Normal 9.0-12.7 [facility] Comment on above: Performed By: #### T SCR30 ####[place] [phone] Platelets 198 10*3/uL Normal 150-400 [facility] Comment on above: Performed By: #### T SCR30 ####[place] [phone] WBC (Leukocytes) 6.85 10*3/uL Normal 3.70-11.00 [facility] Comment on above: Performed By: #### T SCR30 ####[place] [phone] Magnesiumon 01-25-2017 Magnesium 1.9 mg/dL Normal 1.7-2.6 [facility] Comment on above: Performed By: #### T SCR30 ####[facility] [place], [place] [phone] NURSING PROGon 01-25-2017 NURSING PROG HNO ID: [id number] thor: Kevin (Rn) Juliane Castro: (none)Author Type: Registered NurseType: Nursing Progress NoteFiled: 01/26/2017 5:02 AMNote Text: Nursing Progress NotePatient Name: Rina UrbinaN: [id number] Location: [id number] Da emeka Note:2000- Pt assessed. Pt medicated per SEP. Pt AANDO x3. Pt with minimal pain-no request for pain meds. Pt with some nausea with diet. No request foranti-nausea meds. IVF infusing per orders. Sco patch behind L ear. Lapsites PRITI. No further needs. Call amaya within reach.2144- Pt with abdominal pain. Administered oxycodone per PRN orders.025- Pt with abdominal pain. Administered Dilaudid per PRN orders.0- Prior assessment unchanged.This note was completed by: KEVIN CASTRO RN [facility] NURSING PROG HNO ID: [id number] thor: Vannesa PenaRnBlayne Cmice: NursingAuthor Type: Registered NurseType: Nursing Progress NoteFiled: 01/25/2017 6:45 AMNote Text: Nursing Progress NotePatient Name: Rina UrbinaN: [id number] Location: /[id number] Tr ansfer Note:1850 Patient transferred into room/unit PK3 B 16 in stable condition.Actions taken: No futher actions taken at this time. Will continue tomonitor and check with patient. Patient belongings with patientPt assessed at bedside, see NPR. Pt AO x3, easily arousable. C/o abdominalpain 9-04/12 medicated per SEP. Abdominal incisions intact with skinadhesive, no hematoma noted. Ambulates with assist of 1 person and awalker. Ahuja draining to gravity, order to dc 01/25 0100. IVF LR infusingat 150/hr. Telemetry applied, IPC on. Continuous pulse ox applied-respiratory therapy to see pt for CPAP and pt refused. Resting in bed. Nofurther needs at this time. Will continue to monitor.0105 Pt ahuja removed. Will monitor output.0630 Pt up to bathroom, unable to void after multiple attempts. Bladderscanned for 300ml. Will try again.This note was completed by: Vannesa Galloway RN [facility] NUTRITIONon 01-25-2017 NUTRITION HNO ID: [id number] thor: Jannette (Diet-T) GómezSernasreene: Nutrition TherapyAuthor Type: Dietetic TechnicianType: NutritionFiled: 01/25/2017 11:37 AMNote Text:NUTRITION PATIENT EDUCATIONTOPIC: Survival Skills: DietPATIENT NAME: Rina Boyd: [id number] DATE: January 25, 2017Diagnosis: ADULT: ObesityREADINESS TO LEARNMotivation to Learn: EagerInterestedFamily Support: Unable to assess - Family not presentInstruction Provided to: PatientFactors Affecting Learning: NonePhysical Limitations Affecting Learning: FatigueLEARNING RESPONSEPatient / Family Response: Verbalizes understanding of NutritionGuidelines after Weight Loss Surgery: Diet phases and complicationprevention, foods to avoid, allowed foods and the importance of adequateprotein and fluid intake.Method of Instruction: Individual instructionWritten instruction - handoutsVerbal instructionInstructional Aids Used: NASupplemental Material Provided to Patient: Nutrition Therapy instructionmaterial: Nutritional G/L after Weight Loss SurgeryDaily Fluid Goals: 64 ozDaily Protein Goals: 62-85gReferral (Recommendation): Nutrition - Outpatient and Primary CareProviderMNT Billing Type: Routine Care/15 minNumber of Increments: 2Kodette Magaña DTRPager: [phone] Ext. [phone] further assistance or on weekends please page the [facility] Dietitian GroupPager: [phone] 201611:36 AM Normal [facility] PROGRESSon 01-25-2017 PROGRESS HNO ID: [id number] thor: Ron Ward) AugustinService: General SurgeryAuthor Type: PhysicianType: Progress NotesFiled: 01/26/2017 6:18 PMNote Text:GENERAL SURGERY INPATIENT PROGRESS NOTENAME: Rina JamesRN: [id number] 2016 10:01 AMASSESSMENT AND PLAN:Rina Lee is 56 year old female s/p 1 Day Post-Op RNYGB.Overnight Issues: No acute issues overnightCurrent Complains: Complaining of nausea, allergic to compazine.Assessment:Vitals: BP 98/56 Pulse 77 Temp 36.9 ?C (98.5 ?F) (Oral) Resp 18 Ht160 cm (5' 3 ) Wt 101.2 kg (223 lb) SpO2 94% BMI 39.5 kg/x4Aknliz: Breathing comfortbaly on RA, spekaing in full sentencesAbdominal examination: Abdomen soft, non-distended, appropriately tender.Incisions clean, dry and intactFlatus/Bowel movement: No flatus/BMPain Control: Well controlledNausea/Emesis: Nausea, but no vomitingPlans:- Diet: Phase 1 bariatric diet- Phenergan, zofran and scopolamine patch for nausea- Ambulation: OOB- Prophylaxis: DVT prophylaxis, SCDs, IS, ambulateWill discuss plan with staff.Date 01/24/17699 - 01/25/1765801/25/17699 - 01/26/17 0659Shift 5715-9306 6622-5621 0298-0104 24 Hour Total 6721-9329 6122-77493611-7231 24 Hour TotalINTAKE PO 40 170 210 PO 40 170 210 IV 3000 1000 4000 768 768 LR 1000 1000 768 768 OR Crystalloid intake (mL) 3000 3000 Shift Total 3000 40 1170 4210 768 768OUTPUT Urine 275 3025 670 0872 250 250 Void (ml) 250 250 Tube Output ([REMOVED] Drain Ahuja 01/24/17 0820 16 Zezuqt93/25/17 0105 Physician Order) 275 0592 261 8939 Shift Total 275 0851 147 4492 250 250Weight (kg) 101.2 101.2 101.2 101.2 101.2 101.2 101.2Recent Labs 01/25/762986NOJ 6.85HB 11.9HCT 35.0*PLT 198NA 139K 3.7CHLOR 105CO2 22*CREAT 0.70BUN 10GLUC 120*P 2.8MG 1.9CA 8.2*This note will be reviewed by my attending physician and changes will bemade where applicable.Vanesa White MDGeneral Surgery, PGY - 1Pager #: [phone](After 6pm and weekends please contact Surgery oncall team)STAFF NOTEToms [facility]/Trauma SurgeryPager: [phone]: [phone] 2016I have independently seen and examined the patient today. I haveindependently reviewed all the imaging and the labs. I agree with keycomponents of the resident's note above. Care plan and decision making hasbeen discussed. [facility] PT EDon 01-25-2017 PT ED HNO ID: [id number] thor: Sean Gonzalez (Pharmacist)Service: PharmacyAuthor Type: PharmacistType: Patient EducationFiled: 01/25/2017 3:58 PMNote Text:Clinical Pharmacy ServicesHigh Risk: Daily Medication AssessmentPatient Name: Rina JamesRN: [id number] Date: 01/24/2017Service Date and Time: 01/25/2017 3:44 PMNew MedicationsThe following medications have been started since last pharmacy review:acetaminophen, enoxaparin, hydromorphone, pantoprazole, promethazineMedication education has been completed: YesSignature: Sarah Rosenbaum (Engine Dynamometer Tester)[place]: [phone] Addendum:The above case has been reviewed and discussed with the justowriter operator. I agreewith the assessment/plan described. Changes and additions to the detailsin the above note are indicated by italics and .Sean Gonzalez, Pharmacist 01/25/2017 3:58 PM [facility] Phosphoruson 01-25-2017 Phosphate 2.8 mg/dL Normal 2.5-4.5 [facility] Comment on above: Performed By: #### T SCR30 ####[facility] [place], [place] [phone] ANES Bisi 01-24-2017 ANES POST HNO ID: [id number] thor: Gavin Saleservice: AnesthesiologyAuthor Type: AnesthesiologistType: Anesthesia PostOpFiled: 01/24/2017 2:06 PMNote Text:POST ANESTHESIA EVALUATION NOTESERVICE DATE: 01/24/2017SERVICE TIME: 2:06 PMDOB: 1960Vitals: 01/25/1712Temp: 36.7 ?C (98.1 ?F) 36.4 ?C (97.5 ?F) 01/24/1713BP: 131/71 127/57 120/82 115/72 01/24/1713Pulse: 80 85 (!) 58 66 01/24/1713Resp: 14 14 14 12 01/24/1713SpO2: 98% 99% 98% 98%Validated Vital Signs: YesNo apparent anesthetic complications. The patient is appropriatelyhydrated with stable respiratory and cardiovascular status. Patient hassafe and adequate airway control. The patient has appropriate pain reliefand no significant post operative nausea or vomiting. The patient hasachieved baseline mental status.Further assessment by Anesthesia Service: NoneOther Remarks:SIGNATURE: Gavin Pena MD PATIENT NAME: Rina LeeDATE: January 24, 2017 : 2:06 PM PAGER/CONTACT #: [facility] ANES POST HNO ID: [id number] thor: Mack Alyervice: AnesthesiologyAuthor Type: AnesthesiologistType: Anesthesia PostOpFiled: 01/24/2017 2:03 PMNote Text:POST ANESTHESIA EVALUATION NOTESERVICE DATE: 01/24/2017SERVICE TIME: 2:02 PMDOB: 1960Vitals: 01/24/17135 01/24/1713BP: 131/71 127/57 120/82 115/72Pulse: 80 85 (!) 58 66Resp: 14 14 14 12Temp:TempSrc:SpO2: 98% 99% 98% 98%Validated Vital Signs: YesNo apparent anesthetic complications. The patient is appropriatelyhydrated with stable respiratory and cardiovascular status. Patient hassafe and adequate airway control. The patient has appropriate pain reliefand no significant post operative nausea or vomiting. The patient hasachieved baseline mental status.Further assessment by Anesthesia Service: NoneOther Remarks:SIGNATURE: Mack Chan MD PATIENT NAME: Rina LeeDATE: January 24, 2017 : 2:02 PM PAGER/CONTACT #: [phone] [facility] ANES PREOPon 01-24-2017 ANES PREOP HNO ID: [id number] thor: Mack Alyervice: AnesthesiologyAuthor Type: AnesthesiologistType: Anesthesia PreOpFiled: 01/24/2017 7:16 AMNote Text: ANESTHESIOLOGY DAY OF SURGERY NOTESERVICE DATE: 01/24/2017SERVICE TIME: 7:14 AMDOB: 1960Procedure(s) (LRB):LAPAROSCOPIC GASTRIC RESTRICTIVE SURG W/ BYPASS AND MIKAELA-EN-Y 35 and Age over 50 (56 year old)Dentition: Teeth intactAdditional Physical Exam:Lungs: Lungs clear to auscultation. Good diaphragmatic excursion.Cardiac: normal S1 and S2; no rubs, no murmurs, and no gallopsAdditional Pertinent Findings: obesityBlood Products: Will accept Blood/Blood ProductsAnesthetic Plan: GeneralAnesthetic Monitoring: Standard ASA MonitorsPain Management Plan: Parenteral or OralASA Class: 3Other Medical Problems: MH, obesity, back pain, multiple allergies,Chronic Beta Sherry medication administered within 24 hours: N/AI have interviewed and examined the patient. I have reviewed the medicalrecord and/or the pre-anesthesia evaluation, pertinent labs, and testresults.Significant changes in the patient's condition since the History andPhysical, not otherwise documented in primary service progress notes: NoThis contains updated information obtained within 48 hours ofSurgery/Procedure.SIGNATURE: Mack Chan MD PATIENT NAME: Rina Pérez: January 24, 2017 : 7:14 AM CSN: [id number] [facility] BRIEF OP NOTon 01-24-2017 BRIEF OP NOT HNO ID: [id number] thor: Dayana Yost: General SurgeryAuthor Type: ResidentType: Brief Op NoteFiled: 01/25/2017 5:27 PMNote Text: BRIEF OPERATIVE NOTEBARIATRIC AND METABOLIC INSTITUTELOG ID: [id number]/PROCEDURE DATE: 01/24/2017INCISION/PROCEDURE START TIME: 8:34 AMINCISION CLOSE/PROCEDURE END TIME: 12:26 PMSURGEON(S) AND AIRCRAFT STEEL FABRICATOR(S):Surgeon(s) and Role: * Ron Ward) Scooter - Primary * Dayana Hampton - Resident - Assisting * Joellen Maldonado - Resident - AssistingNo Additional StaffPROCEDURES AND ANESTHESIA:Procedure(s) and Anesthesia Type: * LAPAROSCOPIC GASTRIC RESTRICTIVE SURG W/ BYPASS AND MIKAELA-EN-Y [facility] HISTORY PHYSICALon 7 HISTORY PHYSICAL HNO ID: [id number] thor: Joellen Rameshervice: General SurgeryAuthor Type: ResidentType: HANDPFiled: 01/24/2017 1:23 PMNote Text:UPDATED HISTORY AND PHYSICAL EXAMINATIONSERVICE DATE: 01/24/2017SERVICE TIME: 1:23 PMPHYSICAL EXAMGeneral: NAD, alert, oriented x3CV: RRRPulm: no respiratory distress no increased wobAbdomen: soft NTNDThe History and Physical (completed in the past 30 days) has been reviewedand the patient has been examined. The contents accurately reflect thepatient's condition with the following additions or revisions since theHANDP was completed.Examination indicates no changes.Joellen Maldonado MD [facility] OPERATIVE NOon 01-24-2017 OPERATIVE NO HNO ID: [id number] thor: Ron Bethea AugustinService: General SurgeryAuthor Type: PhysicianType: Operative ReportFiled: 02/02/2017 6:33 PMNote Text:[facility] - Operative ReportRINA LEE OB: 1960 AGE: 56 SEX: FMRN: [id number] ACCTNUM: [id number] SVC: INTM LOCATION: [id number] PHYSICIAN: Ron Helms MDDATE OF PROCEDURE: 01/24/2017PREOPERATIVE DIAGNOSIS:1. Morbid obesity with a BMI of 40.2. Gastroesophageal reflux disease.3. Chronic back and leg pain.4. Hypertension.5. Malignant hyperthermia.6. Depression.7. Migraines.POSTOPERATIVE DIAGNOSIS: Same.NAME OF OPERATION:1. Laparoscopic paraesophageal hernia repair.2. Laparoscopic Mikaela-en-Y gastric bypass.3. EGD.SURGEON: Ron Helms MDASSISTANT: Dr. Parks and Dr. Hampton.ANESTHESIA: General endotracheal anesthesia.COMPLICATIONS: None.ESTIMATED BLOOD LOSS: Less than 20 cc.SPECIMENS: None.WOUND CLASS: B.OPERATIVE INDICATION: The patient is a very pleasant 56-year-old female,who is on chronic pain medications and has a history of significantreflux with a BMI of 40, who was seen by our bariatric program. Thepatient was cleared by Medicine and nutrition, and wanted to dlrwoliKufr-bp-A gastric bypass. The patient was scheduled for the same.OPERATIVE FINDINGS:1. The patient was noted to have significant hiatal widening with a small amount of stomach herniated into the chest, hiatal hernia repair with bothanterior and posterior cruroplasty was performed using sutures.2. An uncomplicated Mikaela-en-Y gastric bypass was performed.3. Intraoperative EGD did not reveal any evidence of leak.PROCEDURE: The patient was identified, and brought to the operatingroom and placed supine on the operating table. General anesthesiawas induced. The abdomen was prepped and draped in the standardsurgical fashion. A 5-mm left upper quadrant incision was made.Entry was gained to the abdomen using standard Optiview technique underdirect vision. A 12-mm port was placed in the left supraumbilicalregion, a 12-mm port was placed in the right midclavicular linesupraumbilically, and a 5 mm port was placed in the midclavicular linesubcostally on the right side, and a 5-mm incision was made in the leftanterior axillary line subcostally. An epigastric 5 mm incision wasmade and the liver was retracted, immediately a hiatal hernia wasnoted. The hernia contents were reduced. The entire angie wasdissected out both the right and left side, as well as across the screws inferior to the esophagus was visualized. A Brea drain wasplaced around the esophagus, and posterior culdoplasty was performedusing silk and anterior acromioplasty was performed again using silk.The patient was noted to have adequate easy passage of a 5 mm instrumentabove and below the repair.The angle of His was lower taken down the fat pad.The pars flaccida was opened up and the vessels on the lesser curvaturewere taken down inferior to the left gastric pedicle. Serial firings ofan Endo-BUCK purple load was used to create the pouch.The patient was flattened, the omentum was transected and taken off thecolon.The ligament of Treitz was visualized, 50 cm irregular distal ligament ofTreitz. The small bowel was transected using Endo-BUCK dawkins load. Staysuture was placed on the Mikaela limb and 150 cm Mikaela limb was measured. Zzbhe-td-yixr functional end-to- end jejunojejunostomy was created using2 firings of the Endo-BUCK dawkins load 60 mm. A crotch stitch was placed. ABrolin stitch was placed, and the jejunojejunostomy mesenteric defect wasclosed using continuous running silk suture.The Mikaela limb was brought into the supracolic compartment in ananti-colic fashion. A gastrotomy was made and a jejunotomy was made. Asingle firing of an Endo-BUCK purple load was used to create a 15 mmanastomosis. The enterotomies were closed using continuous running 2-0PDS starting both on the right and on the left side and tying knottowards the middle. Second layer using 2-0 Vicryl was completed. Atthis point, an EGD was started; however, it was difficult to pass thescope into the esophagus, although clearly there was passage of air intothe esophagus. We took the second layer of the Vicryl out and notedeasy passage of the scope. Subsequently, a second layer of Vicrylclosure was performed on the scope. Leak test was performed, noevidence of any leak was noted.The rest of the abdomen was visualized, no evidence of any bleeding orbile leak was noted. All the ports were removed under direct vision. The abdomen was desufflated, and the skin was closed using [place] SureClose.The patient tolerated the procedure without complications. I waspresent and scrubbed throughout the operation. Please refer to thebrief op note for start time and end time.Ron Helms, [facility] HOSPITALept Of SurgeryTA:[id number]: 01/26/2017 13:56:20T: 01/26/2017 23:11:42Job #: [id number] [facility] PROCEDUREon 01-24-2017 PROCEDURE HNO ID: [id number] thor: Bro Ward) Bubbavice: Pain ManagementAuthor Type: AnesthesiologistType: ProceduresFiled: 01/24/2017 3:05 PMNote Text:PERIPHERAL NERVE BLOCK PROCEDURE NOTESERVICE DATE: 01/24/2017Incision/Procedure Start Time: 1230Incision Close/Procedure End Time: 1242Procedure: Bilateral TAP Nerve BlockCatheter Used: NoIndication: Bilateral abdominal pain S/P laparoscopic mikaela en Y bypass.Diagnosis: acute post op painModerate Sedation Used: NoEpidural/Nerve Block for postop pain per surgeon's request: YesInformed Consent Obtained: YesSign in Communication: CompletedTime Out: Team Confirms the Correct Patient, Correct Procedure, CorrectSite and Site Marking, Correct Position (if applicable), Prep and Dry Time(if applicable). Time: 1230Affirmation of Time Out: YESSign Out Discussion: CompletedPre Procedure Neuro Examination:SENSORY: IntactMOTOR: IntactPROCEDURE DETAILS:? Vital signs were monitored during the procedure.? Sterile prep was used and patient was draped in a regular fashion (alsohead cover, mask and sterile gloves were worn).? Skin prep: Chloroprep? The anatomical landmarks were identified.? Anesthesia Injected: 1.3% Exparel diluted in 100 cc with 21gG 100 mmpajunk sonostim needle. 50 ml injected per side? Ultrasound Used: Yes, Image in Chart; Yes? No difficulties encountered.? Done under GA? Plan between internal oblique and transverse abdominus muscle visualizedwith good spread of medication.Estimated Blood Loss if > Minimal Noted HerePatient tolerated procedure well.Complications: NonePost Procedure Neuro Examination:SENSORY: N/AMOTOR: N/ASIGNATURE: Bro Good MD PATIENT NAME: Rina LeeDATE: January 24, 2017 : 2:55 PM PAGER/CONTACT #: [phone] [facility] NURSING PROGon 01-17-2017 NURSING PROG HNO ID: [id number] thor: Cristian (Rn) Blayne Downingice: (none)Author Type: Registered NurseType: Nursing Progress NoteFiled: 01/18/2017 11:00 AMNote Text:01/17/17 Dr. Harshal Wallace reviewed chart and said, she is okay forsurgery. We will leave a note on the 01/24 schedule regarding her historyof malignant hyperthermia . MGreiciusRN01/18 PACC visit completed with labs, type and screen. All results withinacceptable limits for upcoming surgery. Previous CXR, EKG ans ECHO08/2016. Chart check completed. Mariah ARANA [facility] Confirm Blood Typeon 017 ABO/RH(D) Negative [facility] Comment on above: Performed By: #### C ONABO ####[facility] [place], [place] [phone] HISTORY PHYSICALon HISTORY PHYSICAL HNO ID: [id number] thor: Dora Smyth (Pac) Elizabeth Connell: (none)Author Type: Physician AssistantType: HANDPFiled: 01/14/2017 4:27 PMNote Text:HISTORY AND PHYSICAL EXAMINATIONSERVICE DATE: 01/14/2017SERVICE TIME: 1:47 PMPRIMOBILE [facility] PH[facility]ICIAN: Frederick Lee II, MDREASON FOR VISIT:Rina Lee is a 56 year old female who is scheduled for EGD and IgqDpme-rq-p gastric bypass at the request of Dr. Ron Ward) Scooter forconsultation. My final recommendation will be communicated back to therequesting physician by way of shared medical record or letter.The patient has the following:ACTIVE PROBLEM LISTMalignant HyperthermiaLateral EpicondylitisImpingement Syndrome, ShoulderShoulder ImpingementMHS (malignant hyperthermia) Niece had episode. Pt. had positiveHalothane/Caffiene Contracture testHigh Blood PressureKidney DisorderH/O Neck DisorderBack DisorderBowel IncontinenceUrinary IncontinenceBack PainHistory of Malignant HyperthermiaSUBJECTIVECHIEF COMPLAINT: obesityHPI: This is a 56 year old female who complains of obesity and difficultylosing weight since she was a teenager. She has tried weight watchers,low fat diets and Atkins without success. She has associated healthissues including HTN and elevated triglycerides. She has limited activitydue to chronic back and leg pain s/p spine surgeries which also makesweight loss difficult.PAST MEDICAL HISTORYDiagnosis Date- Back disorder- GERD (gastroesophageal reflux disease)- H/O neck disorder- High blood pressure- Kidney disorder frequent infections, kidney stones- MHS (malignant hyperthermia) Niece had episode. Pt. had positiveHalothane/Caffiene Contracture test 09/08/1989- PMH - PAST MEDICAL HISTORY OF depression- PMH - PAST MEDICAL HISTORY OF migraines- PMH - PAST MEDICAL HISTORY OF malignant hyperthermiaPAST SURGICAL HISTORYNo date: APPENDECTOMY Comment: 14 yr [id number] discectomy: BACK SURGERY [id number]: BACK SURGERY HX Comment: lumbar decompression 2012 with spinal lipoma removalNo date: BREAST SURGERY HX Comment: mammoplasty : [id number]: COLONOSCOPY Comment: 02/18/16: EGD Comment: /Small Hiatus HerniaNo date: PAST SURGICAL HISTORY OF Comment: tonsillectomyNo date: PAST SURGICAL HISTORY OF Comment: hysterectomy, AANDP repair, TVTNo date: PAST SURGICAL HISTORY OF Comment: ear surgery--age [id number], 2003: URETHRAL DILATION(FEMALE) Comment: Malignant hyperthermiaFAMILY HISTORY Mesothelioma [OTHER] Mother Comment: Colon Ca not primary Cancer Father Parkinson's [OTHER] Father COPD,HTN,NE [OTHER] Father Diabetes Sister DM [OTHER] Maternal GrandmotherSOCIAL HISTORY:Social History Marital status: Spouse name: Years of education: Number of children: 4Occupational 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 Yescholecalciferol, Vitamin D3, (VITAMIN D3) 50,000 unit cap capsule Take 1capsule by mouth once each week for 90 days. Yesirbesartan (AVAPRO) 150 mg tablet Take 150 mg by mouth once daily. Yescitalopram (CELEXA) 20 mg tablet Take 20 mg by mouth once daily. YesoxyCODONE 10 mg tab Take 10 mg by mouth four times daily. YesOmeprazole 40 mg capsule Take 40 mg by mouth twice daily. YesbuPROPion SR (WELLBUTRIN SR) 100 mg 12 hr tablet Take 100 mg by mouthtwice daily. Yesscopolamine (TRANSDERM-SCOP) 1.5 mg (1 mg over 3 days) Apply 1 Patch asdirected every 72 hours.ondansetron orally disintegrating (ZOFRAN ODT) 4 mg disintegrating tabletTake 1 tablet by mouth every 8 hours as needed for Nausea/Vomiting.oxyCODONE (ROXICODONE) 5 mg/5 mL oral solution Take 5 mL by mouth every 6hours as needed for Pain (5-10ml q6 hours PRN). TAKE 5-10 ML EVERY 4-6HOUR NEEDED FOR PAINestrogens conjugated (PREMARIN) 0.625 mg tablet Take 0.625 mg by mouthonce daily.Medication Comments documented by Dora PenaPacDION Hill on 01/14/2017 [id number].Premarin held 4 weeks pre-opALLERGIESAllergen Reactions- Compazine [Prochlor* anxiety- Demerol [Meperidine* hypotension- General Anesthesia * malignant hyperthermia- Morphine respiratory arrest- Penicillins rash/hives- Sulfa (Sulfonamide * rashREVIEW OF SYSTEMS:PAIN ASSESSMENT:General: No weight loss, malaise or fevers.Neuro: Postive for Occasional migraines, Negative for SeizuresStroke-residual deficit Parkinson's Disease Multiple SclerosisRespiratory: No history of current cough or dyspnea, or pneumonia in thepast 6 weeks. No history of respiratory/pulmonary symptoms or problems.Cardiovascular: Positive for: Hypertension, Negative for Recent NE, CAD,CHF, Valvular Heart DiseaseGI: Positive for GERD, bowel incontinence - chronic, stable, Negative forHepatitis, Liver disease, PancreatitisGU: No dysuria frequency or hematuria. +recurrent UTIs (sometimessymptomatic, sometimes not). Self-caths twice a week for retentionGYN: Negative for abnormal vaginal bleeding, abnormal vaginal discharge. : Denies, No LMP recorded. Patient has had a hysterectomy.Endocrine: No history of diabetes. Has not taken steroids within the past30 days. No history of endocrinological symptoms or problems.Hematology: No history of bleeding or clotting disorder. Pt is not takinganti-coagulation or platelet medications. No history of hematologicalsymptoms or problems.Oncology: No history of CA metastasis, chemo within 30 days, orradiotherapy within 90 days. Has not lost 10% of body wt in 6 months. Nohistory of oncological symptoms or problems.Psych: DepressionMusculoskeletal: Back pain and right leg pain - chronic pain. Takesoxycodone ~tidSkin: Negative for lesions, rash and itching.OBJECTIVEPHYSICAL EXAM:VITALS:BP 116/70 Pulse 79 Temp 98 Resp 18 Ht 5' 3 (1.60m) Wt 223 lb12.8 oz (101.5kg) SpO2 99% BMI 39.65 kg/(m2).General: Alert and oriented, No acute distress, ObeseSkin: Normal color, no rash, no lesions.HEENT: EOM, pupils equal, round and reactive., No carotid bruitsCardiovascular: Normal S1 AND S2, no rubs, murmurs or gallops. No JVD. Pulseregular.Lungs: Normal breath sounds, no wheezes or crackles.Abdomen: Soft, non-tender, no rigidity.Extremities: No deformity, no edema or tenderness, no joint swelling orclubbing.Neurological: Normal cognition and motor skills. Ambulates with a canePulses: Carotid and radial pulses normal +2. Pedal pulses normal +2.Diagnostic tests reviewed for today's visit: Lab Value Units Date High Low HB 13.2 g/dL 08/11/2016 15.5 11.5 HCT 41.2 % 08/11/2016 46.0 36.0 WBC 4.57 k/uL 08/11/2016 11.00 3.70 PLT 246 k/uL 08/11/2016 400 150 NA 139 mmol/L 08/11/2016 144 136 K 4.6 mmol/L 08/11/2016 5.1 3.7 GLUC 89 mg/dL 08/11/2016 99 74BUN 23 mg/dL 08/11/2016 21 7 CREAT 0.90 mg/dL 08/11/2016 0.96 0.58 ALT 18 U/L 08/11/2016 38 7 AST 17 U/L 08/11/2016 35 13 TBILI 0.5 mg/dL 08/11/2016 1.3 0.2 TSH 2.360 uU/mL 08/11/2016 5.500 0.400Hemoglobin A1C (%)Date Value08/11/2016 5.3 EKG 08/11/2016 - NORMAL SINUS RHYTHMCANNOT EXCLUDE ANTERIOR MYOCARDIAL INFARCTION , AGE UNDETERMINEDBORDERLINE T WAVE ABNORMALITY-MYOCARDIAL CHANGESEchocardiogram 08/11/2016 (full report in EPIC)Wall Motion:All scored segments are normal.?CONCLUSIONS:- Exam indication: Abnormal ECG- The left ventricle is normal in size. Left ventricular systolic functionisnormal. EF = 70 ? 5% (2D 4-ch.)- The right ventricle is normal in size. Right ventricular systolicfunction isnormal.? - The patient has not had a prior CC echocardiographic exam forcomparison.? Final AssessmentASSESSMENTPatient has the following medical conditions:Personal history of Malignant hyperthermia with family history of MH andconfirmed biopsyObesity with BMI 39HTNUrinary retention, recurrent UTIsChronic back painMigrainesBowel incontinenceGERDDepressionMETS :Walk indoors, such as around the house (1.75 METs)Take care of self; that is eating, dressing, bathing, using the toilet(2.75 METs)Patient denies any chest pain or undue shortness of breath with the abovephysical activity.5 minute walks with the dog 3-4 times daily, chair yoga, water aerobics -no CP/SOB with activityASA Class: 3ANESTHESIA FINDINGS:Intubation History: No history of difficult intubationSignificant Anesthesia Considerations: Patient or family history ofmalignant hyperthermia - 1982 patient developed rigidity after inductionfor urethral dilation and spent 3 days in the coronary care unit post-op.Niece had classic MH reaction to anesthesia in 1984 with high fever, blackurine and myalgias. See detailed consultation 09/08/1989 [address] EPICAirway Exam: General: Obese - BMI 39 Mallampati Score is CLASS I ULBT: Class I - Lower incisors can bite the upper lip above thevermillion line Neck: Short neck, full ROM Mouth: Normal tongue size and 2 fingerbreadth mouth opening Dentition: IntactAirway History: No abnormal airway historySTOP BANG Score:Criteria:TiredHypertensi onBMI > 35Age over 50 (56 year old)Score = 4PLANThis patient is optimally prepared for surgery pending LABS.CONSULTS:Patient requested anesthesia consult today because she was told she would meet the anesthesiologist today .Patient seen by Dr. Diehl: plan for total IV anesthesia, 1st case of theday, avoid inhaled anesthetics. Staff message sent to resource nurse - regarding Dr. Diehl'srecommendations, to give FYI to anesthesia regarding MH patient and tosee if echocardiogram and EKG are ok to proceed in a patient with limitedactivity. She is asymptomatic.The Following Tests/Procedures Have Been Initiated:Orders Placed This Encounter URINE CULTURE Order Specific Question: Source Answer: URINE-MIDSTREAM CLEAN CATCH pregabalin (LYRICA) 100 mg capsule Sig: Take 1 capsule by mouth three times daily.,Labs ordered by Dr. HelmsPlanned Anesthetic: GeneralInstructions Given to Patient:Patient given verbal and written preop instructions and voicescomprehension and compliance.SIGNATURE: Dora Connell PA-C PATIENT NAME: Rina Smyth JesusDATE: January 14, 2017 : 1:47 PM PAGER/CONTACT #: [facility] HOSPon 01-14-2017 HOSP PAT (AVPANE) RINA ROSARIO CAS ([id number]) 1960 FDate Time Provider Department01/14/17 1:30 PM PACC AV 1 AVPANE During your visit today, we recorded the following information about you: Temperature Pulse Respiration Blood pressure 98 degrees 79/minute 18/minute 116/70 Weight Height 101.5 kg 1.6 Derrick Connell PA-C, DION 01/14/2017 4:27 PM SignedHISTORY AND PHYSICAL EXAMINATIONSERVICE DATE: 01/14/2017SERVICE TIME: 1:47 PMPRIBANNER BOSWELL MEDICAL CENTERY CARE PHYSICIAN: Frederick Lee II, MDREASON FOR VISIT:Rina Lee is a 56 year old female who is scheduled for EGD and OmrGbqg-ka-g gastric bypass at the request of Dr. Ron Ward) Scooter forconsultation. My final recommendation will be communicated back to therequesting physician by way of shared medical record or letter.The patient has the following:ACTIVE PROBLEM LISTMalignant HyperthermiaLateral EpicondylitisImpingement Syndrome, ShoulderShoulder ImpingementMHS (malignant hyperthermia) Niece had episode. Pt. had positiveHalothane/Caffiene Contracture testHigh Blood PressureKidney DisorderH/O Neck DisorderBack DisorderBowel IncontinenceUrinary IncontinenceBack PainHistory of Malignant HyperthermiaSUBJECTIVECHIEF COMPLAINT: obesityHPI: This is a 56 year old female who complains of obesity and difficultylosing weight since she was a teenager. She has tried weight watchers, low fatdiets and Atkins without success. She has associated health issues includingHTN and elevated triglycerides. She has limited activity due to chronic backand leg pain s/p spine surgeries which also makes weight loss difficult.PAST MEDICAL HISTORYDiagnosis Date- Back disorder- GERD (gastroesophageal reflux disease)- H/O neck disorder- High blood pressure- Kidney disorder frequent infections, kidney stones- MHS (malignant hyperthermia) Niece had episode. Pt. had positiveHalothane/Caffiene Contracture test 09/08/1989- PMH - PAST MEDICAL HISTORY OF depression- PMH - PAST MEDICAL HISTORY OF migraines- PMH - PAST MEDICAL HISTORY OF malignant hyperthermiaPAST SURGICAL HISTORYNo date: APPENDECTOMY Comment: 14 yr [id number] discectomy: BACK SURGERY [id number]: BACK SURGERY HX Comment: lumbar decompression 2012 with spinal lipoma removalNo date: BREAST SURGERY HX Comment: mammoplasty : [id number]: COLONOSCOPY Comment: normal02/18/16: EGD Comment: /Small Hiatus HerniaNo date: PAST SURGICAL HISTORY OF Comment: tonsillectomyNo date: PAST SURGICAL HISTORY OF Comment: hysterectomy, AANDamp;P repair, TVTNo date: PAST SURGICAL HISTORY OF Comment: ear surgery--age [id number], 2004: URETHRAL DILATION(FEMALE) Comment: Malignant hyperthermiaFAMILY HISTORY Mesothelioma [OTHER] Mother Comment: Colon Ca not primary Cancer Father Parkinson's [OTHER] Father COPD,HTN,NE [OTHER] Father Diabetes Sister DM [OTHER] Maternal GrandmotherSOCIAL HISTORY:Social History Marital status: Spouse name: Years of education: Number of children: 4Occupational 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 Yesirbesartan (AVAPRO) 150 mg tablet Take 150 mg by mouth once daily. Yescitalopram (CELEXA) 20 mg tablet Take 20 mg by mouth once daily. YesoxyCODONE 10 mg tab Take 10 mg by mouth four times daily. YesOmeprazole 40 mg capsule Take 40 mg by mouth twice daily. YesbuPROPion SR (WELLBUTRIN SR) 100 mg 12 hr tablet Take 100 mg by mouth twicedaily. Yesscopolamine (TRANSDERM-SCOP) 1.5 mg (1 mg over 3 days) Apply 1 Patch asdirected every 72 hours.ondansetron orally disintegrating (ZOFRAN ODT) 4 mg disintegrating tablet Take1 tablet by mouth every 8 hours as needed for Nausea/Vomiting.oxyCODONE (ROXICODONE) 5 mg/5 mL oral solution Take 5 mL by mouth every 6 hoursas needed for Pain (5-10ml q6 hours PRN). TAKE 5-10 ML EVERY 4-6 HOUR NEEDEDFOR PAINestrogens conjugated (PREMARIN) 0.625 mg tablet Take 0.625 mg by mouth oncedaily.Medication Comments documented by Dora [employer]) DION Connell on 01/14/2017 at 1343.Premarin held 4 weeks pre-opALLERGIESAllergen Reactions- Compazine [Prochlor* anxiety- Demerol [Meperidine* hypotension- General Anesthesia * malignant hyperthermia- Morphine respiratory arrest- Penicillins rash/hives- Sulfa (Sulfonamide * rashREVIEW OF SYSTEMS:PAIN ASSESSMENT:General: No weight loss, malaise or fevers.Neuro: Postive for Occasional migraines, Negative for Seizures Stroke-residualdeficit Parkinson's Disease Multiple SclerosisRespiratory: No history of current cough or dyspnea, or pneumonia in the past 6weeks. No history of respiratory/pulmonary symptoms or problems.Cardiovascular: Positive for: Hypertension, Negative for Recent NE, CAD, CHF,Valvular Heart DiseaseGI: Positive for GERD, bowel incontinence - chronic, stable, Negative forHepatitis, Liver disease, PancreatitisGU: No dysuria frequency or hematuria. +recurrent UTIs (sometimes symptomatic,sometimes not). Self-caths twice a week for retentionGYN: Negative for abnormal vaginal bleeding, abnormal vaginal discharge. : Denies, No LMP recorded. Patient has had a hysterectomy.Endocrine: No history of diabetes. Has not taken steroids within the past 30days. No history of endocrinological symptoms or problems.Hematology: No history of bleeding or clotting disorder. Pt is not takinganti-coagulation or platelet medications. No history of hematological symptomsor problems.Oncology: No history of CA metastasis, chemo within 30 days, or radiotherapywithin 90 days. Has not lost 10% of body wt in 6 months. No history ofoncological symptoms or problems.Psych: DepressionMusculoskeletal: Back pain and right leg pain - chronic pain. Takes oxycodone~tidSkin: Negative for lesions, rash and itching.OBJECTIVEPHYSICAL EXAM:VITALS:BP 116/70 Pulse 79 Temp 98 Resp 18 Ht 5' 3ANDquot; (1.60m) Wt 223 lb12.8 oz (101.5kg) SpO2 99% BMI 39.65 kg/(m2).General: Alert and oriented, No acute distress, ObeseSkin: Normal color, no rash, no lesions.HEENT: EOM, pupils equal, round and reactive., No carotid bruitsCardiovascular: Normal S1 ANDamp; S2, no rubs, murmurs or gallops. No JVD. Pulseregular.Lungs: Normal breath sounds, no wheezes or crackles.Abdomen: Soft, non-tender, no rigidity.Extremities: No deformity, no edema or tenderness, no joint swelling orclubbing.Neurological: Normal cognition and motor skills. Ambulates with a canePulses: Carotid and radial pulses normal +2. Pedal pulses normal +2.Diagnostic tests reviewed for today's visit: Lab Value Units Date High Low HB 13.2 g/dL 08/11/2016 15.5 11.5 HCT 41.2 % 08/11/2016 46.0 36.0 WBC 4.57 k/uL 08/11/2016 11.00 3.70 PLT 246 k/uL 08/11/2016 400 150 NA 139 mmol/L 08/11/2016 144 136 K 4.6 mmol/L 08/11/2016 5.1 3.7 GLUC 89 mg/dL 08/11/2016 99 74BUN 23 mg/dL 08/11/2016 21 7 CREAT 0.90 mg/dL 08/11/2016 0.96 0.58 ALT 18 U/L 08/11/2016 38 7 AST 17 U/L 08/11/2016 35 13 TBILI 0.5 mg/dL 08/11/2016 1.3 0.2 TSH 2.360 uU/mL 08/11/2016 5.500 0.400Hemoglobin A1C (%)Date Value08/11/2016 5.3 EKG 08/11/2016 - NORMAL SINUS RHYTHMCANNOT EXCLUDE ANTERIOR MYOCARDIAL INFARCTION , AGE UNDETERMINEDBORDERLINE T WAVE ABNORMALITY-MYOCARDIAL CHANGESEchocardiogram 08/11/2016 (full report in EPIC)Wall Motion:All scored segments are normal.?CONCLUSIONS:- Exam indication: Abnormal ECG- The left ventricle is normal in size. Left ventricular systolic function isnormal. EF = 70 ? 5% (2D 4-ch.)- The right ventricle is normal in size. Right ventricular systolic function isnormal.? - The patient has not had a prior CC echocardiographic exam for comparison.? Final AssessmentASSESSMENTPatient has the following medical conditions:Personal history of Malignant hyperthermia with family history of MH andconfirmed biopsyObesity with BMI 39HTNUrinary retention, recurrent UTIsChronic back painMigrainesBowel incontinenceGERDDepressionMETS :Walk indoors, such as around the house (1.75 METs)Take care of self; that is eating, dressing, bathing, using the toilet (2.75METs)Patient denies any chest pain or undue shortness of breath with the abovephysical activity.5 minute walks with the dog 3-4 times daily, chair yoga, water aerobics - noCP/SOB with activityASA Class: 3ANESTHESIA FINDINGS:Intubation History: No history of difficult intubationSignificant Anesthesia Considerations: Patient or family history of malignanthyperthermia - 1982 patient developed rigidity after induction for urethraldilation and spent 3 days in the coronary care unit post-op. Niece had classicMH reaction to anesthesia in 1984 with high fever, black urine and myalgias.See detailed consultation 09/08/1989 [address] EPICAirway Exam: General: Obese - BMI 39 Mallampati Score is CLASS I ULBT: Class I - Lower incisors can bite the upper lip above the vermillionline Neck: Short neck, full ROM Mouth: Normal tongue size and 2 fingerbreadth mouth opening Dentition: IntactAirway History: No abnormal airway historySTOP BANG Score:Criteria:TiredHypertensi onBMI ANDgt; 35Age over 50 (56 year old)Score = 4PLANThis patient is optimally prepared for surgery pending LABS.CONSULTS:Patient requested anesthesia consult today because she was told she wouldANDquot;meet the anesthesiologist todayANDquot;.Patient seen by Dr. Diehl: ANDquot;plan for total IV anesthesia, 1st case of theday, avoid inhaled anesthetics.ANDquot;Staff message sent to resource nurse - regarding Dr. Diehl'srecommendations, to give FYI to anesthesia regarding MH patient and to seeif echocardiogram and EKG are ok to proceed in a patient with limited activity. She is asymptomatic.The Following Tests/Procedures Have Been Initiated:Orders Placed This Encounter URINE CULTURE Order Specific Question: Source Answer: URINE-MIDSTREAM CLEAN CATCH pregabalin (LYRICA) 100 mg capsule Sig: Take 1 capsule by mouth three times daily.,Labs ordered by Dr. Alvarez Anesthetic: GeneralInstructions Given to Patient:Patient given verbal and written preop instructions and voices comprehensionand compliance.SIGNATURE: Dora Connell PA-C PATIENT NAME: Rina Pérez: January 14, 2017 : 1:47 PM PAGER/CONTACT #:Dora Connell PA-C, DION 01/14/2017 2:02 PM AddendumPATIENT PREOPERATIVE INSTRUCTIONSRon Helms), has scheduled you for your procedure at this surgerycenter:[facility]: [phone] --[id number] [address].Please read below carefully for your personalized instructions.Blood Thinning Medications:- Stop NSAIDS (Ibuprofen, Advil, Aleve, Motrin, Celebrex, Mobic, etc.) 7 daysbefore surgery, as directed by your surgeon.- Stop Aspirin 7 days before surgery, as directed by your surgeon.- Stop Vitamin E, ALL multi-vitamins, herbals and dietary supplements 7 daysbefore surgery.- You may take Tylenol (Acetaminophen) or any of your pain medications that donot contain aspirin or NSAIDS as needed.Dietary Restrictions:- Nothing to eat or drink after midnight except for a sip of water withapproved medications.Medications:Approv ed medications to take the morning of surgery with a sip of water:Lyrica, Omeprazole, Celexa, Oxycodone if neededIf you start any new medications after today's visit, please contact thesurgery center above.Important Reminders:- Candy, mints, gum and tobacco products are NOT permitted the morning ofsurgery.- Hearing aids, dentures and glasses may be worn the morning of surgery.- NO jewelry, body piercings, makeup, nail marshallese, hairpins or contacts are bria worn the day of surgery.If you develop symptoms such as a fever, cold, or flu, or have other changes toyour health within TWO DAYS of scheduled surgery or the morning of surgery,please contact the surgery center above.Personal Belongings:- Leave ALL valuables and money at home or with family members. Arrival Time for Surgery:- The Surgery Center or hospital where you are having surgery will call theafternoon before surgery (or Tuesday for Tuesday surgery) with a scheduledarrival time.- If you have not heard by 4 pm, please contact the surgery center above.Please be aware that emergency situations arise, which may delay or change yoursurgical time. If this happens, we will notify you as soon as possible andregret any inconvenience.DION Madrid-CReferring Provider: RON HELMS) [[id number]]Allergies As of Date: 01/14/2017 Noted Allergy ReactionCOMPAZINE (PROCHLORPERAZINE EDISY*01/31/2006 Comments: anxietyDEMEROL (MEPERIDINE (PF)) 01/31/2006 Comments: hypotensionGENERAL ANESTHESIA [Other] 01/31/2006 Comments: malignant hyperthermiaMORPHINE 01/31/2006 Comments: respiratory arrestPENICILLINS 01/31/2006 Comments: rash/hivesSULFA (SULFONAMIDE ANTIBIOTICS) 01/31/2006 Comments: rashDate Reviewed: 01/14/2017Reviewed by: Pallavi Arteaga Ma - Fully AssessedReason for Visit: Obesity [577]Primary Visit Diagnosis:Preop examination [Z01.818] Other Visit Diagnoses:Morbid obesity due to excess calories (HCC) [E66.01] Functional diarrhea [K59.1] Hiatal hernia [K44.9] Irritable bowel syndrome with diarrhea [K58.0] Incontinence of feces with fecal urgency [R15.9, R15.2] Overflow incontinence of urine [N39.490] Urinary retention [R33.9] History of malignant hyperthermia [Z87.898]Order(s):pregabalin (LYRICA) 100 mg capsuleTake 1 capsule by mouth three times daily.Disp: Rfl: URINE CULTURE [SQURCUL] Order #: [id number] FUTUREPrescriptions as of 01/14/2017 Sig: PREGABALIN 100 MG CAPSULE Take 1 capsule by mouth three* CHOLECALCIFEROL (VITAMIN D3) * Take 1 capsule by mouth once * IRBESARTAN 150 MG TABLET Take 150 mg by mouth once shyam* CITALOPRAM 20 MG TABLET Take 20 mg by mouth once demian* OXYCODONE 10 MG TABLET Take 10 mg by mouth four time* OMEPRAZOLE 40 MG CAPSULE,RAMIN* Take 40 mg by mouth twice shyam* BUPROPION HCL SR 100 MG TABLE* Take 100 mg by mouth twice da* CONJUGATED ESTROGENS 0.625 MG* Take 0.625 mg by mouth once d*Problem List As Of Date 01/14/2017 Noted Resolved MALIGNANT HYPERTHERMIA [T88.3XXA] INVALID FOR* Priority: Very Severe Class: Chronic More... Lateral epicondylitis [M77.10] INVALID FOR* Impingement syndrome, shoulder [M75.40] INVALID FOR* Shoulder impingement [M75.40] INVALID FOR* MHS (malignant hyperthermia) Niece had episode.*INVALID FOR* Priority: Very Severe More... High blood pressure [I10] Kidney disorder [N28.9] More... H/O neck disorder [Z87.39] Back disorder [M53.9] Bowel incontinence [R15.9] INVALID FOR* Urinary incontinence [R32] INVALID FOR* Back pain [M54.9] INVALID FOR* History of malignant hyperthermia [Z87.898] INVALID FOR* Other instructions from your clinician: PATIENT PREOPERATIVE INSTRUCTIONS Ron Helms), has scheduled you for your procedure at this surgery center: [facility]: [phone] --[id number] [address]. Please read below carefully for your personalized instructions. Blood Thinning Medications: - Stop NSAIDS (Ibuprofen, Advil, Aleve, Motrin, Celebrex, Mobic, etc.) 7 days before surgery, as directed by your surgeon. - Stop Aspirin 7 days before surgery, as directed by your surgeon. - Stop Vitamin E, ALL multi-vitamins, herbals and dietary supplements 7 days before surgery. - You may take Tylenol (Acetaminophen) or any of your pain medications that do not contain aspirin or NSAIDS as needed. Dietary Restrictions: - Nothing to eat or drink after midnight except for a sip of water with approved medications. Medications: Approved medications to take the morning of surgery with a sip of water: Lyrica, Omeprazole, Celexa, Oxycodone if needed If you start any new medications after today's visit, please contact the surgery center above. Important Reminders: - Candy, mints, gum and tobacco products are NOT permitted the morning of surgery. - Hearing aids, dentures and glasses may be worn the morning of surgery. - NO jewelry, body piercings, makeup, nail marshallese, hairpins or contacts are to be worn the day of surgery. If you develop symptoms such as a fever, cold, or flu, or have other changes to your health within TWO DAYS of scheduled surgery or the morning of surgery, please contact the surgery center above. Personal Belongings: - Leave ALL valuables and money at home or with family members. Arrival Time for Surgery: - The Surgery Center or hospital where you are having surgery will call the afternoon before surgery (or Tuesday for Tuesday surgery) with a scheduled arrival time. - If you have not heard by 4 pm, please contact the surgery center above. Please be aware that emergency situations arise, which may delay or change your surgical time. If this happens, we will notify you as soon as possible and regret any inconvenience. DION Madrid-CPrescriptions ordered this encounter Disp Refills Start End PREGABALIN 100 MG CAPSULE 01/14/2017 Class: Med Update Route: ORAL Sig: Take 1 capsule by mouth three times daily.Medications Discontinued During This Encounter pregabalin (LYRICA) 150 mg capsule 01/14/2017 Class: Historical Med Route: ORAL Sig: Take 150 mg by mouth twice daily. Disc: Reason for discontinue is not on file.Classic SmartForms filed for the cure episode:Case Surgical RequestEncounter Number: [id number] Status:Closed by DORA CONNELL PA-C on 01/14/17 Normal [facility] Type and SCR (30D)on 017 ABO/RH(D) Negative Normal [facility] Comment on above: Performed By: #### T SCR30 ####[facility] [place], [place] [id number] Antibody Screen Negative Normal [facility] Comment on above: Performed By: #### T SCR30 ####[address] [phone] Vital Signs Date Time Vital Sign Value Performing Clinician Facility 02-01-2024 10:38-0400 Blood Pressure Location Spike RICHARDSON [facility] 02-01-2024 10:38-0400 Body temperature 96.8 [degF] Spike RICHARDSON [facility] 02-01-2024 10:38-0400 Diastolic blood pressure 76 mm[Hg] Spike RICHARDSON [facility] 02-01-2024 10:38-0400 Heart rate 72 /min Spike RICHARDSON [facility] 02-01-2024 10:38-0400 Systolic blood pressure 126 mm[Hg] Spike RICHARDSON [facility] 10-18-2023 12:54-0400 Body temperature 98.6 [degF] Spike RICHARDSON [facility] 10-18-2023 12:54-0400 Diastolic blood pressure 88 mm[Hg] Spike RICHARDSON [facility] 10-18-2023 12:54-0400 Heart rate 74 /min Spike RICHARDSON [facility] 10-18-2023 12:54-0400 Respiratory rate 16 /min Spike RICHARDSON [facility] 10-18-2023 12:54-0400 Systolic blood pressure 122 mm[Hg] Spike RICHARDSON [facility] 09-28-2023 09:30-0400 Blood Pressure Location CAM CHAN [facility] 09-28-2023 09:30-0400 Body temperature 98.6 [degF] CAM CHAN [facility] 09-28-2023 09:30-0400 Diastolic blood pressure 78 mm[Hg] CAM CHAN [facility] 09-28-2023 09:30-0400 Heart rate 88 /min CAM CHAN [facility] 09-28-2023 09:30-0400 Systolic blood pressure 122 mm[Hg] CAM CHAN [facility] 07-12-2023 07:24-0500 Blood Pressure Location Spike RICHARDSON [facility] 07-12-2023 07:24-0500 Diastolic blood pressure 78 mm[Hg] Spike RICHARDSON [facility] 07-12-2023 07:24-0500 Heart rate 74 /min Spike RICHARDSON [facility] 07-12-2023 07:24-0500 Respiratory rate 16 /min Spike RICHARDSON [facility] 07-12-2023 07:24-0500 Systolic blood pressure 127 mm[Hg] Spike RICHARDSON [facility] 05-17-2023 09:11-0500 Blood Pressure Location Spike RICHARDSON [facility] 05-17-2023 09:11-0500 Diastolic blood pressure 78 mm[Hg] Spike RICHARDSON [facility] 05-17-2023 09:11-0500 Systolic blood pressure 118 mm[Hg] Spike RICHARDSON [facility] 12-15-2022 10:08-0400 Diastolic blood pressure 78 mm[Hg] II Frederick Lee Work Phone: [facility] 12-15-2022 10:08-0400 Heart rate 81 /min II Frederick Lee Work Phone: [facility] 12-15-2022 10:08-0400 Respiratory rate 18 /min II Frederick Lee Work Phone: [facility] 12-15-2022 10:08-0400 SaO2% (BldA) [Mass fraction] 99 % II Frederick Lee Work Phone: [facility] 12-15-2022 10:08-0400 Systolic blood pressure 121 mm[Hg] II Frederick Lee Work Phone: [facility] 12-15-2022 07:53-0400 Body height 160.02 cm II Frederick Lee Work Phone: [facility] 12-15-2022 07:53-0400 Body temperature 97.8 [degF] II Frederick Lee Work Phone: [facility] 12-15-2022 07:53-0400 Body weight 76.65 kg II Frederick Lee Work Phone: [facility] 08-08-2022 08:42-0500 Diastolic blood pressure 92 mm[Hg] Collette Ahammad DO Work Phone: [facility] [employer] 08-08-2022 08:42-0500 Heart rate 88 /min Collette Ahammad DO Work Phone: [employer] 08-08-2022 08:42-0500 Respiratory rate 14 /min Collette Ahammad DO Work Phone: [facility] [employer] 08-08-2022 08:42-0500 SaO2% (BldA) [Mass fraction] 98 % Collette Ahammad DO Work Phone: [facility] [employer] 08-08-2022 08:42-0500 Systolic blood pressure 144 mm[Hg] Collette Ahammad DO Work Phone: [facility] [employer] 08-08-2022 04:00-0500 Body temperature 97.5 [degF] Collette Ahammad DO Work Phone: [facility] [employer] 08-05-2022 06:26-0500 Body mass index (BMI) [Ratio] 30.11 kg/m2 Collette Ahammad DO Work Phone: [facility] 08-05-2022 06:26-0500 Body weight 77.11 kg Collette Ahammad DO Work Phone: [facility] 08-05-2022 06:06-0500 Body height 160 cm Collette Ahammad DO Work Phone: [facility] 07-22-2022 10:07-0500 Body height 160 cm Stvz 1 [facility] 07-22-2022 10:07-0500 Body mass index (BMI) [Ratio] 30.65 kg/m2 Stvz 1 [facility] [employer] 07-22-2022 10:07-0500 Body temperature 97.81 [degF] Stvz 1 [facility] 07-22-2022 10:07-0500 Body weight 78.47 kg Stvz 1 [employer] 07-22-2022 10:07-0500 Diastolic blood pressure 73 mm[Hg] Stvz 1 [facility] 07-22-2022 10:07-0500 Heart rate 77 /min Stvz 1 [employer] 07-22-2022 10:07-0500 Respiratory rate 18 /min Stvz 1 [email or web address] 07-22-2022 10:07-0500 SaO2% (BldA) [Mass fraction] 99 % Stvz 1 [employer] 07-22-2022 10:07-0500 Systolic blood pressure 124 mm[Hg] Stvz 1 [employer] 02-10-2019 08:17-0400 BP Diastolic 85 mm[Hg] [facility] 02-10-2019 08:17-0400 BP Systolic 139 mm[Hg] Frederick Silver [facility] [place] 02-10-2019 08:17-0400 Pulse (Heart Rate) 67 /min Frederick Silver [facility] [place] 02-10-2019 08:17-0400 Pulse Oximetry 95 % Frederick Silver [facility] , [place] 02-10-2019 08:17-0400 Respiratory Rate 18 /min Frederick Silver [facility], [place] 02-10-2019 08:17-0400 Body Temperature 97 [degF] [place] 02-06-2019 14:37-0400 BMI (Body Mass Index) 29.23 kg/m2 Frederick Silver [facility], [place] 02-06-2019 14:37-0400 Body weight 74.84 kg [place] 02-06-2019 14:37-0400 Height 160 cm [facility] [place] Encounters Encounter Date Encounter Type Care Provider Facility Start: 03-22-2024 ambulatory Spike RICHARDSON Facili ty:CD:[id number] Start: 03-12-2024 End: 03-12-2024 ambulatory FREDERICK B JESUS Not Available Start: 02-01-2024 End: 02-01-2024 ambulatory Spike RICHARDSON Facility: [facility] Start: 02-01-2024 End: 02-01-2024 Patient encounter procedure Spike RICHARDSON [facility] Start: 12-14-2023 End: 12-14-2023 ambulatory Irina X Orzech Facility:[facility] Start: 12-14-2023 End: 12-14-2023 Lab Drop off Irina X Orzech [facility] Start: 12-14-2023 End: 12-14-2023 ambulatory Spike RICHARDSON Facility: [facility] Start: 12-14-2023 End: 12-14-2023 Patient encounter procedure Spike R RICHARDSON [facility] Start: 11-17-2023 End: 11-17-2023 ambulatory FREDERICK LEE Not Available Start: 11-11-2023 End: 11-11-2023 ambulatory Frederick Lee Facility:[facility] Start: 11-11-2023 End: 11-11-2023 ambulatory II Frederick Lee Work Phone: [facility] Work Phone: Start: 11-11-2023 End: 11-11-2023 Patient encounter procedure II Frederick Lee Work Phone: [facility] Work Phone: Start: 10-18-2023 End: 10-18-2023 ambulatory Spike RICHARDSON Facility: [facility] Start: 10-18-2023 End: 10-18-2023 Patient encounter procedure Spike RICHARDSON [facility] Start: 10-18-2023 End: 10-18-2023 ambulatory HARSHAL KEVIN Not Available Start: 09-28-2023 End: 09-28-2023 ambulatory CAM CHAN Facility:[facility] Start: 09-28-2023 End: 09-28-2023 Lab Drop off CAM CHAN [facility] Start: 09-28-2023 End: 09-28-2023 ambulatory CAM CHAN Facility:[facility] Start: 09-28-2023 End: 09-28-2023 Patient encounter procedure CAM CHAN [facility] Start: 09-13-2023 End: 09-13-2023 ambulatory Spike RICHARDSON Facility:[facility] Start: 09-13-2023 End: 09-13-2023 Patient encounter procedure Spike RICHARDSON [facility] Start: 09-06-2023 End: 09-06-2023 ambulatory Spike RICHARDSON Facility:[facility] Start: 08-05-2023 End: 08-08-2023 ambulatory [facility] Start: 08-01-2023 End: 08-04-2023 ambulatory [facility] Start: 07-12-2023 End: 07-12-2023 ambulatory Spike RICHARDSON Facility:[facility] Start: 07-12-2023 End: 07-12-2023 Patient encounter procedure Spike RICHARDSON [facility] Start: 05-17-2023 End: 05-17-2023 ambulatory Spike RICHARDSON Facility:[facility] Start: 05-17-2023 End: 05-17-2023 Patient encounter procedure Spike RICHARDSON [facility] Start: 01-05-2023 End: 01-08-2023 ambulatory [facility] Start: 01-05-2023 End: 01-07-2023 Subsequent hospital visit by physician Frederick Lee MD Work Phone: [facility] Start: 12-15-2022 End: 12-15-2022 ambulatory Imad Asaad Facility:[facility] Start: 12-15-2022 End: 12-15-2022 Admission to same day surgery center II Frederick Lee Work Phone: [facility] Work Phone: Start: 12-15-2022 End: 12-15-2022 ambulatory II Frederick Lee Work Phone: [facility] Work Phone: Start: 11-08-2022 End: 11-08-2022 ambulatory II Frederick Lee Work Phone: [facility] Work Phone: Start: 11-08-2022 End: 11-08-2022 Patient encounter procedure II Frederick Lee Work Phone: [facility] Work Phone: Start: 10-06-2022 End: 10-09-2022 ambulatory EMMANUELLE BALLARD [facility] Start: 10-06-2022 End: 10-08-2022 Subsequent hospital visit by physician Rohini Aburto [facility] Comment on above: Stenosis of cervical spine with myelopathy (HCC); S/P cervical disc replacement Start: 10-05-2022 End: 10-05-[address] EDDIE HANCOCK . Facility:[facility] Start: 08-26-2022 End: 10-25-2022 ambulatory Emmanuelle Ballard Facility:[facility] Start: 08-05-2022 End: 08-08-2022 Evaluation and management of inpatient Collette Banda DO Work Phone: [facility] Comment on above: Acute post-operative pain (Primary Dx); S/P cervical spinal fusion Start: 07-22-2022 End: 07-26-2022 Subsequent hospital visit by physician Ron Aburto 1 [facility] Pre[facility]Admit Testing Start: 07-19-2022 End: 07-19-[address] EDDIE HANCOCK . Facility:[facility] Start: 06-17-2022 End: 06-19-2022 Subsequent hospital visit by physician Rohini Doss [facility] MRI Comment on above: Stenosis of cervical spine with myelopathy (HCC) Start: 04-09-2022 End: 04-10-2022 ambulatory FREDERICK LEE Facility:[facility] Start: 01-28-2022 End: 01-29-[address] FREDERICK LEE Facility:[facility] Start: 12-28-2021 End: 12-28-[address] FREDERICK LEE Facility:[facility] Start: 12-16-2021 End: 12-17-[address] FREDERICK LEE Facility:[facility] Start: 12-06-2021 End: 12-06-2021 ambulatory FREDERICK LEE Facility:[facility] Start: 12-05-2021 End: 12-05-2021 Emergency department patient visit FREDERICK LEE Facility:[facility] Start: 07-09-2021 ambulatory RSP SHIVAM ALLISON Facilit y:[facility] Start: 05-22-2021 ambulatory FREDERICK Nathan LEE II Facil ity:[facility] Start: 05-06-2021 ambulatory FREDERICK LEE II Facil ity:[facility] Start: 02-06-2019 End: 02-10-2019 Evaluation and management of inpatient MARI Zepeda [facility] Start: 02-06-2019 Patient encounter procedure Frederick Lee [facility] [place] [place] Start: 12-14-2018 End: 12-15-2018 Patient encounter procedure FREDERICK Nathan [facility] Start: 12-13-2018 End: 12-14-2018 Patient encounter procedure FREDERICK Nathan [facility] Start: 12-12-2018 End: 12-13-2018 Patient encounter procedure FREDERICK LEE [facility] Start: 12-07-2018 End: 12-08-2018 Patient encounter procedure FREDERICK Nathan [facility] Start: 12-06-2018 End: 12-07-2018 Patient encounter procedure FREDERICK Nathan [facility] Start: 11-29-2018 End: 11-30-2018 [facility] Start: 11-28-2018 End: 11-29-2018 Patient encounter procedure VASYL [facility] Start: 11-23-2018 End: 11-24-2018 Patient encounter procedure VASYL [facility] Start: 11-21-2018 End: 11-22-[address] [facility] Start: 11-16-2018 End: 11-17-[address] [facility] Start: 11-15-2018 End: 11-16-[address] [facility] Start: 11-14-2018 End: 11-15-2018 [facility] Start: 11-09-2018 End: 11-10-2018 Patient encounter procedure VASYL OGDENAVANAN [facility] Start: 11-08-2018 End: 11-09-2018 [facility] Start: 11-07-2018 End: 11-08-2018 [facility] Start: 11-02-2018 End: 11-03-2018 Patient encounter procedure VASYL OGDENAVANAN [facility] Start: 11-01-2018 End: 11-02-2018 [facility] Start: 10-31-2018 End: 11-01-2018 [facility] Start: 10-26-2018 End: 10-27-2018 Patient encounter procedure VASYL [facility] Start: 10-25-2018 End: 10-26-2018 Patient encounter procedure VASYL OGDENAVANAN [facility] Start: 10-24-2018 End: 10-25-2018 [facility] Start: 10-18-2018 End: 10-19-2018 [facility] Start: 10-17-2018 End: 10-18-2018 [facility] Start: 10-11-2018 End: 10-12-2018 [facility] Start: 10-04-2018 Patient encounter procedure Emanuel Haro Facility:[id number] Start: 10-03-2018 End: 10-09-2018 Evaluation and management of inpatient VASYL [facility] Start: 10-03-2018 End: 10-03-2018 Patient encounter procedure VASYL [facility] Start: 10-03-2018 Patient encounter procedure Emanuel Meltons Facility:[id number] Start: 09-28-2018 End: 09-29-2018 Patient encounter procedure VASYL [facility] Start: 09-27-2018 End: 09-28-2018 Patient encounter procedure VASYL [facility] Start: 09-26-2018 End: 09-27-2018 Patient encounter procedure VASYL [facility] Start: 09-25-2018 End: 09-26-2018 Patient encounter procedure VASYL [facility] Start: 09-15-2018 End: 09-20-2018 Evaluation and management of inpatient FREDERICK JUNIOR [facility] Start: 09-30-2017 End: 09-30-2017 Ambulatory TOMDayana WARD) [facility] Start: 03-16-2017 End: 03-16-2017 Ambulatory TOMDayana WARD) [facility] Start: 01-24-2017 End: 01-27-2017 Evaluation and management of inpatient RON WARD) [facility] Start: 01-14-2017 End: 01-14-2017 Ambulatory RON WARD) [facility] Procedures Date Procedure Procedure Detail Performing Clinician Start: 11-11-2023 Dual energy X-ray absorptiometry II Frederick Lee Work Phone: Start: 11-11-2023 Screening mammography of bilateral breasts II Frederick Lee Work Phone: Start: 10-18-2023 Dilation of urethra Spike RICHARDSON Start: 07-12-2023 Transurethral cystoscopy Spike DEBRA Start: 12-15-2022 Screening colonoscopy II Frederick Lee Work Phone: Start: 11-08-2022 Screening mammography of bilateral breasts II Frederick Lee Work Phone: Start: 10-06-2022 Radex spine cervical 2 or 3 views Emmanuelle Ballard [employer] Work Phone: Start: 08-06-2022 Radex spine cervical 2 or 3 views Jack Morales [employer] Work Phone: Start: 08-06-2022 Radex spine cervical 2 or 3 views Thiago Meeks PA-C Work Phone: Start: 08-06-2022 Basic metabolic panel calcium total Thiago Meeks PA-C Work Phone: Start: 08-05-2022 Fluoroscopy during operation Collette Gannon mad DO Work Phone: Start: 08-05-2022 End: 08-05-2022 CERVICAL LAMINECTOMY FUSION Collette Campos ad DO Work Phone: Start: 08-05-2022 End: 08-05-2022 Tot disc arthrp art disc ant appro 1 ntrspc crv Collette Cammad DO Work Phone: Start: 07-22-2022 Antibody screen Stvz 1 Start: 07-22-2022 Ecg routine ecg w/least 12 lds trcg only w/o i&r Jaelyn Lee MD Work Phone: Start: 07-22-2022 Blood typing serologic abo Collette Matt d DO Work Phone: Start: 07-22-2022 Electrolyte panel Jaelyn Lee MD Work Phone: Start: 06-17-2022 Mri spinal canal cervical w/o contrast matrl Collette Mattd DO Work Phone: Start: 02-10-2019 DISCHARGE PATIENT FREDERICK VERNON Start: 02-10-2019 Drug screen quantitative lithium FREDERICK JUNIOR Start: 02-10-2019 Drug screen quantitative lithium Vasyl Ogdenavanan Work Phone: Start: 02-06-2019 DIET GENERAL FREDERICK JUNIOR Start: 02-06-2019 Ecg routine ecg w/least 12 lds w/i&r FREDERICK JUNIOR Start: 02-06-2019 FULL CODE FREDERICK JUNIOR Start: 02-06-2019 IP CONSULT TO HOSPITALIST FREDERICK JUNIOR Start: 02-06-2019 IP CONSULT TO SOCIAL WORK FREDERICK JUNIOR Start: 02-06-2019 MONITOR FREDERICK JUNIOR Start: 02-06-2019 NURSING COMMUNICATION FREDERICK JUNIOR Start: 02-06-2019 VITAL SIGNS FREDERICK JUNIOR Start: 02-06-2019 PATIENT STATUS (FROM ED OR OR/PROCEDURAL) FREDERICK JUNIOR Start: 02-06-2019 Assay of acetaminophen FREDERICK JUNIOR Start: 02-06-2019 Assay of ethanol FREDERICK JUNIOR Start: 02-06-2019 Assay of salicylate FREDERICK JUNIOR Start: 02-06-2019 Assay of thyroid stimulating hormone tsh FREDERICK JUNIOR Start: 02-06-2019 Blood count complete auto&auto difrntl wbc FREDERICK JUNIOR Start: 02-06-2019 CK-MB INDEX FREDERICK JUNIOR Start: 02-06-2019 Comprehensive metabolic panel FREDERICK STEIN Start: 02-06-2019 Drug screen class list a FREDERICK JUNIOR Start: 02-06-2019 Urine test visual color cmprsn meths FREDERICK JUNIOR Start: 02-06-2019 Urnls dip stick/tablet rgnt auto w/o microscopy FREDERICK JUNIOR Start: 02-06-2019 Assay of acetaminophen Joselo Newberryito Work Phone: Start: 02-06-2019 Assay of ethanol Joselo Newberryito Work Phone: Start: 02-06-2019 Assay of salicylate Joselo Newberryito Work Phone: Start: 02-06-2019 Assay of thyroid stimulating hormone tsh Joselo Newberryito Work Phone: Start: 02-06-2019 Blood count complete auto&auto difrntl wbc Joselo Newberryito Work Phone: Start: 02-06-2019 Comprehensive metabolic panel Joselo Dsouza Ro shannan Work Phone: Start: 02-06-2019 Creatine kinase mb fraction only Joselo Newberryito Work Phone: Start: 02-06-2019 Drug screen class list a Joselo Newberryito Work Phone: Start: 02-06-2019 Urine test visual color cmprsn meths Joselo Newberryito Work Phone: Start: 02-06-2019 Urnls dip stick/tablet rgnt auto w/o microscopy Joselo Rizo Work Phone: Start: 12-14-2018 DISCHARGE PATIENT FREDERICK JUNIOR Start: 10-09-2018 DISCHARGE PATIENT FREDERICK JUNIOR Start: 10-05-2018 NURSING COMMUNICATION FREDERICK JUNIOR Start: 10-05-2018 ORTHOSTATIC BLOOD PRESSURE AND PULSE FREDERICK JUNIOR Start: 10-04-2018 IP CONSULT TO PLASTIC SURGERY FREDERICK CALVOAlexandr Start: 10-04-2018 Ct head/brain w/o contrast material FREDERICK JUNIOR Start: 10-04-2018 ORTHOSTATIC BLOOD PRESSURE AND PULSE FREDERICK JUNIOR Start: 10-03-2018 DIET GENERAL FREDERICK JUNIOR Start: 10-03-2018 Ecg routine ecg w/least 12 lds w/i&r FREDERICK JUNIOR Start: 10-03-2018 FULL CODE FREDERICK JUNIOR Start: 10-03-2018 IP CONSULT TO HOSPITALIST FREDERICKAGUSTIN JUNIOR Start: 10-03-2018 IP CONSULT TO SOCIAL WORK FREDERICK JUNIOR Start: 10-03-2018 MONITOR FREDERICKAGUSTIN JUNIOR Start: 10-03-2018 NURSING COMMUNICATION FREDERICK JUNIOR Start: 10-03-2018 PATIENT STATUS (DIRECT) FREDERICK JUNIOR Start: 10-03-2018 UNRESTRICTED VISITATION STATUS FREDERICK WHITLEY Start: 10-03-2018 VITAL SIGNS FREDERICK JUNIOR Start: 10-03-2018 PATIENT STATUS (DIRECT) FREDERICK JUNIOR Start: 10-03-2018 DISCHARGE PATIENT FREDERICK JUNIOR Start: 09-20-2018 Basic metabolic panel calcium total FREDERICK JUNIOR Start: 09-20-2018 ENCOURAGE FLUIDS FREDERICK JUNIOR Start: 09-20-2018 NURSING COMMUNICATION FREDERICK JUNIOR Start: 09-20-2018 DISCHARGE PATIENT FREDERICK JUNIOR Start: 09-19-2018 Radiologic exam chest 2 views FREDERICK THAKKAR LUBNAAlexandr Start: 09-19-2018 IP CONSULT TO HOSPITALIST FREDERICK JUNIOR Start: 09-18-2018 NURSING COMMUNICATION FREDERICK VERNON Start: 09-17-2018 NURSING COMMUNICATION FREDERICK VERNON Start: 09-16-2018 IP CONSULT TO PAIN MANAGEMENT FREDERICK ARIANE SARITA Start: 09-16-2018 DIET GENERAL FREDERICK MILLSCU Start: 09-16-2018 FULL CODE FREDERICK JUNIOR Start: 09-16-2018 IP CONSULT TO HOSPITALIST FREDERICK JUNIOR Start: 09-16-2018 MONITOR FREDERICK JUNIOR Start: 09-16-2018 TOBACCO CESSATION EDUCATION FREDERICK HINOJOSA Start: 09-16-2018 UNRESTRICTED VISITATION STATUS FREDERICK WHITLEY Start: 09-16-2018 VITAL SIGNS FREDERICK JUNIOR Start: 09-16-2018 PATIENT STATUS (FROM ED OR OR/PROCEDURAL) FREDERICK JUNIOR Start: 09-16-2018 Ecg routine ecg w/least 12 lds w/i&r FREDERICK JUNIOR Start: 09-15-2018 Assay of acetaminophen FREDERICK JUNIOR Start: 09-15-2018 Assay of ethanol FREDERICK JUNIOR Start: 09-15-2018 Assay of salicylate FREDERICK JUNIOR Start: 09-15-2018 Assay of thyroid stimulating hormone tsh FREDERICK JUNIOR Start: 09-15-2018 Blood count complete auto&auto difrntl wbc FREDERICK JUNIOR Start: 09-15-2018 Comprehensive metabolic panel FREDERICK STEIN Start: 09-15-2018 Creatine kinase total FREDERICK JUNIOR Start: 09-15-2018 Culture bacterial quanttative colony count urine FREDERICK JUNIOR Start: 09-15-2018 Drug screen class list a FREDERICK JUNIOR Start: 09-15-2018 Urinalysis microscopic only FREDERICK HINOJOSA Start: 09-15-2018 Urnls dip stick/tablet rgnt auto w/o microscopy FREDERICK JUNIOR Start: 04-20-2016 Cystourethroscopy with dilation of urethral stricture Spikeiveth RICHARDSON Start: 04-01-2016 Urodynamic studies Spikeiveth RICHARDSON Start: 08-16-2005 Cystourethroscopy with dilation of urethral stricture Spike RICHARDSON Start: 01-20-2004 Cystopexy Spike RICHARDSON Start: 01-07-2004 Cystourethroscopy with dilation of urethral stricture Spike RICHARDSON Start: 12-30-2003 Urodynamic studies Spike RICHARDSON Appendectomy Spike RICHARDSON Cholecystectomy Spike MURRAY Colonoscopy Spike RICHARDSON Cystourethroscopy wi th dilation of urethral stricture Spike RICHARDSON Education about post operative care after adenotonsillectomy Spike RICHARDSON Hysterectomy Spike RICHARDSON Procedure on back Spike COELLO Plan of Treatment Date Care Activity Detail Author Start: 07-11-2023 End: 07-11-2023 Patient encounter procedure 07/11/2023 Office Visit Neurosurgery Collette Banda, [address] [facility] [address] [place] [address] [facility] Start: 02-01-2023 Influenza vaccination Flu vaccine (# 1) [facility] Start: 01-05-2023 End: 01-05-2023 Patient encounter procedure 01/05/2023 Office Visit Neurosurgery ShakageorginaColletteDO [address] [facility] [address] [address] [facility] Start: 12-15-2022 [facility] Start: 10-06-2022 Annual Wellness Visi t (AWV) Annual Wellness Visit (AWV) [facility] Start: 10-06-2022 End: 10-06-2022 Patient encounter procedure 10/06/2022 Office Visit Neurosurgery Collette Banda, [address] [facility] [address] [address] [facility] Start: 08-23-2022 End: 08-23-2022 Patient encounter procedure 08/23/2022 Office Visit Neurosurgery Emmanuelle Ballard, [employer] [address] [facility] [address] [place] [address] [facility] Start: 08-05-2022 End: 08-05-2022 Admission to same day surgery center 08/05/2022 Surgery IP Unit Collette Banda DO [address] [facility] [address] [address] ANTERIOR C3-4 ARTHROPLASTY (SUPINE, MEDTRONIC) [facility] Comment on above: ANTERIOR C3-4 ARTHRO PLASTY (SUPINE, MEDTRONIC) Start: 08-05-2022 End: 08-05-2022 CERVICAL LAMINECTOMY FUSION CERVICAL LAMINECTOMY FUSION Stenosis of cervical spine with myelopathy (HCC) 08/05/2022 8:40 AM [facility] Start: 08-05-2022 Subsequent hospital visit by physician 08/05/2022 Hospital Encounter IP Unit Collette Banda DO [address] [facility] [address] [address] [facility] Start: 08-05-2022 End: 08-05-2022 Tot disc arthrp art disc ant appro 1 ntrspc crv CERVICAL LAMINECTOMY FUSION ANTERIOR Stenosis of cervical spine with myelopathy (HCC) 08/05/2022 8:40 AM [facility] Start: 07-07-2022 Annual Wellness Visi t (AWV) Annual Wellness Visit (AWV) [facility] Start: 07-07-2022 End: 07-07-2022 Patient encounter procedure 07/07/2022 Office Visit Neurosurgery Collette Banda DO [address] [facility] [address] [address] [facility] Start: 01-15-2022 COVID-19 Vaccine (4 - Booster for Moderna series) COVID-19 Vaccine (4 - Booster for Moderna series) [facility] Start: 01-10-2021 COVID-19 Vaccine (3 - Booster for Moderna series) COVID-19 Vaccine (3 - Booster for Moderna series) [facility] Start: 03-04-2019 Influenza vaccination Flu vaccine (# 1) [place], [place] Start: 2012 Breast cancer screen Breast cancer s creen [place], [place] Start: 2012 Colon cancer screen colonoscopy Colon cancer screen colonoscopy [place], [place] Start: 2012 Screening for malignant neoplasm of breast Breast cancer screen [facility] Start: 2012 Shingles Vaccine (1 of 2) Shingles Vaccine (1 of 2) [place], [place] Start: 2007 Screening for malignant neoplasm of colon [facility] Start: 2002 Lipid panel Lipids [facility] Dayana [facility] Start: 2002 Lipid screen Lipid screen [place], [place] Start: 1997 Diabetes screen Diabetes screen [facility] Start: 1983 Cervical cancer screen Cervical canc er screen [place], [place] Start: 1981 DTaP/Tdap/Td vaccine (1 - Tdap) DTaP/Tdap/Td vaccine (1 - Tdap) [facility] Start: 1980 Hepatitis C screening Hepatitis C sc reen [facility] Start: 1977 HIV screen HIV screen [place], [place] Start: 1977 HIV screening HIV screen [facility] Start: 1974 Depression Monitoring Depression Mon itoring [facility] Start: 1962 Hepatitis C screen Hepatitis C scree n [place], [place] Oxygen therapy [Minimum Data Set] Initiate Oxygen Therapy Protocol Respiratory Care Routine Daily until discontinued starting 08/05/2022 [facility] Work Phone: Comment on above: Daily until disconti nued starting 08/05/2022 Patient Education Hemorrhoids (D C) Diverticulosis (DC) [facility] Work Phone: Spirometry panel Incentive steph metry Respiratory Care Routine Every 2hr while awake until discontinued starting 08/05/2022 [facility] Work Phone: Comment on above: Every 2hr while awak e until discontinued starting 08/05/2022 Immunizations Immunization Date Immunization Notes Care Provider Keenan syed 04-20-2023 influenza virus vaccine, unspecified formulation Spike RICHARDSON [facility] 05-19-2022 influenza virus vaccine, unspecified formulation Spike RICHARDSON [facility] 11-20-2021 SARS-CoV-2 (COVID-19 ) mRNA-1273 vaccine Spike RICHARDSON [facility] 04-29-2021 influenza virus vaccine, unspecified formulation Spike RICHARDSON [facility] 11-15-2020 SARS-CoV-2 (COVID-19 ) mRNA-1273 vaccine Spike RICHARDSON [facility] 10-18-2020 SARS-CoV-2 (COVID-19 ) mRNA-1273 vaccine Spike RICHARDSON [facility] 08-21-2020 zoster vaccine recombinant Spike RICHARDSON [facility] 05-31-2020 zoster vaccine recombinant Spike RICHARDSON [facility] 04-02-2020 influenza virus vaccine, unspecified formulation Spike RICHARDSON [facility] 04-14-2019 influenza virus vaccine, unspecified formulation Spike RICHARDSON [facility] 04-04-2018 influenza virus vaccine, unspecified formulation Spike RICHARDSON [facility] Payers Date Payer Category Payer Self-pay 2020 Unknown [id number] 2014 Medicare MEDICARE MEDICAR E PART A AND B xxxxxxxxxxx 2014-Present [phone] [address] [address] [place] [address] xxxxxxxxxxx [id number] 2014 Unknown [employer]ICAL [employer] M [employer]ICAL M[employer]UAL [address] xxxxxxxxxxxx 2014-Present [phone] [address] [place] [address] xxxxxxxxxxxx [id number] 1962 Unknown [id number] 2.16.840.1.355388.3.579.2.356 1962 Unknown [id number] 2.16.840.1.567156.3.579.2.356 1962 Unknown [id number] 2.16.840.1.029064.3.579.2.182 1962 Unknown [id number] 2.16.840.1.681662.3.579.2.182 1962 Unknown [id number] 2.16.840.1.885613.3.579.2.182 1962 Unknown [id number] 2.16.840.1.956310.3.579.2.182 1962 Unknown [id number] 2.16.840.1.444427.3.579.2.182 1962 Unknown [id number] 2.16.840.1.598896.3.579.2.182 1962 Unknown [id number] 2.16.840.1.393444.3.579.2.182 1962 Unknown [id number] 2.16.840.1.998829.3.579.2.182 1962 Unknown [id number] 2.16.840.1.238394.3.579.2.182 1962 Unknown [id number] 2.16.840.1.809076.3.579.2.182 1962 Unknown [id number] 2.16.840.1.050145.3.579.2.182 1962 Unknown [id number] 2.16.840.1.940321.3.579.2.182 1962 Unknown [id number] 2.16.840.1.451562.3.579.2.182 1962 Unknown [id number] 2.16.840.1.949359.3.579.2.182 1962 Unknown [id number] 2.16.840.1.968575.3.579.2.182 1962 Unknown [id number] 2.16.840.1.821219.3.579.2.182 1962 Unknown [id number] 2.16.840.1.225991.3.579.2.182 1962 Unknown [id number] 2.16.840.1.369066.3.579.2.182 1962 Unknown [id number] 2.16.840.1.483450.3.579.2.182 1962 Unknown [id number] 2.16.840.1.967721.3.579.2.182 1962 Unknown [id number] 2.16.840.1.499888.3.579.2.182 1962 Unknown [id number] 2.16.840.1.855272.3.579.2.182 1962 Unknown [id number] 2.16.840.1.994822.3.579.2.182 1962 Unknown [id number] 2.16.840.1.874872.3.579.2.182 1962 Unknown [id number] 2.16.840.1.833750.3.579.2.182 1962 Unknown [id number] 2.16.840.1.683040.3.579.2.182 1962 Unknown [id number] 2.16.840.1.152650.3.579.2.182 1962 Unknown [id number] 2.16.840.1.509175.3.579.2.182 1962 Unknown [id number] 2.16.840.1.844940.3.579.2.182 1962 Unknown [id number] 2.16.840.1.690047.3.579.2.182 1962 Unknown [id number] 2.16.840.1.543354.3.579.2.182 1962 Unknown [id number] 2.16.840.1.162259.3.579.2.182 1962 Unknown [id number] 2.16.840.1.877977.3.579.2.594 1962 Unknown [id number] 2.16.840.1.943100.3.579.2.594 1962 Unknown [id number] 2.16.840.1.312648.3.579.2.594 1962 Unknown [id number] 2.16.840.1.074725.3.579.2.594 1962 Unknown [id number] 2.16.840.1.808427.3.579.2.594 1962 Unknown [id number] 2.16.840.1.111139.3.579.2.593 1962 Unknown [id number] 2.16.840.1.566409.3.579.2.593 1962 Unknown [id number] 2.16.840.1.353176.3.579.2.593 1962 Unknown [id number] 2.16.840.1.623000.3.579.2.593 1962 Unknown [id number] 2.16.840.1.833544.3.579.2.593 1962 Unknown [id number] 2.16.840.1.151127.3.579.2.718 1960 Unknown [id number] 2.16.840.1.170507.3.579.2.718 1960 Unknown [id number] 2.16.840.1.876581.3.579.2.718 1960 Unknown [id number] 2.16.840.1.251405.3.579.2.175 1960 Unknown [id number] 2.16.840.1.034891.3.579.2.175 1962 Unknown [id number] 2.16.840.1.175808.3.579.2.175 1962 Unknown [id number] 2.16.840.1.022417.3.579.2.175 1962 Unknown [id number] 2.16.840.1.309410.3.579.2.175 1962 Unknown [id number] 2.16.840.1.601783.3.579.2.175 1962 Unknown [id number] 2.16.840.1.155422.3.579.2.175 1962 Unknown [id number] 2.16.840.1.820887.3.579.2.727 1962 Unknown [id number] 2.16.840.1.718149.3.579.2.727 1962 Unknown [id number] 2.16.840.1.412746.3.579.2.727 1962 Unknown [id number] 2.16.840.1.953345.3.579.2.727 1962 Unknown [id number] 2.16.840.1.556244.3.579.2.727 1962 Unknown [id number] 2.16.840.1.371538.3.579.2.727 1962 Unknown [id number] 2.16.840.1.015534.3.579.2.727 1962 Unknown [id number] 2.16.840.1.753232.3.579.2.727 1962 Unknown [id number] 2.16.840.1.054014.3.579.2.727 1962 Unknown [id number] 2.16.840.1.719250.3.579.2.727 1962 Unknown [id number] 2.16.840.1.271102.3.579.2.125 9 1960 Unknown [id number] 2.16.840.1.864694.3.579.2.125 9 1962 Unknown [id number] 2.16.840.1.793625.3.579.2.125 9 1957 Medicare [id number] 1957 Unknown [id number] Unknown 545 Unknown [id number] 2.16.840.1.548262.3.579.2.531 Unknown [id number] 2.16.840.1.030065.3.579.2.531 Social History Date Type Detail Facility Start: 02-07-2019 End: 02-01-2024 Tobacco smoking status IDIS [facility] [employer] Start: 02-07-[address] [facility] Start: 10-05-2018 [place] Start: 1960 Sex Assigned At Not on file [place], [place] Start: 03-18-2022 Tobacco use and exposure Smokeless tobacco non-user [facility] [employer] Phone: Start: 05-31-2022 End: 10-06-2022 Alcohol intake Current drinker of alcohol (finding) [facility] Start: 07-22-2022 Alcohol Comment socially. mon thly at most [employer] Phone: Start: 07-12-2022 End: 07-22-2022 Exposure to SARS-CoV-2 (event) Not sure [employer] Phone: Start: 1960 Sex Assigned At Female F [facility] Tobacco smoking status Never [facility] Medical Equipment Procedure Code Equipment Code Equipment Origin al Text Equipment Identifier Dates Screw Cortex Arc h Fixation Slf Tap 2.0x4mm - [id number] Start: 08-05-2022 Graft Hum Tiss [id number] Para Spnl Allgrft Frz Dry - [id number] Start: 08-05-2022 Goals Date Patient Goal Desired Activity /State Functional Status Date Assessment Result Facility 02-01-2024 Functional Status N/A [facility] 10-18-2023 Functional Status N/A [facility] 09-28-2023 Functional Status N/A [facility] 09-13-2023 Functional Status N/A [facility] 07-12-2023 Functional Status N/A [facility] 05-17-2023 Functional Status N/A [facility] Clinical Notes 12-05-2021 to 02-01-2024 Brisa Flores RN - 08/08/2022 1:35 PM FAIZAN Vuong CNP - 08/08/2022 9:01 AM FAIZAN Vuong CNP - 08/07/2022 3:16 PM Madelyn Arevalo PTA - 08/07/2022 2:47 PM EST Note Date & Type Note Facility 02-01-2024 Hospital Discharg e instructions Patient Education 02/01/2024 11:57:30 Urethral Dilation Urethral Dilation Urethral dilation is a procedure to stretch open (dilate) the urethra. The urethra is the tube that drains urine from the bladder out of the body. In women, the urethra opens above the vaginal opening. In men, the urethra opens at the tip of the penis. Urethral dilation is usually done to treat narrowing of the urethra (urethral stricture), which can make it difficult to pass urine. Urethral dilation widens the urethra so that you can pass urine normally. Urethral dilation is done through the urethral opening. There are no incisions made during the procedure. Tell a health care provider about: Any allergies you have. All medicines you are taking, including vitamins, herbs, eye drops, creams, and acds-tgr-aqwifsk medicines. Any problems you or family members have had with anesthetic medicines. Any blood disorders you have. Any surgeries you have had. Any medical conditions you have. Whether you are or may be . What are the risks? Generally, this is a safe procedure. However, problems may occur, including: Bleeding. Infection. A return of urethral stricture, which requires repeating the dilation procedure. Damage to the urethra, which may require reconstructive surgery. Allergic reactions to medicines. What happens before the procedure? Medicines Ask your health care provider about: Changing or stopping your regular medicines. This is especially important if you are taking diabetes medicines or blood thinners. Taking medicines such as aspirin and ibuprofen. These medicines can thin your blood. Do not take these medicines unless your health care provider tells you to take them. Taking ssjt-ckb-umsvzin medicines, vitamins, herbs, and supplements. General instructions Follow instructions from your health care provider about eating or drinking restrictions. Plan to have someone take you home from the hospital or clinic. If you will be going home right after the procedure, plan to have someone with you for 24 hours. Ask your health care provider what steps will be taken to help prevent infection. These may include: ?Washing skin with a germ-killing soap. ?Taking antibiotic medicine. What happens during the procedure? An IV may be inserted into one of your veins. You will be given one or more of the following medicines: ?A local anesthetic to numb your urethral opening. This will be applied as a gel that will also lubricate the urethral opening. ?A sedative to help you relax. A thin tube with a light and camera on the end (cystoscope) will be inserted into your urethra. Your urethra will be rinsed (irrigated) with a germ-free (sterile) water solution. Narrow parts of your urethra will be stretched open using a dilator tool. Your surgeon will start with a very thin dilator, then use wider dilators as needed. A thin tube with an inflatable balloon on the tip may be inserted into your urethra. The balloon may be inflated to help stretch your urethra open. Your urethra will be irrigated. The procedure may vary among health care providers and hospitals. What can I expect after the procedure? After the procedure, it is common to have: ?Burning pain when urinating. ?Blood in your urine. ?A need to urinate frequently. You will be asked to urinate before you leave the hospital or clinic. Your urine flow should improve within a few days. Follow these instructions at home: Medicines Take aulc-dic-oxhbxwf and prescription medicines only as told by your health care provider. If you were prescribed an antibiotic medicine, take it as told by your health care provider. Do not stop taking the antibiotic even if you start to feel better. Ask your health care provider if the medicine prescribed to you: ?Requires you to avoid driving or using heavy machinery. ?Can cause constipation. You may need to take these actions to prevent or treat constipation: ?Take wcoz-cpe-ikvofce or prescription medicines. ?Eat foods that are high in fiber, such as beans, whole grains, and fresh fruits and vegetables. ?Limit foods that are high in fat and processed sugars, such as fried or sweet foods. General instructions Do not drive for 24 hours if you were given a sedative during your procedure. If you were sent home with a small, lubricated tube (catheter) to help keep your urethra open, follow your health care provider's instructions about how and when to use it. Drink enough fluid to keep your urine pale yellow. Return to your normal activities as told by your health care provider. Ask your health care provider what activities are safe for you. Keep all follow-up visits as told by your health care provider. This is important. Contact a health care provider if: Your urine is cloudy and smells bad. You develop new bleeding when you urinate. You pass blood clots when you urinate. You have pain that does not get better with medicine. You have a fever. You have swelling, bruising, or discoloration of your genital area. This includes the penis, scrotum, and inner thighs for men, and the outer genital organs (vulva) and inner thighs for women. Get help right away if: You develop new bleeding that does not stop. You cannot pass urine. Summary Urethral dilation is a procedure to stretch open (dilate) the urethra. Urethral dilation is usually done to treat narrowing of the urethra (urethral stricture), which can make it difficult to pass urine. Ask your health care provider about changing or stopping your regular medicines before the procedure. After the procedure, it is common to have burning pain when urinating, blood in your urine, and a need to urinate frequently. This information is not intended to replace advice given to you by your health care provider. Make sure you discuss any questions you have with your health care provider. Document Revised: 08/02/2019 Document Reviewed: 08/02/2019 [employer] Patient Education 2022 [employer]. Follow Up Care 10/18/2023 13:51:29 With:DEBRA BETHEA, Spike Perez, URL Address: [facility] [address] , [place] [address]- When: Unknown [facility] 02-01-2024 Note Patient Education Urology Urethral Dilation Urethral dilation is a procedure to stretch open (dilate) the urethra. The urethra is the tube that drains urine from the bladder out of the body. In women, the urethra opens above the vaginal opening. In men, the urethra opens at the tip of the penis. Urethral dilation is usually done to treat narrowing of the urethra (urethral stricture), which can make it difficult to pass urine. Urethral dilation widens the urethra so that you can pass urine normally. Urethral dilation is done through the urethral opening. There are no incisions made during the procedure. Tell a health care provider about: ? Any allergies you have. ? All medicines you are taking, including vitamins, herbs, eye drops, creams, and utht-jlc-ewpqniq medicines. ? Any problems you or family members have had with anesthetic medicines. ? Any blood disorders you have. ? Any surgeries you have had. ? Any medical conditions you have. ? Whether you are or may be . What are the risks? Generally, this is a safe procedure. However, problems may occur, including: ? Bleeding. ? Infection. ? A return of urethral stricture, which requires repeating the dilation procedure. ? Damage to the urethra, which may require reconstructive surgery. ? Allergic reactions to medicines. What happens before the procedure? Medicines Ask your health care provider about: ? Changing or stopping your regular medicines. This is especially important if you are taking diabetes medicines or blood thinners. ? Taking medicines such as aspirin and ibuprofen. These medicines can thin your blood. Do not take these medicines unless your health care provider tells you to take them. ? Taking jzfo-buz-tsyhokp medicines, vitamins, herbs, and supplements. General instructions ? Follow instructions from your health care provider about eating or drinking restrictions. ? Plan to have someone take you home from the hospital or clinic. ? If you will be going home right after the procedure, plan to have someone with you for 24 hours. ? Ask your health care provider what steps will be taken to help prevent infection. These may include: ? Washing skin with a germ-killing soap. ? Taking antibiotic medicine. What happens during the procedure? ? An IV may be inserted into one of your veins. ? You will be given one or more of the following medicines: ? A local anesthetic to numb your urethral opening. This will be applied as a gel that will also lubricate the urethral opening. ? A sedative to help you relax. ? A thin tube with a light and camera on the end (cystoscope) will be inserted into your urethra. ? Your urethra will be rinsed (irrigated) with a germ-free (sterile) water solution. ? Narrow parts of your urethra will be stretched open using a dilator tool. Your surgeon will start with a very thin dilator, then use wider dilators as needed. ? A thin tube with an inflatable balloon on the tip may be inserted into your urethra. The balloon may be inflated to help stretch your urethra open. ? Your urethra will be irrigated. The procedure may vary among health care providers and hospitals. What can I expect after the procedure? ? After the procedure, it is common to have: ? Burning pain when urinating. ? Blood in your urine. ? A need to urinate frequently. ? You will be asked to urinate before you leave the hospital or clinic. ? Your urine flow should improve within a few days. Follow these instructions at home: Medicines ? Take wplb-trr-qasjuwh and prescription medicines only as told by your health care provider. ? If you were prescribed an antibiotic medicine, take it as told by your health care provider. Do not stop taking the antibiotic even if you start to feel better. ? Ask your health care provider if the medicine prescribed to you: ? Requires you to avoid driving or using heavy machinery. ? Can cause constipation. You may need to take these actions to prevent or treat constipation: ? Take sjrx-xdr-qgbcsgd or prescription medicines. ? Eat foods that are high in fiber, such as beans, whole grains, and fresh fruits and vegetables. ? Limit foods that are high in fat and processed sugars, such as fried or sweet foods. General instructions ? Do not drive for 24 hours if you were given a sedative during your procedure. ? If you were sent home with a small, lubricated tube (catheter) to help keep your urethra open, follow your health care provider's instructions about how and when to use it. ? Drink enough fluid to keep your urine pale yellow. ? Return to your normal activities as told by your health care provider. Ask your health care provider what activities are safe for you. ? Keep all follow-up visits as told by your health care provider. This is important. Contact a health care provider if: ? Your urine is cloudy and smells bad. ? You develop new bleeding when you (more content not included)... [facility] 10-18-2023 Hospital Discharg e instructions Patient Education 10/18/2023 13:41:12 Urethral Dilation Urethral Dilation Urethral dilation is a procedure to stretch open (dilate) the urethra. The urethra is the tube that drains urine from the bladder out of the body. In women, the urethra opens above the vaginal opening. In men, the urethra opens at the tip of the penis. Urethral dilation is usually done to treat narrowing of the urethra (urethral stricture), which can make it difficult to pass urine. Urethral dilation widens the urethra so that you can pass urine normally. Urethral dilation is done through the urethral opening. There are no incisions made during the procedure. Tell a health care provider about: Any allergies you have. All medicines you are taking, including vitamins, herbs, eye drops, creams, and aetn-yhr-xpfkjly medicines. Any problems you or family members have had with anesthetic medicines. Any blood disorders you have. Any surgeries you have had. Any medical conditions you have. Whether you are or may be . What are the risks? Generally, this is a safe procedure. However, problems may occur, including: Bleeding. Infection. A return of urethral stricture, which requires repeating the dilation procedure. Damage to the urethra, which may require reconstructive surgery. Allergic reactions to medicines. What happens before the procedure? Medicines Ask your health care provider about: Changing or stopping your regular medicines. This is especially important if you are taking diabetes medicines or blood thinners. Taking medicines such as aspirin and ibuprofen. These medicines can thin your blood. Do not take these medicines unless your health care provider tells you to take them. Taking ywvq-glm-agtjahy medicines, vitamins, herbs, and supplements. General instructions Follow instructions from your health care provider about eating or drinking restrictions. Plan to have someone take you home from the hospital or clinic. If you will be going home right after the procedure, plan to have someone with you for 24 hours. Ask your health care provider what steps will be taken to help prevent infection. These may include: ?Washing skin with a germ-killing soap. ?Taking antibiotic medicine. What happens during the procedure? An IV may be inserted into one of your veins. You will be given one or more of the following medicines: ?A local anesthetic to numb your urethral opening. This will be applied as a gel that will also lubricate the urethral opening. ?A sedative to help you relax. A thin tube with a light and camera on the end (cystoscope) will be inserted into your urethra. Your urethra will be rinsed (irrigated) with a germ-free (sterile) water solution. Narrow parts of your urethra will be stretched open using a dilator tool. Your surgeon will start with a very thin dilator, then use wider dilators as needed. A thin tube with an inflatable balloon on the tip may be inserted into your urethra. The balloon may be inflated to help stretch your urethra open. Your urethra will be irrigated. The procedure may vary among health care providers and hospitals. What can I expect after the procedure? After the procedure, it is common to have: ?Burning pain when urinating. ?Blood in your urine. ?A need to urinate frequently. You will be asked to urinate before you leave the hospital or clinic. Your urine flow should improve within a few days. Follow these instructions at home: Medicines Take myee-zov-xjtwdpn and prescription medicines only as told by your health care provider. If you were prescribed an antibiotic medicine, take it as told by your health care provider. Do not stop taking the antibiotic even if you start to feel better. Ask your health care provider if the medicine prescribed to you: ?Requires you to avoid driving or using heavy machinery. ?Can cause constipation. You may need to take these actions to prevent or treat constipation: ?Take tybw-bpt-hksdnfy or prescription medicines. ?Eat foods that are high in fiber, such as beans, whole grains, and fresh fruits and vegetables. ?Limit foods that are high in fat and processed sugars, such as fried or sweet foods. General instructions Do not drive for 24 hours if you were given a sedative during your procedure. If you were sent home with a small, lubricated tube (catheter) to help keep your urethra open, follow your health care provider's instructions about how and when to use it. Drink enough fluid to keep your urine pale yellow. Return to your normal activities as told by your health care provider. Ask your health care provider what activities are safe for you. Keep all follow-up visits as told by your health care provider. This is important. Contact a health care provider if: Your urine is cloudy and smells bad. You develop new bleeding when you urinate. You pass blood clots when you urinate. You have pain that does not get better with medicine. You have a fever. You have swelling, bruising, or discoloration of your genital area. This includes the penis, scrotum, and inner thighs for men, and the outer genital organs (vulva) and inner thighs for women. Get help right away if: You develop new bleeding that does not stop. You cannot pass urine. Summary Urethral dilation is a procedure to stretch open (dilate) the urethra. Urethral dilation is usually done to treat narrowing of the urethra (urethral stricture), which can make it difficult to pass urine. Ask your health care provider about changing or stopping your regular medicines before the procedure. After the procedure, it is common to have burning pain when urinating, blood in your urine, and a need to urinate frequently. This information is not intended to replace advice given to you by your health care provider. Make sure you discuss any questions you have with your health care provider. Document Revised: 08/02/2019 Document Reviewed: 08/02/2019 [employer] Patient Education 2022 [employer]. Follow Up Care 09/13/2023 09:42:10 With:DEBRA BETHEA, Spike Perez, URL Address: [facility] [address] [place] [address]- [phone] When: Unknown [facility] 09-28-2023 Hospital Discharg e instructions Patient Education 09/28/2023 10:24:41 Urinary Tract Infection, Adult, Dptz-xp-Yhtz Urinary Tract Infection, Adult A urinary tract infection (UTI) is an infection of any part of the urinary tract. The urinary tract includes: The kidneys. The ureters. The bladder. The urethra. These organs make, store, and get rid of pee (urine) in the body. What are the causes? This infection is caused by germs (bacteria) in your genital area. These germs grow and cause swelling (inflammation) of your urinary tract. What increases the risk? The following factors may make you more likely to develop this condition: Using a small, thin tube (catheter) to drain pee. Not being able to control when you pee or poop (incontinence). Being female. If you are female, these things can increase the risk: ?Using these methods to prevent : ?A medicine that kills sperm (spermicide). ?A device that blocks sperm (diaphragm). ?Having low levels of a female hormone (estrogen). ?Being . You are more likely to develop this condition if: You have genes that add to your risk. You are sexually active. You take antibiotic medicines. You have trouble peeing because of: ?A prostate that is bigger than normal, if you are male. ?A blockage in the part of your body that drains pee from the bladder. ?A kidney stone. ?A nerve condition that affects your bladder. ?Not getting enough to drink. ?Not peeing often enough. You have other conditions, such as: ?Diabetes. ?A weak disease-fighting system (immune system). ?Sickle cell disease. ?Gout. ?Injury of the spine. What are the signs or symptoms? Symptoms of this condition include: Needing to pee right away. Peeing small amounts often. Pain or burning when peeing. Blood in the pee. Pee that smells bad or not like normal. Trouble peeing. Pee that is cloudy. Fluid coming from the vagina, if you are female. Pain in the belly or lower back. Other symptoms include: Vomiting. Not feeling hungry. Feeling mixed up (confused). This may be the first symptom in older adults. Being tired and grouchy (irritable). A fever. Watery poop (diarrhea). How is this treated? Taking antibiotic medicine. Taking other medicines. Drinking enough water. In some cases, you may need to see a specialist. Follow these instructions at home: Medicines Take rktk-vth-xkanuxe and prescription medicines only as told by your doctor. If you were prescribed an antibiotic medicine, take it as told by your doctor. Do not stop taking it even if you start to feel better. General instructions Make sure you: ?Pee until your bladder is empty. ?Do not hold pee for a long time. ?Empty your bladder after sex. ?Wipe from front to back after peeing or pooping if you are a female. Use each tissue one time when you wipe. Drink enough fluid to keep your pee pale yellow. Keep all follow-up visits. Contact a doctor if: You do not get better after 1 2 days. Your symptoms go away and then come back. Get help right away if: You have very bad back pain. You have very bad pain in your lower belly. You have a fever. You have chills. You feeling like you will vomit or you vomit. Summary A urinary tract infection (UTI) is an infection of any part of the urinary tract. This condition is caused by germs in your genital area. There are many risk factors for a UTI. Treatment includes antibiotic medicines. Drink enough fluid to keep your pee pale yellow. This information is not intended to replace advice given to you by your health care provider. Make sure you discuss any questions you have with your health care provider. Document Revised: 01/30/2021 Document Reviewed: 01/30/2021 [employer] Patient Education 2022 [employer]. Follow Up Care 07/12/2023 08:09:53 With:DEBRA BETHEA, Spike Perez, URL Address: [facility] [address] , [place] [address]- [phone] When: Unknown Comments:has appt 10/18/23 for [facility] 09-13-2023 Hospital Discharg e instructions Patient Education 09/13/2023 09:21:11 EU - Cystoscopy with Botox Injection Discharge Instructions (CUSTOM) Cystoscopy with Botox injection Voiding after the procedure: there may be some pain, burning, urgency, frequency and blood tinged urine following the procedure. These symptoms usually resolve within 2-5 days. Drink the amount of fluid it takes to keep the urine pink to yellow or clear in color. Drinking enough water and fluids will help to ease any discomfort after your procedure. It may take a few days to a week to notice a gradual improvement in the overactive bladder symptoms. If you are having problems that seem out of the ordinary, please call. If unable to contact your physician and you feel it is an emergency, go to the nearest emergency room or call 911 Do not lift more than fifteen pounds for 1-2 days. If you see a lot of blood, you probably did too much. Diet you may resume your normal diet. Pain control You may take extra strength Tylenol or Motrin for discomfort. Call if you have a fever over 100 degrees. Follow Up Care 07/12/2023 08:16:25 With:Spike RICHARDSON Address: [facility] [address], [place] [address]- Business (1) When: Unknown Comments:Office will call to schedule UD follow up [facility] 09-13-2023 Note [id number] [facility] 09-13-2023 Note Custom Cystoscopy with Botox injection ? Voiding after the procedure: there may be some pain, burning, urgency, frequency and blood tinged urine following the procedure. These symptoms usually resolve within 2-5 days. Drink the amount of fluid it takes to keep the urine pink to yellow or clear in color. Drinking enough water and fluids will help to ease any discomfort after your procedure. ? It may take a few days to a week to notice a gradual improvement in the overactive bladder symptoms. ? If you are having problems that seem out of the ordinary, please call. ? If unable to contact your physician and you feel it is an emergency, go to the nearest emergency room or call 911 ? Do not lift more than fifteen pounds for 1-2 days. If you see a lot of blood, you probably did too much. ? Diet ? you may resume your normal diet. ? Pain control ? You may take extra strength Tylenol or Motrin for discomfort. ? Call if you have a fever over 100 degrees. [facility] 07-12-2023 Hospital Discharg e instructions Patient Education 07/12/2023 07:58:57 Botulinum Toxin Bladder Injection Botulinum Toxin Bladder Injection A botulinum toxin bladder injection is a procedure to treat an overactive bladder. During the procedure, a drug called botulinum toxin is injected into the bladder through a long, thin needle. This drug relaxes the bladder muscles and reduces overactivity. You may need this procedure if your medicines are not working or you cannot take them. The procedure may be repeated as needed. The treatment is done once and it usually lasts for 6 months. Your health care provider will monitor you to see how well you respond. Tell a health care provider about: Any allergies you have. All medicines you are taking, including vitamins, herbs, eye drops, creams, and awrc-xce-dbeodjw medicines. Any problems you or family members have had with anesthetic medicines. Any bleeding problems you have. Any surgeries you have had. Any medical conditions you have. Any previous reactions to a botulinum toxin injection. Any symptoms of urinary tract infection. These include chills, fever, a burning feeling when passing urine, and needing to pass urine often. Whether you are or may be . What are the risks? Generally this is a safe procedure. However, problems may occur, including: Not being able to pass urine. If this happens, you may need to have your bladder emptied with a thin tube (urinary catheter). Bleeding. Urinary tract infection. Allergic reaction to the botulinum toxin. Pain or burning when passing urine. Damage to nearby structures or organs. What happens before the procedure? When to stop eating and drinking Follow instructions from your health care provider about what you may eat and drink before your procedure. These may include: 8 hours before the procedure ?Stop eating most foods. Do not eat meat, fried foods, or fatty foods. ?Eat only light foods, such as toast or crackers. ?All liquids are okay except energy drinks and alcohol. 6 hours before the procedure ?Stop eating. ?Drink only clear liquids, such as water, clear fruit juice, black coffee, plain tea, and sports drinks. ?Do not drink energy drinks or alcohol. 2 hours before the procedure ?Stop drinking all liquids. ?You may be allowed to take medicines with small sips of water. If you do not follow your health care provider's instructions, your procedure may be delayed or canceled. Medicines Ask your health care provider about: Changing or stopping your regular medicines. This is especially important if you are taking diabetes medicines or blood thinners. Taking medicines such as aspirin and ibuprofen. These medicines can thin your blood. Do not take these medicines unless your health care provider tells you to take them. Taking csnp-cdn-wkgwlyo medicines, vitamins, herbs, and supplements. General instructions Ask your health care provider what steps will be taken to help prevent infection. These steps may include: ?Removing hair at the procedure site. ?Washing skin with a germ-killing soap. ?Taking antibiotic medicine. If you will be going home right after the procedure, plan to have a responsible adult: ?Take you home from the hospital or clinic. You will not be allowed to drive. ?Care for you for the time you are told. What happens during the procedure? You will be asked to empty your bladder. An IV will be inserted into one of your veins. You will be given one or more of the following: ?A medicine to help you relax (sedative). ?A medicine to numb the area (local anesthetic). ?A medicine to make you fall asleep (general anesthetic). A long, thin scope called a cystoscope will be passed into your bladder through the part of the body that carries urine from your bladder (urethra). The cystoscope will be used to fill your bladder with water. A long needle will be passed through the cystoscope and into the bladder. The botulinum toxin will be injected into your bladder. It may be injected into multiple areas of your bladder. The cystoscope will be removed and your bladder will be emptied with a urinary catheter. The procedure may vary among health care providers and hospitals. What can I expect after the procedure? After your procedure, it is common to have: Blood-tinged urine. Burning or soreness when you pass urine. Follow these instructions at home: Medicines Take udbi-ako-mckwmqs and prescription medicines only as told by your health care provider. If you were prescribed an antibiotic medicine, take it as told by your health care provider. Do not stop using the antibiotic even if you start to feel better. General instructions If you were given a sedative during the procedure, it can affect you for several hours. Do not drive or operate machinery until your health care provider says that it is safe. Drink enough fluid to keep your urine pale yellow. Return to your normal activities as told by your health care provider. Ask your health care provider what activities are safe for you. Keep all follow-up visits. Contact a health care provider if you have: A fever or chills. Blood-tinged urine for more than one day after your procedure. Worsening pain or burning when you pass urine. Pain or burning when passing urine for more than two days after your procedure. Trouble emptying your bladder. Get help right away if you: Have bright red blood in your urine. Are unable to pass urine. Summary A botulinum toxin bladder injection is a procedure to treat an overactive bladder. This is generally a safe procedure. However, problems may occur, including not being able to pass urine, bleeding, infection, pain, and an allergic reaction to the botulinum toxin. You will be told when to stop eating and drinking, and what medicines to change or stop. Follow instructions carefully. After the procedure, it is common to have blood in your urine and to have soreness or burning when passing urine. Contact a health care provider if you have a fever, blood in your urine for more than a few days, or trouble passing urine. Get help right away if you have bright red blood in your urine, or if you are unable to pass urine. This information is not intended to replace advice given to you by your health care provider. Make sure you discuss any questions you have with your health care provider. Document Revised: 12/25/2021 Document Reviewed: 12/25/2021 [employer] Patient Education 2022 [employer]. 07/12/2023 07:51:25 Urethral Dilation Urethral Dilation Urethral dilation is a procedure to stretch open (dilate) the urethra. The urethra is the tube that drains urine from the bladder out of the body. In women, the urethra opens above the vaginal opening. In men, the urethra opens at the tip of the penis. Urethral dilation is usually done to treat narrowing of the urethra (urethral stricture), which can make it difficult to pass urine. Urethral dilation widens the urethra so that you can pass urine normally. Urethral dilation is done through the urethral opening. There are no incisions made during the procedure. Tell a health care provider about: Any allergies you have. All medicines you are taking, including vitamins, herbs, eye drops, creams, and nxbu-qot-izkfxhy medicines. Any problems you or family members have had with anesthetic medicines. Any blood disorders you have. Any surgeries you have had. Any medical conditions you have. Whether you are or may be . What are the risks? Generally, this is a safe procedure. However, problems may occur, including: Bleeding. Infection. A return of urethral stricture, which requires repeating the dilation procedure. Damage to the urethra, which may require reconstructive surgery. Allergic reactions to medicines. What happens before the procedure? Medicines Ask your health care provider about: Changing or stopping your regular medicines. This is especially important if you are taking diabetes medicines or blood thinners. Taking medicines such as aspirin and ibuprofen. These medicines can thin your blood. Do not take these medicines unless your health care provider tells you to take them. Taking qusf-ucu-qmskjwm medicines, vitamins, herbs, and supplements. General instructions Follow instructions from your health care provider about eating or drinking restrictions. Plan to have someone take you home from the hospital or clinic. If you will be going home right after the procedure, plan to have someone with you for 24 hours. Ask your health care provider what steps will be taken to help prevent infection. These may include: ?Washing skin with a germ-killing soap. ?Taking antibiotic medicine. What happens during the procedure? An IV may be inserted into one of your veins. You will be given one or more of the following medicines: ?A local anesthetic to numb your urethral opening. This will be applied as a gel that will also lubricate the urethral opening. ?A sedative to help you relax. A thin tube with a light and camera on the end (cystoscope) will be inserted into your urethra. Your urethra will be rinsed (irrigated) with a germ-free (sterile) water solution. Narrow parts of your urethra will be stretched open using a dilator tool. Your surgeon will start with a very thin dilator, then use wider dilators as needed. A thin tube with an inflatable balloon on the tip may be inserted into your urethra. The balloon may be inflated to help stretch your urethra open. Your urethra will be irrigated. The procedure may vary among health care providers and hospitals. What can I expect after the procedure? After the procedure, it is common to have: ?Burning pain when urinating. ?Blood in your urine. ?A need to urinate frequently. You will be asked to urinate before you leave the hospital or clinic. Your urine flow should improve within a few days. Follow these instructions at home: Medicines Take oiem-vwx-zpcialm and prescription medicines only as told by your health care provider. If you were prescribed an antibiotic medicine, take it as told by your health care provider. Do not stop taking the antibiotic even if you start to feel better. Ask your health care provider if the medicine prescribed to you: ?Requires you to avoid driving or using heavy machinery. ?Can cause constipation. You may need to take these actions to prevent or treat constipation: ?Take bdsu-zog-rduqgbb or prescription medicines. ?Eat foods that are high in fiber, such as beans, whole grains, and fresh fruits and vegetables. ?Limit foods that are high in fat and processed sugars, such as fried or sweet foods. General instructions Do not drive for 24 hours if you were given a sedative during your procedure. If you were sent home with a small, lubricated tube (catheter) to help keep your urethra open, follow your health care provider's instructions about how and when to use it. Drink enough fluid to keep your urine pale yellow. Return to your normal activities as told by your health care provider. Ask your health care provider what activities are safe for you. Keep all follow-up visits as told by your health care provider. This is important. Contact a health care provider if: Your urine is cloudy and smells bad. You develop new bleeding when you urinate. You pass blood clots when you urinate. You have pain that does not get better with medicine. You have a fever. You have swelling, bruising, or discoloration of your genital area. This includes the penis, scrotum, and inner thighs for men, and the outer genital organs (vulva) and inner thighs for women. Get help right away if: You develop new bleeding that does not stop. You cannot pass urine. Summary Urethral dilation is a procedure to stretch open (dilate) the urethra. Urethral dilation is usually done to treat narrowing of the urethra (urethral stricture), which can make it difficult to pass urine. Ask your health care provider about changing or stopping your regular medicines before the procedure. After the procedure, it is common to have burning pain when urinating, blood in your urine, and a need to urinate frequently. This information is not intended to replace advice given to you by your health care provider. Make sure you discuss any questions you have with your health care provider. Document Revised: 08/02/2019 Document Reviewed: 08/02/2019 [employer] Patient Education 2022 [employer]. 07/12/2023 07:45:10 Cystoscopy Cystoscopy Cystoscopy is a procedure that is used to help diagnose and sometimes treat conditions that affect the lower urinary tract. The lower urinary tract includes the bladder and the urethra. The urethra is the tube that drains urine from the bladder. Cystoscopy is done using a thin, tube-shaped instrument with a light and camera at the end (cystoscope). The cystoscope may be hard or flexible, depending on the goal of the procedure. The cystoscope is inserted through the urethra, into the bladder. Cystoscopy may be recommended if you have: Urinary tract infections that keep coming back. Blood in the urine (hematuria). An inability to control when you urinate (urinary incontinence) or an overactive bladder. Unusual cells found in a urine sample. A blockage in the urethra, such as a urinary stone. Painful urination. An abnormality in the bladder found during an intravenous pyelogram (IVP) or CT scan. Cystoscopy may also be done to remove a sample of tissue to be examined under a microscope (biopsy). Tell a health care provider about: Any allergies you have. All medicines you are taking, including vitamins, herbs, eye drops, creams, and gvxa-noh-jmrcmxq medicines. Any problems you or family members have had with anesthetic medicines. Any blood disorders you have. Any surgeries you have had. Any medical conditions you have. Whether you are or may be . What are the risks? Generally, this is a safe procedure. However, problems may occur, including: Infection. Bleeding. Allergic reactions to medicines. Damage to other structures or organs. What happens before the procedure? Medicines Ask your health care provider about: Changing or stopping your regular medicines. This is especially important if you are taking diabetes medicines or blood thinners. Taking medicines such as aspirin and ibuprofen. These medicines can thin your blood. Do not take these medicines unless your health care provider tells you to take them. Taking kbdg-nls-tetzaib medicines, vitamins, herbs, and supplements. Tests You may have an exam or testing, such as: X-rays of the bladder, urethra, or kidneys. CT scan of the abdomen or pelvis. Urine tests to check for signs of infection. General instructions Follow instructions from your health care provider about eating or drinking restrictions. Ask your health care provider what steps will be taken to help prevent infection. These steps may include: ?Washing skin with a germ-killing soap. ?Taking antibiotic medicine. Plan to have a responsible adult take you home from the hospital or clinic. What happens during the procedure? You will be given one or more of the following: ?A medicine to help you relax (sedative). ?A medicine to numb the area (local anesthetic). The area around the opening of your urethra will be cleaned. The cystoscope will be passed through your urethra into your bladder. Germ-free (sterile) fluid will flow through the cystoscope to fill your bladder. The fluid will stretch your bladder so that your health care provider can clearly examine your bladder ayoub. Your doctor will look at the urethra and bladder. Your doctor may take a biopsy or remove stones. The cystoscope will be removed, and your bladder will be emptied. The procedure may vary among health care providers and hospitals. What can I expect after the procedure? After the procedure, it is common to have: Some soreness or pain in your abdomen and urethra. Urinary symptoms. These include: ?Mild pain or burning when you urinate. Pain should stop within a few minutes after you urinate. This may last for up to 1 week. ?A small amount of blood in your urine for several days. ?Feeling like you need to urinate but producing only a small amount of urine. Follow these instructions at home: Medicines Take jztx-mcg-jpojeqa and prescription medicines only as told by your health care provider. If you were prescribed an antibiotic medicine, take it as told by your health care provider. Do not stop taking the antibiotic even if you start to feel better. General instructions Return to your normal activities as told by your health care provider. Ask your health care provider what activities are safe for you. If you were given a sedative during the procedure, it can affect you for several hours. Do not drive or operate machinery until your health care provider says that it is safe. Watch for any blood in your urine. If the amount of blood in your urine increases, call your health care provider. Follow instructions from your health care provider about eating or drinking restrictions. If a tissue sample was removed for testing (biopsy) during your procedure, it is up to you to get your test results. Ask your health care provider, or the department that is doing the test, when your results will be ready. Drink enough fluid to keep your urine pale yellow. Keep all follow-up visits. This is important. Contact a health care provider if: You have pain that gets worse or does not get better with medicine, especially pain when you urinate. You have trouble urinating. You have more blood in your urine. Get help right away if: You have blood clots in your urine. You have abdominal pain. You have a fever or chills. You are unable to urinate. Summary Cystoscopy is a procedure that is used to help diagnose and sometimes treat conditions that affect the lower urinary tract. Cystoscopy is done using a thin, tube-shaped instrument with a light and camera at the end. After the procedure, it is common to have some soreness or pain in your abdomen and urethra. Watch for any blood in your urine. If the amount of blood in your urine increases, call your health care provider. If you were prescribed an antibiotic medicine, take it as told by your health care provider. Do not stop taking the antibiotic even if you start to feel better. This information is not intended to replace advice given to you by your health care provider. Make sure you discuss any questions you have with your health care provider. Document Revised: 03/03/2022 Document Reviewed: 01/30/2021 [employer] Patient Education 2022 [employer]. Follow Up Care 05/17/2023 10:12:38 With:Spike RICHARDSON MD, URL Address: [facility] [address] [place] [address]- [phone] When: Unknown Comments:sched Botox w/ UD [facility] 02-07-2023 Hospital Discharg e instructions Follow Up Care 02/07/2023 14:01:47 With:Spike RICHARDSON MD, URL Address: [facility] [address] [place] [address]- When: Unknown Comments:Sched Cysto/UD [facility] 12-15-2022 Procedure note [facility] 08-27-2022 Note [id number] History of Presen t illness Narrative Patient discharged home with documented belongings. All lines removed. Discharged instructions provided and all questions answered Neurosurgery JONAS/Resident Daily Progress Note No chief complaint on file. 08/08/2022 9:01 AM Chart reviewed. No acute events overnight. Voice soft this AM. States I lost my voice last night . Appears more comfortable today. Vitals: 08/07/22 2000 08/08/22 0000 08/08/22 0400 08/08/22 0416 BP: 126/72 137/79 (!) 147/95 (!) 147/95 Pulse: 86 84 87 93 Resp: 15 20 Temp: 98.7 F (37.1 C) 98.8 F (37.1 C) 97.5 F (36.4 C) TempSrc: Oral Oral Oral SpO2: 97% 95% 97% Weight: Height: PE: AOx3 Motor L deltoid 5/5; R deltoid 5/5 L biceps 5/5; R biceps 5/5 L triceps 5/5; R triceps 5/5 L wrist extension 5/5; R wrist extension 5/5 L intrinsics 5/5; R intrinsics 5/5 L iliopsoas 5/5 , R iliopsoas 5/5 L quadriceps 5/5; R quadriceps 5/5 L Dorsiflexion 5/5; R dorsiflexion 5/5 L Plantarflexion 5/5; R plantarflexion 5/5 L EHL 5/5; R EHL 5/5 Sensation intact Incision anterior and posterior sites dry Lab Results Component Value Date WBC 6.4 08/06/2022 HGB 11.6 (L) 08/06/2022 HCT 36.8 08/06/2022 PLT 198 08/06/2022 ALT 14 02/06/2019 AST 20 02/06/2019 NA 141 08/06/2022 K 4.2 08/06/2022 CL 111 (H) 08/06/2022 CREATININE 0.70 08/06/2022 BUN 14 08/06/2022 CO2 19 (L) 08/06/2022 TSH 1.320 02/06/2019 INR 1.0 07/22/2022 A/P Cervical stenosis with myelopathy POD 3 s/p anterior cervical discectomy and osteophytectomy at C3-4 with arthroplasty device at C3-4 and posterior cervical hinge expansion laminoplasty at C3, C4, C5, C6 - soft collar for comfort - activity as tolerated, PT and OT - pain control, bowel regimen - encourage IS - SCDs and lovenox for DVT prophylaxis - possible discharge later today Please contact neurosurgery with any changes in patients neurologic status. Jack Morales CNP 08/08/22 9:01 AM Associated attestation - Collette Banda DO - 08/08/2022 12:21 PM EST I have seen and examined the patient independently. I reviewed all laboratory and imaging studies that are relevant. I agree with the JONAS note with the below addendum. Significant hoarseness not present yesterday. Minimal dysphagia No focal neuro deficits. The patient overall natural history of hoarseness and recurrent laryngeal nerve palsy status post anterior approach. At this point there is no immediate work-up or intervention warranted. We will place the patient on the 2 weeks prednisone taper and monitor. If she is refractory at the 2 to 3-month hernandez can consider ENT referral. Counseled her on use of the soft collar only for comfort as well as minimization of lifting more than 10 to 15 pounds and limiting bending and twisting. Okay for discharge today Collette Banda DO Neurosurgery O: [phone] C: [phone] Neurosurgery JONAS/Resident Daily Progress Note No chief complaint on file. 08/07/2022 3:16 PM Chart reviewed. No acute events overnight. Complaining of left eye blurry vision. States that she was having some intermittent blurriness prior to surgery. Will have her follow up with her paradi operator after discharge. Complaining of incisional pain mostly while getting out of bed. Tolerating oral diet. Passing flatus. Vitals: 08/07/22 0917 08/07/22 1116 08/07/22 1205 08/07/22 1422 BP: 137/80 Pulse: 71 85 Resp: 10 12 15 16 Temp: 97.7 F (36.5 C) TempSrc: Oral SpO2: 92% 97% Weight: Height: PE: AOx3 Motor L deltoid 5/5; R deltoid 5/5 L biceps 5/5; R biceps 5/5 L triceps 5/5; R triceps 5/5 L wrist extension 5/5; R wrist extension 5/5 L intrinsics 5/5; R intrinsics 5/5 L iliopsoas 5/5 , R iliopsoas 5/5 L quadriceps 5/5; R quadriceps 5/5 L Dorsiflexion 5/5; R dorsiflexion 5/5 L Plantarflexion 5/5; R plantarflexion 5/5 L EHL 5/5; R EHL 5/5 Sensation intact Drain output Posterior LUIS ANGEL 30 ml/12h Incision anterior and posterior sites dry Lab Results Component Value Date WBC 6.4 08/06/2022 HGB 11.6 (L) 08/06/2022 HCT 36.8 08/06/2022 PLT 198 08/06/2022 ALT 14 02/06/2019 AST 20 02/06/2019 NA 141 08/06/2022 K 4.2 08/06/2022 CL 111 (H) 08/06/2022 CREATININE 0.70 08/06/2022 BUN 14 08/06/2022 CO2 19 (L) 08/06/2022 TSH 1.320 02/06/2019 INR 1.0 07/22/2022 Radiology XR CERVICAL SPINE (2-3 VIEWS) Result Date: 08/06/2022 EXAMINATION: 2 XRAY VIEWS OF THE CERVICAL SPINE 08/06/2022 4:27 am COMPARISON: Preop cervical spine MRI dated 06/17/2022. HISTORY: ORDERING SYSTEM PROVIDED HISTORY: followup postop; UPRIGHT AP AND LATERAL TECHNOLOGIST PROVIDED HISTORY: followup postop; UPRIGHT AP AND LATERAL followup postop; UPRIGHT AP AND LATERAL Reason for Exam: post op upright port FINDINGS: Vertebral body heights are normal. Alignment is noted for minor grade 1 anterolisthesis of C3 on C4 new compared to preop. Alignment is otherwise normal correcting the preop reversal of the normal cervical lordosis. A disc prosthesis is present at the C3-4 level. Left unilateral plate and screw fusion has been performed from C3-4 to C6-7. Surgical drains have been placed anteriorly and posteriorly. The anterior drain is at the right lateral aspect and does not enter the pre-spinal soft tissues which are thickened. Prevertebral soft tissue thickening or fluid accumulation with no drain in place. Posterior drain in place and expected postop changes noted. Skin paris in place. Cervical spine postop changes as detailed above. XR CERVICAL SPINE FLEXION AND EXTENSION Result Date: 08/06/2022 EXAMINATION: XRAY VIEWS OF THE CERVICAL SPINE 08/06/2022 1:37 pm COMPARISON: Same-day cervical radiographs. HISTORY: ORDERING SYSTEM PROVIDED HISTORY: post op TECHNOLOGIST PROVIDED HISTORY: post op Reason for Exam: post op FINDINGS: Cervical spine: There is mild straightening of cervical lordosis. Vertebral body heights are well preserved. No concerning lytic or sclerotic lesions are identified. Changes related to discectomy and instrumented endplate metallic device placement at C3-C4.. Changes related to instrumented posterior fusion at C3-C4, C4-C5, C5-C6 and C6-C7. Grade 1 anterolisthesis at C3-C4. No dynamic instability on flexion extension images. The atlantodental alignment is congruent. Drains are noted within posterior paraspinal soft tissues. No dynamic instability on flexion extension images. Grade 1 anterolisthesis at C3-C4. Postsurgical changes and postsurgical drains as described. A/P Cervical stenosis with myelopathy POD 2 s/p anterior cervical discectomy and osteophytectomy at C3-4 with arthroplasty device at C3-4 and posterior cervical hinge expansion laminoplasty at C3, C4, C5, C6 - soft collar for comfort - activity as tolerated, PT and OT - pain control-start motrin today, bowel regimen - encourage IS - SCDs and lovenox for DVT prophylaxis - discontinue posterior drain today - likely discharge tomorrow if pain better controlled Please contact neurosurgery with any changes in patients neurologic status. Jack Morales CNP 08/07/22 3:16 PM Associated attestation - Collette Banda DO - 08/07/2022 3:37 PM EST I have seen and examined the patient independently. I reviewed all laboratory and imaging studies that are relevant. I agree with the resident's note with the below addendum. C/o poorly controlled pain. Intact. Some blurry vision L eye. Cdi Dc drain Add nsaids, mobilize, outpatient eval ophtho as appears chronic issue per patient Collette Banda DO Neurosurgery O: [phone] C: [phone] Physical Therapy Facility/Department: [address] [place] Physical Therapy daily treatment note Name: Rina Lee : 1960 Date of Service: 08/07/2022 Discharge Recommendations: Patient would benefit from continued therapy after discharge PT Equipment Recommendations Equipment Needed: Yes Mobility Devices: Walker Walker: Rolling Patient Diagnosis(es): There were no encounter diagnoses. 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 Past Surgical History: has a past surgical history that includes Cystourethroscopy/Urethral Dilation (07/04/1982); Tonsillectomy; Appendectomy; cyst removal; Hysterectomy; Breast reduction surgery (Bilateral); back surgery; lumbar discectomy; lipoma resection (11/09/2012); Nerve Block (06/04/2013); Nerve Block (06/913); Nerve Block (06/18/2013); Nerve Block (08/06/2013); Nerve Block (Right, 08/20/2013); Cholecystectomy; Nerve Block (Right, 10/12/2013); Nerve Block (Right, 11/20/2013); Nerve Block (12/21/2013); Mikaela-en-Y Gastric Bypass (2016); Muscle biopsy; Cervical spine surgery (N/A, 08/05/2022); Cervical laminoplasty (N/A, 08/05/2022); cervical fusion (N/A, 08/05/2022); and cervical fusion (N/A, 08/05/2022). Assessment Body Structures, Functions, Activity Limitations Requiring Skilled Therapeutic Intervention: Decreased functional mobility ;Decreased strength;Decreased ADL status;Decreased endurance;Decreased balance Assessment: Pt amb 45 ft with RW and CGA. Pt primarily limtied by fear of movement provocking pain, needs reassurance. Pt will benefit from continued acute PT to address deficits. Therapy Prognosis: Good Activity Tolerance Activity Tolerance: Patient limited by pain Plan Physcial Therapy Plan General Plan: 6-7 times per week Current Treatment Recommendations: Strengthening, Balance training, Functional mobility training, Transfer training, Endurance training, Stair training, Neuromuscular re-education, Gait training, Safety education & training, Home exercise program, Patient/Caregiver education & training, Equipment evaluation, education, & procurement, Therapeutic activities Safety Devices Type of Devices: Gait belt, Patient at risk for falls, Call light within reach, Left in chair, Nurse notified Restraints Restraints Initially in Place: No Restrictions Restrictions/Precautions Restrictions/Precautions: Surgical Protocols Required Braces or Orthoses?: Yes Required Braces or Orthoses Cervical: soft Position Activity Restriction Other position/activity restrictions: Amb pt, Activity as Tolerates, Soft Collar for Comfort. 08/05/22 - ANTERIOR C3-4 ARTHROPLASTY, POSTERIOR C3-7 LAMINOPLASTY. Subjective General Patient assessed for rehabilitation services?: Yes Response To Previous Treatment: Patient with no complaints from previous session. Family / Caregiver Present: No Follows Commands: Within Functional Limits Subjective Subjective: Pt resting in bed upon arrival, reports 6/10 neck pain, recently taken pain meds. Agreeable to PT, very anxious re: increased pain with mobility. Cognition Orientation Overall Orientation Status: Within Functional Limits Objective Bed mobility Rolling to Left: Stand by assistance Supine to Sit: Stand by assistance Scooting: Stand by assistance Bed Mobility Comments: Increased time to complete, good demo of log rolling Transfers Sit to Stand: Contact guard assistance Stand to Sit: Contact guard assistance Ambulation Surface: Level tile Device: Rolling Walker Assistance: Contact guard assistance Quality of Gait: extremely slow sulema, decreased step height and length, several standing rest breaks Distance: 45 ft Comments: cues for breathing throughout due to increased anxiety and pain More Ambulation?: No Balance Posture: Fair Sitting - Static: Fair;+ Sitting - Dynamic: Fair;+ Standing - Static: Fair Standing - Dynamic: Fair Comments: Standing balance assessed w/ RW Exercise Seated LE exercise program: Long Arc Quads, hip abduction/adduction, heel/toe raises, and marches. Reps: 15x AM-PAC Score AM-PAC Inpatient Mobility Raw Score : 17 (08/07/221445) AM-PAC Inpatient T-Scale Score : 42.13 (08/07/221445) Mobility Inpatient CMS 0-100% Score: 50.57 (08/07/221445) Mobility Inpatient CMS G-Code Modifier : CK (08/07/221445) Goals Short Term Goals Time Frame for Short Term Goals: 14 visits Short Term Goal 1: Pt will amb 300' IND Short Term Goal 2: Pt will be IND in all bed mobility tasks Short Term Goal 3: Pt will be IND in transfers Short Term Goal 4: Pt will be CGA in negotiation of 4 steps with L rail use Additional Goals?: No Therapy Time Individual Concurrent Group Co-treatment Time In 1120 Time Out 1151 Minutes 31 Timed Code Treatment Minutes: 31 Minutes Jannette Arevalo PTA Occupational Therapy Facility/Department: [address] [facility] Occupational Therapy Initial Assessment Name: Rina Lee : 1960 Date of Service: 08/06/2022 Discharge Recommendations: Patient would benefit from continued therapy after discharge OT Equipment Recommendations Equipment Needed: Yes Mobility Devices: Walker;ADL Assistive Devices Walker: Rolling ADL Assistive Devices: Electrical Transmission Engineer;Long-handled Shoe Horn;Long-handled Sponge;Sock-Aid Hard Patient Diagnosis(es): There were no encounter diagnoses. 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 Past Surgical History: has a past surgical history that includes Cystourethroscopy/Urethral Dilation (07/04/1982); Tonsillectomy; Appendectomy; cyst removal; Hysterectomy; Breast reduction surgery (Bilateral); back surgery; lumbar discectomy; lipoma resection (11/09/2012); Nerve Block (06/04/2013); Nerve Block (06/913); Nerve Block (06/18/2013); Nerve Block (08/06/2013); Nerve Block (Right, 08/20/2013); Cholecystectomy; Nerve Block (Right, 10/12/2013); Nerve Block (Right, 11/20/2013); Nerve Block (12/21/2013); Mikaela-en-Y Gastric Bypass (2016); Muscle biopsy; Cervical spine surgery (N/A, 08/05/2022); Cervical laminoplasty (N/A, 08/05/2022); cervical fusion (N/A, 08/05/2022); and cervical fusion (N/A, 08/05/2022). Assessment Performance deficits / Impairments: Decreased functional mobility ;Decreased ADL status;Decreased endurance;Decreased strength;Decreased balance;Decreased high-level IADLs;Decreased fine motor control Assessment: Pt completed supine to sit bed mobility transfer, functional sit<>stand transfers, and functional mobility with CGA and LRD PRN. Pt significantly limited by pain. OT facilitated LB dressing seated EOB and pt completed with SBA to don socks, increased effort d/t pain. Completed oral hygiene and washed faced seated at recliner with Mod IND, increased time d/t pain. Pt is expected to require skilled OT services during their acute hospitalization stay to address the above noted deficits through skilled occupational therapy intervention for promotion of increased independence throughout ADLs, IADLs and functional mobility tasks. Prognosis: Good Decision Making: Medium Complexity REQUIRES OT FOLLOW-UP: Yes Activity Tolerance Activity Tolerance: Patient limited by pain Plan Occupational Therapy Plan Times Per Week: 2-3x/wk Current Treatment Recommendations: Balance training, Functional mobility training, Endurance training, Safety education & training, Patient/Caregiver education & training, Equipment evaluation, education, & procurement, Self-Care / ADL, Home management training Restrictions Restrictions/Precautions Restrictions/Precautions: General Precautions Required Braces or Orthoses?: Yes Required Braces or Orthoses Cervical: soft Position Activity Restriction Other position/activity restrictions: Amb pt, Activity as Tolerates, Soft Collar for Comfort. 08/05/22 - ANTERIOR C3-4 ARTHROPLASTY, POSTERIOR C3-7 LAMINOPLASTY. Subjective General Patient assessed for rehabilitation services?: Yes Family / Caregiver Present: No General Comment Comments: RN ok'd for OT/PT eval this AM. Pt agreeable to session, pleasent/cooperative throughout. Pt reports 5-6/10 pain, just adminstered medication upon therapists arrival. Social/Functional History Social/Functional History Lives With: Spouse Type of Home: House Home Layout: One level Home Access: Stairs to enter with rails Entrance Stairs - Number of Steps: 4 Entrance Stairs - Rails: Left Bathroom Shower/Tub: Walk-in shower Bathroom Toilet: Handicap height Bathroom Equipment: Shower chair, Grab bars in shower (Has a back on it) Bathroom Accessibility: Accessible Home Equipment: Cane, Cane, quad (No AD at baseline) Has the patient had two or more falls in the past year or any fall with injury in the past year?: Yes (Last 6-8 weekks, pt reports about 4 falls. 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 Independent supported sitting in recliner for ADLs.) Standing: With support (CGA for ~1 min of static standing EOB with RW for mobility prep. BUE support on RW.) Gait Overall Level of Assistance: Contact-guard assistance;Additional time;Adaptive equipment;Assist X1 (EOB->recliner. Declined further d/t pain. Use of RW. Slow mobility, but no LOB.) AROM: Generally decreased, functional (Shoulders tested 0-90 d/t collar/sx. Distal to shoulders WFL.) Strength: Generally decreased, functional (Not formally assessed d/t collar/sx, but pt demonstrates decreased functional strength throughout.) Coordination: Generally decreased, functional (Decreased BUE FMC.) Tone: Normal Sensation: Intact (Denies any numbness/tingling) ADL Feeding: Setup;Modified independent ;Increased time to complete Grooming: Modified independent ;Setup;Increased time to complete Grooming Skilled Clinical Factors: Pt completed oral hygiene and washed face seated. Increased time d/t pain and decreased FMC. UE Bathing: Minimal assistance;Verbal cueing;Setup;Increased time to complete LE Bathing: Minimal assistance;Verbal cueing;Setup;Increased time to complete UE Dressing: Minimal assistance;Verbal cueing;Setup;Increased time to complete LE Dressing: Contact guard assistance;Setup;Verbal cueing;Increased time to complete LE Dressing Skilled Clinical Factors: Pt donned socks with SBA for balance EOB w/ increaesd time/effort and use of figure four tech. Expected CGA if completing standing LB tasks. Toileting: Minimal assistance;Increased time to complete;Setup Activity Tolerance Activity Tolerance: Patient limited by pain;Patient limited by fatigue;Patient limited by endurance Activity Tolerance Comments: Pt limited by pain, rated as 5-6/10 (pt conversational throughout). Will continue to improve amb distance. Bed mobility Supine to Sit: Contact guard assistance Sit to Supine: Contact guard assistance Scooting: Contact guard assistance Bed Mobility Comments: HOB ~25 degrees which was decreased from ~40 w/ encouragement to try with HOB as flat as possible to mimic home setup. Pt utilized log roll tech. Increased effort d/t pain. Transfers Sit to stand: Contact guard assistance Stand to sit: Contact guard assistance Transfer Comments: Use of RW Vision Vision: Impaired (Pt reports new onset blurriness in vision this AM. Pt states that L eye is more blurry than R eye. pt notified RN of new onset blurriness.) Vision Exceptions: Wears glasses at all times Hearing Hearing: Exceptions to WFL Cognition Overall Cognitive Status: WFL Orientation Overall Orientation Status: Within Functional Limits Education Provided Comments: Pt educated on OT role, OT POC, activity promotion, transfer training, safety awareness, walker management, use of rest breaks-good return AM-PAC Score AM-[facility] Inpatient Daily Activity Raw Score: 20 (08/06/22 6573) AM-PAC Inpatient ADL T-Scale Score : 42.03 (08/06/221632) ADL Inpatient CMS 0-100% Score: 38.32 (08/06/221632) ADL Inpatient CMS G-Code Modifier : CJ (08/06/221632) Goals Short Term Goals Time Frame for Short Term Goals: By discharge, pt will: Short Term Goal 1: Demo functional sit<>stand transfers and functional mobility with SUP and LRD PRN Short Term Goal 2: Demo 8 minutes of dynamic standing balance with unilateral hand release and SBA to promote increased independence throughout ADLs Short Term Goal 3: Demo UB ADLs with Mod IND Short Term Goal 4: Demo LB ADLs/toileting with SUP and use of DME PRN Short Term Goal 5: Demo 25 minutes of functional activity tolerance to promote increased endurance throughout ADLs/IADLs Therapy Time Individual Concurrent Group Co-treatment Time In 953 Time Out 1035 Minutes 41 Timed Code Treatment Minutes: 15 Minutes Brisa Wilson OTR/L Physical Therapy Facility/Department: [address] [facility] Physical Therapy Initial Assessment Name: Rina Lee : 1960 Date of Service: 08/06/2022 No chief complaint on file. 08/05/22 - ANTERIOR C3-4 ARTHROPLASTY, POSTERIOR C3-7 LAMINOPLASTY. Discharge Recommendations: Further therapy recommended at discharge. PT Equipment Recommendations Equipment Needed: No Patient Diagnosis(es): There were no encounter diagnoses. 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 Past Surgical History: has a past surgical history that includes Cystourethroscopy/Urethral Dilation (07/04/1982); Tonsillectomy; Appendectomy; cyst removal; Hysterectomy; Breast reduction surgery (Bilateral); back surgery; lumbar discectomy; lipoma resection (11/09/2012); Nerve Block (06/04/2013); Nerve Block (06/913); Nerve Block (06/18/2013); Nerve Block (08/06/2013); Nerve Block (Right, 08/20/2013); Cholecystectomy; Nerve Block (Right, 10/12/2013); Nerve Block (Right, 11/20/2013); Nerve Block (12/21/2013); Mikaela-en-Y Gastric Bypass (2017); Muscle biopsy; Cervical spine surgery (N/A, 08/05/2022); Cervical laminoplasty (N/A, 08/05/2022); cervical fusion (N/A, 08/05/2022); and cervical fusion (N/A, 08/05/2022). Assessment Body Structures, Functions, Activity Limitations Requiring Skilled Therapeutic Intervention: Decreased functional mobility ;Decreased strength;Decreased ADL status;Decreased endurance;Decreased balance Assessment: Pt amb 3' CGA w/ RW. Pt primarily limtied by fear of movement provocking pain, needs reassurance. Pt will benefit from continued acute PT to address deficits. Therapy Prognosis: Good Decision Making: Medium Complexity Requires PT Follow-Up: Yes Activity Tolerance Activity Tolerance: Patient limited by pain;Patient limited by fatigue;Patient limited by endurance Activity Tolerance Comments: Pt limited by pain, rated as 5-6/10 (pt conversational throughout). Will continue to improve amb distance. Plan Physcial Therapy Plan General Plan: (6-7x/wk) Current Treatment Recommendations: Strengthening, Balance training, Functional mobility training, Transfer training, Endurance training, Stair training, Neuromuscular re-education, Gait training, Safety education & training, Home exercise program, Patient/Caregiver education & training, Equipment evaluation, education, & procurement, Therapeutic activities Safety Devices Type of Devices: Gait belt, Patient at risk for falls, Call light within reach, All fall risk precautions in place, Left in chair, Nurse notified Restraints Restraints Initially in Place: No Restrictions Restrictions/Precautions Restrictions/Precautions: General Precautions Required Braces or Orthoses?: Yes Required Braces or Orthoses Cervical: soft Position Activity Restriction Other position/activity restrictions: Amb pt, Activity as Tolerates, Soft Collar for Comfort. 08/05/22 - ANTERIOR C3-4 ARTHROPLASTY, POSTERIOR C3-7 LAMINOPLASTY. Subjective General Chart Reviewed: Yes Patient assessed for rehabilitation services?: Yes Response To Previous Treatment: Not applicable Family / Caregiver Present: No Follows Commands: Within Functional Limits General Comment Comments: RN and pt agreeable to PT. Pt alert in be upon arrival. Co-Eval w/ OT Subjective Subjective: Pt reports 5-6/10 pain in the neck and L shoulder. reports n/t in bilateral fingers, R worse than L. L Sciatica that is intermittent. Social/Functional History Social/Functional History Lives With: Spouse Type of Home: House Home Layout: One level Home Access: Stairs to enter with rails Entrance Stairs - Number of Steps: 4 Entrance Stairs - Rails: Left Bathroom Shower/Tub: Walk-in shower Bathroom Toilet: Handicap height Bathroom Equipment: Shower chair, Grab bars in shower (Has a back on it) Bathroom Accessibility: Accessible Home Equipment: Cane, Cane, quad (No AD at baseline) Has the patient had two or more falls in the past year or any fall with injury in the past year?: Yes (Last 6-8 weekks, pt reports about 4 falls. 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 Pt states that L eye is more blurry than R eye. pt notified RN of new onset blurriness.) Vision Exceptions: Wears glasses at all times Hearing Hearing: Exceptions to WFL Hearing Exceptions: ( Horrible tinnitus ) Cognition Orientation Overall Orientation Status: Within Functional Limits Cognition Overall Cognitive Status: WFL Objective AROM RLE (degrees) RLE AROM: WFL AROM LLE (degrees) LLE AROM : WFL AROM RUE (degrees) RUE General AROM: See OT AROM LUE (degrees) LUE General AROM: See OT Strength RLE Strength RLE: WFL Comment: Pt grossly 4+/5, hip flexion 4/5 Strength LLE Strength LLE: WFL Comment: Pt grossly 4+/5, hip flexion 4/5 Strength RUE Comment: See OT Strength LUE Comment: See OT Bed mobility Supine to Sit: Contact guard assistance Sit to Supine: Contact guard assistance Bed Mobility Comments: HOB 25 degrees Transfers Sit to Stand: Contact guard assistance Stand to Sit: Contact guard assistance Comment: Performed w/ RW Ambulation Surface: Level tile Device: Rolling Walker Assistance: Contact guard assistance Quality of Gait: Pt amb with decreased gait speed, decreased step length CIERA decreased, anterior trunk lean throughout. Distance: 4' More Ambulation?: No Stairs/Curb Stairs?: No Balance Posture: Fair Sitting - Static: Fair;+ Sitting - Dynamic: Fair;+ Standing - Static: Fair Standing - Dynamic: Fair Comments: Standing balance assessed w/ RW AM-PAC Score AM-PAC Inpatient Mobility Raw Score : 17 (08/06/221308) AM-PAC Inpatient T-Scale Score : 42.13 (08/06/221308) Mobility Inpatient CMS 0-100% Score: 50.57 (08/06/221308) Mobility Inpatient CMS G-Code Modifier : CK (08/06/221308) Goals Short Term Goals Time Frame for Short Term Goals: 14 visits Short Term Goal 1: Pt will amb 300' IND Short Term Goal 2: Pt will be IND in all bed mobility tasks Short Term Goal 3: Pt will be IND in transfers Short Term Goal 4: Pt will be CGA in negotiation of 4 steps with L rail use Additional Goals?: No Education Patient Education Education Given To: Patient Education Provided: Role of Therapy;Plan of Care Education Method: Verbal;Demonstration Barriers to Learning: None Education Outcome: Verbalized understanding;Demonstrated understanding Therapy Time Individual Concurrent Group Co-treatment Time In 954 Time Out 1035 Minutes 40 Timed Code Treatment Minutes: 23 Minutes ANNIKA Dawson This treatment/evaluation completed by signing SPT. Signing PT agrees with treatment and documentation. Neurosurgery JONAS/Resident Daily Progress Note No chief complaint on file. 08/06/2022 9:53 AM Chart reviewed. No acute events overnight. Complaining of some blurry vision this AM. Pain regimen changed due to poor pain control. Fitted for soft collar. Tolerating oral diet. Vitals: 08/06/22 0020 08/06/22 0401 08/06/22 0757 08/06/22 0854 BP: 108/70 128/75 132/80 Pulse: 73 81 80 Resp: 13 18 15 16 Temp: 97.5 F (36.4 C) 98 F (36.7 C) 98.4 F (36.9 C) TempSrc: Oral Oral Oral SpO2: 99% 100% 100% Weight: Height: PE: AOx3 Motor L deltoid 5/5; R deltoid 5/5 L biceps 5/5; R biceps 5/5 L triceps 5/5; R triceps 5/5 L wrist extension 5/5; R wrist extension 5/5 L intrinsics 5/5; R intrinsics 5/5 L iliopsoas 5/5 , R iliopsoas 5/5 L quadriceps 5/5; R quadriceps 5/5 L Dorsiflexion 5/5; R dorsiflexion 5/5 L Plantarflexion 5/5; R plantarflexion 5/5 L EHL 5/5; R EHL 5/5 Sensation intact Drain output Anterior LUIS ANGEL 20 ml/12h Posterior LUIS ANGEL 120 ml/12h Incision anterior and posterior sites dry Lab Results Component Value Date WBC 6.4 08/06/2022 HGB 11.6 (L) 08/06/2022 HCT 36.8 08/06/2022 PLT 198 08/06/2022 ALT 14 02/06/2019 AST 20 02/06/2019 NA 141 08/06/2022 K 4.2 08/06/2022 CL 111 (H) 08/06/2022 CREATININE 0.70 08/06/2022 BUN 14 08/06/2022 CO2 19 (L) 08/06/2022 TSH 1.320 02/06/2019 INR 1.0 07/22/2022 Radiology XR CERVICAL SPINE (2-3 VIEWS) Result Date: 08/06/2022 EXAMINATION: 2 XRAY VIEWS OF THE CERVICAL SPINE 08/06/2022 4:27 am COMPARISON: Preop cervical spine MRI dated 06/17/2022. HISTORY: ORDERING SYSTEM PROVIDED HISTORY: followup postop; UPRIGHT AP AND LATERAL TECHNOLOGIST PROVIDED HISTORY: followup postop; UPRIGHT AP AND LATERAL followup postop; UPRIGHT AP AND LATERAL Reason for Exam: post op upright port FINDINGS: Vertebral body heights are normal. Alignment is noted for minor grade 1 anterolisthesis of C3 on C4 new compared to preop. Alignment is otherwise normal correcting the preop reversal of the normal cervical lordosis. A disc prosthesis is present at the C3-4 level. Left unilateral plate and screw fusion has been performed from C3-4 to C6-7. Surgical drains have been placed anteriorly and posteriorly. The anterior drain is at the right lateral aspect and does not enter the pre-spinal soft tissues which are thickened. Prevertebral soft tissue thickening or fluid accumulation with no drain in place. Posterior drain in place and expected postop changes noted. Skin paris in place. Cervical spine postop changes as detailed above. A/P Cervical stenosis with myelopathy POD 1 s/p anterior cervical discectomy and osteophytectomy at C3-4 with arthroplasty device at C3-4 and posterior cervical hinge expansion laminoplasty at C3, C4, C5, C6 - soft collar for comfort - activity as tolerated, okay PT and OT - diet as tolerated - pain control and bowel regimen - encourage IS - SCDs and lovenox for DVT prophylaxis - discontinue anterior drain today, continue posterior drain and monitor output - f/u XR cervical flexion/extension Please contact neurosurgery with any changes in patients neurologic status. Jack Morales CNP 08/06/22 9:53 AM Associated attestation - Collette Banda DO - 08/06/2022 11:26 AM EST I have seen and examined the patient independently. I reviewed all laboratory and imaging studies that are relevant. I agree with the resident's note with the below addendum. Out of bed. Diet, soft collar Flex ext Dc ant luis angel Report to Isaura ARANA shift supervisor film processing. Informed of perfect serve to , that it was read, but no one has came to see yet. Perfect serve to Neurosurgery Maximo ASHLEY to inform that patient is having pain. She received fentynal in rec room. Currently when she starts to doze off, her HR goes in the 40's, & her resp goes to 0 to 5. the alarms & her spouse wake her up then her heart rate goes back up to the 80's, & resp 20. Spouse is concerned & states that last time she had a surgery (hysterectomy) she ended up in an icu after she coded when given morphine so had to be given narcan. Her is concerned. Could you come up & talk with them please? Patient transferred to Room 140 from Room pacu . Telemetry applied. Oriented patient to to room and call light. Plan of care reviewed with patient. Call light within reach. Assessment as charted. Vitals taken. Spouse at bedside. Will continue to monitor. Neurosurgery Post op Progress Note SUBJECTIVE: Status post anterior arthroplasty C3-4. Posterior C3-C6 laminoplasty with implants. Patient seen while in recovery room. She very lethargic, sedated. Responds to pain stimuli. Patient having difficult time answering questions due to level of sedation. No nausea, emesis. OBJECTIVE Physical exam VITALS: Vitals: 08/05/22 1400 BP: (!) 143/86 Pulse: 84 Resp: 12 Temp: SpO2: 99% INTAKE: Intake/Output Summary (Last 24 hours) at 08/05/2022 1414 Last data filed at 08/05/2022 1317 Gross per 24 hour Intake 3014.68 ml Output 550 ml Net 2464.68 ml URINARY CATHETER OUTPUT (Ahuja): No Ahuja catheter. DRAIN/TUBE OUTPUT: 2 Elie-Sheets drains from incision sites. Drain from the anterior aspect of the right side of the neck. Second drain from the posterior lateral aspect the cervical spine. Neurological exam reveals Responds to voice and Responds to tactile stimuli Very subtle movements to both upper and lower extremities upon command. She will move her fingers to both hands but will not squeeze. Patient will minimally movement to both big toes upon command. Pupils appear to be slightly constricted but are equal. No focal findings or movement disorder noted, neck supple without rigidity. Both upper and lower extremities weakness noted: Very minimal bilateral hand and foot movement upon command. Wound Post op wound: anterior and posterior cervical spine Dressing to the posterior aspect of the C-spine is clean, dry, and intact. Elie/Sheets drain in place and working. Output is less than 25 mL of blood. No dressing is noted to the anterior incision of the right aspect of the lower neck. There is another drain that is present that has minimal output. Anterior incision site is closed with Dermabond. Posterior incision is closed with paris. Data LABS: Lab Results Component Value Date WBC 4.2 07/22/2022 HGB 13.0 07/22/2022 HCT 39.8 07/22/2022 MCV 97.1 07/22/2022 PLT 200 07/22/2022 Lab Results Component Value Date NA 141 07/22/2022 K 4.0 07/22/2022 CL 113 (H) 07/22/2022 CO2 19 (L) 07/22/2022 Lab Results Component Value Date BUN 12 07/22/2022 Lab Results Component Value Date CREATININE 0.82 07/22/2022 ASSESSMENT AND PLAN 1. Patient will need a secondary neurological survey as sedation wears off. 2. Appropriate antibiotics for 24 hours and analgesics as needed for pain. 3. Activity as tolerated. 4. We will start Lovenox postop day 1. 5. We will obtain standing AP and lateral C-spine x-rays together with lateral flexion and extension today. 6. Noble use of stool softeners. 7. We will closely follow this patient while she remains in house. Has malignant hyperthermia documented in this encounter [facility] [employer] [facility] Work Phone: 08-08-2022 Hospital Discharg e instructions Jack Morales APRN - PRIVATE HOUSEHOLD WORKER - 08/08/2022 12:08 PM EST Images from the original note were not included. Anterior and Posterior Cervical Surgery Discharge Instructions Thank you for choosing [facility] and [facility] for your surgical needs. The following instructions will help to ensure your comfort and that you are well prepared after your surgery. Post-Operative Visit: The office is located at: [facility] [address], [address], main floor [place] [id number] Please also call your primary care physician to schedule an appointment for further evaluation and care. Nutrition: You may resume your regular diet. It is normal to have a sore throat and some difficulty swallowing solid foods. You are able to resume your regular diet, however you may be more comfortable at first eating softer foods such as mashed potatoes, ice cream, jello or soup. Be sure to eat a well-balanced diet. Protein promotes wound healing. Pain medication and decreased activity can cause constipation. Drink 8-10 glasses of water a day, eat fresh fruits and vegetables, and add prunes, raisins and bran cereals to your diet if you do become constipated. A stool softener taken 1-2 times a day is helpful. Dulcolax suppositories or Fleets enemas are also available without a prescription. Call our office if the problem continues. Activity and Exercise: No driving until you are seen in the office. Avoid riding in a car for the first two weeks until you come to the office for your scheduled follow-up. Start taking short, frequent walks in the beginning. [place], more frequent walks throughout the day are more beneficial than one long walk each day. You may gradually increase the distance; as tolerated. Your brace will help give support to your muscles while you walk. If your pain increases, you may be walking too much or too far. Try backing off for a day or two and then resume slowly. No lifting greater than 5 lbs (gallon of milk). No pushing, pulling, or overhead work. If physical therapy has been prescribed, you are not to perform range of motion, flexion, extension or lateral bending. No baths, swimming or hot tub until you discuss this with your doctor. Brace: Wear soft cervical collar as needed for comfort Incision Care and Hygiene: Your incision may be may be closed with sutures, steri-strips, paris, or glue. - The Steri-strips will fall off on their own in 7-10 days - The apris or sutures should be removed about 2 weeks after surgery. If they are not removed please call the clinic to have them removed. - The glue will dissolve over time No ointments, creams, or lotions on the incision It is OK to shower 3-4 days after surgery. Let water run over the incision. Gently pat the incision dry with a clean towel, do not rub. Leave incision site open to air. Pain Management: You will be given a prescription for pain medication. Our hope is that you will eventually be weaned off all pain medications. Try not to take the pain medicine unless you need to. If you feel that you do not need something that strong, you may use regular or extra-strength Tylenol instead. DO NOT drink alcohol, drive or operate heavy machinery while taking your pain medications. Notify the office if your pain is not controlled or you need a medication refill before your appointment. Blood Thinning Medication: If you were previously on any blood thinning medications (Clopidogrel, Warfarin, aspirin, etc.) that haven t been restarted, you may resume in 1 weeks following your surgery. YOU SHOULD CALL THE OFFICE AT [phone] IF YOU HAVE ANY OF THE FOLLOWING: Increased pain or pain not relieved with current medications Increased difficulty with swallowing If you notice any signs of infection such as bleeding, redness, swelling, tenderness, odor, drainage or opening of the incision. Please check your incisions twice daily. Fevers greater than 101.5 degrees Flu-like symptoms, chills, shakes, chest pain, shortness of breath, nausea, vomiting, diarrhea New or increased pain, numbness or tingling in the arms or legs, as well as new or increased balance or coordination issues. New difficulty with urinating or holding your bladder or your bowels *If you are unable to contact someone at the office and your symptoms persist or increase, call 911 or go to the emergency department. documented in this encounter [facility] Phone: 07-22-2022 History of Presen t illness Narrative Anesthesia Focused Assessment Has patient ever tested positive for COVID? Yes, 01/2020. STOP-BANG Sleep Apnea Questionnaire SNORE loudly (heard through closed doors)? No TIRED, fatigued, sleepy during daytime? No OBSERVED stopping breathing during sleep? No High blood PRESSURE being treated? No BMI over 35? No AGE over 50? Yes NECK circumference over 16 ? No GENDER (male)? No Total 1 High risk 5-8 Intermediate risk 3-4 Low risk 0-2 Obstructive Sleep Apnea: denies If YES, machine used: no Type 1 DM: no T2DM: no Coronary Artery Disease: no Hypertension: no Active smoker: no Drinks Alcohol: socially Dentition: benign besides molar caps/crowns Defib / AICD / Pacemaker: no Renal Failure/dialysis: no Patient was evaluated in PAT & anesthesia guidelines were applied. NPO guidelines, medication instructions and scheduled arrival time were reviewed with patient. I advised patient to please contact the surgeon's office, ahead of time if possible, if any new signs or symptoms of illness, infection, rash, etc Hx of anesthesia complications: MALIGNANT HYPERTHERMIA Family hx of anesthesia complications: MALIGNANT HYPERTHERMIA- sister and niece. Medical or cardiac clearance ordered: called Nathalie in anesthesia department and verified that she in on the OR schedule as having MALIGNANT HYPERTHERMIA. Patient says that sister and niece also have MH. Patient is already scheduled as the first case of the day. JAMI COMER PA-C 07/22/22 11:03 AM documented in this encounter [facility] Phone: 07-19-2022 Hospital Discharg e instructions DION Rivas - 07/19/2022 9:03 AM EST Images from the original note were not included. Preoperative Instructions: Stop eating solid foods at midnight the night prior to surgery. Stop drinking clear liquids at midnight the night prior to surgery. Arrive at the surgery center (Entrance B) by 6:00 on 08/05/2022 (or as directed by your surgeon's office). If you have been given a blood band, you must bring it with you the day of surgery. Please stop any blood thinning medications as directed by your surgeon or prescribing physician. Failure to stop certain medications may interfere with your scheduled surgery. These may include: Aspirin, Warfarin (Coumadin), Clopidogrel (Plavix), Ibuprofen (Motrin, Advil), Naproxen (Aleve), Meloxicam (Mobic), Celecoxib (Celebrex), Eliquis, Pradaxa, Xarelto, Effient, Fish Oil, Herbal supplements. You may continue the rest of your medications through the night before surgery unless instructed otherwise. Please take only the following medication(s) the day of surgery with a small sip of water: Prilosec/omeprazole, lyrica Please use and bring inhalers the day of surgery. Please bring CPAP the day of surgery. Signature (Patient) Signature/date(Provider) REMINDERS: If you are going home the day of your procedure, you will need a friend or family member to drive you home after your procedure. Your vibratory pile driver must be 18 years of age or older and able to sign off on your discharge instructions. Taxi cabs or any form of public transportation is not acceptable. It is preferable that the friend or family member stay at the hospital throughout your procedure. If you are going home the same day as your procedure, someone must remain with you for the first 24 hours after your surgery if you receive anesthesia or sedation. If you do not have someone to stay with you, your procedure may be cancelled. Please do not wear any jewelry or body piercings the day of surgery. PREPARING FOR YOUR SURGERY: Before surgery, you can play an important role in your own health. Because skin is not sterile, we need to be sure that your skin is as free of germs as possible before surgery by carefully washing before surgery. Preparing or prepping skin before surgery can reduce the risk of a surgical site infection. Do not shave the area of your body where your surgery will be performed unless you received specific permission from your physician. You will need to shower at home the night before surgery and the morning of surgery with a special soap called chlorhexidine gluconate (CHG*). *Not to be used by people allergic to Chlorhexidine Gluconate (CHG). Following these instructions will help you be sure that your skin is clean before surgery. Instructions on cleaning your skin before surgery: The night before your surgery: You will need to shower with warm water (not hot) and the CHG soap. Use a clean wash cloth and a clean towel. Have clean clothes available to put on after the shower. First wash your hair with regular shampoo. Rinse your hair and body thoroughly to remove the shampoo. Wash your face with your regular soap or water only. Thoroughly rinse your body with warm water from the neck down. Turn water off to prevent rinsing the soap off too soon. With a clean wet washcloth and half of the CHG soap in the bottle, lather your entire body from the neck down. Do not use CHG soap near your eyes or ears to avoid injury to those areas. Wash thoroughly, paying special attention to the area where your surgery will be performed. Wash your body gently for five (5) minutes. Avoid scrubbing your skin too hard. Turn the water back on and rinse your body thoroughly. Pat yourself dry with a clean, soft towel. Do not apply lotion, cream or powder. Dress with clean freshly washed clothes. The morning of surgery: Repeat shower following steps above - using remaining half of CHG soap in bottle. If you have any questions, call the Pre-Admission Testing Unit at [phone]. Day of Surgery/Procedure As a patient at [facility] you can expect quality medical and nursing care that is centered on your individual needs. Our goal is to make your surgical experience as comfortable as possible . Directions to the Surgery Center [facility] is located at [address] [place] [address]. Please pull into the Emergency Room & Surgery Center parking lot (Entrance B) and park in that lot. We also have additional parking across the street. You will enter the facility following the [facility] sign. Please stop at the rn admissions desk where you will be checked in by the staff. If you have any questions please call [phone]. Transportation after your procedure. You will need a friend or family member to drive you home after your procedure. Your vibratory pile driver must be 18 years of age or older and able to sign off on your discharge instructions. Taxi cabs or any form of public transportation is not acceptable. It is preferable that the friend or family member stay at the hospital throughout your procedure. Someone must remain at home with you for the first 24 hours after your surgery if you receive anesthesia or sedation. If you do not have someone to stay with you, your procedure may be cancelled. Patient Instructions If you are having any type of anesthesia you are to have nothing to eat or drink after midnight the night before your surgery. This includes gum, mints, water or smoking or chewing tobacco. The only exception to this is a small sip of water to take with any morning dose of heart, blood pressure, or seizure medications. Bring a list of all medications you take, along with the dose of the medications and how often you take it. If more convenient bring the pharmacy bottles in a zip lock bag. Please shower the night before and the morning of surgery with an antibacterial soap. Please use the wipes given to you the night before your surgery after your shower. Unless otherwise told by your physician, please do not shave legs or any part of your body below your neck the night before or day of your surgery. You may shave your face or neck. [place] your teeth but do not swallow water. Bring your inhaler if you are currently using one. Bring your eyeglasses and case with you. No contacts are to be worn the day of surgery. You also may bring your hearing aids. Bring your blood band if one has been given to you. Please do not close the clasp. If you are on C-PAP or Bi-PAP at home and plan on staying in the hospital overnight for your surgery please bring the machine with you. Do not wear any jewelry or body piercings day of surgery. Also, NO lotion, perfume or deodorant to be used the day of surgery. Do not bring any valuables, such as jewelry, diez or credit cards. If you are staying overnight with us, please bring a SMALL bag of personal items. We cannot accommodate large items, like suitcases. Please wear loose, comfortable clothing. If you are potentially going to have a cast or brace bring clothing that will fit over them. In case of illness - If you have cold or flu like symptoms (high fever, runny nose, sore throat, cough, etc.) rash, nausea, vomiting, loose stools, and/or recent contact with someone who has a contagious disease (chicken pox, measles, etc.) Please call your doctor before coming to the hospital. If your child is having surgery please make arrangements for any other children to be cared for at home on the day of surgery. Other children are not permitted in recovery room and we want you to be able to spend time with the patient. If other arrangements are not available then we suggest that you have a second adult to stay in the waiting room. If you have any other questions regarding your procedure or the day of surgery, please call [phone], or [phone] documented in this encounter [facility] Phone: 12-05-2021 Note Education Materials Cardiovascular Hypertension, Adult Your blood pressure was noted to be elevated here in the emergency room. Monitor your blood pressure and follow-up with your primary care physician to review those readings. Return to the emergency department for any worsening symptoms. Hypertension is another name for high blood pressure. High blood pressure forces your heart to work harder to pump blood. This can cause problems over time. There are two numbers in a blood pressure reading. There is a top number (systolic) over a bottom number (diastolic). It is best to have a blood pressure that is below 120/80. Healthy choices can help lower your blood pressure, or you may need medicine to help lower it. What are the causes? The cause of this condition is not known. Some conditions may be related to high blood pressure. What increases the risk? ? Smoking. ? Having type 2 diabetes mellitus, high cholesterol, or both. ? Not getting enough exercise or physical activity. ? Being overweight. ? Having too much fat, sugar, calories, or salt (sodium) in your diet. ? Drinking too much alcohol. ? Having long-term (chronic) kidney disease. ? Having a family history of high blood pressure. ? Age. Risk increases with age. ? Race. You may be at higher risk if you are . ? Gender. Men are at higher risk than women before age 45. After age 65, women are at higher risk than men. ? Having obstructive sleep apnea. ? Stress. What are the signs or symptoms? ? High blood pressure may not cause symptoms. Very high blood pressure (hypertensive crisis) may cause: ? Headache. ? Feelings of worry or nervousness (anxiety). ? Shortness of breath. ? Nosebleed. ? A feeling of being sick to your stomach (nausea). ? Throwing up (vomiting). ? Changes in how you see. ? Very bad chest pain. ? Seizures. How is this treated? ? This condition is treated by making healthy lifestyle changes, such as: ? Eating healthy foods. ? Exercising more. ? Drinking less alcohol. ? Your health care provider may prescribe medicine if lifestyle changes are not enough to get your blood pressure under control, and if: ? Your top number is above 130. ? Your bottom number is above 80. ? Your personal target blood pressure may vary. Follow these instructions at home: Eating and drinking ? If told, follow the DASH eating plan. To follow this plan: ? Fill one half of your plate at each meal with fruits and vegetables. ? Fill one fourth of your plate at each meal with whole grains. Whole grains include whole-wheat pasta, brown rice, and whole-grain bread. ? Eat or drink low-fat dairy products, such as skim milk or low-fat yogurt. ? Fill one fourth of your plate at each meal with low-fat (lean) proteins. Low-fat proteins include fish, chicken without skin, eggs, beans, and tofu. ? Avoid fatty meat, cured and processed meat, or chicken with skin. ? Avoid pre-made or processed food. ? Eat less than 1,500 mg of salt each day. ? Do not drink alcohol if: ? Your doctor tells you not to drink. ? You are , may be , or are planning to become . ? If you drink alcohol: ? Limit how much you use to: ? 0?1 drink a day for women. ? 0?2 drinks a day for men. ? Be aware of how much alcohol is in your drink. In the [place] one drink equals one 12 oz bottle of beer (355 mL), one 5 oz glass of wine (148 mL), or one 1? oz glass of hard liquor (44 mL). Lifestyle ? Work with your doctor to stay at a healthy weight or to lose weight. Ask your doctor what the best weight is for you. ? Get at least 30 minutes of exercise most days of the week. This may include walking, swimming, or biking. ? Get at least 30 minutes of exercise that strengthens your muscles (resistance exercise) at least 3 days a week. This may include lifting weights or doing Pilates. ? Do not use any products that contain nicotine or tobacco, such as cigarettes, e-cigarettes, and chewing tobacco. If you need help quitting, ask your doctor. ? Check your blood pressure at home as told by your doctor. ? Keep all follow-up visits as told by your doctor. This is important. Medicines ? Take notd-ssm-fwzqyne and prescription medicines only as told by your doctor. Follow directions carefully. ? Do not skip doses of blood pressure medicine. The medicine does not work as well if you skip doses. Skipping doses also puts you at risk for problems. ? Ask your doctor about side effects or reactions to medicines that you should watch for. Contact a doctor if you: ? Think you are having a reaction to the medicine you are taking. ? Have headaches that keep coming back (recurring). ? Feel dizzy. ? Have swelling in your ankles. ? Have trouble with your vision. Get help right away if you: ? Get a very bad headache. ? Start to feel mixed up (confused). ? Feel weak or numb. ? (more content not included)... [facility] Evaluation + Plan note Future Appointments Appointment Date:07/12/2023 07:30:00 AM Scheduled Provider:Spike RICHARDSON MD Location:[facility] Appointment Type:URO Procedure 15 min [facility] Evaluation + Plan note Future Appointments Appointment Date:08/30/2023 07:45:00 AM Scheduled Provider: Location:[facility] Appointment Type:Urology CALL PAT FT Appointment Date:09/06/2023 09:30:00 AM Scheduled Provider: Location:[facility] Appointment Type:URO Nurse Visit Appointment Date:09/13/2023 09:00:00 AM Scheduled Provider: Location:[facility] Appointment Type:Urology FT Appointment Date:09/28/2023 09:15:00 AM Scheduled Provider:CAM CHAN PA-C Location:[facility] Appointment Type:URO [facility] Plan note Future Appointments Appointment Date:09/28/2023 09:20:00 AM Scheduled Provider:CAM CHAN PA-C Location:[facility] Appointment Type:URO Office Visit Appointment Date:10/18/2023 01:00:00 PM Scheduled Provider:Spike RICHARDSON MD [facility] Appointment Type:URO Procedure [address] [facility] Evaluation + Plan note Future Appointments Appointment Date:10/18/2023 01:00:00 PM Scheduled Provider:Spike RICHARDSON MD Location:[facility] Appointment Type:URO Procedure 15 min [facility] Evaluation + Plan note Future Appointments Appointment Date:10/18/2023 01:00:00 PM Scheduled Provider:Spike RICHARDSON MD [facility] Appointment Type:URO Procedure 15 min Diagnostic Tests PendingUrine Culture 09/28/23 [facility] Evaluation + Plan note Future Appointments Appointment Date:02/01/2024 10:30:00 AM Scheduled Provider:Spike RICHARDSON MD Location:[facility] Appointment Type:URO Office Visit [facility] Evaluation + Plan note Future Appointments Appointment Date:02/01/2024 10:30:00 AM Scheduled Provider:Spike RICHARDSON MD [facility] Appointment Type:URO Office Visit Diagnostic Tests PendingUrine Culture 12/14/23 [facility] Evaluation note Diagnosis Stenosis of cervical spine with myelopathy (HCC) documented in this encounter [facility] Phone: evaluation note* Diagnosis Foraminal stenosis of cervical region- Primary Spinal stenosis in cervical region Acute post-operative pain S/P cervical spinal fusion Arthrodesis status documented in this encounter [facility] Phone: evaluation note* Diagnosis Stenosis of cervical spine with myelopathy (HCC) S/P cervical disc replacement documented in this encounter [facility] Phone: evaluation noteNo assessment information available [facility] Work Phone: History and physical note Author Ariana Brown [facility] December 15, 2022 9:15am Note Date/Time December 15, 2022 9:15 am [facility] [address] [place] [address] Gastroenterology H&P Signed Patient: Rina Lee MR#: [id number] : 1960 Acct:[id number] Age/Sex: 62 / F Adm Date: 3 Loc: Room: Type: [facility] Attending Dr: Ariana Brown MD Copies to: MD Ariana Bueno II, MD~ Date of Service: 12/15/2022 HISTORY & PHYSICAL: Patient's history with special attention to the cardiovascular, pulmonary systems and the current problem was reviewed with the patient immediately prior to the procedure. Present medications and doses reviewed in the EMR. Allergies and pertinent laboratory tests were also reviewedat this time in the EMR. The physical examination, as below, was then performed. Indication, assessment and HPI: 62-year-old female here for screening colonoscopy Family history of GI malignancy? No PHYSICAL EXAMINATION Mouth and Pharynx : Moist mucus membranes, normal dentition Cardiac: Regular rate, regular rhythm Pulmonary: Clear to auscultation bilaterally, no wheezing Neurological: Alert and oriented x3, no focal deficits noted Abdomen: Abdomen soft, non-tender REVIEW OF SYSTEMS Constitutional: Denies malaise, fevers Cardiovascular: Denies chest pain, palpitations Respiratory: Denies shortness of breath, wheezing Gastrointestinal: Per HPI Genitourinary: Denies dysuria, polyuria Musculoskeletal: Denies joint swelling, joint stiffness Neurological: Denies numbness, tingling Integumentary: Denies rashes, skin lesions Endocrine: Denies fatigue, weight loss Written informed consent obtained from the patient. Risks (including but not limited to perforation, infection, bloating, bleeding, need for emergent surgeryand loss of life), benefits and alternatives explained and questions answered. The patient verbalized understanding. Based on history patient is an appropriate candidate for the procedure. Ariana Brown M.D. Documented By: Ariana Brown MD 06/913 Signed By: <Electronically signed by Ariana Brown MD> 12/15/22914 [facility] Work Phone: Hospital course Narrative No data available for this section [facility] Discharge instructions Additional Instructions DISCHARGE INSTRUCTIONS FOR COLONOSCOPY WHAT TO EXPECT: - You may feel full, gassy or cramping after your procedure. In some cases, this may be from a few hours to a day. Walking may help relieve the discomfort. - If you have polyp(s) removed you may note some minor bloody discharge after your first bowel movements. - You should begin to recover from anesthesia within 1 hour of the procedure, however may feel groggy for the next 24 hours. DO's AND DON'Ts: - Call your doctor right away if you have a hard abdomen, severe pain, are passing lots of bright red blood or clots. - Call your doctor if you develop any rashes, hives or difficulty breathing. - Let your doctor know if you have not had a bowel movement by 3 days after your procedure. - If you take 81 mg aspirin for your heart it is safe to resume this medication. - If you take other blood thinner medications your doctor will instruct you when these can safely be resumed. - Do NOT drive for 24 hours. - Do NOT operate machinery such as power tools, lawn mowers, snow blowers, sewing machines, etc. for 24 hours. - Avoid alcoholic beverages and drugs for allergies, nerves, or sleep. - Do NOT stay alone. Do NOT leave your child unattended. - Do NOT make important personal or business decisions or sign any legal documents. - Eat solid foods and drink liquids in smaller amounts than usual until normal appetite returns. If you should experience an upset stomach, liquids high in sugar content (soda, Thiago-Aid, non-acid juices) are recommended. - You can resume normal activities tomorrow. FOLLOW UP & RECOMMENDATIONS: -Notify the doctor if you have any problems. -Repeat colonoscopy in 10 years. -Follow up with PCP. -Office number [phone]. [facility] Work Phone: Hospital Discharge instructions No data available [facility] this [facility] No data available for this section [facility] Summary Purpose Family History No Family History Records Found Medical History Relation Name Comments Kidney stones Brother Chas Substance Abuse Brother Huy High Blood Pressure Brother Porfirio Heart Attack Father Huy High Blood Pressure Father Huy Parkinsonism Father Huy Diabetes Maternal Grandmother socrates Cancer Mother Priti High Blood Pressure Mother Priti High Cholesterol Mother Priti Mental Illness Mother Priti Diabetes Sister Tere Heart Attack Sister Tere Kidney stones Sister Tere High Blood Pressure Sister Priti Relation Name Status Comments Brother Chas Alive Brother Huy Alive Brother Porfirio Alive Father Huy Maternal Grandmother socrates Mother Priti Sister Tere Alive Sister Priti Alive Relationship Condition Age at Onset Recorded Date/T flaquita father Hypertension Unknown Chronic obstructive pulmonary disease Unk nown Not Specified Chronic obstructive pulmonary disease Un known Malignant neoplasm of breast Unknown Relationship Condition Age at Onset Recorded Date/T flaquita father Hypertension Unknown Chronic obstructive pulmonary disease Unk nown Not Specified Chronic obstructive pulmonary disease Un known Malignant neoplasm of breast Unknown father Unknown Hypertension Unknown Heart disease Unknown grandparent Malignant neoplasm Unknown Not Specified Unknown Family history of mental disorder Unknown Mesothelioma Unknown sister Diabetes mellitus Unknown Advance Directives No Advanced Directives Records FoundDocuments on File Type Date 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 Advance Directives and Livin g Will Advance Directives and Livin g Will 12/18/2018 4:13 AM Power of Supervisor Pre Wave Latest Code Status on File Code Status Date Activated Date Inactivated Comments Full Code 02/06/2019 7:33 PM Full Code 10/03/2018 4:08 PM 10/09/2018 2:21 PM Full Code 09/16/2018 2:42 AM 09/20/2018 8:26 PM Full Code 11/09/2012 12:10 PM 11/12/2012 4:52 PM Documents on File Type Date 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 ACP-Advance Directive 02/12/2019 2:20 AM Latest Code Status on File Code Status Date Activated Date Inactivated Comments Full Code 02/06/2019 7:33 PM 02/10/2019 12:54 PM Documents on File Type Date 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 ACP-Advance Directive 02/12/2019 2:20 AM Latest Code Status on File Code Status Date Activated Date Inactivated Comments Full Code 02/06/2019 7:33 PM 02/10/2019 12:54 PM Full Code 10/03/2018 4:08 PM 10/09/2018 2:21 PM Full Code 09/16/2018 2:42 AM 09/20/2018 8:26 PM Full Code 11/09/2012 12:10 PM 11/12/2012 4:52 PM Latest Code Status on File Code Status Date Activated Date Inactivated Comments Full Code 08/05/2022 4:06 PM Full Code 02/06/2019 7:33 PM 02/10/2019 12:54 PM Latest Code Status on File Code Status Date Activated Date Inactivated Comments Full Code 08/05/2022 4:06 PM 08/08/2022 3:42 PM Code Status History Code Status Date Activated Date Inactivated Comments Full Code 02/06/2019 7:33 PM 02/10/2019 12:54 PM Full Code 10/03/2018 4:08 PM 10/09/2018 2:21 PM Full Code 09/16/2018 2:42 AM 09/20/2018 8:26 PM Full Code 11/09/2012 12:10 PM 11/12/2012 4:52 PM Advance Directive Response Recorded Date/ Time Advance Directives No March 10:13am Reason for Referral Specialty Diagnoses / Procedures Referred By Monet maldonado Referred To Contact Radiology Diagnoses Stenosis of cervical spine with myelopathy (HCC) Procedures MRI CERVICAL SPINE WO CONTRAST Collette Banda, DO [facility] [address] [id number] Referral ID Status Reason Start Date Expiration Date Visits Re quested Visits Authorized [id number] Closed 06/15/2022 06/15/2023 1 1 Chief Complaint and Reason for Visit Chief Complaint Z12.31 Chief Complaint Z12.31 Screening Chief Complaint z12.31 Additional Source Comments INFORMATION SOURCE (unrecogn ized section and content) DATE CREATED AUTHOR 12/22/2017 [facility] DATE CREATED AUTHOR AUTHOR'S ORGANIZ ATION 12/28/2017 [facility] DATE CREATED AUTHOR AUTHOR'S ORGANIZ ATION 10/27/2018 [facility] DATE CREATED AUTHOR AUTHOR'S ORGANIZ ATION 02/13/2019 [facility] DATE CREATED AUTHOR AUTHOR'S ORGANIZ ATION 08/08/2021 [facility] DATE CREATED AUTHOR AUTHOR'S ORGANIZ ATION 10/15/2022 [facility] DATE CREATED AUTHOR AUTHOR'S ORGANIZ ATION [facility]/27/20[facility] DATE CREATED AUTHOR AUTHOR'S ORGANIZ ATION 08/10/2023 [facility] DATE CREATED AUTHOR AUTHOR'S ORGANIZ ATION 11/18/2023 [facility] DATE CREATED AUTHOR AUTHOR'S ORGANIZ ATION 12/17/2023 [facility] DATE CREATED AUTHOR AUTHOR'S ORGANIZ ATION 02/03/2024 [facility] DATE CREATED AUTHOR AUTHOR'S ORGANIZ ATION 02/21/2024 [facility] DATE CREATED AUTHOR AUTHOR'S ORGANIZ ATION 03/13/2024 [facility] EPIC Reason for Visit (unrecogniz ed section and content) Specialty Diagnoses / Procedures Referred By Monet maldonado Referred To Contact Radiology Diagnoses Stenosis of cervical spine with myelopathy (HCC) Procedures MRI CERVICAL SPINE WO CONTRAST Collette Banda, DO [address] [facility] [address] [place] [id number] Referral ID Status Reason Start Date Expiration Date Visits Re quested Visits Authorized [id number] Closed 06/15/2022 06/15/2023 1 1 Specialty Diagnoses / Procedures Referred By Monet maldonado Referred To Contact Diagnoses Stenosis of cervical spine with myelopathy (HCC) CERVICAL STENOSIS WITH MYELOPATHY Procedures ID TOTAL DISC ARTHRP ANT SINGLE INTERSPACE CERVICAL ID OFFICE/OUTPT VISIT,PROCEDURE ONLY ID MYRICK FACETECTOMY & FORAMOTOMY 1 VRT SGM CERVICAL ANTERIOR C3-4 ARTHROPLASTY (SUPINE) POSTERIOR C3-7 LAMINOPLASTY (PRONE, C-ARM, MICROSCOPE, SYNTHES, DEPUY) Renetta Bandair, DO [address] [facility] [address] [place] [address] [facility] [address] [place] [address] Referral ID Status Reason Start Date Expiration Date Visits Re quested Visits Authorized [id number] 1 1 Care Teams (unrecognized sec tion and content) 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 Relationship Specialty Start Date End Date Frederick Lee MD [address] [place] [address] PCP - General Internal Medicine 10/11/18 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 Relationship Specialty Start Date End Date Frederick Lee MD [address] [place] [address] PCP - General Internal Medicine 10/11/18 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 Relationship Specialty Start Date End Date Frederick Lee MD [address] [place] [address] PCP - General Internal Medicine 10/11/18 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 Relationship Specialty Start Date End Date Frederick Lee MD [address] [place] [address] PCP - General Internal Medicine 10/11/18 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 Relationship Specialty Start Date End Date Frederick Lee MD [address] [place] [address] PCP - General Internal Medicine 10/11/18 Team Status: Active Member Role Status Dates Frederick Lee II MD Primary Care Provider Active Team Status: Inactive Member Role Status Dates Frederick Lee II MD Primary Care Provider Active Eddie Hancock MD Attending Provider Active Team Status: Inactive Member Role Status Dates Frederick Lee II MD Primary Care Provider Active Ariana Brown MD Attending Provider Active 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 Relationship Specialty Start Date End Date Frederick Lee MD [address] [place] [address] PCP - General Internal Medicine 10/11/18 Team Status: Inactive Member Role Status Dates Frederick Lee II MD Primary Care Provider Active Start: November 11, 2023 End: November 11, 2023 Harshal Kevin DO Attending Provider Active Start: November 11, 2023 End: November 11, 2023 Ordered Prescriptions (unrec ognized section and content) Prescription Sig Dispensed Refills Start Date End Da te predniSONE (DELTASONE) 20 MG tablet Take 3 tablets by mouth daily for 5 days, THEN 2 tablets daily for 5 days, THEN 1 tablet daily for 5 days. 30 tablet 0 08/08/2022 08/23/2022 methocarbamol (ROBAXIN) 750 MG tablet Take 1 tablet by mouth 4 times daily for 10 days 40 tablet 0 08/08/2022 08/18/2022 oxyCODONE (ROXICODONE) 5 MG immediate release tabletIndications:Acute post-operative pain,S/P cervical spinal fusion Take 1-2 tablets by mouth every 6 hours as needed for Pain for up to 7 days. Max Daily Amount: 40 mg 56 tablet 0 08/08/2022 2022 Scheduled Active and Recently Administ ered Medications (unrecognized section and content) Medication Order 08/06/2022 08/07/2022 08/08/2022 acetaminophen (TYLENOL) tablet 650 mg 650 mg, Oral, EVERY 6 HOURS, First dose on Tue08/05/22 at 1630, Until Discontinued, Maximum dose of acetaminophen is 4000 mg from all sources in 24 hours., Post-op 0349 (Given - Provider: Isaura Osorio RN)0956 (Given - Provider: Galilea Pierce RN)1648 (Given - Provider: Galilea Pierce RN)2234 (Given - Provider: Brendon Sullivan RN) 0344 (Given - Provider: Brendon Sullivan RN)1046 (Given - Provider: Galilea Pierce RN)1615 (Given - Provider: Galilea Pierce RN)2201 (Given - Provider: Brendon Sullivan, RN) 0416 (Given - Provider: Brendon Sullivan, RN)1059 (Given - Provider: Brisa Flores RN)1630 (Due)2230 (Due) buPROPion (WELLBUTRIN XL) extended release tablet 150 mg 150 mg, Oral, EVERY MORNING, First dose on Tue08/06/22 at 0900, Until Discontinued, Do not crush or break., Post-op 0823 (Given - Provider: Galilea Pierce RN) 0812 (Given - Provider: Galilea Pierce RN) 0840 (Given - Provider: Irma Chavez, YASMEEN) ceFAZolin (ANCEF) 2000 mg in sterile water 20 mL IV syringe (COMPLETED) 2,000 mg, IntraVENous, EVERY 8 HOURS, 2 doses, First dose on Marielena 08/05/22 at 2000, Last dose on Tue08/06/22 at 0400, Antimicrobial Indications: Surgical Prophylaxis, Administer over 5 mins., Post-op 0350 (Given - Provider: Isaura Osorio, YASMEEN) enoxaparin (LOVENOX) injection 40 mg 40 mg, SubCUTAneous, DAILY, First dose on Tue08/06/22 at 0900, Until Discontinued, Indication of Use: Prophylaxis-DVT/PE, Pharmacy to dose if renal insufficiency present., Post-op 0823 (Given - Provider: Galilea Pierce RN) 0812 (Given - Provider: Galilea Pierce RN) 0840 (Given - Provider: Irma Chavez, YASMEEN) estradiol-norethindrone (COMBIPATCH) 0.05-0.25 MG/DAY 1 patch (Patient Supplied) 1 patch, TransDERmal, TWICE WEEKLY (Once per day on Tue), First dose on Tue08/05/22 at 1630, Until Discontinued, Post-op ibuprofen (ADVIL;MOTRIN) tablet 600 mg 600 mg, Oral, EVERY 8 HOURS, First dose (after last modification) on Tue08/08/22 at 0930, Until Discontinued, Do not crush or chew. 0954 (Given - Provider: Brisa Flores RN)1730 (Due) ketorolac (TORADOL) injection 15 mg (COMPLETED) Ketorolac is contraindicated in patients with advanced renal impairment and in patients at risk of renal failure due to volume depletion. For 65 years of age and older OR weight less than 50 kg, use 15 mg IV every 6 hours; MAX dose: 60 mg/day. Dose greater than 30 mg must be administered via intramuscular route. Do not administer for more than 5 days., 15 mg, IntraVENous, EVERY 6 HOURS, 4 doses, First dose on Marielena 08/05/22 at 1600, Last dose on Tue08/06/22 at 1000, Do not administer for more than 5 days. 0346 (Given - Provider: Isaura Osorio, YASMEEN)0956 (Given - Provider: Galilea Pierce RN) methocarbamol (ROBAXIN) tablet 750 mg 750 mg, Oral, 4 TIMES DAILY, First dose on Tue08/06/22 at 0900, Until Discontinued 822 (Given - Provider: Galilea Pierce RN)1314 (Given - Provider: Galilea Pierce RN)1649 (Given - Provider: Galilea Pierce RN)2000 (Given - Provider: Brendon Sullivan RN) 08 (Given - Provider: Galilea Pierce RN)121 (Given - Provider: Galilea Pierce RN)161 (Given - Provider: Galilea Pierce RN)2014 (Given - Provider: Brendon Sullivan RN) 0840 (Given - Provider: Irma Chavez RN)1300 (Due)1700 (Due)2100 (Due) pantoprazole (PROTONIX) tablet 40 mg 40 mg, Oral, DAILY, First dose on Tue08/05/22 at 1630, Until Discontinued, Do not crush or break., Post-op 822 (Given - Provider: Galilea Pierce RN) 0812 (Given - Provider: Galilea Pierce RN) 0839 (Given - Provider: Irma Chavez, YASMEEN) pregabalin (LYRICA) capsule 150 mg 150 mg, Oral, 3 TIMES DAILY, First dose on Tue08/05/22 at 1630, Until Discontinued, Post-op 822 (Given - Provider: Galilea Pierce RN)1314 (Given - Provider: Galilea Pierce RN)1999 (Given - Provider: Brendon Sullivan RN) 08 (Given - Provider: Galilea Pierce RN)1320 (Given - Provider: Galilea Pierce, YASMEEN)2014 (Given - Provider: Brendon Sullivan RN) 0839 (Given - Provider: Irma Chavez RN)1400 (Due)1999 (Due) sennosides-docusate sodium (SENOKOT-S) 8.6-50 MG tablet 1 tablet 1 tablet, Oral, 2 TIMES DAILY, First dose on Tue08/05/22 at 2100, Until Discontinued, Post-op 822 (Given - Provider: Galilea Pierce, YASMEEN)1999 (Given - Provider: Brendon Sullivan, RN) 08 (Given - Provider: Galilea Pierce, YASMEEN)2014 (Given - Provider: Brendon Sullivan, RN) 0839 (Given - Provider: Irma Chavez, RN)2100 (Due) sodium chloride flush 0.9 % injection 5-40 mL 5-40 mL, IntraVENous, EVERY 12 HOURS SCHEDULED (2 times per day), First dose on Marielena 08/05/22 at 2100, Until Discontinued, For Line Patency: Peripheral IV = 5 mL; Midline or Central Line = 10 mL/lumen. If following IV push medication, administer flush at same rate as the IV push. Flush volume is determined by type of infusion therapy being given. For non-viscous solutions use: Peripheral IV = 5 mL Midline or Central Line = 10 mL/lumen For viscous solutions (i.e. blood components, parenteral nutrition, contrast media, or after obtaining blood sample) use: Peripheral IV = 10 mL Midline or Central Line = 20 mL/lumen, Post-op 0829 (Given - Provider: Galilea Pierce RN)2000 (Given - Provider: Brendon Sullivan RN) 0824 (Not Given - Provider: Galilea Pierce RN - Reason: IV Fluid Infusing)2015 (Given - Provider: Brendon Sullivan RN) 0840 (Given - Provider: Irma Chavez, YASMEEN)2100 (Due) Continuous Medication Order 08/06/2022 08/07/2022 08/08/2022 0.9 % sodium chloride infusion (CANCELED) IntraVENous, at 100 mL/hr, CONTINUOUS, Starting on Marielena 08/05/22 at 1630, Post-op 0246 (New Bag - Provider: Isaura Osorio, YASMEEN) PRN Medication Order 08/06/2022 08/07/2022 08/08/2022 0.9 % sodium chloride infusion IntraVENous, at 5-250 mL/hr, PRN, if patient receiving piggyback infusions and maintenance fluids are not ordered OR KVO fluids to protect IV site / prevent frequent line interruptions/ long duration, Starting on Marielena 08/05/22 at 1601, For piggyback infusion, administer at same rate as piggyback for a total of 25 mL. Enter 25 mL into dose field and piggyback rate into rate field of order. If piggyback is infusing at a rate less than 100 mL/hr, enter 25 mL into dose field and 100 mL/hr into rate field of order. For KVO fluids, enter rate of 20 mL/hr or less into rate field of order., Post-op bisacodyl (DULCOLAX) suppository 10 mg 10 mg, Rectal, DAILY PRN, Starting on Marielena 08/05/22 at 1601, Until Discontinued, Constipation, Second line therapy for constipation, After 24 hours, if no result from first line PRN therapy, give second line therapy in combination with first line therapy., Post-op HYDROmorphone (DILAUDID) injection 0.5 mg (CANCELED) HYDROmorphone (DILAUDID) 1.5mg IV is equivalent to morphine 10mg IV, 0.5 mg, IntraVENous, EVERY 3 HOURS PRN, Starting on Marielena 08/05/22 at 1601, Until 08/07/22 at 1538, Pain Moderate (4-6), If oral and IV narcotics ordered, use oral first and only use IV if oral is ineffective or cannot take oral. Do Not give oral and IV within 1 hour of each other unless specifically ordered., Post-op 0401 (Given - Provider: Isaura Osorio RN)1208 (See Alternative - Provider: Galilea Pierce RN)2234 (See Alternative - Provider: Brendon Sullivan RN) 0300 (See Alternative - Provider: Brendon Sullivan RN)0812 (See Alternative - Provider: Galilea Pierce, YASMEEN)1352 (See Alternative - Provider: Galilea Pierce, YASMEEN) HYDROmorphone (DILAUDID) injection 1 mg (CANCELED) HYDROmorphone (DILAUDID) 1.5mg IV is equivalent to morphine 10mg IV, 1 mg, IntraVENous, EVERY 3 HOURS PRN, Starting on Marielena 08/05/22 at 1601, Until 08/07/22 at 1538, Pain Severe (7-10), If oral and IV narcotics ordered, use oral first and only use IV if oral is ineffective or cannot take oral. Do Not give oral and IV within 1 hour of each other unless specifically ordered., Post-op 0401 (See Alternative - Provider: Isaura Osorio RN)1208 (Given - Provider: Galilea Pierce RN)2234 (Given - Provider: Brendon Sullivan, RN) 0300 (Given - Provider: Brendon Sullivan, RN)0812 (Given - Provider: Galilea Pierce, RN)1352 (Given - Provider: Galilea Pierce, RN) magnesium hydroxide (MILK OF MAGNESIA) 400 MG/5ML suspension 30 mL 30 mL, Oral, DAILY PRN, Starting on Marielena 08/05/22 at 1601, Until Discontinued, Constipation, First line therapy for constipation., Post-op ondansetron (ZOFRAN) injection 4 mg(Linked Group 1) 4 mg, IntraVENous, EVERY 6 HOURS PRN, Starting on Marielena 08/05/22 at 1601, Until Discontinued, Nausea, Vomiting, Administer if oral route cannot be used., Post-op 035 (Given - Provider: Isaura Osorio RN) ondansetron (ZOFRAN-ODT) disintegrating tablet 4 mg(Linked Group 1) 4 mg, Oral, EVERY 8 HOURS PRN, Starting on Marielena 08/05/22 at 1601, Until Discontinued, Nausea, Vomiting, Post-op 035 (See Alternative - Provider: Isaura Osorio RN) oxyCODONE (ROXICODONE) immediate release tablet 10 mg(Linked Group 2) 10 mg, Oral, EVERY 4 HOURS PRN, Starting on Marielena 08/05/22 at 1601, Until Discontinued, Pain Severe (7-10), Post-op 0824 (Given - Provider: Galilea Pierce RN)1517 (Given - Provider: Galilea Pierce RN)1924 (Given - Provider: Brendon Sullivan, RN) 1046 (Given - Provider: Galilea Pierce, YASMEEN)1615 (Given - Provider: Galilea Pierce RN)2015 (Given - Provider: Brendon Sullivan, RN) 0014 (Given - Provider: Brendon Sullivan, RN)0416 (Given - Provider: Brendon Sullivan, RN)0842 (See Alternative - Provider: Irma Chavez RN)1241 (Given - Provider: Brisa Flores RN) oxyCODONE (ROXICODONE) immediate release tablet 5 mg(Linked Group 2) 5 mg, Oral, EVERY 4 HOURS PRN, Starting on Marielena 08/05/22 at 1601, Until Discontinued, Pain Moderate (4-6), Post-op 0824 (See Alternative - Provider: Galilea Pierce RN)1517 (See Alternative - Provider: Galilea Pierce, RN)1924 (See Alternative - Provider: Brendon Sullivan RN) 1046 (See Alternative - Provider: Galilea Pierce, RN)1615 (See Alternative - Provider: Galilea Pierce, RN)2015 (See Alternative - Provider: Brendon Sullivan RN) 0014 (See Alternative - Provider: Brendon Sullivan RN)0416 (See Alternative - Provider: Brendon Sullivan RN)0842 (Given - Provider: Irma Chavez RN)1241 (See Alternative - Provider: Brisa Flores RN) sodium chloride flush 0.9 % injection 5-40 mL 5-40 mL, IntraVENous, PRN, Starting on Marielena 08/05/22 at 1601, Until Discontinued, Line Care, After every IV line use, For Line Patency: Peripheral IV = 5 mL; Midline or Central Line = 10 mL/lumen. If following IV push medication, administer flush at same rate as the IV push. Flush volume is determined by type of infusion therapy being given. For non-viscous solutions use: Peripheral IV = 5 mL Midline or Central Line = 10 mL/lumen For viscous solutions (i.e. blood components, parenteral nutrition, contrast media, or after obtaining blood sample) use: Peripheral IV = 10 mL Midline or Central Line = 20 mL/lumen, Post-op Linked Groups Order Group 1: ondansetron (ZOFRAN-ODT) disintegrating tablet 4 mgJump to med 4 mg, Oral, EVERY 8 HOURS PRN, Starting on Marielena 08/05/22 at 1601, Until Discontinued, Nausea, Vomiting, Post-op Or ondansetron (ZOFRAN) injection 4 mgJump to med 4 mg, IntraVENous, EVERY 6 HOURS PRN, Starting on Marielena 08/05/22 at 1601, Until Discontinued, Nausea, Vomiting
Administer if oral route cannot be used.
Post-op Group 2: oxyCODONE (ROXICODONE) immediate release tablet 5 mgJump to med 5 mg, Oral, EVERY 4 HOURS PRN, Starting on Marielena 08/05/22 at 1601, Until Discontinued, Pain Moderate (4-6), Post-op Or oxyCODONE (ROXICODONE) immediate release tablet 10 mgJump to med 10 mg, Oral, EVERY 4 HOURS PRN, Starting on Marielena 08/05/22 at 1601, Until Discontinued, Pain Severe (7-10), Post-op Goals (unrecognized section and content) Goals may be documented in a n alternate section No data available for this section No data available for this section No data available for this section No data available for this section No data available for this section No data available for this sectionGoals may be documented in an alternate section No data available for this section No data available for this section No data available for this section FOR RECORDS PERTAINING TO PATIENTS WHO ARE OR HAVE BEEN ENROLLED IN A CHEMICAL DEPENDENCY/SUBSTANCEABUSE PROGRAM, SOME INFORMATION MAY BE OMITTED. This clinical summary was aggregated from multiple sources. Caution should be exercised in using it in the provision of clinical care. This summary normalizes information from multiple sources, and as a consequence, information in this document may materially change the coding, format and clinical context of patient data. In addition, data may be omitted in some cases. CLINICAL DECISIONS SHOULD BE BASED ON THE PRIMARY CLINICAL RECORDS. [employer] [facility]. provides no warranty or guarantee of the accuracy or completeness of information in this document.
[2024-03-22] MEDS: LACTATED RINGER'S SOLUTION 1,000 ML 50 ML IV (08:21)
[2024-03-22] MEDS: CIPROFLOXACIN 400 MG/200 ML D5W PREMIX 200 MG IV (09:27)
[2024-03-22 09:50] VITALS: BP 97/51; PULSE 79; TEMP 36.4; O2SAT 96
--- NOTE | 2024-03-22 09:50 | P.URON_ITS ---
Urology Surgery Operative Note Operative Note Procedure Date: 03/22/24 Time Out Performed: yes Pre-op Diagnosis: Severe urethral stenosis Post-op Diagnosis: same as pre-op Procedures performed: 1. Urethral dilation with [place] sounds to 32 [place]. 2. Cystoscopy. Anesthesia: MAC Primary Surgeon: Spike Odom Complications: None Estimated blood loss (mL): 5 Findings: Significant urethral stenosis and atrophic vaginitis Specimens: None Drains: None Indications for Procedures: This lady has rather significant urethral stenosis, recurrent UTIs and bladder pain. She is using estradiol cream. We did attempt to dilate her under local but we were unable due to severe pain. She now presents for urethral dilation and cystoscopy under anesthesia. She has signed an informed consent for these procedures after risks were explained. Detailed description of Procedure: The patient was brought to the operating room and placed on the operating room table in the supine position. SCDs were placed on the lower extremities and turned on and functioning during the entire case. Timeout was done by all parties in the room. We all agreed upon the patient's identification and the planned procedures for this patient. MAC. anesthesia was then administered. The patient was then repositioned into the modified dorsal lithotomy position. All pressure points were satisfactorily padded. Genitalia were sterilely prepped and draped in usual fashion. I started with [place] sounds and dilated her from 20 [place] [employer] up to 32 [place] [employer]. The urethra was tight and fairly brittle. It bled from the dilation. I then passed a 22 [place] Olympus cystoscope per urethra and into the bladder. Panendoscopy in the bladder revealed no evidence of any tumors or stones. She had high-grade trabeculation with diffuse diverticuli formation. The bladder was drained of its contents and the scope was then removed. She [facility] then [facility] and wheeled to PACU in stable condition.
[2024-03-22] MEDS: PHENAZOPYRIDINE 100 MG TABLET PO (10:03)
[2024-03-22 10:05] VITALS: BP 98/63; PULSE 60; O2SAT 95
[2024-03-22] MEDS: HYDROMORPHONE HCL 0.5 MG/0.5 ML SYRINGE IV (10:09)
[2024-03-22 10:20] VITALS: BP 94/59; PULSE 63; O2SAT 95
[2024-03-22 10:35] VITALS: BP 99/62; PULSE 62; O2SAT 97
[2024-03-22 10:50] VITALS: BP 97/63; PULSE 59; O2SAT 99
== END 2024-03-22 11:00 | disposition home or self-care (01) ==
PROVIDERS: PCP Internal Medicine; Visit Provider Urology
PROC: (CPT 52281; principal; 2024-03-22 09:00)
DX: N35.92 Unspecified urethral stricture, female (principal); N95.2 Postmenopausal atrophic vaginitis; N32.89 Other specified disorders of bladder; R39.89 Other symptoms and signs involving the genitourinary system; I10 Essential (primary) hypertension; Z87.442 Personal history of urinary calculi; Z90.49 Acquired absence of other specified parts of digestive tract; Z90.710 Acquired absence of both cervix and uterus; K21.9 Gastro-esophageal reflux disease without esophagitis
CPT/HCPCS: 52281; 36415; J0744; J1170; J2250; J2704; J3010